=== PATIENT | male | born 1955 | race Caucasian/White ===

== ENCOUNTER 2016-09-08 11:33 | Inpatient (IN) | payer OTHER ==
[~2016-09-08] VITALS: Ht 175.3 cm; Wt 105.0 kg
[~2016-09-08 11:33] MED LIST: ALL300 PO; AMLO-110 PO; ASPEC81 PO; ATEN50TA PO; ATV5 PO; CHOL100027 PO; CINNAMON PO; COQ10100 PO; FLV1; FRS/40 PO; IMD/2 PO; KPP/750 PO; LISI-725 PO; MULT-506 PO; NRN/300 PO; OMEG10007 PO; SERT50TA PO; THIA50TA3 PO
[2016-09-08] MEDS ORDERED: CITA40TA12 PO (12:47)
[2016-09-08] MEDS ORDERED: ONDA8TAB6 PO (12:47)
[2016-09-08] MEDS ORDERED: PROC1TAB5 PO (12:47)
[2016-09-08 13:27] LABS: INR 1.1 (0.9-1.1); PARTIAL THROMBOPLASTIN RATIO 1.1; PROTHROMBIN TIME (PATIENT) 11.4 SECONDS (9.0-12.0)
--- NOTE | 2016-09-08 13:27 | DIAGNOSTIC IMAGING REPORT ---
RIGHT LOWER EXTREMITY VENOUS DOPPLER CLINICAL HISTORY: Right lower leg swelling. COMPARISON STUDY: No previous studies for comparison. TECHNIQUE: Sonography of the deep venous system of the right lower extremity was performed. Compression and augmentation were evaluated. FINDINGS: The right common femoral, superficial femoral and popliteal veins were compressible. Augmentation was normal. Flow was shown within the deep calf vessels. Note was made of a 3.4 x 1.3 x 1.6 cm right inguinal lymph node. This contained a fatty hilum. The cortex is slightly thickened. IMPRESSION: 1. No evidence of deep venous thrombus within the right lower extremity. 2. Mildly enlarged right inguinal lymph node which contains a fatty hilum with slightly thickened cortex. This is probably benign and may be reactive. Electronically signed by: Jakob Brewster M.D. 09/08/2016 1:26 PM Dictated Date/Time: 09/08/2016 1:25 PM
[2016-09-08 13:33] LABS: HEMATOCRIT 30.5 % (42-52); MEAN CELL VOLUME 91.9 fL (80-100); MEAN CORPUSCULAR HEMOGLOBIN 32.2 pg (25-34); MEAN CORPUSCULAR HGB CONC 35.1 g/dl (32-36); MEAN PLATELET VOLUME 9.7 fL (7.4-10.4); PLATELET COUNT 132 K/uL (130-400); RED BLOOD COUNT 3.32 M/uL (4.7-6.1)
[2016-09-08 13:50] LABS: BUN/CREATININE RATIO 17.4 (10-20); CREATININE 0.84 mg/dl (0.60-1.40); POTASSIUM 3.8 mmol/L (3.5-5.1)
[2016-09-08] MEDS ORDERED: VANCOMYCIN INJ 1,000 MG in SODIUM CHLORIDE 0.9% 250ML 250 ML IV STA (14:01)
[2016-09-08] MEDS ORDERED: PIPERACILLIN/TAZOBACTAM 4.5 GM/100ML D5W IV STA (14:01)
[2016-09-08 14:12] LABS: COMPLETE YES; EOS % 1.3 %; IG% 0.6 %; LYMPH % 57.5 %; LYMPH ABS # 0.92 K/uL (1.2-3.4); MONO % 6.3 %; NEUT % 34.3 %
--- NOTE | 2016-09-08 15:14 | History and Physical ---
History & Physical Date & Time of Service: September 08, 2016 at 15:14 Chief Complaint: Swollen Foot Possible Cellulitis Primary Care Physician: Gini Roe M.D. History of Present Illness Source: patient this is 61 Yo male with hx of CLL on chemo tx with Rituximab /Bendamustine by Dr Winston Roe , Hx of prior alcohol dependency , chronic bilateral lower ext neuropathy, prior hx of MRSA infection , depression , HTN , GERD sent form Hematology office at [facility] due to concern of Right foot/rt great toe infection , cellulitis . Pt been diagnosed with B cell CLL in 10/2009 , completed 4 cycles of Rituximab/ Bendamustine combination chemotherapy on early May, 2014 has been in remission since recent blood work on 08/13/16 showed WBC 32 K , platelets 75 K , with absolute lymphocyte count of 28 K pt is started back on chemo tx Ist cycle given on Wednesday08/25/16 pt was at [facility] onc clinic for follow up appointment post chemo and lab check found to have swollen and red right foot , right great toe , with an open wound at the tip of rt great toe with serous drainage pt has hx of chronic neuropathy -denies of any pain or discomfort , does not remember having trauma no complain of fever or chills due to significant immunocompromised state with recent chemo tx /CLL /high risk for venous thromboembolism pt was directed to ER at [facility] in the ER pt found to be Neutropenic with ANC < 1 K , Rt foot form rt great toe to dorsum of foot was red/increased warmth , + 1-2 lower ext edema Doppler of lower ext was negative for DVT Past Medical/Surgical History Medical Problems: (1) Alcohol abuse Status: Resolved (2) History of - hypertension Status: Chronic (3) PERSONAL HX OF TIA,& CEREBRAL INFARCTION W/OUT RES DEFICITS Status: Resolved Social History Smoking Status: Never Smoker Drug Use: none Marital Status: single Housing status: lives alone Occupational Status: unemployed Immunizations History of Influenza Vaccine: No Influenza Vaccine Date: Mar 04, 2009 History of Tetanus Vaccine?: No History of Pneumococcal: Unknown History of Hepatitis B Vaccine: No Allergies Coded Allergies: No Known Allergies (Verified , NONE, 09/08/16) Home Medications Scheduled Allopurinol (Allopurinol), 300 MG PO DAILY Amlodipine (Norvasc), 5 MG PO DAILY Aspirin Enteric Coated (Ecotrin Or Generic *), 81 MG PO DAILY Atenolol (Tenormin), 50 MG PO DAILY Cholecalciferol (Vitamin D 1000 Unit), 1,000 INTER.UNIT PO DAILY Citalopram Hydrobromide (Celexa), 40 MG PO DAILY Coenzyme Q10 (Ubidecarenone) (Co Q10 *), 200 CAP PO DAILY Fish Oil ([place]-3), 1 CAP PO DAILY Folic Acid (Folic Acid), DAILY Gabapentin (Neurontin), 900 MG PO TID Levetiracetam (Keppra), 750 MG PO BID Lisinopril (Zestril), 20 MG PO DAILY Lorazepam (Ativan *), 0.5 MG PO BID PRN Multivitamin (Multivitamin), 1 TAB PO DAILY Sertraline (Zoloft), 50 MG PO BID Thiamine Hcl (Vitamin B-1), 50 MG PO DAILY [Cinnamon], 500 MG PO DAILY Scheduled PRN Ondansetron Hcl (Zofran), 8 MG PO TID PRN for Nausea Prochlorperazine Maleate (Compazine), 10 MG PO Q6H PRN for Nausea Review of Systems Constitutional: + chills, + fatigue, + weakness Respiratory: No cough, No dyspnea at rest, No dyspnea on exertion, No hemoptysis, No problem reported, No shortness of breath, No sputum, No wheezing Musculoskeletal: + problem reported (rt great toe infection ) Neurologic: + balance problems (neuropathy ) Physical Exam Vital Signs Date Time Temp Pulse Resp B/P Pulse Ox O2 Delivery O2 Flow Rate FiO2 09/08/16 13:40 78 18 123/56 96 Room Air 09/08/16 11:40 36.7 89 20 135/80 95 Room Air General Appearance: no apparent distress Eyes: sclerae normal Respiratory/Chest: chest non-tender, lungs clear, normal breath sounds Cardiovascular: regular rate, rhythm Abdomen/GI: normal bowel sounds, non tender, soft Neurologic/Psych: alert, normal mood/affect, oriented x 3 Diagnostics Laboratory Results Results Past 24 Hours Test 09/08/16 12:38 09/08/16 15:00 Range/Units White Blood Count 1.60 4.8-10.8 K/uL Red Blood Count 3.32 4.7-6.1 M/uL Hemoglobin 10.7 14.0-18.0 g/dL Hematocrit 30.5 42-52 % Mean Corpuscular Volume 91.9 80-100 fL Mean Corpuscular Hemoglobin 32.2 25-34 pg Mean Corpuscular Hemoglobin Concent 35.1 32-36 g/dl Platelet Count 132 130-400 K/uL Mean Platelet Volume 9.7 7.4-10.4 fL Neutrophils (%) (Auto) 34.3 % Lymphocytes (%) (Auto) 57.5 % Monocytes (%) (Auto) 6.3 % Eosinophils (%) (Auto) 1.3 % Basophils (%) (Auto) 0.0 % Neutrophils # (Auto) 0.55 1.4-6.5 K/uL Lymphocytes # (Auto) 0.92 1.2-3.4 K/uL Monocytes # (Auto) 0.10 0.11-0.59 K/uL Eosinophils # (Auto) 0.02 0-0.5 K/uL Basophils # (Auto) 0.00 0-0.2 K/uL RDW Standard Deviation 48.5 36.4-46.3 fL RDW Coefficient of Variation 14.7 11.5-14.5 % Immature Granulocyte % (Auto) 0.6 % Immature Granulocyte # (Auto) 0.01 0.00-0.02 K/uL Prothrombin Time 11.4 9.0-12.0 SECONDS Prothromb Time International Ratio 1.1 0.9-1.1 Activated Partial Thromboplast Time 29.3 21.0-31.0 SECONDS Partial Thromboplastin Ratio 1.1 Sodium Level 136 136-145 mmol/L Potassium Level 3.8 3.5-5.1 mmol/L Chloride Level 102 98-107 mmol/L Carbon Dioxide Level 28 21-32 mmol/L Anion Gap 6.0 3-11 mmol/L Blood Urea Nitrogen 15 7-18 mg/dl Creatinine 0.84 0.60-1.40 mg/dl Est Creatinine Clear Calc Drug Dose 111.7 ml/min Estimated GFR () 108.8 Estimated GFR (Non- 93.8 BUN/Creatinine Ratio 17.4 10-20 Random Glucose 89 70-99 mg/dl Calcium Level 8.0 8.5-10.1 mg/dl Microbiology Results 09/08/16 Blood Culture, Received Pending 09/08/16 Blood Culture, Received Pending Diagnostic Radiology RIGHT LOWER EXTREMITY VENOUS DOPPLER CLINICAL HISTORY: Right lower leg swelling. COMPARISON STUDY: No previous studies for comparison. TECHNIQUE: Sonography of the deep venous system of the right lower extremity was performed. Compression and augmentation were evaluated. FINDINGS: The right common femoral, superficial femoral and popliteal veins were compressible. Augmentation was normal. Flow was shown within the deep calf vessels. Note was made of a 3.4 x 1.3 x 1.6 cm right inguinal lymph node. This contained a fatty hilum. The cortex is slightly thickened. IMPRESSION: 1. No evidence of deep venous thrombus within the right lower extremity. 2. Mildly enlarged right inguinal lymph node which contains a fatty hilum with slightly thickened cortex. This is probably benign and may be reactive. Impression Assessment and Plan LOWER EXT CELLULITIS /RT GREAT TOE INFECTION : - non healing infection of rt great toe , in setting of neuropathy -cont empiric abx with Vanco .Zosyn blood culture/wound culture ordered ID eval requested lower ext Doppler negative for DVT NEUTROPENIA : possible due to recent chemo tx follow CBC ordered for neutropenic precaution Heme onc consult requested HX OF CLL ON CHEMO TX follow with Heme onc Dr Roe Consult requested SEIZURE DISORDER : cont Keppra HTN: BP stable cont Atenolol HX OF PERIPHERAL NEUROPATHY cont Neurontin FULL CODE DISPOSITION ; expected to be discharged home when medially stable Medicine follow up with Dr Gini Roe Level of Care Med/Surg Resuscitation Status FULL RESUSCITATION VTE Prophylaxis VTE Risk Assessment Done? Y/N: Yes Risk Level: Moderate Given or contraindicated: Unfractionated heparin SQ Additional Copies To Gini Roe M.D. Patel, Nilesh A., M.D.
[2016-09-08] MEDS ORDERED: PROCHLORPERAZINE MALEATE 10 MG TAB PO PRN (15:15)
[2016-09-08] MEDS ORDERED: ALUMINUM/MAGNESIUM/SIMETH (MAALOX MAX) 30 ML UDC PO PRN (15:15)
[2016-09-08] MEDS ORDERED: ACETAMINOPHEN 325 MG TAB PO PRN (15:15)
[2016-09-08] MEDS ORDERED: MAGNESIUM HYDROXIDE SUSP 30 ML UDC PO PRN (15:15)
[2016-09-08] MEDS ORDERED: ONDANSETRON 8 MG TAB PO PRN (15:15)
[2016-09-08] MEDS ORDERED: ZOLPIDEM TARTRATE 5 MG TAB PO PRN (15:15)
[2016-09-08] MEDS ORDERED: LORAZEPAM 0.5 MG TAB PO PRN (15:15)
[2016-09-08] MEDS ORDERED: ONDANSETRON INJ 2 MG/ML 2 ML VIAL IV PRN (15:15)
[2016-09-08] MEDS ORDERED: POLYETHYLENE (MIRALAX) 17 GM PACK PO PRN (15:15)
[2016-09-08] MEDS ORDERED: VANCOMYCIN CONSULT ACTIVE PRN (15:30)
[2016-09-08] MEDS ORDERED: PIPERACILL/TAZOBAC CONSULT ACTIVE PRN (15:30)
--- NOTE | 2016-09-08 16:42 | Pharmacy Progress Note ---
Pharmacy Antibiotic Consult Date of Service: September 08, 2016. Pharmacy Dosing Scope Pharmacy is consulted to initiate Vancomycin/Zosyn IV dosing therapy, order appropriate labs and adjust drug dose/frequency. Subjective The patient is a 61 year old male admitted on empirically starting IV Vancomycin /Zosyn for right foot cellulitis. Objective Height (Feet): 5 Height (Inches): 10.00 Weight (Kilograms): 107.000 Lab Results (24hrs): Test 09/08/16 12:38 09/08/16 15:00 White Blood Count 1.60 K/uL (4.8-10.8) Red Blood Count 3.32 M/uL (4.7-6.1) Hemoglobin 10.7 g/dL (14.0-18.0) Hematocrit 30.5 % (42-52) Mean Corpuscular Volume 91.9 fL (80-100) Mean Corpuscular Hemoglobin 32.2 pg (25-34) Mean Corpuscular Hemoglobin Concent 35.1 g/dl (32-36) Platelet Count 132 K/uL (130-400) Mean Platelet Volume 9.7 fL (7.4-10.4) Neutrophils (%) (Auto) 34.3 % Lymphocytes (%) (Auto) 57.5 % Monocytes (%) (Auto) 6.3 % Eosinophils (%) (Auto) 1.3 % Basophils (%) (Auto) 0.0 % Neutrophils # (Auto) 0.55 K/uL (1.4-6.5) Lymphocytes # (Auto) 0.92 K/uL (1.2-3.4) Monocytes # (Auto) 0.10 K/uL (0.11-0.59) Eosinophils # (Auto) 0.02 K/uL (0-0.5) Basophils # (Auto) 0.00 K/uL (0-0.2) RDW Standard Deviation 48.5 fL (36.4-46.3) RDW Coefficient of Variation 14.7 % (11.5-14.5) Immature Granulocyte % (Auto) 0.6 % Immature Granulocyte # (Auto) 0.01 K/uL (0.00-0.02) Prothrombin Time 11.4 SECONDS (9.0-12.0) Prothromb Time International Ratio 1.1 (0.9-1.1) Activated Partial Thromboplast Time 29.3 SECONDS (21.0-31.0) Partial Thromboplastin Ratio 1.1 Sodium Level 136 mmol/L (136-145) Potassium Level 3.8 mmol/L (3.5-5.1) Chloride Level 102 mmol/L (98-107) Carbon Dioxide Level 28 mmol/L (21-32) Anion Gap 6.0 mmol/L (3-11) Blood Urea Nitrogen 15 mg/dl (7-18) Creatinine 0.84 mg/dl (0.60-1.40) Est Creatinine Clear Calc Drug Dose 111.7 ml/min Estimated GFR () 108.8 Estimated GFR (Non- 93.8 BUN/Creatinine Ratio 17.4 (10-20) Random Glucose 89 mg/dl (70-99) Calcium Level 8.0 mg/dl (8.5-10.1) Lactic Acid Level 0.6 mmol/L (0.4-2.0) Micro Results: Item Value Date Time Blood Culture Received 09/08/16 1244 Blood Pending Blood Culture Received 09/08/16 1238 Blood Pending Recent Pertinent Medications Item Value Date Time Piperacillin Sod/ 1 ea 09/08/16 1530 Tazobactam Sod UD PRN/N/A (Consult) Vancomycin HCl 1 ea 09/08/16 1530 (Consult) UD PRN/N/A Piperacillin Sod/ 4.5 gm 09/08/16 1401 Tazobactam Sod NOW STAT/IV 09/08/16 1418 (Zosyn Iv) Vancomycin HCl 270 ml @ 125 mls/hr 09/08/16 1401 1000 mg/Sodium NOW STAT/IV 09/08/16 1515 Chloride Assessment & Plan [age] yo male patient empirically starting IV Zosyn and IV Vancomycin for right foot cellulitis. Blood cultures have been drawn and are pending. Patient with BMI greater than 30 kg/m2 thus will adjust Vancomycin dosing to volume of distribution of 0.6 L/kg Patient received Vancomycin 1000mg (~9.3 mg/kg) X 1 dose at approximately 1515 hours today thus will skip the classic loading dose model and initiate maintenance dosing early this evening due to weight > 100 kg Vancomycin 1700 mg IV (~15.9 mg/kg) every 12 hours. Goal peak level estimate: between 25 - 40 mcg/mL. Goal trough level estimate: between 13 - 17 mcg/mL. Vancomycin trough level will be ordered for: 09/10/16 prior to the AM dose of IV Vancomycin Pharmacy will continue to follow and will adjust dose/frequency as necessary. Thank you
[2016-09-08 17:15] VITALS: BP 130/75; PULSE 94; TEMP 36.7; O2SAT 98; BMI 34.3
[2016-09-08] MEDS ORDERED: PIPERACILL/TAZOBAC IV 3.375 GM in DEXTROSE 5% 100ML 100 ML IV SCH (18:00)
[2016-09-08 19:24] VITALS: BP 105/67; PULSE 79; TEMP 36.4; O2SAT 96
[2016-09-08 19:42] LABS: URINE APPEARANCE CLEAR (CLEAR); URINE BILIRUBIN NEG (NEG); URINE COLOR YELLOW; URINE NITRITE NEG (NEG); URINE PH 6.5 (4.5-7.5); URINE SPECIFIC GRAVITY 1.008 (1.000-1.030); UROBILINOGEN NEG (NEG)
[2016-09-08 19:45] LABS: MANUAL MICROSCOPIC REQUIRED? NO; REVIEW REQ? NO
[2016-09-08] MEDS: LEVETIRACETAM 250 MG TAB PO SCH (19:52)
[2016-09-08] MEDS: GABAPENTIN 300 MG CAP PO SCH (19:52)
[2016-09-08] MEDS: SERTRALINE HCL 50 MG TAB PO SCH (19:53)
[2016-09-08] MEDS: PIPERACILL/TAZOBAC IV 3.375 GM in DEXTROSE 5% 100ML IV SCH (19:55)
[2016-09-08] MEDS: VANCOMYCIN INJ 1,700 MG in SODIUM CHLORIDE 0.9% 500ML 500 ML IV SCH (19:55)
[2016-09-08] MEDS: HEPARIN SOD 5000 UNIT/0.5 ML CARP SQ SCH (21:23)
[2016-09-09] VITALS (8 sets, daily range): BP systolic 97–130; BP diastolic 5–75; PULSE 60–81; TEMP 36.4–36.8; O2SAT 91–99
[2016-09-09] MEDS: PIPERACILL/TAZOBAC IV 3.375 GM in DEXTROSE 5% 100ML IV SCH ×3 (04:05→20:08)
[2016-09-09] MEDS: GABAPENTIN 300 MG CAP PO SCH ×3 (05:04→20:10)
[2016-09-09] MEDS: HEPARIN SOD 5000 UNIT/0.5 ML CARP SQ SCH ×3 (05:11→20:11)
[2016-09-09 06:49] LABS: HEMATOCRIT 31.3 % (42-52); MEAN CELL VOLUME 91.3 fL (80-100); MEAN CORPUSCULAR HEMOGLOBIN 30.6 pg (25-34); MEAN CORPUSCULAR HGB CONC 33.5 g/dl (32-36); MEAN PLATELET VOLUME 9.5 fL (7.4-10.4); PLATELET COUNT 133 K/uL (130-400); RED BLOOD COUNT 3.43 M/uL (4.7-6.1); WHITE BLOOD COUNT 1.63 K/uL (4.8-10.8)
[2016-09-09 07:12] LABS: CALCIUM 8.2 mg/dl (8.5-10.1); CREATININE 0.99 mg/dl (0.60-1.40); MAGNESIUM 2.4 mg/dl (1.8-2.4); POTASSIUM 3.8 mmol/L (3.5-5.1)
[2016-09-09 07:55] LABS: DOHLE BODIES 1+; SMUDGE CELLS PRESENT
[2016-09-09] MEDS ORDERED: COENZYME Q10 PO SCH (08:00)
[2016-09-09] MEDS ORDERED: ALLOPURINOL 300 MG TAB PO SCH (08:00)
[2016-09-09] MEDS ORDERED: CINNAMON 500 MG PO SCH (08:00)
[2016-09-09] MEDS ORDERED: AMLODIPINE BESYLATE 5 MG TAB PO SCH (08:00)
[2016-09-09] MEDS: SERTRALINE HCL 50 MG TAB PO SCH ×2 (08:12→20:11)
[2016-09-09] MEDS: ASPIRIN 81 MG ECTAB PO SCH (08:12)
[2016-09-09] MEDS: LEVETIRACETAM 250 MG TAB PO SCH ×2 (08:12→20:09)
[2016-09-09] MEDS: CITALOPRAM 40 MG TAB PO SCH (08:12)
[2016-09-09] MEDS: CHOLECALCIFEROL 1000 INTER.UNIT TAB PO SCH (08:12)
[2016-09-09] MEDS: VANCOMYCIN INJ 1,700 MG in SODIUM CHLORIDE 0.9% 500ML 500 ML IV SCH ×2 (08:12→20:09)
[2016-09-09] MEDS: OMEGA-3 (PURIFIED FISH OIL) 1 GM CAP PO SCH (08:13)
[2016-09-09] MEDS: THIAMINE HCL 50 MG TAB PO SCH (08:13)
[2016-09-09] MEDS: MULTIVITAMIN TAB PO SCH (08:14)
[2016-09-09 08:16] LABS: COMPLETE YES; EOSINOPHIL % 1.8 %; LYMPH ABS # 0.82 K/uL (1.2-3.4); LYMPHOCYTE % 50.4 %; MYELOCYTE % 0.9 %; NEUTROPHILS % 35.4 %; PROLYM# MAN 0.16 K/uL (0-0)
--- NOTE | 2016-09-09 09:35 | Clinical Documentation Query ---
MAGO Mccartney : CLINICAL DOCUMENTATION QUERIES QUERY 1 OF 2 H&P documentation includes "RT GREAT TOE INFECTION". There is no physical assessment of the integument documented. WOCN consultation order includes a note of a "wound/ulcer". An order exists for culture suggesting an open wound. As appropriate, please explicitly specify the type and severity of wound present in you patient. Thank you. In your clinical opinion is this patient being managed for: ( x ) (Pressure/diabetic/PAD associated/etc...) ulcer of great toe of right foot ( ) Other explanation of clinical findings (Please Explain) ( ) Unable to determine (Please Define) ( ) Need to Discuss ( ) Not Agree The medical record reflects the following clinical findings, treatment, and risk factors. Clinical Indicators: As above Treatment: WOCN consultation, empiric antibiotics, blood cultures Risk Factors: Age, hypertension, immobility, self care deficits QUERY 2 OF 2 Documentation includes "sepsis" in the setting of right lower extremity cellulitis. However, EMR review fails to demonstrate clinical indicators corroborating this diagnosis. Patient is afebrile, with normal HR, RR, and BP. Lactic acid was within normal limits. In order to prevent the possibility of denial through chart audit, please provide clinical indicators for this diagnosis. Conversely, if you think this diagnosis was made in error and/or do not agree with it, simply discontinue documentation thereof. Thank you. In your clinical opinion is this patient being managed for: ( ) Sepsis ( ) Other explanation of clinical findings (Please Explain) ( ) Unable to determine (Please Define) ( ) Need to Discuss ( x) Not Agree The medical record reflects the following clinical findings, treatment, and risk factors. Please clarify and document your clinical opinion in the progress notes and discharge summary. Terms such as "probable", "suspected", "likely", "questionable", "possible", or "still to be ruled out" are acceptable. IF IN AGREEMENT, YOU MUST DOCUMENT ABOVE DIAGNOSTIC STATEMENT IN DAILY PROGRESS NOTES AND DISCHARGE SUMMARY. This document is not part of the patient's record. Thank You, Lauro Ku, SHILO [phone]
[2016-09-09] MEDS: FUROSEMIDE 20 MG TAB PO SCH (10:05)
--- NOTE | 2016-09-09 10:33 | Hematology/Oncology Prog Note ---
Hematology/Onc Progress Note Date of Service September 09, 2016. Subjective 61-year-old male Hematological diagnosis: -B-cell CLL initially diagnosed in October, (IgVH mutation unmutated, CLL FISH normal result). - S/P 4 cycles of bendamustine Rituxan between February,-May, ( treated because of anemia, hemoglobin level is around 7.9 g/dL and platelet count was around 78,000). Current treatment: -started on bendamustine Rituxan combination on 08/25/2016. (Because of rise in the white blood cell count, lymphocyte count, drop in the platelet count to around 75,000). Other comorbid conditions: -history of alcohol abuse in the past, -bilateral lower extremity neuropathy. (Nondiabetic) -seizure disorder. -history of TIA in the past. No focal neurological symptoms. -GERD. -hypertension -chronic migrainous headache. -depression. Now he is admitted at [facility] on 09/08/2016 for right great toe infection which is going on for the last several months, had received antibiotic treatment as an outpatient, he also received steroid therapy for the same in the recent past.. He denies any fever, presently he is receiving IV antibiotic in the form of vancomycin and Zosyn. Also has experienced some right lower extremity edema distally. Doppler evaluation negative for DVT. No new cardiac or pulmonary symptoms, has neuropathy symptoms, no new seizure, he is on Keppra. No increasing night sweats, no weight loss. No headache. No focal neurological symptoms. Denies any abdominal symptoms. No increasing nausea or vomiting. He denies any bleeding from any sites. REVIEW OF SYSTEMS: CONST: no weight loss, no fever, some fatigue present. No frequent night sweats. No chills. EYES: no recent changes in vision, no double vision ENT: no changes in hearing, no sinus problems, no sore throat, no hoarseness, no enlarged nodes in neck. RESP: no cough, no wheezing, no SOB, no change in breathing, no hemoptysis. No chest pain. CVS: no anginal pain, no dyspnea, no palpitations, mild left leg edema present distally. GI: no melena, no hematemesis, no vomiting, no diarrhea, no constipation, no abdominal pain. No distension of the abdomen. : no dysuria, no hematuria, no frequency of urination. MSK: no joint pains, no new arthritis, no back pain. PSYCH: no anxiety, no depression. HEME: no bleeding tendency, no new blood clot. NEURO: no significant headache, no seizures, no strokes,no dizziness, no speech difficulty, neuropathy symptoms in both lower extremities present. No memory changes. SKIN: no new rashes, no itching. On exam: - Alert and oriented x3, well built man, not in any distress. - HEENT: no icterus, no pallor, Throat: Normal. - Neck: No palpable cervical lymphadenopathy. - Chest: clear to auscultation. - Abdomen: soft, nontender, no hepatomegaly, no splenomegaly. - No focal neuro deficit. - Extremities: no finger clubbing, mild right ankle edema present. - No palpable axillary lymphadenopathy. -WBC 74134, H&H of 14/40, [place] [address], ANC 3700, absolute lymphocyte count 33,000, LDH 298, BUN/Creat: 15/1.1, total bilirubin 1.1, AST 71, ALT 9, alkaline phosphatase 64, uric acid--> 7.8 (08/13/2016, before start of chemotherapy with bendamustine and Rituxan). -WBC 1600, H&H of 10.7/30, Platelet count of 132,000, ANC 550, absolute lymphocyte count 920 (09/08/2016). -BUN/Creat: 15/0.8 ASSESSMENT AND PLAN: 61-year-old male, a case of B-cell CLL diagnosed in 2009, initially he remained under observation but noticed to have drop in the hemoglobin and platelet count in 2013, he received 4 cycles of bendamustine Rituxan with good response, he did quite well for 2 years and now once again gradual rise in the white blood cell count (mainly lymphocyte count closely, once again thrombocytopenia platelet count dropped down to around 75,000. Recently he received the same combination chemotherapy in the form of bendamustine and Rituxan on 08/25/2016 and 08/26/2016. His ANC was around 3700 before we started him on chemotherapy. Now he is admitted for chronic right great toe infection for the last several months, receiving IV antibiotic in the form of Zosyn and vancomycin. No other systemic signs of infection. Blood workup done during this hospitalization showed neutropenia with ANC around 500. Previously palpable lymph nodes have gone down significantly. Platelet count has improved. Neutropenia is because of recent chemotherapy treatment bendamustine Rituxan, it is not because of overwhelming infection. Neutropenia is likely to improve in the next the few days or within 1 week. Does not require any Neupogen support at this time. He is due for 2nd cycle of chemotherapy with bendamustine and Rituxan next week but I would like to hold the treatment at this time. Once he is discharged from the hospital, will see him in the office and then will decide about next cycle of chemotherapy. No evidence of tumor lysis noted. Now we can stop allopurinol. Thanks for the consultation. Dr. Winston Roe Hem/Onc (This note was completed using the dictation program Fluency Direct. As such, there may be misspellings, word substitutions, or other variations that should not change the essence of the clinical content of this encounter note. If there is need for further clarification, please direct questions to the provider listed above.) Vital Signs Vital Signs Past 12 Hours Date Time Temp Pulse Resp B/P Pulse Ox O2 Delivery O2 Flow Rate FiO2 09/09/16 08:00 91 Room Air 09/09/16 07:51 36.6 80 20 123/73 91 Room Air 09/09/16 04:19 36.7 71 20 130/5 97 Room Air 09/09/16 00:09 36.7 81 20 120/75 96 Room Air 09/09/16 00:00 Room Air
--- NOTE | 2016-09-09 10:50 | Progress Note ---
Progress Note Date of Service September 09, 2016. Progress Note ID Consult Dictated #[id number] A/P: 1. Right foot cellulitis 2. Neutropenia/ CLL on chemo -Continue IV abx for now, follow cultures -will follow, karen
--- NOTE | 2016-09-09 13:45 | INFECT. DISEASE CONSULTATION ---
DATE OF CONSULTATION: 09/09/2016 REQUESTING PHYSICIAN: Dr. Soto. HISTORY OF PRESENT ILLNESS: This is a 61-year-old gentleman who was admitted from the cancer center yesterday after he was noticed to have right foot cellulitis. He states he does have underlying neuropathy and has noticed recently increased swelling and erythema. He has not been on any antibiotics as an outpatient. He was found to have a wound superficial on the first toe and a culture of this was obtained yesterday. Gram stain is negative and final cultures pending. Blood cultures were obtained and are pending as well. He does have neutropenia as it relates to chemotherapy for CLL. His white blood cell count today is 1.6. He was started empirically on vancomycin and Zosyn and he is tolerating these antibiotics well. He is afebrile. He denies any subjective fevers and chills at home prior to admission. He denies any drainage from the foot. He is able to ambulate without difficulty. He does not have any pain; however, he does have underlying neuropathy and states that this is likely factoring in. He denies any chest pain, cough, shortness of breath, nausea, vomiting, diarrhea or abdominal pain. All remaining review of systems are reviewed and are negative. PAST MEDICAL HISTORY: He has a history of hypertension, TIA, history of CLL, recently restarted on chemotherapy and a history of alcohol abuse. FAMILY HISTORY: Noncontributory. SOCIAL HISTORY: Negative for tobacco use and drug use. He currently denies any alcohol. ALLERGIES: He has no known drug allergies. FAMILY HISTORY: Noncontributory. CURRENT MEDICATIONS: Include folic acid, lisinopril, Lasix, allopurinol, Ecotrin, atenolol, vitamin D, Celexa, fish oil, multivitamins, vitamin B, subQ heparin, vancomycin, Neurontin, Keppra, Zoloft, Zosyn, Tylenol, Maalox, milk of magnesia, MiraLax, Ambien, Zofran, Ativan, Compazine. PHYSICAL EXAMINATION: VITAL SIGNS: He is afebrile, pulse 80, respiratory rate is 20, blood pressure is 123/73, oxygen saturation is 91%-96% on room air. GENERAL: He is awake, alert and oriented x3. He is in no acute distress. HEENT: Mucous membranes are moist. Extraocular muscles are intact. He is out of bed to chair. HEART: Regular. LUNGS: Clear bilaterally. ABDOMEN: Soft, nontender, nondistended. There is right foot edema and erythema to the mid to dorsal aspect of the foot. There is no warmth or tenderness to palpation. Dressing is removed over the first toe. The dressing is clean, dry and intact. There is a superficial abrasion over the tip of the first toe. I am unable to express any purulent drainage. LABORATORY STUDIES: CBC today reveals a white blood cell count of 1.6, hemoglobin 10.5 and platelets are 133. Chemistry panel reveals a sodium of 138, potassium 3.8, chloride 105, bicarbonate 25, BUN 15, creatinine 0.9, glucose is 86. Urinalysis in the ER is unremarkable. Blood cultures are pending. Wound culture is pending. There are no previous wound cultures in the system of lower extremity done. The right lower extremity shows no DVT and lymphadenopathy is noted. ASSESSMENT AND PLAN: Cellulitis of the right foot. He can continue on empiric antibiotics at this time pending the results of culture. If anything grows, his antibiotics will be tailored to treat this. Otherwise, he will likely transition to oral antibiotic therapy to treat likely skin doyle as pathogens. We will follow along with you. Thank you for this consultation.
--- NOTE | 2016-09-09 15:12 | EMERGENCY ROOM VISIT NOTE ---
ED Visit Note First contact with patient: 12:10 Chief Complaint: Right foot infection and right lower leg swelling. History of Present Illness: Mr. Alexandra is a 61-year-old white male who ambulates into the ED complaining of a right great toe infection and right lower leg swelling. Historically patient has a history of chronic lymphocyte leukemia. He also has a history of recurrent right great toe cellulitis and lower leg neuropathy. Patient reports he was at the [facility] prior to coming to the hospital and was referred to the ED for evaluation of his right lower leg swelling. He reports the clinic were concerned about a possible DVT. Additionally patient reports he noticed his right great toe becoming red and swollen over the last 2 days. He reports this is similar to his previous right great toe cellulitis. Because of his neuropathy currently he is not having any pain in his leg or foot. He has not taken any medications for his symptoms. He reports intermittently he has been having some chills related to the infection in the toe but no gilbert fevers. He denies any associated symptoms including other skin eruptions, other skin color changes, upper respiratory tract symptoms, cough, wheezing, shortness of breath, chest pain, palpitations, orthopnea, previous clots, claudication, cramping, recent surgery/inactivity/ extended travel, abdominal pain, decreased appetite, nausea, vomiting, worsening neuropathy. Lastly patient reports he is between chemotherapy appointments and his next scheduled chemotherapy appointment is in approximately one week. Review of Systems: As noted above in history of present illness. All body systems were reviewed and found to be negative as noted above. Past Medical History: As previously noted and hypertension, alcohol abuse, migraine headaches, adjustment disorder with depression, status post CVA/TIA, seizure disorder, esophageal reflux and status post inguinal hernia repair. Current Medications: Medications Dose Route/Sig Max Daily Dose Days Date Category Dose Instructions Compazine (Prochlorperazine Maleate) 10 Mg Tab 10 Mg PO Q6H PRN 09/08/16 Reported NAUSEA/VOMITING Zofran (Ondansetron HCl) 8 Mg Tab 8 Mg PO TID PRN 09/08/16 Reported Celexa (Citalopram Hydrobromide) 40 Mg Tab 40 Mg PO DAILY 09/08/16 Reported Vitamin B-1 (Thiamine HCl) 50 Mg Tab 50 Mg PO DAILY 03/21/14 Reported Folic Acid 1 Mg Tab DAILY 03/21/14 Reported Vitamin D 1000 Unit (Cholecalciferol) 1,000 Unit Cap 1,000 Inter.unit PO DAILY 03/21/14 Reported Keppra (Levetiracetam) 750 Mg Tab 750 Mg PO BID 03/21/14 Reported Allopurinol 300 Mg Tab 300 Mg PO DAILY 03/21/14 Reported Neurontin (Gabapentin) 300 Mg Cap 900 Mg PO TID 10/20/12 Reported Tenormin (Atenolol) 50 Mg Tab 50 Mg PO DAILY 10/20/12 Reported Ecotrin Or Generic * (Aspirin) 81 Mg Ectab 81 Mg PO DAILY 01/23/11 Reported Norvasc (Amlodipine Besylate) 5 Mg Tab 5 Mg PO DAILY 01/23/11 Reported Co Q10 * (Coenzyme Q10) 100 Mg Cap 200 Cap PO DAILY 01/23/11 Reported [Cinnamon] 500 Mg PO DAILY 01/23/11 Reported Ativan * (Lorazepam) 0.5 Mg Tab 0.5 Mg PO BID PRN 01/23/11 Reported Zestril (Lisinopril) 20 Mg Tab 20 Mg PO DAILY 03/03/09 Reported Waldron-3 (Fish Oil) 1 Ea Cap 1 Cap PO DAILY 03/02/09 Reported Multivitamin (Multivitamins) Tab 1 Tab PO DAILY 03/02/09 Reported CENTRUM Zoloft (Sertraline HCl) 50 Mg Tab 50 Mg PO BID 08/24/07 Reported Allergies to Medications: Patient denies. Social History: Patient is not currently employed; he feels safe in his home; he denies tobacco and alcohol use. Physical Examination: Vital Signs: Date Time Temp Pulse Resp B/P Pulse Ox O2 Delivery O2 Flow Rate FiO2 09/08/16 13:40 78 18 123/56 96 Room Air 09/08/16 11:40 36.7 89 20 135/80 95 Room Air GENERAL: 61-year-old male in no acute distress, nontoxic-appearing, afebrile and hemodynamically stable. NEUROLOGICAL: Awake, alert and oriented to person, place and time. Answering questions appropriately and following commands. Normal gait. Good hand eye coordination. SKIN: Warm, dry and pink. Right Foot: Redness and swelling of the great toe extending into the top of the foot. The skin appear cellulitic and is hot to touch. No lymphangitis on my initial examination. Approximately 1.5 hours in the patient's ED stay he then had lymphangitis up the anterior lower leg. HEENT: Atraumatic and normocephalic. PERRLA. Sclera white and conjunctiva pink. No drainage from naris. Oral cavity moist and pink. Pharynx is nonerythematous or edematous. Speech normal. No lymphadenopathy. Trachea midline. No jugular venous distention. BACK: No tenderness over the bony spine. No CVA tenderness. THORAX: Lungs sounds are clear to auscultation and equal bilaterally with symmetrical chest wall. No wheezing, rales or rhonchi. No crepitus, tenderness , subcutaneous air or deformities noted. HEART: Regular rate and rhythm. No gallops, rubs or murmurs are appreciated. ABDOMEN: Flat, soft and nontender. Positive bowel sounds in all quadrants. No guarding, rigidity or organomegaly. EXTREMITIES: Moves all extremities well on command and with purpose. Distal pulses intact and equal bilaterally. Capillary refill is brisk. He was not able to distinguish light sensations. Right lower leg is swollen from just inferior to the patella to the level of the ankle. There is +1 pitting edema. No calf tenderness or cords. ED Course: Patient is assessed as noted above. Laboratory Testing: Test 09/08/16 12:38 09/08/16 15:00 Range/Units White Blood Count 1.60 4.8-10.8 K/uL Red Blood Count 3.32 4.7-6.1 M/uL Hemoglobin 10.7 14.0-18.0 g/dL Hematocrit 30.5 42-52 % Mean Corpuscular Volume 91.9 80-100 fL Mean Corpuscular Hemoglobin 32.2 25-34 pg Mean Corpuscular Hemoglobin Concent 35.1 32-36 g/dl Platelet Count 132 130-400 K/uL Mean Platelet Volume 9.7 7.4-10.4 fL Neutrophils (%) (Auto) 34.3 % Lymphocytes (%) (Auto) 57.5 % Monocytes (%) (Auto) 6.3 % Eosinophils (%) (Auto) 1.3 % Basophils (%) (Auto) 0.0 % Neutrophils # (Auto) 0.55 1.4-6.5 K/uL Lymphocytes # (Auto) 0.92 1.2-3.4 K/uL Monocytes # (Auto) 0.10 0.11-0.59 K/uL Eosinophils # (Auto) 0.02 0-0.5 K/uL Basophils # (Auto) 0.00 0-0.2 K/uL RDW Standard Deviation 48.5 36.4-46.3 fL RDW Coefficient of Variation 14.7 11.5-14.5 % Immature Granulocyte % (Auto) 0.6 % Immature Granulocyte # (Auto) 0.01 0.00-0.02 K/uL Prothrombin Time 11.4 9.0-12.0 SECONDS Prothromb Time International Ratio 1.1 0.9-1.1 Activated Partial Thromboplast Time 29.3 21.0-31.0 SECONDS Partial Thromboplastin Ratio 1.1 Sodium Level 136 136-145 mmol/L Potassium Level 3.8 3.5-5.1 mmol/L Chloride Level 102 98-107 mmol/L Carbon Dioxide Level 28 21-32 mmol/L Anion Gap 6.0 3-11 mmol/L Blood Urea Nitrogen 15 7-18 mg/dl Creatinine 0.84 0.60-1.40 mg/dl Est Creatinine Clear Calc Drug Dose 111.7 ml/min Estimated GFR () 108.8 Estimated GFR (Non- 93.8 BUN/Creatinine Ratio 17.4 10-20 Random Glucose 89 70-99 mg/dl Calcium Level 8.0 8.5-10.1 mg/dl Lactic Acid Level 0.6 0.4-2.0 mmol/L Blood Culture: Pending Patient was reassessed multiple times during his stay in the emergency department. Patient's case was reviewed with Dr. Diaz; we agreed on diagnostic approach, treatment, disposition and plan. Patient's case was consulted with the ED pharmacist for appropriate antibiotic coverage; he recommended Zosyn and vancomycin; Zosyn was initiated prior to admission. Patient's case was consulted with case management and Dr. Soto, [facility] hospitalist, for medical observation/admission. Patient was educated about today's findings. Clinical Impression: Right great toe/foot cellulitis. Acute neutropenia. Decision-Making: Initially my differential diagnosis I considered cellulitis, gout, ingrown toenail, sepsis and other causes. Disposition and Plan: Patient be brought in the hospital by Dr. Soto; please see her notes and orders for final disposition and plan.
--- NOTE | 2016-09-09 21:48 | Progress Note ---
Internal Med Progress Note Date of Service: September 09, 2016. Provider Documentation: SUBJECTIVE: feels much better today no fever or chills rt foot pain and swelling improving OBJECTIVE: Vital Signs-as noted below Exam: General-no sign of distress Eyes-sclera non icteric Lungs-CTA Heart-regular S1/S2 Abdomen-soft, non tender Extremities-rt foot erythema and swelling has improved , small shallow ulcer on tip of rt great toe Neuro-AAO x3, no focal deficit Lab data as noted below. ASSESSMENT & PLAN: LOWER EXT CELLULITIS /RT GREAT TOE INFECTION : - non healing infection of rt great toe , in setting of neuropathy no evidence of sepsis no fever or chills , remains stable hemodynamically Neutropenia due to recent chemo tx improved clinically -cont empiric abx with Vanco .Zosyn blood culture/wound culture ordered -report pending wound gram stain -no WBC, no organism ID eval requested -appreciate input plan to transition to Oral abx in next 24-48 hrs possible covering skin doyle lower ext Doppler negative for DVT NEUTROPENIA : possible due to recent chemo tx follow CBC ordered for neutropenic precaution Heme onc consult requested -appreciate input no indication for Neupogen tx pt's next scheduled Chemo in next week will be kept on hold out pt repeat CBC and follow up with heme onc in office for further recommendation HX OF CLL ON CHEMO TX follow with Heme onc Dr Roe Consult appreciated D/c Allopurinol as there is no evidence of Tumor Lysis syndrome SEIZURE DISORDER : cont Keppra HTN: BP stable cont Atenolol HX OF PERIPHERAL NEUROPATHY cont Neurontin FULL CODE DVT PROPHYLAXIS moderate to high risk Sub q Lovenox DISPOSITION ; expected to be discharged home when medially stable Medicine follow up with Dr Gini Roe Vital Signs: Date Time Temp Pulse Resp B/P Pulse Ox O2 Delivery O2 Flow Rate FiO2 09/09/16 19:47 36.4 75 20 127/74 98 Room Air 09/09/16 16:00 Room Air 09/09/16 14:38 36.8 60 18 102/50 98 Room Air 09/09/16 11:52 36.4 68 20 118/69 99 Room Air 09/09/16 08:00 91 Room Air 09/09/16 07:51 36.6 80 20 123/73 91 Room Air 09/09/16 04:19 36.7 71 20 130/5 97 Room Air 09/09/16 00:09 36.7 81 20 120/75 96 Room Air 09/09/16 00:00 Room Air Lab Results: Results Past 24 Hours Test 09/09/16 06:20 Range/Units White Blood Count 1.63 4.8-10.8 K/uL Red Blood Count 3.43 4.7-6.1 M/uL Hemoglobin 10.5 14.0-18.0 g/dL Hematocrit 31.3 42-52 % Mean Corpuscular Volume 91.3 80-100 fL Mean Corpuscular Hemoglobin 30.6 25-34 pg Mean Corpuscular Hemoglobin Concent 33.5 32-36 g/dl Platelet Count 133 130-400 K/uL Mean Platelet Volume 9.5 7.4-10.4 fL RDW Standard Deviation 48.2 36.4-46.3 fL RDW Coefficient of Variation 14.8 11.5-14.5 % Neutrophils % (Manual) 35.4 % Lymphocytes % (Manual) 50.4 % Prolymphocyte % 9.7 % Monocytes % (Manual) 1.8 % Eosinophils % (Manual) 1.8 % Myelocytes % 0.9 % Neutrophils # (Manual) 0.58 1.4-6.5 K/uL Total Absolute Neutrophils 0.58 1.4-6.5 K/uL Lymphocytes # (Manual) 0.82 1.2-3.4 K/uL Prolymphocyte # 0.16 0-0 K/uL Total Absolute Lymphocytes 0.82 1.2-3.4 K/uL Monocytes # (Manual) 0.03 0.11-0.59 K/uL Eosinophils # (Manual) 0.03 0-0.5 K/uL Myelocytes # 0.01 0-0 K/uL Smudge Cells PRESENT Dohle Bodies 1+ Peripheral Blood Smear Path Consult Sodium Level 138 136-145 mmol/L Potassium Level 3.8 3.5-5.1 mmol/L Chloride Level 105 98-107 mmol/L Carbon Dioxide Level 25 21-32 mmol/L Anion Gap 8.0 3-11 mmol/L Blood Urea Nitrogen 15 7-18 mg/dl Creatinine 0.99 0.60-1.40 mg/dl Est Creatinine Clear Calc Drug Dose 91.7 ml/min Estimated GFR () 94.2 Estimated GFR (Non- 81.3 BUN/Creatinine Ratio 15.0 10-20 Random Glucose 86 70-99 mg/dl Calcium Level 8.2 8.5-10.1 mg/dl Magnesium Level 2.4 1.8-2.4 mg/dl Microbiology Results 09/09/16 Gram Stain - Final, Resulted 09/09/16 Wound Culture, Resulted Pending
[2016-09-10] MEDS: PIPERACILL/TAZOBAC IV 3.375 GM in DEXTROSE 5% 100ML IV SCH (03:50)
[2016-09-10 04:24] VITALS: BP 106/60; PULSE 65; TEMP 36.4; O2SAT 98
[2016-09-10 06:38] VITALS: BMI 34.0
[2016-09-10 07:29] LABS: HEMATOCRIT 31.2 % (42-52); MEAN CELL VOLUME 91.8 fL (80-100); MEAN CORPUSCULAR HEMOGLOBIN 31.5 pg (25-34); MEAN CORPUSCULAR HGB CONC 34.3 g/dl (32-36); PLATELET COUNT 130 K/uL (130-400); WHITE BLOOD COUNT 1.58 K/uL (4.8-10.8)
[2016-09-10] MEDS ORDERED: VANCOMYCIN TROUGH ONE (07:30)
[2016-09-10 08:03] LABS: BUN/CREATININE RATIO 14.4 (10-20); CREATININE 0.98 mg/dl (0.60-1.40); MAGNESIUM 2.4 mg/dl (1.8-2.4); POTASSIUM 3.9 mmol/L (3.5-5.1)
[2016-09-10 08:09] VITALS: BP 111/72; PULSE 84; TEMP 36.6; O2SAT 98
[2016-09-10 08:11] LABS: COMPLETE YES; DOHLE BODIES 1+; EOS % 1.9 %; IG% 0.6 %; LARGE PLATELETS 1+; LYMPH % 60.1 %; LYMPH ABS # 0.95 K/uL (1.2-3.4); MONO % 9.5 %; NEUT % 27.9 %
[2016-09-10 08:46] LABS: CALCIUM 8.5 mg/dl (8.5-10.1)
[2016-09-10] MEDS: THIAMINE HCL 50 MG TAB PO SCH (08:46)
[2016-09-10] MEDS: ASPIRIN 81 MG ECTAB PO SCH (08:47)
[2016-09-10] MEDS: CHOLECALCIFEROL 1000 INTER.UNIT TAB PO SCH (08:47)
[2016-09-10] MEDS: SERTRALINE HCL 50 MG TAB PO SCH ×2 (08:48→19:57)
[2016-09-10] MEDS: ENOXAPARIN 30 MG/0.3 ML SYR SQ SCH (08:48)
[2016-09-10] MEDS: LEVETIRACETAM 250 MG TAB PO SCH ×2 (08:49→19:57)
[2016-09-10] MEDS: MULTIVITAMIN TAB PO SCH (08:49)
[2016-09-10] MEDS: GABAPENTIN 300 MG CAP PO SCH ×3 (08:50→19:57)
[2016-09-10] MEDS: OMEGA-3 (PURIFIED FISH OIL) 1 GM CAP PO SCH (08:50)
[2016-09-10] MEDS: CITALOPRAM 40 MG TAB PO SCH (08:51)
--- NOTE | 2016-09-10 09:35 | Pharmacy Progress Note ---
Pharmacy Abx Dose Progress Nt Date of Service Sep 10, 2016. Pharmacy Dosing Scope The patient is currently receiving the following antimicrobial agents per Pharmacy consult: Vancomycin 1700 mg IV every 12 hours and Zosyn 3.375 gm EI q8h Objective Height (Feet): 5 Height (Inches): 9.00 Weight (Kilograms): 104.400 Vital Signs (Past 12Hrs) Vital Signs Past 12 Hours Date Time Temp Pulse Resp B/P (MAP) Pulse Ox O2 Delivery O2 Flow Rate FiO2 09/10/16 08:09 36.6 84 20 111/72 (85) 98 Room Air 09/10/16 04:24 36.4 65 20 106/60 (75) 98 Room Air 09/10/16 00:00 Room Air 09/09/16 23:58 36.4 72 20 97/52 (67) 97 Room Air Lab Results (24Hrs) Test 09/10/16 07:16 White Blood Count 1.58 K/uL (4.8-10.8) Red Blood Count 3.40 M/uL (4.7-6.1) Hemoglobin 10.7 g/dL (14.0-18.0) Hematocrit 31.2 % (42-52) Mean Corpuscular Volume 91.8 fL (80-100) Mean Corpuscular Hemoglobin 31.5 pg (25-34) Mean Corpuscular Hemoglobin Concent 34.3 g/dl (32-36) Platelet Count 130 K/uL (130-400) Mean Platelet Volume 9.0 fL (7.4-10.4) Neutrophils (%) (Auto) 27.9 % Lymphocytes (%) (Auto) 60.1 % Monocytes (%) (Auto) 9.5 % Eosinophils (%) (Auto) 1.9 % Basophils (%) (Auto) 0.0 % Neutrophils # (Auto) 0.44 K/uL (1.4-6.5) Lymphocytes # (Auto) 0.95 K/uL (1.2-3.4) Monocytes # (Auto) 0.15 K/uL (0.11-0.59) Eosinophils # (Auto) 0.03 K/uL (0-0.5) Basophils # (Auto) 0.00 K/uL (0-0.2) RDW Standard Deviation 48.7 fL (36.4-46.3) RDW Coefficient of Variation 14.8 % (11.5-14.5) Immature Granulocyte % (Auto) 0.6 % Immature Granulocyte # (Auto) 0.01 K/uL (0.00-0.02) Dohle Bodies 1+ Large Platelets 1+ Sodium Level 140 mmol/L (136-145) Potassium Level 3.9 mmol/L (3.5-5.1) Chloride Level 107 mmol/L (98-107) Carbon Dioxide Level 26 mmol/L (21-32) Anion Gap 7.0 mmol/L (3-11) Blood Urea Nitrogen 14 mg/dl (7-18) Creatinine 0.98 mg/dl (0.60-1.40) Est Creatinine Clear Calc Drug Dose 93.1 ml/min Estimated GFR () 95.4 Estimated GFR (Non- 82.3 BUN/Creatinine Ratio 14.4 (10-20) Random Glucose 82 mg/dl (70-99) Calcium Level 8.5 mg/dl (8.5-10.1) Magnesium Level 2.4 mg/dl (1.8-2.4) Vancomycin Level Trough 20.9 mcg/ml (SEE COMMENT) Micro Results Date/Time Source Procedure Growth Status 09/08/16 12:44 Blood Blood Culture - Preliminary NO GROWTH TO DATE. Resulted 09/08/16 12:38 Blood Blood Culture - Preliminary NO GROWTH TO DATE. Resulted 09/08/16 19:20 Urine , Clean Catch Urine Culture - Preliminary NO GROWTH - LESS THAN 1,000 COLONIES/... Resulted 09/09/16 00:00 Ulcer Toe Right 1 Gram Stain - Final Resulted 09/09/16 00:00 Wound Culture - Preliminary Staphylococcus Aureus Resulted Risk Factors for Resistance * Immunocompromised (chronic steroid therapy, chemotherapy, immunomodulators) Assessment & Plan Assessment 61 year old male receiving vancomycin and Zosyn for treatment of R foot cellulitis Day # 3 of antimicrobial therapy ID has been consulted and will plan to continue Abx until cultures resulted - toe culture currently w/ S. aureus Plan Vancomycin IV * Trough level of 20.9 mcg/mL is supratherapeutic. * Change to 1700 mg IV every 14 hours - to start at 10 am today (0800 dose was placed on hold) * Goal trough level for cellulitis : 10 to 15 mcg/mL * Trough level ordered for: 09/12/16 prior to the 0400 dose Piperacillin/tazobactam * Continue 3.375 g IV extended infusion every 8 hours for CrCl greater than 20 mL/min Pharmacy will continue to follow and will adjust dose/frequency as necessary. Thank you.
[2016-09-10] MEDS: LISINOPRIL 20 MG TAB PO SCH (09:47)
[2016-09-10] MEDS: FUROSEMIDE 20 MG TAB PO SCH (09:47)
[2016-09-10] MEDS ORDERED: VANCOMYCIN INJ 1,700 MG in SODIUM CHLORIDE 0.9% 500ML 500 ML IV SCH (10:00)
[2016-09-10 11:59] VITALS: BP 114/72; PULSE 69; TEMP 36.7; O2SAT 98
[2016-09-10 14:36] VITALS: BP 100/64; PULSE 68; TEMP 36.7; O2SAT 96
--- NOTE | 2016-09-10 14:54 | Progress Note ---
Subjective Date of Service: Sep 10, 2016. Subjective pt with staph aureus from wound, final pending. blood cultures and c diff negative. afebrile overnight, remains neutropenic. zosyn stopped, remains on vanco, tolerating well Objective Vital Signs Date Time Temp Pulse Resp B/P (MAP) Pulse Ox O2 Delivery O2 Flow Rate FiO2 09/10/16 14:36 36.7 68 18 100/64 (76) 96 Room Air 09/10/16 11:59 36.7 69 18 114/72 (86) 98 Room Air 09/10/16 08:09 36.6 84 20 111/72 (85) 98 Room Air 09/10/16 08:00 Room Air 09/10/16 04:24 36.4 65 20 106/60 (75) 98 Room Air 09/10/16 00:00 Room Air 09/09/16 23:58 36.4 72 20 97/52 (67) 97 Room Air 09/09/16 19:47 36.4 75 20 127/74 (91) 98 Room Air 09/09/16 16:00 Room Air Laboratory Results Item Value Date Time Gram Stain - Final Resulted 09/09/16 0000 Ulcer Toe Right 1 Blood Culture - Preliminary Resulted 09/08/16 1244 Blood NO GROWTH TO DATE. Blood Culture - Preliminary Resulted 09/08/16 1238 Blood NO GROWTH TO DATE. C.difficile Toxin B Gene (PCR) - Final Complete 09/10/16 0000 Stool No C. difficile toxin B gene detected Last 24 Hours Test 09/10/16 07:16 White Blood Count 1.58 K/uL Red Blood Count 3.40 M/uL Hemoglobin 10.7 g/dL Hematocrit 31.2 % Mean Corpuscular Volume 91.8 fL Mean Corpuscular Hemoglobin 31.5 pg Mean Corpuscular Hemoglobin Concent 34.3 g/dl Platelet Count 130 K/uL Mean Platelet Volume 9.0 fL Neutrophils (%) (Auto) 27.9 % Lymphocytes (%) (Auto) 60.1 % Monocytes (%) (Auto) 9.5 % Eosinophils (%) (Auto) 1.9 % Basophils (%) (Auto) 0.0 % Neutrophils # (Auto) 0.44 K/uL Lymphocytes # (Auto) 0.95 K/uL Monocytes # (Auto) 0.15 K/uL Eosinophils # (Auto) 0.03 K/uL Basophils # (Auto) 0.00 K/uL RDW Standard Deviation 48.7 fL RDW Coefficient of Variation 14.8 % Immature Granulocyte % (Auto) 0.6 % Immature Granulocyte # (Auto) 0.01 K/uL Dohle Bodies 1+ Large Platelets 1+ Sodium Level 140 mmol/L Potassium Level 3.9 mmol/L Chloride Level 107 mmol/L Carbon Dioxide Level 26 mmol/L Anion Gap 7.0 mmol/L Blood Urea Nitrogen 14 mg/dl Creatinine 0.98 mg/dl Est Creatinine Clear Calc Drug Dose 93.1 ml/min Estimated GFR () 95.4 Estimated GFR (Non- 82.3 BUN/Creatinine Ratio 14.4 Random Glucose 82 mg/dl Calcium Level 8.5 mg/dl Magnesium Level 2.4 mg/dl Vancomycin Level Trough 20.9 mcg/ml Assessment and Plan (1) Cellulitis of right foot Assessment & Plan: continue vanco for now, await final culture results. hopeully can narrow soon.
[2016-09-10 19:28] VITALS: BP 136/82; PULSE 80; TEMP 36.5; O2SAT 97
--- NOTE | 2016-09-10 19:34 | Progress Note ---
Internal Med Progress Note Date of Service: Sep 10, 2016. Provider Documentation: SUBJECTIVE: had multiple loose bowel movement today stool c diff negative for C diff ordered for Imodium pt is reluctant to continue on broad spectrum Iv abx will hold Iv vanco tonight plan to start on oral agent tomorrow OBJECTIVE: Vital Signs-as noted below Exam: General-no sign of distress Eyes-sclera non icteric Lungs-CTA Heart-regular S1/S2 Abdomen-soft, non tender Extremities-rt foot erythema and swelling has improved , small shallow ulcer on tip of rt great toe Neuro-AAO x3, no focal deficit Lab data as noted below. ASSESSMENT & PLAN: LOWER EXT CELLULITIS /RT GREAT TOE INFECTION : - non healing infection of rt great toe , in setting of neuropathy no evidence of sepsis no fever or chills , remains stable hemodynamically Neutropenia due to recent chemo tx improved clinically -on empiric abx with Vanco .Zosyn blood culture/wound culture ordered -report pending wound gram stain -no WBC, no organism ID eval requested -appreciate input plan to transition to Oral abx in next 24-48 hrs possible covering skin doyle lower ext Doppler negative for DVT NEUTROPENIA : possible due to recent chemo tx follow CBC ordered for neutropenic precaution Heme onc consult requested -appreciate input no indication for Neupogen tx pt's next scheduled Chemo in next week will be kept on hold out pt repeat CBC and follow up with heme onc in office for further recommendation HX OF CLL ON CHEMO TX follow with Heme onc Dr Roe Consult appreciated D/c Allopurinol as there is no evidence of Tumor Lysis syndrome SEIZURE DISORDER : cont Keppra HTN: BP stable cont Atenolol HX OF PERIPHERAL NEUROPATHY cont Neurontin FULL CODE DVT PROPHYLAXIS moderate to high risk Sub q Lovenox DISPOSITION ; possible discharged home tomorrow Medicine follow up with Dr Gini Roe Vital Signs: Date Time Temp Pulse Resp B/P (MAP) Pulse Ox O2 Delivery O2 Flow Rate FiO2 09/10/16 19:28 36.5 80 20 136/82 (100) 97 Room Air 09/10/16 16:22 Room Air 09/10/16 14:36 36.7 68 18 100/64 (76) 96 Room Air 09/10/16 11:59 36.7 69 18 114/72 (86) 98 Room Air 09/10/16 08:09 36.6 84 20 111/72 (85) 98 Room Air 09/10/16 08:00 Room Air 09/10/16 04:24 36.4 65 20 106/60 (75) 98 Room Air 09/10/16 00:00 Room Air 09/09/16 23:58 36.4 72 20 97/52 (67) 97 Room Air Lab Results: Results Past 24 Hours Test 09/10/16 07:16 Range/Units White Blood Count 1.58 4.8-10.8 K/uL Red Blood Count 3.40 4.7-6.1 M/uL Hemoglobin 10.7 14.0-18.0 g/dL Hematocrit 31.2 42-52 % Mean Corpuscular Volume 91.8 80-100 fL Mean Corpuscular Hemoglobin 31.5 25-34 pg Mean Corpuscular Hemoglobin Concent 34.3 32-36 g/dl Platelet Count 130 130-400 K/uL Mean Platelet Volume 9.0 7.4-10.4 fL Neutrophils (%) (Auto) 27.9 % Lymphocytes (%) (Auto) 60.1 % Monocytes (%) (Auto) 9.5 % Eosinophils (%) (Auto) 1.9 % Basophils (%) (Auto) 0.0 % Neutrophils # (Auto) 0.44 1.4-6.5 K/uL Lymphocytes # (Auto) 0.95 1.2-3.4 K/uL Monocytes # (Auto) 0.15 0.11-0.59 K/uL Eosinophils # (Auto) 0.03 0-0.5 K/uL Basophils # (Auto) 0.00 0-0.2 K/uL RDW Standard Deviation 48.7 36.4-46.3 fL RDW Coefficient of Variation 14.8 11.5-14.5 % Immature Granulocyte % (Auto) 0.6 % Immature Granulocyte # (Auto) 0.01 0.00-0.02 K/uL Dohle Bodies 1+ Large Platelets 1+ Sodium Level 140 136-145 mmol/L Potassium Level 3.9 3.5-5.1 mmol/L Chloride Level 107 98-107 mmol/L Carbon Dioxide Level 26 21-32 mmol/L Anion Gap 7.0 3-11 mmol/L Blood Urea Nitrogen 14 7-18 mg/dl Creatinine 0.98 0.60-1.40 mg/dl Est Creatinine Clear Calc Drug Dose 93.1 ml/min Estimated GFR () 95.4 Estimated GFR (Non- 82.3 BUN/Creatinine Ratio 14.4 10-20 Random Glucose 82 70-99 mg/dl Calcium Level 8.5 8.5-10.1 mg/dl Magnesium Level 2.4 1.8-2.4 mg/dl Vancomycin Level Trough 20.9 SEE COMMENT mcg/ml Microbiology Results 09/10/16 C.difficile Toxin B Gene (PCR) - Final, Complete No C. difficile toxin B gene detected
[2016-09-10] MEDS: LOPERAMIDE HCL 2 MG CAP PO PRN (19:55)
[2016-09-11 00:07] VITALS: BP 109/60; PULSE 66; TEMP 36.8; O2SAT 99
[2016-09-11 06:32] LABS: MEAN CELL VOLUME 92.8 fL (80-100); MEAN CORPUSCULAR HEMOGLOBIN 31.1 pg (25-34); MEAN CORPUSCULAR HGB CONC 33.5 g/dl (32-36); MEAN PLATELET VOLUME 9.2 fL (7.4-10.4); PLATELET COUNT 133 K/uL (130-400); RED BLOOD COUNT 3.34 M/uL (4.7-6.1); WHITE BLOOD COUNT 1.88 K/uL (4.8-10.8)
[2016-09-11 06:48] LABS: CREATININE 0.87 mg/dl (0.60-1.40)
[2016-09-11 06:49] LABS: BUN/CREATININE RATIO 14.5 (10-20); CALCIUM 8.3 mg/dl (8.5-10.1); MAGNESIUM 2.3 mg/dl (1.8-2.4); POTASSIUM 3.8 mmol/L (3.5-5.1)
[2016-09-11 07:05] VITALS: Ht 175.3 cm; Wt 105.0 kg
[2016-09-11 07:20] LABS: COMPLETE YES; EOS % 2.1 %; GIANT PLATELETS 1+; IG% 1.1 %; LYMPH % 61.2 %; LYMPH ABS # 1.15 K/uL (1.2-3.4); MONO % 10.1 %; NEUT % 25.5 %
[2016-09-11 07:55] VITALS: BP 129/73; PULSE 66; TEMP 36.6; O2SAT 96
[2016-09-11] MEDS: ASPIRIN 81 MG ECTAB PO SCH (08:07)
[2016-09-11] MEDS: GABAPENTIN 300 MG CAP PO SCH ×2 (08:08→14:10)
[2016-09-11] MEDS: LEVETIRACETAM 250 MG TAB PO SCH (08:08)
[2016-09-11] MEDS: CITALOPRAM 40 MG TAB PO SCH (08:08)
[2016-09-11] MEDS: MULTIVITAMIN TAB PO SCH (08:08)
[2016-09-11] MEDS: LISINOPRIL 20 MG TAB PO SCH (08:08)
[2016-09-11] MEDS: SERTRALINE HCL 50 MG TAB PO SCH (08:08)
[2016-09-11] MEDS: CHOLECALCIFEROL 1000 INTER.UNIT TAB PO SCH (08:09)
[2016-09-11] MEDS: OMEGA-3 (PURIFIED FISH OIL) 1 GM CAP PO SCH (08:09)
[2016-09-11] MEDS: ENOXAPARIN 30 MG/0.3 ML SYR SQ SCH (08:10)
[2016-09-11] MEDS: FUROSEMIDE 20 MG TAB PO SCH (08:10)
[2016-09-11] MEDS: THIAMINE HCL 50 MG TAB PO SCH (08:10)
[2016-09-11] MEDS: LOPERAMIDE HCL 2 MG CAP PO PRN (08:16)
--- NOTE | 2016-09-11 11:34 | Discharge Instructions ---
Discharge Instructions Date of Service Sep 11, 2016. Admission Reason for Admission: Cellulitis Of Right Foot Discharge Discharge Diagnosis / Problem: CELLULITIS OF RT FOOT /GREAT TOE Discharge Goals Goal(s): Decrease discomfort, Improve disease control, Therapeutic intervention Activity Recommendations Activity Limitations: resume your previous activity . Instructions / Follow-Up Instructions / Follow-Up HOSPITAL FOLLOW UP ON 09/18/2016 @ 11:[address] Gini Roe MD General Internal Medicine [facility] HEMATOLOGY FOLLOW UP ON 09/15/2016 @ 8:30 AM India Blancas PA-C Hematology/Oncology [facility] SCHEDULED FOR LAB WORK : 09/15/2016 @ 7:30 AM Lab [facility] YOU ARE ASKED NOT TO TAKE NORVASC /AMLODIPINE IT CONTRIBUTES TO WORSENING OF LOWER EXTREMITY SWELLING/FLUID COLLECTION Current Hospital Diet Patient's current hospital diet: Regular Diet Discharge Diet Recommended Diet: Regular Diet Pending Studies Studies pending at discharge: yes List of pending studies: SCHEDULED FOR LAB WORK : 09/15/2016 @ 7:30 AM Lab [facility] Medical Emergencies . Who to Call and When: Medical Emergencies: If at any time you feel your situation is an emergency, please call 911 immediately. . Non-Emergent Contact Non-Emergency issues call your: Primary Care Provider . . "Provider Documentation" section prepared by Mary Soto. . VTE Core Measure Inpt VTE Proph given/why not?: Unfractionated heparin SQ
--- NOTE | 2016-09-11 12:30 | Progress Note ---
Subjective Date of Service: Sep 11, 2016. Subjective Pt evaluation today including: conversation w/ patient, physical exam, chart review, lab review pt seen in follow up, no complaints. states foot feels much better today, asking to go home. afebrile. tolerating abx. no pain in foot, ambulating without difficulty. no f/c. no n/v/. wbc 1.8 today. blood cultures negative, wound culture with mssa. all remaining ros reviewed and are negative. Objective Vital Signs Date Time Temp Pulse Resp B/P (MAP) Pulse Ox O2 Delivery O2 Flow Rate FiO2 09/11/16 08:15 Room Air 09/11/16 07:55 36.6 66 16 129/73 (91) 96 Room Air 09/11/16 00:07 36.8 66 18 109/60 (76) 99 Room Air 09/11/16 00:00 Room Air 09/10/16 20:00 Room Air 09/10/16 19:28 36.5 80 20 136/82 (100) 97 Room Air 09/10/16 16:22 Room Air 09/10/16 14:36 36.7 68 18 100/64 (76) 96 Room Air Physical Exam General Appearance: WD/WN, no apparent distress Eyes: normal inspection, EOMI Neck: supple Respiratory/Chest: lungs clear, normal breath sounds, no respiratory distress Cardiovascular: regular rate, rhythm, no edema Abdomen: soft Extremities: non-tender, no pedal edema Neurologic/Psychiatric: alert, oriented x 3 Skin: normal color Comments: foot with less erythema, dressing c//i first toe Laboratory Results Item Value Date Time Blood Culture - Preliminary Resulted 09/08/16 1238 Blood NO GROWTH TO DATE. Blood Culture - Preliminary Resulted 09/08/16 1244 Blood NO GROWTH TO DATE. C.difficile Toxin B Gene (PCR) - Final Complete 09/10/16 0000 Stool No C. difficile toxin B gene detected Gram Stain - Final Complete 09/09/16 0000 Ulcer Toe Right 1 Last 24 Hours Test 09/11/16 06:05 White Blood Count 1.88 K/uL Red Blood Count 3.34 M/uL Hemoglobin 10.4 g/dL Hematocrit 31.0 % Mean Corpuscular Volume 92.8 fL Mean Corpuscular Hemoglobin 31.1 pg Mean Corpuscular Hemoglobin Concent 33.5 g/dl Platelet Count 133 K/uL Mean Platelet Volume 9.2 fL Neutrophils (%) (Auto) 25.5 % Lymphocytes (%) (Auto) 61.2 % Monocytes (%) (Auto) 10.1 % Eosinophils (%) (Auto) 2.1 % Basophils (%) (Auto) 0.0 % Neutrophils # (Auto) 0.48 K/uL Lymphocytes # (Auto) 1.15 K/uL Monocytes # (Auto) 0.19 K/uL Eosinophils # (Auto) 0.04 K/uL Basophils # (Auto) 0.00 K/uL RDW Standard Deviation 50.0 fL RDW Coefficient of Variation 15.0 % Immature Granulocyte % (Auto) 1.1 % Immature Granulocyte # (Auto) 0.02 K/uL Giant Platelets 1+ Sodium Level 139 mmol/L Potassium Level 3.8 mmol/L Chloride Level 106 mmol/L Carbon Dioxide Level 26 mmol/L Anion Gap 7.0 mmol/L Blood Urea Nitrogen 13 mg/dl Creatinine 0.87 mg/dl Est Creatinine Clear Calc Drug Dose 104.8 ml/min Estimated GFR () 107.2 Estimated GFR (Non- 92.5 BUN/Creatinine Ratio 14.5 Random Glucose 77 mg/dl Calcium Level 8.3 mg/dl Magnesium Level 2.3 mg/dl Assessment and Plan (1) Cellulitis of right foot Assessment & Plan: ok to change to po keflex 500mg tid with food upon d/c. Would give 6 more days. no contrainication to d/c from ID standpoint.
[2016-09-11] MEDS ORDERED: CEPH500C2 PO (12:52)
[2016-09-11 14:20] VITALS: BP 129/73; PULSE 66; TEMP 36.6; O2SAT 96
[2016-09-11] MEDS ORDERED: CEPHALEXIN MONOHYDRATE 250 MG CAP PO ONE (15:15)
--- NOTE | 2016-09-12 00:36 | Discharge Summary ---
Discharge Summary Date of Service Sep 11, 2016. Discharge Summary Admission Date: September 08, 2016 at 15:09 Discharge Date: Sep 11, 2016 Discharge Disposition: Home Principal Diagnosis: CELLULITIS OF RT FOOT /GREAT TOE Consultations: ID HEME ONC Medication Reconciliation New Medications: Cephalexin Monohydrate (Keflex) 500 Mg Cap 500 MG PO TID for 6 Days, #18 CAP Continued Medications: Aspirin Enteric Coated (Ecotrin Or Generic *) 81 Mg Ectab 81 MG PO DAILY, 0 Refills Atenolol (Tenormin) 50 Mg Tab 50 MG PO DAILY, TAB Cholecalciferol (Vitamin D 1000 Unit) 1,000 Unit Cap 1000 INTER.UNIT PO DAILY, CAP Citalopram Hydrobromide (Celexa) 40 Mg Tab 40 MG PO DAILY, TAB Coenzyme Q10 (Ubidecarenone) (Co Q10 *) 100 Mg Cap 200 CAP PO DAILY, 0 Refills Fish Oil ([place]-3) 1 Ea Cap 1 CAP PO DAILY, 0 Refills Folic Acid (Folic Acid) 1 Mg Tab DAILY Gabapentin (Neurontin) 300 Mg Cap 900 MG PO TID, CAP Levetiracetam (Keppra) 750 Mg Tab 750 MG PO BID, TAB Lisinopril (Zestril) 20 Mg Tab 20 MG PO DAILY, 0 Refills Lorazepam (Ativan *) 0.5 Mg Tab 0.5 MG PO BID PRN, 0 Refills Multivitamin (Multivitamin) Tab 1 TAB PO DAILY, 0 Refills CENTRUM Ondansetron Hcl (Zofran) 8 Mg Tab 8 MG PO TID PRN for Nausea, TAB Prochlorperazine Maleate (Compazine) 10 Mg Tab 10 MG PO Q6H PRN for Nausea, TAB NAUSEA/VOMITING Sertraline (Zoloft) 50 Mg Tab 50 MG PO BID, 0 Refills Thiamine Hcl (Vitamin B-1) 50 Mg Tab 50 MG PO DAILY, TAB [Cinnamon] () 500 MG PO DAILY Discontinued Medications: Allopurinol (Allopurinol) 300 Mg Tab 300 MG PO DAILY Amlodipine (Norvasc) 5 Mg Tab 5 MG PO DAILY, 0 Refills Referrals At Discharge Follow up Referrals: Physician Referral - 09/18/16 with Gini Roe M.D. Admission Information HPI (per Admitting provider): this is 61 Yo male with hx of CLL on chemo tx with Rituximab /Bendamustine by Dr Winston Roe , Hx of prior alcohol dependency , chronic bilateral lower ext neuropathy, prior hx of MRSA infection , depression , HTN , GERD sent form Hematology office at [facility] due to concern of Right foot/rt great toe infection , cellulitis . Pt been diagnosed with B cell CLL in 10/2009 , completed 4 cycles of Rituximab/ Bendamustine combination chemotherapy on early May, 2014 has been in remission since recent blood work on 08/13/16 showed WBC 32 K , platelets 75 K , with absolute lymphocyte count of 28 K pt is started back on chemo tx Ist cycle given on Wednesday08/25/16 pt was at [facility] onc clinic for follow up appointment post chemo and lab check found to have swollen and red right foot , right great toe , with an open wound at the tip of rt great toe with serous drainage pt has hx of chronic neuropathy -denies of any pain or discomfort , does not remember having trauma no complain of fever or chills due to significant immunocompromised state with recent chemo tx /CLL /high risk for venous thromboembolism pt was directed to ER at [facility] in the ER pt found to be Neutropenic with ANC < 1 K , Rt foot form rt great toe to dorsum of foot was red/increased warmth , + 1-2 lower ext edema Doppler of lower ext was negative for DVT Physical Exam (per Admitting): General Appearance: no apparent distress Eyes: sclerae normal Respiratory/Chest: chest non-tender, lungs clear, normal breath sounds Cardiovascular: regular rate, rhythm Abdomen/GI: normal bowel sounds, non tender, soft Neurologic/Psych: alert, normal mood/affect, oriented x 3 Hospital Course feels fine, no pain or discomfort on rt foot , walking independently no fever or chills ready to be discharged home P/E: GEN ; no sign of distress HEENT : sclera non icteric HT : regular S1/S2 LUNGS: CTA ABDOMEN : soft, non tender EXT : improvement of swelling /edema of rt foot , minimum erythema , no tenderness ; improved redness on rt great toe , no drainage noted NEURO: no focal deficit , AAO x3 A/P LOWER EXT CELLULITIS /RT GREAT TOE INFECTION : - non healing infection of rt great toe , in setting of neuropathy no evidence of sepsis no fever or chills , remains stable hemodynamically Neutropenia due to recent chemo tx improved clinically -WAS on empiric abx with Vanco .Zosyn /wound culture staph aureus MSSA -resistant to erythromycin ID eval requested -appreciate input abx changed to PO Keflex will need 6 days of tx stable to be discharged home lower ext Doppler negative for DVT NEUTROPENIA : possible due to recent chemo tx follow CBC ordered for neutropenic precaution Heme onc consult requested -appreciate input no indication for Neupogen tx pt's next scheduled Chemo in next week will be kept on hold out pt repeat CBC and follow up with heme onc in office for further recommendation HX OF CLL ON CHEMO TX follow with Heme onc Dr Roe Consult appreciated D/c Allopurinol as there is no evidence of Tumor Lysis syndrome SEIZURE DISORDER : cont Keppra HTN: BP stable cont Atenolol HX OF PERIPHERAL NEUROPATHY cont Neurontin FULL CODE DVT PROPHYLAXIS moderate to high risk Sub q Lovenox DISPOSITION ; possible discharged home today Medicine follow up with Dr Gini Roe Total time spent on discharge = 40 NM NS This includes examination of the patient, discharge planning, medication reconciliation, and communication with other providers. Discharge Instructions Discharge Instructions Date of Service Sep 11, 2016. Admission Reason for Admission: Cellulitis Of Right Foot Discharge Discharge Diagnosis / Problem: CELLULITIS OF RT FOOT /GREAT TOE Discharge Goals Goal(s): Decrease discomfort, Improve disease control, Therapeutic intervention Activity Recommendations Activity Limitations: resume your previous activity . Instructions / Follow-Up Instructions / Follow-Up HOSPITAL FOLLOW UP ON 09/18/2016 @ 11:[address] Gini Roe MD General Internal Medicine [facility] HEMATOLOGY FOLLOW UP ON 09/15/2016 @ 8:30 AM India Blancas PA-C Hematology/Oncology [facility] SCHEDULED FOR LAB WORK : 09/15/2016 @ 7:30 AM Lab [facility] YOU ARE ASKED NOT TO TAKE NORVASC /AMLODIPINE IT CONTRIBUTES TO WORSENING OF LOWER EXTREMITY SWELLING/FLUID COLLECTION Current Hospital Diet Patient's current hospital diet: Regular Diet Discharge Diet Recommended Diet: Regular Diet Pending Studies Studies pending at discharge: yes List of pending studies: SCHEDULED FOR LAB WORK : 09/15/2016 @ 7:30 AM Lab [facility] Medical Emergencies . Who to Call and When: Medical Emergencies: If at any time you feel your situation is an emergency, please call 911 immediately. . Non-Emergent Contact Non-Emergency issues call your: Primary Care Provider . . "Provider Documentation" section prepared by Mary Soto. . VTE Core Measure Inpt VTE Proph given/why not?: Unfractionated heparin SQ Additional Copies To Winston Roe M.D. Patel, Manisha N., M.D.
[2016-09-12] MEDS ORDERED: VANCOMYCIN TROUGH ONE (03:30)
== END 2016-09-11 15:54 | disposition home or self-care (01) | DRG 603 ==
LOC: ENRESERVTM → ENRESERVDT → C.EDB 11:34 → C.4E 15:09 → EDBEDREQ 15:16
PROVIDERS: ADMIT Hospitalist; ATTEND Hospitalist
DX: L03.115 Cellulitis of right lower limb (principal); C91.10 Chronic lymphocytic leukemia of B-cell type not having achieved remission; B95.61 Methicillin susceptible Staphylococcus aureus infection as the cause of diseases classified elsewhere; G62.9 Polyneuropathy, unspecified; G40.909 Epilepsy, unspecified, not intractable, without status epilepticus; G43.909 Migraine, unspecified, not intractable, without status migrainosus; Z86.14 Personal history of Methicillin resistant Staphylococcus aureus infection; F32.9 Major depressive disorder, single episode, unspecified; I10 Essential (primary) hypertension; K21.9 Gastro-esophageal reflux disease without esophagitis; R19.7 Diarrhea, unspecified; Z86.73 Personal history of transient ischemic attack (TIA), and cerebral infarction without residual deficits; Z79.899 Other long term (current) drug therapy; D70.1 Agranulocytosis secondary to cancer chemotherapy; T45.1X5A Adverse effect of antineoplastic and immunosuppressive drugs, initial encounter

== ENCOUNTER 2020-09-16 13:22 | Inpatient (IN) ==
[2020-09-16] MEDS ORDERED: SODIUM CHLORIDE 0.9% 1000ML 500 ML IV ONE (13:46)
--- NOTE | 2020-09-16 13:50 | Emergency Department Note ---
History of Present Illness General Chief complaint: Illness Stated complaint: ILLNESS Time Seen by Provider: 09/16/20 13:40 Source: patient Mode of arrival: EMS Limitations: no limitations History of Present Illness This patient comes in after having pain in his right groin he has a known hernia there that is scheduled to be operated on at [facility] today. He said he just has not felt well for the last couple days. He is very nonspecific and seems a little bit confused at times. He does seem to answer questions appropriately but vaguely. He denies any vomiting or diarrhea his bowels been moving as normal. He says the hernia is been hurting him but is not acutely different. Denies fever chills or cough. Denies fall or trauma. Denies headache neck pain or stiffness. Denies cough or urinary symptoms. He does live alone. A pparently a friend called the ambulance. Home Medications Medication Instructions Recorded Confirmed Type allopurinol 300 mg PO DAILY 02/27/19 09/16/20 History atenolol 50 mg PO DAILY 02/27/19 09/16/20 History folic acid 1 mg PO DAILY 02/27/19 09/16/20 History furosemide [Lasix] 20 mg PO DAILY 02/27/19 09/16/20 History gabapentin 900 mg PO TID 02/27/19 09/16/20 History levetiracetam [Keppra] 750 mg PO BID 02/27/19 09/16/20 History lisinopril 20 mg PO DAILY 02/27/19 09/16/20 History lorazepam [Ativan] 0.5 mg PO BID PRN 02/27/19 09/16/20 History ondansetron HCl 8 mg PO TID PRN 02/27/19 09/16/20 History trazodone 50 mg PO HS 02/27/19 09/16/20 History aspirin 81 mg PO DAILY 09/16/20 09/16/20 History escitalopram oxalate [Lexapro] 10 mg PO DAILY 09/16/20 09/16/20 History famotidine 20 mg PO BID 09/16/20 09/16/20 History fluoride (sodium) [PreviDent 5000 1 applic DENTAL HS 09/16/20 09/16/20 History Plus] food supplemt, lactose-reduced 1 ea PO DIRECTED 09/16/20 09/16/20 History [Ensure Active High Protein] ibrutinib 420 mg PO DAILY 09/16/20 09/16/20 History magnesium oxide 400 mg PO DAILY 09/16/20 09/16/20 History prochlorperazine maleate 10 mg PO Q6H PRN 09/16/20 09/16/20 History sennosides [Senokot] 8.6 mg PO BID 09/16/20 09/16/20 History Allergies Allergy/AdvReac Type Severity Reaction Status Date / Time No Known Allergies Allergy NONE Verified 09/16/20 16:24 Past Med/Surg History Medical History (Updated 09/16/20 @ 20:03 by Lauro Joy MD) B-cell chronic lymphocytic leukemia BPH (benign prostatic hyperplasia) Cognitive deficit, post-stroke Depression H/O alcohol abuse Polyneuropathy Seizure Surgical History (Updated 09/16/20 @ 17:29 by Bridgett Green DO) S/P inguinal hernia repair 12/05/2009-Dr. 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 Beliefs That Will Affect Care: None Current Living Situation: Alone Other Information That Helps Us Care for You: No Feels Safe at Home: Yes Safety Concerns: Feels Safe At This Time Assistive Devices: Cane and Glasses Review of Systems A total of 10 systems reviewed and were otherwise negative Physical Exam Vital Signs Vital Signs - 24 hr 09/16/20 13:36 09/16/20 15:00 09/16/20 15:16 Temperature 37.8 C H Temperature Source Oral Pulse Rate 134 H 117 H Pulse Rate [Apical] 112 H Pulse Rhythm Regular Respiratory Rate 18 22 18 Respiratory Effort / Characteristics Non-Labored Spontaneous Respiratory Depth Normal Respiratory Pattern Regular Blood Pressure 180/101 H 167/88 H Blood Pressure [Left Arm] 167/88 H Blood Pressure Mean 127 114 Blood Pressure Mean [Left Arm] 114 Blood Pressure Position Lying Pulse Oximetry 95 Oxygen Delivery Method Room Air Sepsis Recent Fever Within 48 Hours No Sepsis New/Unexplained Change in Mental Status N/A Sepsis Action Taken by Nursing No Action Required 09/16/20 15:59 09/16/20 16:13 Temperature Temperature Source Pulse Rate 135 H Pulse Rate [Apical] Pulse Rhythm Respiratory Rate 23 Respiratory Effort / Characteristics Respiratory Depth Respiratory Pattern Blood Pressure 149/91 H Blood Pressure [Left Arm] Blood Pressure Mean 110 Blood Pressure Mean [Left Arm] Blood Pressure Position Pulse Oximetry 98 Oxygen Delivery Method Room Air Sepsis Recent Fever Within 48 Hours Sepsis New/Unexplained Change in Mental Status Sepsis Action Taken by Nursing General: Well developed well nourished middle-age male who appears mildly confused but in no acute distress, breathing comfortably on room air. Normal speech. He is alert to person and he knows he is in a hospital. The speech is nonslurred.. HEENT: Normal cephalic atraumatic. Pupils are equal round and reactive to light. Extraocular movements are intact. Oropharynx is pink with moist mucous membranes. No swelling of the mouth lips or tongue. Neck: Supple with a midline trachea. No meningeal signs or stiffness, no JVD or bruits. No Stridor. Chest: Clear to auscultation bilaterally. No wheezes or rhonchi. No increased work of breathing. Heart: Regular rate and rhythm without murmurs or gallops. Abdomen: Soft nontender, nondistended without rebound guarding or rigidity. There is a hernia felt in the right groin it is not red or warm it is tender it does not appear to be reproducible Extremities: No cyanosis clubbing or edema. No calf tenderness or assymetry Spine/Back. Non tender to palpation. No CVA tenderness Skin: Good turgor without rashes. Neurologic exam: Cranial nerves two through 12 are intact. Motor and sensation are intact and symmetrical throughout. Course Administered Medications Discontinued Medications Sodium Chloride (Nss 1000ml) 500 mls @ 999 mls/hr IV .Q31M ONE Stop: 09/16/20 14:16 Last Infusion: 09/16/20 15:13 Dose: 0 mls/hr Documented by: [id number] Admin: 09/16/20 14:32 Dose: 999 mls/hr Documented by: [id number] Sodium Chloride (Nss 1000ml) 1,000 mls @ 999 mls/hr IV .Q1H1M ONE Stop: 09/16/20 17:11 Last Infusion: 09/16/20 17:52 Dose: 0 mls/hr Documented by: [id number] Admin: 09/16/20 16:36 Dose: 999 mls/hr Documented by: [id number] Piperacillin Sod/Tazobactam Sod (Zosyn) 4.5 gm in 120 mls @ 240 mls/hr IV NOW STA Stop: 09/16/20 16:47 Last Infusion: 09/16/20 17:05 Dose: 0 mls/hr Documented by: [id number] Admin: 09/16/20 16:36 Dose: 240 mls/hr Documented by: [id number] Lorazepam (Ativan) 1 mg in 2 mls @ 2 mls/min IV NOW STA Stop: 09/16/20 19:16 Last Admin: 09/16/20 19:37 Dose: 2 mls/min Documented by: [id number] Critical Care Time Critical Care Time: Yes Total Critical Care Time: 35 Due to the patient's unstable vital signs with tachycardia and concern for sepsis, confusion, IV medications and fluids needed and frequent reassessment and evaluation as well as multiple studies and consultation, I have personally spent greater than 35 minutes of critical care time in the direct management of this patient. This includes bedside care, interpretation of diagnostic studies, and testing, discussion with consultants, patient, and family members, and other required patient management activities. This 35 minutes is in excess of all separately billable procedures. Medical Decision Making Differential Diagnosis Sepsis, hernia, infection, dehydration, arrhythmia, electrolyte or metabolic abnormality, Covid Medical Records Attestation: I reviewed the patient's medical records. Home Medications Current Medication List: was personally reviewed by me Laboratory Data Result diagrams: 09/16/20 14:15 09/16/20 14:15 Lab Results 09/16/20 09/16/20 09/16/20 Range/Units 14:15 14:15 14:15 WBC 9.58 (4.8-10.8) K/uL RBC 4.28 L (4.7-6.1) M/uL Hgb 13.1 L (14.0-18.0) g/dL Hct 37.8 L (42-52) % MCV 88.3 (80-100) fL MCH 30.6 (25-34) pg MCHC 34.7 (32-36) g/dL RDW Std Deviation 45.4 (36.4-46.3) fL RDW Coeff of Yvette 14.1 (11.5-14.5) % Plt Count 134 (130-400) K/uL MPV 12.0 H (7.4-10.4) fL Immature Gran % (Auto) 0.5 % Neut % (Auto) 78.8 % Lymph % (Auto) 13.2 % [place] % (Auto) 6.9 % Eos % (Auto) 0.4 % Baso % (Auto) 0.2 % Neut # (Auto) 7.55 H (1.4-6.5) K/uL Lymph # (Auto) 1.26 (1.2-3.4) K/uL [place] # (Auto) 0.66 H (0.11-0.59) K/uL Eos # (Auto) 0.04 (0-0.5) K/uL Baso # (Auto) 0.02 (0-0.2) K/uL Immature Gran # (Auto) 0.05 H (0.00-0.02) K/uL PT (9.0-12.0) Seconds INR (0.9-1.1) APTT (21.0-31.0) Seconds PTT Ratio Sodium 143 (136-145) mmol/L Potassium 3.4 L (3.5-5.1) mmol/L Chloride 108 H (98-107) mmol/L Carbon Dioxide 24 (21-32) mmol/L Anion Gap 11.0 (3-11) BUN 15 (7-18) mg/dl Creatinine 1.00 (0.6-1.4) mg/dl Est Cr Clr Drug Dosing 90.3 ml/min Est GFR ( Amer) 90.5 ml/min Est GFR (Non-Af Amer) 78.1 ml/min BUN/Creatinine Ratio 15.0 (10-20) Glucose 96 (70-99) mg/dl Lactate 2.4 H* (0.4-2.0) mmol/L Calcium 10.6 H (8.5-10.1) mg/dl Magnesium 2.0 (1.8-2.4) mg/dl Total Bilirubin 2.4 H (0.2-1) mg/dl AST 68 H (15-37) U/L ALT 15 (12-78) U/L Alkaline Phosphatase 68 (45-117) U/L Total Protein 7.8 (6.4-8.2) gm/dl Albumin 3.2 L (3.4-5.0) gm/dl Globulin 4.6 H (2.5-4.0) gm/dl Albumin/Globulin Ratio 0.7 L (0.9-2) Urine Color Urine Appearance (Clear) Urine pH (4.5-7.5) Ur Specific [place] (1.000-1.030) Urine Protein (Negative) Urine Glucose (UA) (Negative) Urine Ketones (Negative) Urine Blood (Negative) Urine Nitrite (Negative) Urine Bilirubin (Negative) Urine Urobilinogen (Negative) Ur Leukocyte Esterase (Negative) Urine WBC (Auto) (0-5) /hpf Urine RBC (Auto) (0-4) /hpf U Hyaline Cast (Auto) (0-5) /lpf U Epithel Cells (Auto) (0-5) /lpf Urine Bacteria (Auto) (Negative) Ur Renal Epithelial Cell (0-5) /lpf Urine Mucus (None Prsent) COVID-19 Eval Order SARS-CoV-2 (PCR) (Negative) 09/16/20 09/16/20 09/16/20 Range/Units 14:15 14:15 14:40 WBC (4.8-10.8) K/uL RBC (4.7-6.1) M/uL Hgb (14.0-18.0) g/dL Hct (42-52) % MCV (80-100) fL MCH (25-34) pg MCHC (32-36) g/dL RDW Std Deviation (36.4-46.3) fL RDW Coeff of Yvette (11.5-14.5) % Plt Count (130-400) K/uL MPV (7.4-10.4) fL Immature Gran % (Auto) % Neut % (Auto) % Lymph % (Auto) % [place] % (Auto) % Eos % (Auto) % Baso % (Auto) % Neut # (Auto) (1.4-6.5) K/uL Lymph # (Auto) (1.2-3.4) K/uL [place] # (Auto) (0.11-0.59) K/uL Eos # (Auto) (0-0.5) K/uL Baso # (Auto) (0-0.2) K/uL Immature Gran # (Auto) (0.00-0.02) K/uL PT 11.9 (9.0-12.0) Seconds INR 1.2 H (0.9-1.1) APTT 27.0 (21.0-31.0) Seconds PTT Ratio 1.0 Sodium (136-145) mmol/L Potassium (3.5-5.1) mmol/L Chloride (98-107) mmol/L Carbon Dioxide (21-32) mmol/L Anion Gap (3-11) BUN (7-18) mg/dl Creatinine (0.6-1.4) mg/dl Est Cr Clr Drug Dosing ml/min Est GFR ( Amer) ml/min Est GFR (Non-Af Amer) ml/min BUN/Creatinine Ratio (10-20) Glucose (70-99) mg/dl Lactate (0.4-2.0) mmol/L Calcium (8.5-10.1) mg/dl Magnesium (1.8-2.4) mg/dl Total Bilirubin (0.2-1) mg/dl AST (15-37) U/L ALT (12-78) U/L Alkaline Phosphatase (45-117) U/L Total Protein (6.4-8.2) gm/dl Albumin (3.4-5.0) gm/dl Globulin (2.5-4.0) gm/dl Albumin/Globulin Ratio (0.9-2) Urine Color Urine Appearance (Clear) Urine pH (4.5-7.5) Ur Specific [place] (1.000-1.030) Urine Protein (Negative) Urine Glucose (UA) (Negative) Urine Ketones (Negative) Urine Blood (Negative) Urine Nitrite (Negative) Urine Bilirubin (Negative) Urine Urobilinogen (Negative) Ur Leukocyte Esterase (Negative) Urine WBC (Auto) (0-5) /hpf Urine RBC (Auto) (0-4) /hpf U Hyaline Cast (Auto) (0-5) /lpf U Epithel Cells (Auto) (0-5) /lpf Urine Bacteria (Auto) (Negative) Ur Renal Epithelial Cell (0-5) /lpf Urine Mucus (None Prsent) COVID-19 Eval Order Covid19 at [facility] SARS-CoV-2 (PCR) NEGATIVE (Negative) 09/16/20 09/16/20 Range/Units 16:19 16:34 WBC (4.8-10.8) K/uL RBC (4.7-6.1) M/uL Hgb (14.0-18.0) g/dL Hct (42-52) % MCV (80-100) fL MCH (25-34) pg MCHC (32-36) g/dL RDW Std Deviation (36.4-46.3) fL RDW Coeff of Yvette (11.5-14.5) % Plt Count (130-400) K/uL MPV (7.4-10.4) fL Immature Gran % (Auto) % Neut % (Auto) % Lymph % (Auto) % [place] % (Auto) % Eos % (Auto) % Baso % (Auto) % Neut # (Auto) (1.4-6.5) K/uL Lymph # (Auto) (1.2-3.4) K/uL [place] # (Auto) (0.11-0.59) K/uL Eos # (Auto) (0-0.5) K/uL Baso # (Auto) (0-0.2) K/uL Immature Gran # (Auto) (0.00-0.02) K/uL PT (9.0-12.0) Seconds INR (0.9-1.1) APTT (21.0-31.0) Seconds PTT Ratio Sodium (136-145) mmol/L Potassium (3.5-5.1) mmol/L Chloride (98-107) mmol/L Carbon Dioxide (21-32) mmol/L Anion Gap (3-11) BUN (7-18) mg/dl Creatinine (0.6-1.4) mg/dl Est Cr Clr Drug Dosing ml/min Est GFR ( Amer) ml/min Est GFR (Non-Af Amer) ml/min BUN/Creatinine Ratio (10-20) Glucose (70-99) mg/dl Lactate 2.2 H* (0.4-2.0) mmol/L Calcium (8.5-10.1) mg/dl Magnesium (1.8-2.4) mg/dl Total Bilirubin (0.2-1) mg/dl AST (15-37) U/L ALT (12-78) U/L Alkaline Phosphatase (45-117) U/L Total Protein (6.4-8.2) gm/dl Albumin (3.4-5.0) gm/dl Globulin (2.5-4.0) gm/dl Albumin/Globulin Ratio (0.9-2) Urine Color Red [place] Urine Appearance Clear (Clear) Urine pH 5.5 (4.5-7.5) Ur Specific [place] 1.031 H (1.000-1.030) Urine Protein 1+ H (Negative) Urine Glucose (UA) Negative (Negative) Urine Ketones 1+ H (Negative) Urine Blood Trace H (Negative) Urine Nitrite Positive A (Negative) Urine Bilirubin 1+ H (Negative) Urine Urobilinogen Negative (Negative) Ur Leukocyte Esterase Trace H (Negative) Urine WBC (Auto) 1-5 (0-5) /hpf Urine RBC (Auto) 5-10 H (0-4) /hpf U Hyaline Cast (Auto) 1-5 (0-5) /lpf U Epithel Cells (Auto) >30 H (0-5) /lpf Urine Bacteria (Auto) Negative (Negative) Ur Renal Epithelial Cell 0-5 (0-5) /lpf Urine Mucus Present A (None Prsent) COVID-19 Eval Order SARS-CoV-2 (PCR) (Negative) Imaging Data Attestation: I personally reviewed and interpreted this imaging study as follows: Radiologist's Impression: Chest X-Ray 09/16/20 13:46 XR chest 1V portable CLINICAL HISTORY: SEPSIS COMPARISON STUDY: 02/27/2019 FINDINGS: The cardiac and mediastinal contours are normal. There is no evidence of focal pulmonary consolidation. There is no evidence of failure. No pleural effusions are visualized.[ IMPRESSION: No active disease in the chest. ACT 112: Negative or not required by law. Electronically signed by: Kenroy Lara M.D. 09/16/2020 2:09 PM Abdomen/Pelvis CT 09/16/20 13:47 CT SCAN OF THE ABDOMEN AND PELVIS WITHOUT CONTRAST CLINICAL HISTORY: Right groin hernia. Severe malaise. Patient to fill to undergo surgery. COMPARISON STUDY: No previous studies for comparison. TECHNIQUE: CT scan of the abdomen and pelvis was performed from the lung bases to the proximal femurs. Images are reviewed in the axial, sagittal, and coronal planes. IV contrast was not administered for this examination. A dose lowering technique was utilized adhering to the principles of ALARA. CT DOSE: 967.03 mGy.cm FINDINGS: Lower chest: 52 Liver: The unenhanced liver is normal in size, contour, and attenuation. There is no intrahepatic biliary ductal dilatation. Gallbladder: Cholelithiasis Spleen: Enlarged measuring 17 cm Pancreas: Unremarkable. Adrenal glands: Unremarkable. Kidneys: No renal, ureteral, or bladder calculi are visualized. Bowel: There are no transition zones to indicate bowel obstruction. There is no evidence of acute diverticulitis. There is no evidence of acute appendicitis. Peritoneum: There is no ascites. There is no free intraperitoneal air. There is a small fat-containing umbilical hernia. Vasculature: The abdominal aorta is normal in course and caliber. Adenopathy: There are enlarged retrocrural lymph nodes. There are enlarged paracaval and aortocaval lymph nodes. There is a retroperitoneal lymph node conglomerate mass [id number] cm transversely. There is bulky right iliac chain lymph nodes. One conglomerate mass which encases the right external iliac artery measures 12.5 cm. A more inferior node which compresses the bladder measures 9.8 cm. There is bulky right inguinal lymphadenopathy. There are also small left iliac chain lymph nodes. There is a 17 cm central mesenteric mass. This contains areas of fat likely representing entrapped fat from bulky adenopathy. Pelvic viscera: The bladder is distorted due to the bulky pelvic lymphadenopathy. Skeletal structures: No destructive osseous lesions are seen. IMPRESSION: 1. Extensive mesenteric, retroperitoneal, iliac chain, and iliac lymphadenopathy. In addition there is splenomegaly. Lymphoma is the diagnosis of exclusion. Biopsy is recommended. 2. No evidence of bowel obstruction. No evidence of free air 3. Cholelithiasis 4. No renal, ureteral, or bladder calculi identified. ACT 112: Positive. There are findings on this exam that require communication between the performing entity and the patient following Patient Test Result Information Act ([place] Act 112) guidelines. Electronically signed by: Kenroy Lara M.D. 09/16/2020 4:[address] 09/16/20 16:11 CT OF THE HEAD WITHOUT CONTRAST CLINICAL HISTORY: increased confusion COMPARISON STUDY: Head CT October 20, 2012. CT DOSE: 884.08 mGy.cm TECHNIQUE: Helical axial images of the head were obtained without IV contrast. Automated exposure control was utilized for the study. A dose lowering technique was utilized adhering to the principles of ALARA. FINDINGS: No acute intracranial hemorrhage, midline shift or mass effect is present. The ventricular system is unremarkable. Encephalomalacia within the anterior left frontal lobe at site of hemorrhage shown on CT of October 20, 2012 is noted. The basal cisterns are patent. No extra-axial collections are present. There are no findings to suggest acute dural sinus thrombosis or acute territorial infarct. No significant calvarial abnormalities are present. Visualized portions of the sinuses and mastoid air cells are clear. IMPRESSION: No acute intracranial findings. Left frontal lobe encephalomalacia. ACT 112: Negative or not required by law. Electronically signed by: Jakob Brewster M.D. 09/16/2020 4:47 PM ECG Data Attestation: I personally reviewed and interpreted this ECG as follows: Indication: + weakness Rate (beats per minute): 128 Rhythm: + sinus tachycardia ECG Intervals/blocks: + Normal QRS, + Normal QT and + Normal GA ECG [place]: + Normal ECG ST segments: + Nonspecific ST abnormalities ECG Findings: + Other (Poor baseline. Poor R wave progression.); no PACs and no PVCs Comparison ECG Date: from (10/10/12) Change: no significant change MDM Narrative This patient comes in as described above. He was placed on a section hand helper room A2. He is here for treatment and evaluation of feeling unwell for couple days. He does have a hernia in the groin is unclear whether this is changed or not but that seems to be his only complaint. IV access was established and he had a full sepsis work-up. He seems did not have much in the way of a complaints initially except for hernia is not red or warm or particularly tender. It does not easily reduce I ordered blood work as well as a CAT scan. There is no mention of the hernia on the CAT scan he does have lymphadenopathy which is likely related to his underlying cancer history. He does have an elevated lactate of 2.4. After a liter of fluids this is trending downward at 2.2 we did receive additional fluids. We did start him on empiric antibiotics Zosyn 4.5 g IV I did a CAT scan of his head it was unremarkable. Apparently does have a drinking history so I did alcohol and he also is a seizure history there is no witnessed seizures here and I do not think is likely post ictal state. This could be related to alcohol but I am concerned about infection. At this point I do not think he has meningitis. I did consult Dr. Green to see t he patient for further inpatient treatment and evaluation. His alcohol was negative. His Covid was also negative. Is also possible to could be withdrawal to alcohol as well. Continuous cardiac monitoring: Order was placed in the EMR for continuous cardiac monitoring. The patient was noted to be in sinus tachycardia with a rate of 120 upon my interpretation Impression & Plan Sepsis, B-cell chronic lymphocytic leukemia, H/O alcohol abuse, Acute confusion, Lab test negative for COVID-19 virus Discharge Plan Visit Data Chief Complaint: Illness Stated Complaint: ILLNESS ED Provider: Lauro Joy Discharge Problem: Sepsis, B-cell chronic lymphocytic leukemia, H/O alcohol abuse, Acute confusion, Lab test negative for COVID-19 virus Patient Disposition: Admitted As Inpatient Discharge Instructions Interventions: ED Discharge Assessment Last Done: 09/16/20 18:22 Discharge Problem: Sepsis Qualifiers: Sepsis type: sepsis due to unspecified organism Sepsis acute organ dysfunction status: unspecified Qualified Code(s): A41.9 - Sepsis, unspecified organism B-cell chronic lymphocytic leukemia Qualifiers: Leukemia Active/Remission status: in remission Qualified Code(s): C91.11 - Chronic lymphocytic leukemia of B-cell type in remission
--- NOTE | 2020-09-16 14:10 | XRay Report ---
XR chest 1V portable CLINICAL HISTORY: SEPSIS COMPARISON STUDY: 02/27/2019 FINDINGS: The cardiac and mediastinal contours are normal. There is no evidence of focal pulmonary co nsolidation. There is no evidence of failure. No pleural effusions are visualized.[ IMPRESSION: No active disease in the chest. ACT 112: Negative or not required by law. Electronically signed by: Kenroy Lara M.D. 09/16/2020 2:09 PM
[2020-09-16 14:32] LABS: Basophils # (auto) 0.02 K/uL (0-0.2); Basophils % (auto) 0.2 %; Eosinophils # (auto) 0.04 K/uL (0-0.5); Eosinophils % (auto) 0.4 %; Hematocrit (blood only) 37.8 % (42-52); Hemoglobin 13.1 g/dL (14.0-18.0); Immature Granulocytes # (auto) 0.05 K/uL (0.00-0.02); Immature Granulocytes % (auto) 0.5 %; Lymphocytes # (auto) 1.26 K/uL (1.2-3.4); Lymphocytes % (auto) 13.2 %; Mean Corpuscular Hemoglobin 30.6 pg (25-34); Mean Corpuscular Hgb Conc 34.7 g/dL (32-36); Mean Corpuscular Volume 88.3 fL (80-100); Monocytes # (auto) 0.66 K/uL (0.11-0.59); Monocytes % (auto) 6.9 %; Neutrophils # (auto) 7.55 K/uL (1.4-6.5); Neutrophils % (auto) 78.8 %; Platelet Count 134 K/uL (130-400); RDW Coefficient of Variation 14.1 % (11.5-14.5); RDW Standard Deviation 45.4 fL (36.4-46.3); Red Blood Count 4.28 M/uL (4.7-6.1); White Blood Count 9.58 K/uL (4.8-10.8)
[2020-09-16 14:51] LABS: Albumin Level 3.2 gm/dl (3.4-5.0); Calcium 10.6 mg/dl (8.5-10.1); Creatinine Clr Calc Pharmacy 90.3 ml/min; Est GFR (African American) 90.5 ml/min; Est GFR (Non-African American) 78.1 ml/min; Potassium 3.4 mmol/L (3.5-5.1)
[2020-09-16 14:54] LABS: Albumin Globulin Ratio 0.7 (0.9-2); Bilirubin,Total 2.4 mg/dl (0.2-1); Globulin 4.6 gm/dl (2.5-4.0); Total Protein 7.8 gm/dl (6.4-8.2)
[2020-09-16 15:11] LABS: INR 1.2 (0.9-1.1); Prothrombin Time 11.9 Seconds (9.0-12.0)
--- NOTE | 2020-09-16 16:03 | CT Scan Report ---
CT SCAN OF THE ABDOMEN AND PELVIS WITHOUT CONTRAST CLINICAL HISTORY: Right groin hernia. Severe malaise. Patient to fill to undergo surgery. COMPARISON STUDY: No previous studies for comparison. TECHNIQUE: CT scan of the abdomen and pelvis was performed from the lung bases to the proximal femurs . Images are reviewed in the axial, sagittal, and coronal planes. IV contrast was not administered fo r this examination. A dose lowering technique was utilized adhering to the principles of ALARA. CT DOSE: 967.03 mGy.cm FINDINGS: Lower chest: 52 Liver: The unenhanced liver is normal in size, contour, and attenuation. There is no intrahepatic jared iary ductal dilatation. Gallbladder: Cholelithiasis Spleen: Enlarged measuring 17 cm Pancreas: Unremarkable. Adrenal glands: Unremarkable. Kidneys: No renal, ureteral, or bladder calculi are visualized. Bowel: There are no transition zones to indicate bowel obstruction. There is no evidence of acute div erticulitis. There is no evidence of acute appendicitis. Peritoneum: There is no ascites. There is no free intraperitoneal air. There is a small fat-containin g umbilical hernia. Vasculature: The abdominal aorta is normal in course and caliber. Adenopathy: There are enlarged retrocrural lymph nodes. There are enlarged paracaval and aortocaval l ymph nodes. There is a retroperitoneal lymph node conglomerate mass [id number] cm transversely. Th ere is bulky right iliac chain lymph nodes. One conglomerate mass which encases the right external il iac artery measures 12.5 cm. A more inferior node which compresses the bladder measures 9.8 cm. There is bulky right inguinal lymphadenopathy. There are also small left iliac chain lymph nodes. There is a 17 cm central mesenteric mass. This contains areas of fat likely representing entrapped fat from b ulky adenopathy. Pelvic viscera: The bladder is distorted due to the bulky pelvic lymphadenopathy. Skeletal structures: No destructive osseous lesions are seen. IMPRESSION: 1. Extensive mesenteric, retroperitoneal, iliac chain, and iliac lymphadenopathy. In addition there i s splenomegaly. Lymphoma is the diagnosis of exclusion. Biopsy is recommended. 2. No evidence of bowel obstruction. No evidence of free air 3. Cholelithiasis 4. No renal, ureteral, or bladder calculi identified. ACT 112: Positive. There are findings on this exam that require communication between the performing entity and the patient following Patient Test Result [place] Act ([place] Act 112) guidelines. Electronically signed by: Kenroy Lara M.D. 09/16/2020 4:02 PM
[2020-09-16] MEDS ORDERED: SODIUM CHLORIDE 0.9% 1000ML 1,000 ML IV ONE (16:11)
[2020-09-16] MEDS ORDERED: PIPERACILLIN/TAZOBACTAM 4.5 GM/120 ML BAG IV STA (16:18)
--- NOTE | 2020-09-16 16:48 | CT Scan Report ---
CT OF THE HEAD WITHOUT CONTRAST CLINICAL HISTORY: increased confusion COMPARISON STUDY: Head CT October 20, 2012. CT DOSE: 884.08 mGy.cm TECHNIQUE: Helical axial images of the head were obtained without IV contrast. Automated exposure con trol was utilized for the study. A dose lowering technique was utilized adhering to the principles o f ALARA. FINDINGS: No acute intracranial hemorrhage, midline shift or mass effect is present. The ventricular system is unremarkable. Encephalomalacia within the anterior left frontal lobe at site of hemorrhage shown on CT of October 20, 2012 is noted. The basal cisterns are patent. No extra-axial collections are present. There are no findings to suggest acute dural sinus thrombosis or acute territorial infarct. No significant calvarial abnormalities are present. Visualized portions of the sinuses and mastoid ai r cells are clear. IMPRESSION: No acute intracranial findings. Left frontal lobe encephalomalacia. ACT 112: Negative or not required by law. Electronically signed by: Jakob Brewster M.D. 09/16/2020 4:47 PM
[2020-09-16 16:58] LABS: Appearance Urine Clear (Clear); Bacteria Urine Automated Negative (Negative); Blood Urine Trace (Negative); Color Urine Orange; Epithelial Cell Urine Auto >30 /lpf (0-5); Glucose Urine UA Negative (Negative); Ketones Urine 1+ (Negative); Leukocyte Esterase Urine Trace (Negative); Nitrite Urine Positive (Negative); Protein Urine 1+ (Negative); Specific Gravity Urine 1.031 (1.000-1.030); Urobilinogen Urine Negative (Negative); pH Urine 5.5 (4.5-7.5)
[2020-09-16 17:00] LABS: Bilirubin Urine 1+ (Negative)
[2020-09-16 17:22] LABS: Mucus Urine Present (None Prsent)
[2020-09-16 17:23] LABS: Renal Epithelial Cells Urine 0-5 /lpf (0-5)
--- NOTE | 2020-09-16 17:30 | History & Physical Report ---
Date of Service September 16, 2020 Assessment & Plan (1) Tachycardia: Not meeting SIRS criteria and no overt sepsis or evidence of infection. He is demonstrating sinus tachycardia that is persistent despite 2 L of normal saline in the ER. Suspect alcohol withdrawal syndrome versus developing sepsis. He also reports very clearly he does not want to be in the hospital and this may be a manifestation of anxiety as he is also hypertensive. He takes lorazepam regularly at home and in the setting of possible alcohol withdrawal will administer lorazepam IV at this time and repeat vital signs. Will check procalcitonin if elevated will consider antibiotic therapy, however, patient does not appear clinically ill. Lethargy and fatigue may have more to do with uncontrolled depression, and he agrees with this. He denies any suicidal ideations but feels his depression is worse. He does take Lexapro daily in addition to Ativan. Continue to monitor in PCU. Notably he was supposed to have a hernia repair today and is reporting pain in his right inguinal area today. Abdomen is not concerning on exam and CT not revealing evidence of incarceration, however, lactate is elevated, and patient is poor historian with possible developing sepsis and this as a potential source. Will cover empirically with Zosyn, trend lactate after fluid given in ER and consult General Surgery for their thoughts. (2) HTN (hypertension): Hypertensive patient on atenolol 50 mg daily at home in addition to lisinopril 20 mg daily. There is likely a component of whitecoat hypertension and anxiety driving this blood pressure. Repeat after lorazepam administration. Low-salt diet. (3) PAF (paroxysmal atrial fibrillation): The patient has a listed history of paroxysmal atrial fibrillation in his outpatient [facility] record, however, there are no inpatient or outpatient cardiology notes available that go into this diagnosis. He is currently in sinus rhythm and is not on an anticoagulant. (4) H/O alcohol abuse: reports h/o heavy alcohol use. Tachycardia may be related to a withdrawal picture. CIWA scale and ATivan as needed. Notably patient already takes gabapentin. (5) Seizure: Reports compliance with Keppra, also takes gabapentin for neuropathy. Takes trazodone which may lower seizure threshold. Will hold at this time. (6) Depression: Patient reports this is worse, and denies a good support system locally. Suspect much of his currently symptomatology is related to depression. Denies SI. Cont Lexapro per home regimen. (7) Cognitive deficit, post-stroke: At baseline. No new stroke symptoms. (8) Polyneuropathy: Patient takes gabapentin for this. Cont per home dosing. (9) DVT prophylaxis: Lovenox Full Code Dispo-to home in 1-2 days pending clinical course. Bridgett Green DO [facility] Hospitalist History of Present Illness Chief Complaint: Fatigue, malaise Primary Care Provider: Gini Roe MD 65-year-old man with history of B-cell CLL in remission presented to the ER via ambulance. The patient reports several days of generalized malaise but cannot pinpoint a specific symptom. He denies any fevers, chills, respiratory symptoms including cough, shortness of breath. He denies any chest pain, urinary symptoms. He does report some right inguinal pain related to a hernia which was scheduled to be surgically fixed by Dr. Turcios today. [facility] unable to get out of bed. EMS was notified and he was taken into the hospital. The patient reports a history of alcohol use that is significant. It is questionable when his last drink was but he seems to report his last drink approximately 48 hours ago. He does have a history of seizure but denies any breakthrough seizures recently. He does report an episode 4 to 5 days ago where he woke up feeling groggy and was not quite sure what had happened, but does not think he had a seizure. He was not sure. He reports being compliant with all his medications and reports poor oral intake generally. He denies having any family or significant friends locally. He lives by himself. He reports ambulating independently and occasionally using a cane and states his overall ability to ambulate has been slightly worse lately. He does not elaborate more than this. He he reports some generalized nausea. He does not drive and does not work. 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 He denies any tobacco use. He does have a history of B-cell CLL and is compliant with immunotherapy. His oncologist is through [facility] oncology and he was last seen approximately 8 months ago. He denies any B symptoms including no weight changes, night sweats, lymphadenopathy, or other concerns for malignancy. He denies any new strokelike symptoms including no headache, visual changes, difficulty swallowing. He has had a stroke in the past and suffers from word finding difficulty consistently. Allergies Allergy/AdvReac Type Severity Reaction Status Date / Time No Known Allergies Allergy NONE Verified 09/16/20 16:24 Home Medications Medication Instructions Recorded Confirmed Type allopurinol 300 mg PO DAILY 02/27/19 09/16/20 History atenolol 50 mg PO DAILY 02/27/19 09/16/20 History folic acid 1 mg PO DAILY 02/27/19 09/16/20 History furosemide [Lasix] 20 mg PO DAILY 02/27/19 09/16/20 History gabapentin 900 mg PO TID 02/27/19 09/16/20 History levetiracetam [Keppra] 750 mg PO BID 02/27/19 09/16/20 History lisinopril 20 mg PO DAILY 02/27/19 09/16/20 History lorazepam [Ativan] 0.5 mg PO BID PRN 02/27/19 09/16/20 History ondansetron HCl 8 mg PO TID PRN 02/27/19 09/16/20 History trazodone 50 mg PO HS 02/27/19 09/16/20 History aspirin 81 mg PO DAILY 09/16/20 09/16/20 History escitalopram oxalate [Lexapro] 10 mg PO DAILY 09/16/20 09/16/20 History famotidine 20 mg PO BID 09/16/20 09/16/20 History fluoride (sodium) [PreviDent 5000 1 applic DENTAL HS 09/16/20 09/16/20 History Plus] food supplemt, lactose-reduced 1 ea PO DIRECTED 09/16/20 09/16/20 History [Ensure Active High Protein] ibrutinib 420 mg PO DAILY 09/16/20 09/16/20 History magnesium oxide 400 mg PO DAILY 09/16/20 09/16/20 History prochlorperazine maleate 10 mg PO Q6H PRN 09/16/20 09/16/20 History sennosides [Senokot] 8.6 mg PO BID 09/16/20 09/16/20 History Past Med/Surg History Medical History B-cell chronic lymphocytic leukemia BPH (benign prostatic hyperplasia) Cognitive deficit, post-stroke Depression H/O alcohol abuse Polyneuropathy Seizure Surgical History S/P inguinal hernia repair 12/05/2009-Dr. Mayur Turcios Family History Other No significant family history Social History Smoking Status: Never smoker Hx Alcohol Use: Yes Alcohol type: wine and hard liquor Hx Substance Use: No Preferred Language: Welsh Communication Ability: Impaired Road Test Examiner Required: No Beliefs That Will Affect Care: None Current Living Situation: Alone Other Information That Helps Us Care for You: No Feels Safe at Home: Yes Safety Concerns: Feels Safe At This Time Assistive Devices: Cane and Glasses Review of Systems Review of Systems: All systems reviewed & are unremarkable except as noted in HPI & below Physical Exam Physical Exam: CONSTITUTIONAL: WNWD, vitals as above, generally well- appearing EYES: normal conjunctivae, no scleral icterus ENT: external ear and nose normal, MMM RESPIRATORY: clear to auscultation bilaterally, no crackles, rales or wheezes, normal respiratory effort CARDIOVASCULAR: tachy rate and regular rhythm, S1 and 2 heard without murmurs, gallops or rubs, no JVD, no peripheral edema CHEST: inspection of chest was normal GASTROINTESTINAL: soft, NT, ND, no guarding. I cannot appreciate a hernia in his right inguinal region, even with head flexed forward and patient bearing down. MUSCULOSKELETAL: strength 5/5 throughout, head is normocephalic and atraumatic, neck supple, normal palpation of chest wall without tenderness SKIN: warm and dry, no rashes NEUROLOGIC: pupils are round and equal bilaterally, no facial palsy, no dysarthria. Some word finding difficulty noted but he is articulate. CN 2-12 grossly intact, no sensory deficit, normal cognition, normal speech, slight tremor on the right when holding his arms straight out in front of him. No asterixis noted. PSYCHIATRIC: alert cooperative and oriented to person, place and time. Euthymic mood, makes good eye contact, language grossly intact, recent and remote memory grossly intact. Results & Data Results & Data ([facility]) Vital Signs (Past 12 Hours) Vital Signs Temp Pulse Pulse Resp BP BP Pulse Ox 09/16/20 16:13 135 H 23 149/91 H 09/16/20 15:59 98 09/16/20 15:16 112 H 18 167/88 H 09/16/20 15:00 117 H 22 167/88 H 09/16/20 13:36 37.8 C H 134 H 18 180/101 H 95 Laboratory Results Short CBC 09/16/20 Range/Units 14:15 WBC 9.58 (4.8-10.8) K/uL Hgb 13.1 L (14.0-18.0) g/dL Hct 37.8 L (42-52) % Plt Count 134 (130-400) K/uL BMP 09/16/20 14:15 Sodium 143 Potassium 3.4 L Chloride 108 H Carbon Dioxide 24 BUN 15 Creatinine 1.00 Glucose 96 Calcium 10.6 H Liver Function 09/16/20 Range/Units 14:15 Total Bilirubin 2.4 H (0.2-1) mg/dl AST 68 H (15-37) U/L ALT 15 (12-78) U/L Alkaline Phosphatase 68 (45-117) U/L Albumin 3.2 L (3.4-5.0) gm/dl Urine 09/16/20 Range/Units 16:34 Urine Color [place] Urine Appearance Clear (Clear) Urine pH 5.5 (4.5-7.5) Ur Specific Nucla 1.031 H (1.000-1.030) Urine Protein 1+ H (Negative) Urine Glucose (UA) Negative (Negative) Diagnostic Findings CT OF THE HEAD WITHOUT CONTRAST CLINICAL HISTORY: increased confusion COMPARISON STUDY: Head CT October 20, 2012. CT DOSE: 884.08 mGy.cm TECHNIQUE: Helical axial images of the head were obtained without IV contrast. Automated exposure control was utilized for the study. A dose lowering technique was utilized adhering to the principles of ALARA. FINDINGS: No acute intracranial hemorrhage, midline shift or mass effect is present. The ventricular system is unremarkable. Encephalomalacia within the anterior left frontal lobe at site of hemorrhage shown on CT of October 20, 2012 is noted. The basal cisterns are patent. No extra-axial collections are present. There are no findings to suggest acute dural sinus thrombosis or acute territorial infarct. No significant calvarial abnormalities are present. Visualized portions of the sinuses and mastoid air cells are clear. IMPRESSION: No acute intracranial findings. Left frontal lobe encephalomalacia. CT SCAN OF THE ABDOMEN AND PELVIS WITHOUT CONTRAST CLINICAL HISTORY: Right groin hernia. Severe malaise. Patient to fill to undergo surgery. COMPARISON STUDY: No previous studies for comparison. TECHNIQUE: CT scan of the abdomen and pelvis was performed from the lung bases to the proximal femurs. Images are reviewed in the axial, sagittal, and coronal planes. IV contrast was not administered for this examination. A dose lowering technique was utilized adhering to the principles of ALARA. CT DOSE: 967.03 mGy.cm FINDINGS: Lower chest: 52 Liver: The unenhanced liver is normal in size, contour, and attenuation. There is no intrahepatic biliary ductal dilatation. Gallbladder: Cholelithiasis Spleen: Enlarged measuring 17 cm Pancreas: Unremarkable. Adrenal glands: Unremarkable. Kidneys: No renal, ureteral, or bladder calculi are visualized. Bowel: There are no transition zones to indicate bowel obstruction. There is no evidence of acute diverticulitis. There is no evidence of acute appendicitis. Peritoneum: There is no ascites. There is no free intraperitoneal air. There is a small fat-containing umbilical hernia. Vasculature: The abdominal aorta is normal in course and caliber. Adenopathy: There are enlarged retrocrural lymph nodes. There are enlarged paracaval and aortocaval lymph nodes. There is a retroperitoneal lymph node conglomerate mass [id number] cm transversely. There is bulky right iliac chain lymph nodes. One conglomerate mass which encases the right external iliac artery measures 12.5 cm. A more inferior node which compresses the bladder measures 9.8 cm. There is bulky right inguinal lymphadenopathy. There are also small left iliac chain lymph nodes. There is a 17 cm central mesenteric mass. This contains areas of fat likely representing entrapped fat from bulky adenopathy. Pelvic viscera: The bladder is distorted due to the bulky pelvic lymphadenopathy. Skeletal structures: No destructive osseous lesions are seen. IMPRESSION: 1. Extensive mesenteric, retroperitoneal, iliac chain, and iliac lymphadenopathy. In addition there is splenomegaly. Lymphoma is the diagnosis of exclusion. Biopsy is recommended. 2. No evidence of bowel obstruction. No evidence of free air 3. Cholelithiasis 4. No renal, ureteral, or bladder calculi identified. --- XR chest 1V portable CLINICAL HISTORY: SEPSIS COMPARISON STUDY: 02/27/2019 FINDINGS: The cardiac and mediastinal contours are normal. There is no evidence of focal pulmonary consolidation. There is no evidence of failure. No pleural effusions are visualized.[ IMPRESSION: No active disease in the chest.
[2020-09-16] MEDS ORDERED: LORazepam 1 MG/2 ML VIAL IV STA (19:15)
[2020-09-16] MEDS ORDERED: ONDANSETRON INJ 2 MG/ML 2 ML VIAL IV PRN (19:36)
[2020-09-16] MEDS ORDERED: POLYETHYLENE (MIRALAX) 17 GM PACK PO PRN (19:36)
[2020-09-16] MEDS ORDERED: ACETAMINOPHEN 325 MG TAB PO PRN (19:36)
[2020-09-16] MEDS ORDERED: LORazepam 0.5 MG TAB PO PRN (20:47)
[2020-09-16] MEDS ORDERED: PROCHLORPERAZINE MALEATE 10 MG TAB PO PRN (20:47)
[2020-09-16] MEDS ORDERED: LORazepam 1 MG TAB PO PRN (20:57)
[2020-09-16] MEDS ORDERED: MULTI-VITAMIN INFUSION 10 ML, THIAMINE HCL 100 MG, FOLIC ACID 1 MG in SODIUM CHLORIDE 0... IV ONE (20:57)
[2020-09-16] MEDS ORDERED: PIPERACILL/TAZOBAC CONSULT ACTIVE PRN (21:08)
[2020-09-16] MEDS ORDERED: ONDANSETRON 8MG OD TAB PO PRN (21:15)
[2020-09-16] MEDS: GABAPENTIN 300 MG CAP PO SCH (22:05)
[2020-09-16] MEDS: ENOXAPARIN INJ 40 MG/0.4 ML SYR SQ SCH (22:05)
--- NOTE | 2020-09-16 22:05 | Surgery Consultation ---
Date of Consultation September 16, 2020 Assessment & Plan (1) Inguinal adenopathy: Patient has been admitted to the hospital in the hospital service. We have been asked to see the patient for possible right inguinal hernia and possible sepsis. At the present time it does not appear that the patient has a right inguinal hernia. The mass palpated in the patient's right inguinal region is consistent with lymphadenopathy and this is also demonstrated on the patient's CAT scan. Primary concern would be the patient has recurrence of his B-cell lymphoma. We therefore recommend obtaining an oncology consultation. At the present time there is no need for any acute surgical intervention. General surgery will be available if any surgical needs arise. Supervising Physician Co-Signing Physician Notes History, labs and imaging reviewed, agree with above. H/O b cell lymphoma, CT with right inguinal lymphadenopathy, no e/o hernia. No acute surgical intervention indicated. Recommend oncologic workup to assess for recurrence, surgery available if needed. History of Present Illness Reason for Consultation: Inguinal hernia Attending Physician: Bridgett Green, DO History of Present Illness This is a 65-year-old male who has a history of B-cell lymphoma. She notes that his B-cell lymphoma is currently in remission but he did note he received chemotherapy in the past. He is unsure when his most recent therapy was. Is unsure if he has received any radiation. Patient presented to the emergency department because he said he had lower abdominal pain. His pain is primarily located in the right inguinal region. He notes that he had plans to have a right inguinal hernia repaired by Dr. Turcios in the near future. I question patient on other symptoms and he denies any fevers, shakes, chills. He notes that he had a normal bowel movement earlier today. He denies any nausea or vomiting. He does not report any changes in his appetite. He denies any fevers or night sweats. Also denies any weight loss. Admission to the hospital patient has had labs and imaging which independently reviewed. CT scan of the head showed no acute intracranial findings. CT scan of the abdomen and pelvis showed extensive mesenteric, retroperitoneal, iliac chain, and iliac lymphadenopathy. Patient was also noted to have splenomegaly. There is no evidence of free air or bowel obstruction. Terpening radiologist did raise a concern of lymphoma causing his lymphadenopathy. A chest x-ray showed no evidence of pneumonia or CHF. Labs included a CBC where his white blood cell count and platelet count were normal. His hemoglobin and hematocrit are 13.1 and 37.8 respectively. His INR is noted to be 1.2. . Profile showed sodium was 143, potassium 3.4, and BUN and creatinine were both normal. Patient did have a slight elevation of his lactic acid of 2.2. Urinalysis did show trace blood with positive nitrite. Also had trace positive leukocyte Estrace but no pyuria. A Covid test was performed and was noted to be negative. At the time of my interview the patient was resting comfortably in bed in no distress. Allergies Allergy/AdvReac Type Severity Reaction Status Date / Time No Known Allergies Allergy NONE Verified 09/16/20 16:24 Home Medications Medication Instructions Recorded Confirmed Type allopurinol 300 mg PO DAILY 02/27/19 09/16/20 History atenolol 50 mg PO DAILY 02/27/19 09/16/20 History folic acid 1 mg PO DAILY 02/27/19 09/16/20 History furosemide [Lasix] 20 mg PO DAILY 02/27/19 09/16/20 History gabapentin 900 mg PO TID 02/27/19 09/16/20 History levetiracetam [Keppra] 750 mg PO BID 02/27/19 09/16/20 History lisinopril 20 mg PO DAILY 02/27/19 09/16/20 History lorazepam [Ativan] 0.5 mg PO BID PRN 02/27/19 09/16/20 History ondansetron HCl 8 mg PO TID PRN 02/27/19 09/16/20 History trazodone 50 mg PO HS 02/27/19 09/16/20 History aspirin 81 mg PO DAILY 09/16/20 09/16/20 History escitalopram oxalate [Lexapro] 10 mg PO DAILY 09/16/20 09/16/20 History famotidine 20 mg PO BID 09/16/20 09/16/20 History fluoride (sodium) [PreviDent 5000 1 applic DENTAL HS 09/16/20 09/16/20 History Plus] food supplemt, lactose-reduced 1 ea PO DIRECTED 09/16/20 09/16/20 History [Ensure Active High Protein] ibrutinib 420 mg PO DAILY 09/16/20 09/16/20 History magnesium oxide 400 mg PO DAILY 09/16/20 09/16/20 History prochlorperazine maleate 10 mg PO Q6H PRN 09/16/20 09/16/20 History sennosides [Senokot] 8.6 mg PO BID 09/16/20 09/16/20 History Patient History Medical History B-cell chronic lymphocytic leukemia BPH (benign prostatic hyperplasia) Cognitive deficit, post-stroke Depression H/O alcohol abuse Polyneuropathy Seizure Surgical History S/P inguinal hernia repair 12/05/2009-Dr. Mayur Turcios Family History Other No significant family history Social History Smoking Status: Never smoker Hx Alcohol Use: Yes Alcohol type: wine and hard liquor Hx Substance Use: No Preferred Language: [place] Irish Communication Ability: Impaired Supervisor Pipelines Required: No Beliefs That Will Affect Care: None Current Living Situation: Alone Other Information That Helps Us Care for You: No Feels Safe at Home: Yes Safety Concerns: Feels Safe At This Time Assistive Devices: None Review of Systems Constitutional: no fever and no chills Eyes: no diplopia Ear, Nose, Mouth, Throat: no ear pain Respiratory: no cough and no dyspnea Cardiovascular: no chest pain Gastrointestinal: + abdominal pain; no nausea and no vomiting Genitourinary: no dysuria Musculoskeletal: no back pain Integumentary: no rash Neurologic: no localized weakness Physical Exam Constitutional: well developed and well nourished; no acute distress Eyes: no conjunctival abnormality ENMT: Ears: no hearing impairment Neck: trachea midline Respiratory: normal respiratory effort, lungs clear to auscultation Cardiovascular: Rate/Rhythm: regular rate and regular rhythm Gastrointestinal (Abdomen): Abdomen is soft and nondistended. There is no rebound tenderness or guarding. Patient did have pain with palpation in the right inguinal region. Further palpation of the right inguinal region revealed extensive inguinal adenopathy that was palpable. Musculoskeletal: No calf tenderness Skin: no rashes, warm and dry Neurologic: moves all extremities Psychiatric: Orientation: alert and oriented x 3 Affect: + flat affect Results & Data ([place]) Vital Signs (Past 12 Hours) Vital Signs Temp Pulse Pulse Resp BP BP Pulse Ox 09/16/20 19:36 36.5 C 110 H 18 143/80 H 96 09/16/20 16:13 135 H 23 149/91 H 09/16/20 15:59 98 09/16/20 15:16 112 H 18 167/88 H 09/16/20 15:00 117 H 22 167/88 H 09/16/20 13:36 37.8 C H 134 H 18 180/101 H 95 PG Care Time/CCT Total # of Minutes Spent Total Time Spent with Patient: Total time spent is greater than 50% in coordination of care (as documented) at patient's floor/unit and/or counseling patient: Coding Level of Care Code 96809 Inpt Consult Level 5 Diagnoses Inguinal adenopathy R59.0
[2020-09-16] MEDS: levETIRAcetam 250 MG TAB PO SCH (22:06)
[2020-09-16] MEDS: FAMOTIDINE 20 MG TAB PO SCH (22:07)
[2020-09-16] MEDS: SENNA 8.6 MG TAB PO SCH (22:07)
[2020-09-16] MEDS: THIAMINE HCL 100 MG TAB PO SCH (22:08)
--- NOTE | 2020-09-16 22:59 | Electrocardiogram Report ---
Test Reason : Blood Pressure : / mmHG Vent. Rate : 128 BPM Atrial Rate : 128 BPM P-R Int : 146 ms QRS Dur : 088 ms QT Int : 306 ms P-R-T Axes : 055 075 017 degrees QTc Int : 446 ms Poor data quality, interpretation may be adversely affected Sinus tachycardia Abnormal ECG When compared with ECG of 16-SEP-2020 13:31, No significant change was found Confirmed by Ney Pozo ([id number]) on 09/16/2020 10:58:32 PM Referred By: ED Confirmed By:Ney Pozo
[2020-09-16] MEDS: PIPERACILLIN/TAZOBACTAM 3.375 GM in DEXTROSE 5% 100 ML IV SCH (23:07)
[2020-09-16] MEDS ORDERED: ATIVAN IV ALCOHOL WITHDRAWL IV PRN (23:29)
[2020-09-16] MEDS ORDERED: LORazepam 2 MG/4 ML VIAL IV PRN (23:29)
[2020-09-16] MEDS ORDERED: LORazepam 3 MG/6 ML VIAL IV PRN (23:29)
[2020-09-16] MEDS ORDERED: LORazepam 1 MG/2 ML VIAL IV PRN (23:29)
[2020-09-16] MEDS ORDERED: dilTIAZem HCl 5 MG/ML 5 ML VIAL IV ONE (23:30)
[2020-09-16] MEDS ORDERED: dilTIAZem HCl 5 MG/ML 5 ML VIAL IV STA (23:41)
[2020-09-16] MEDS ORDERED: POTASSIUM CHLORIDE CRTAB 20 MEQ TABCR PO STA (23:42)
[2020-09-16] MEDS ORDERED: POTASSIUM CHLORIDE 40 MEQ in LACTATED RINGER'S 1,000 ML IV ONE (23:45)
[2020-09-17] MEDS ORDERED: 0.2 MICRON FILTER SET 1 EA IV ONE
[2020-09-17] MEDS ORDERED: STAT IV Infusion **Titration per Protocol STA
[2020-09-17] MEDS ORDERED: AMIODARONE IV BOLUS & DRIP IV STA
--- NOTE | 2020-09-17 | Communication Note ---
Date of Service: September 17, 2020 Notified by RN of rapid A. fib, cardiac rate 140s. Patient agitated, refusing to take oral atenolol and not allowing staff to check blood pressure as per RN. AP Uncontrolled A. fib secondary to alcohol withdrawal IV Amiodarone infusion for now for rate control SENIA S, DT precautions, adjust Ativan as needed dosing given worsening agitation Will relay to AM provider.
[2020-09-17] MEDS: ATENOLOL 50 MG TABLET PO SCH ×2 (00:03→12:06)
[2020-09-17] MEDS ORDERED: AMIODARONE / D5W 150 MG/100 ML BAG IV STA (00:06)
[2020-09-17] MEDS ORDERED: AMIODARONE / D5W 360 MG/200 ML BAG IV ONE (00:16)
[2020-09-17 00:24] LABS: Thyroid Stimulating Hormone 1.61 uIu/ml (0.300-4.500)
[2020-09-17] MEDS ORDERED: POTASSIUM CHLORIDE CRTAB 20 MEQ TABCR PO ONE (01:00)
[2020-09-17] MEDS: PIPERACILLIN/TAZOBACTAM 3.375 GM in DEXTROSE 5% 100 ML IV SCH ×3 (05:37→21:03)
[2020-09-17] MEDS ORDERED: AMIODARONE / D5W 360 MG/200 ML BAG IV SCH (06:16)
[2020-09-17 06:27] LABS: Hematocrit (blood only) 34.9 % (42-52); Hemoglobin 11.9 g/dL (14.0-18.0); Mean Corpuscular Hemoglobin 30.2 pg (25-34); Mean Corpuscular Hgb Conc 34.1 g/dL (32-36); Mean Corpuscular Volume 88.6 fL (80-100); Mean Platelet Volume 11.7 fL (7.4-10.4); Platelet Count 107 K/uL (130-400); RDW Coefficient of Variation 14.2 % (11.5-14.5); RDW Standard Deviation 46.3 fL (36.4-46.3); Red Blood Count 3.94 M/uL (4.7-6.1); White Blood Count 8.28 K/uL (4.8-10.8)
[2020-09-17 06:55] LABS: BUN Creatinine Ratio 15.7 (10-20); Calcium 9.4 mg/dl (8.5-10.1); Creatinine Clr Calc Pharmacy 100.1 ml/min; Est GFR (African American) 105.2 ml/min; Est GFR (Non-African American) 90.8 ml/min; Magnesium 1.9 mg/dl (1.8-2.4); Phosphorus 2.3 mg/dl (2.5-4.9); Potassium 3.7 mmol/L (3.5-5.1)
[2020-09-17] MEDS: allopurinoL 300 MG TAB PO SCH (07:58)
[2020-09-17] MEDS: ESCITALOPRAM OXALATE 10 MG TAB PO SCH (07:58)
[2020-09-17] MEDS: FOLIC ACID 1 MG TAB PO SCH (07:58)
[2020-09-17] MEDS: lisinopril 20 MG TAB PO SCH (07:59)
[2020-09-17] MEDS: MAGNESIUM OXIDE 400 MG TAB PO SCH (07:59)
[2020-09-17] MEDS: FAMOTIDINE 20 MG TAB PO SCH ×2 (08:00→20:53)
[2020-09-17] MEDS: GABAPENTIN 300 MG CAP PO SCH ×3 (08:00→20:54)
[2020-09-17] MEDS: levETIRAcetam 250 MG TAB PO SCH ×2 (08:00→20:53)
[2020-09-17] MEDS: THIAMINE HCL 100 MG TAB PO SCH (08:01)
[2020-09-17] MEDS: SENNA 8.6 MG TAB PO SCH ×2 (08:01→20:52)
[2020-09-17] MEDS ORDERED: ATENOLOL 50 MG TABLET PO SCH (09:00)
[2020-09-17] MEDS: ASPIRIN 81 MG CHEW PO SCH (09:55)
--- NOTE | 2020-09-17 14:54 | Surgery Progress Note ---
Date of Service September 17, 2020 Assessment & Plan (1) Inguinal adenopathy: 65-year-old male with history of CLL now with likely conversion and significant intra-abdominal, retroperitoneal, and right inguinal lymphadenopathy. We discussed this at multidisciplinary tumor board they are recommending excisional biopsy for further diagnosis. Plan for right inguinal lymph node biopsy tomorrow The risks of the procedure were discussed to include but not limited to bleeding, infection, damage surrounding structures, need for future more extensive surgery, fluid collections, and risk of anesthesia Diagnosis, details of procedure recovery, and plan of care discussed the patient, all questions were answered, the patient's breast understanding agrees the plan of care as stated (2) H/O alcohol abuse: (3) PAF (paroxysmal atrial fibrillation): (4) B-cell chronic lymphocytic leukemia: Admission and Anticipated Discharge Date Admission Date: September 16, 2020 Subjective 65-year-old male with history of CLL now with likely conversion and significant intra-abdominal and inguinal lymphadenopathy. Physical Exam Constitutional: WD/WN, vitals as above + obese Gastrointestinal (Abdomen): Percussion/Palpation: + hernia (Reducible umbilical) Lymphatic: + inguinal lymphadenopathy (Bulky right inguinal adenopathy) Results & Data ([facility]) Vital Signs (Past 12 Hours) Vital Signs Temp Pulse Pulse Resp BP BP Pulse Ox 09/17/20 11:21 36.7 C 74 18 126/64 93 09/17/20 07:16 36.4 C L 58 L 20 138/63 100 09/17/20 03:52 36.5 C 105 H 20 136/80 96 Laboratory Results Laboratory Results - last 24 hr 09/16/20 09/16/20 09/16/20 14:15 14:15 14:15 WBC RBC Hgb Hct MCV MCH MCHC RDW Std Deviation RDW Coeff of Yvette Plt Count MPV PT INR APTT PTT Ratio Sodium Potassium Chloride Carbon Dioxide Anion Gap BUN Creatinine Est Cr Clr Drug Dosing Est GFR ( Amer) Est GFR (Non-Af Amer) BUN/Creatinine Ratio Glucose Lactate 2.4 H* Calcium Phosphorus Magnesium Total Bilirubin 2.4 H Alkaline Phosphatase 68 Total Creatine Kinase Total Protein 7.8 Globulin 4.6 H Albumin/Globulin Ratio 0.7 L Procalcitonin TSH 1.610 Urine Color Urine Appearance Urine pH Ur Specific [place] Urine Protein Urine Glucose (UA) Urine Ketones Urine Blood Urine Nitrite Urine Bilirubin Urine Urobilinogen Ur Leukocyte Esterase Urine WBC (Auto) Urine RBC (Auto) U Hyaline Cast (Auto) U Epithel Cells (Auto) Urine Bacteria (Auto) Ur Renal Epithelial Cell Urine Mucus Ethyl Alcohol mg/dL SARS-CoV-2 (PCR) NEGATIVE 09/16/20 09/16/20 09/16/20 14:40 16:19 16:34 WBC RBC Hgb Hct MCV MCH MCHC RDW Std Deviation RDW Coeff of Yvette Plt Count MPV PT 11.9 INR 1.2 H APTT 27.0 PTT Ratio 1.0 Sodium Potassium Chloride Carbon Dioxide Anion Gap BUN Creatinine Est Cr Clr Drug Dosing Est GFR ( Amer) Est GFR (Non-Af Amer) BUN/Creatinine Ratio Glucose Lactate 2.2 H* Calcium Phosphorus Magnesium Total Bilirubin Alkaline Phosphatase Total Creatine Kinase Total Protein Globulin Albumin/Globulin Ratio Procalcitonin TSH Urine Color [place] Urine Appearance Clear Urine pH 5.5 Ur Specific [place] 1.031 H Urine Protein 1+ H Urine Glucose (UA) Negative Urine Ketones 1+ H Urine Blood Trace H Urine Nitrite Positive A Urine Bilirubin 1+ H Urine Urobilinogen Negative Ur Leukocyte Esterase Trace H Urine WBC (Auto) 1-5 Urine RBC (Auto) 5-10 H U Hyaline Cast (Auto) 1-5 U Epithel Cells (Auto) >30 H Urine Bacteria (Auto) Negative Ur Renal Epithelial Cell 0-5 Urine Mucus Present A Ethyl Alcohol mg/dL SARS-CoV-2 (PCR) 09/16/20 09/16/20 09/16/20 17:59 21:33 21:33 WBC RBC Hgb Hct MCV MCH MCHC RDW Std Deviation RDW Coeff of Yvette Plt Count MPV PT INR APTT PTT Ratio Sodium Potassium Chloride Carbon Dioxide Anion Gap BUN Creatinine Est Cr Clr Drug Dosing Est GFR ( Amer) Est GFR (Non-Af Amer) BUN/Creatinine Ratio Glucose Lactate Calcium Phosphorus Magnesium Total Bilirubin Alkaline Phosphatase Total Creatine Kinase 21 L Total Protein Globulin Albumin/Globulin Ratio Procalcitonin 0.08 TSH Urine Color Urine Appearance Urine pH Ur Specific [place] Urine Protein Urine Glucose (UA) Urine Ketones Urine Blood Urine Nitrite Urine Bilirubin Urine Urobilinogen Ur Leukocyte Esterase Urine WBC (Auto) Urine RBC (Auto) U Hyaline Cast (Auto) U Epithel Cells (Auto) Urine Bacteria (Auto) Ur Renal Epithelial Cell Urine Mucus Ethyl Alcohol mg/dL < 3.0 SARS-CoV-2 (PCR) 09/16/20 09/17/20 09/17/20 21:33 06:08 06:08 WBC 8.28 RBC 3.94 L Hgb 11.9 L Hct 34.9 L MCV 88.6 MCH 30.2 MCHC 34.1 RDW Std Deviation 46.3 RDW Coeff of Yvette 14.2 Plt Count 107 L MPV 11.7 H PT INR APTT PTT Ratio Sodium 144 Potassium 3.7 Chloride 114 H Carbon Dioxide 24 Anion Gap 6.0 BUN 13 Creatinine 0.85 Est Cr Clr Drug Dosing 100.1 Est GFR ( Amer) 105.2 Est GFR (Non-Af Amer) 90.8 BUN/Creatinine Ratio 15.7 Glucose 91 Lactate 1.9 Calcium 9.4 Phosphorus 2.3 L Magnesium 1.9 Total Bilirubin Alkaline Phosphatase Total Creatine Kinase Total Protein Globulin Albumin/Globulin Ratio Procalcitonin TSH Urine Color Urine Appearance Urine pH Ur Specific [place] Urine Protein Urine Glucose (UA) Urine Ketones Urine Blood Urine Nitrite Urine Bilirubin Urine Urobilinogen Ur Leukocyte Esterase Urine WBC (Auto) Urine RBC (Auto) U Hyaline Cast (Auto) U Epithel Cells (Auto) Urine Bacteria (Auto) Ur Renal Epithelial Cell Urine Mucus Ethyl Alcohol mg/dL SARS-CoV-2 (PCR) Diagnostic Findings CT SCAN OF THE ABDOMEN AND PELVIS WITHOUT CONTRAST CLINICAL HISTORY: Right groin hernia. Severe malaise. Patient to fill to undergo surgery. COMPARISON STUDY: No previous studies for comparison. TECHNIQUE: CT scan of the abdomen and pelvis was performed from the lung bases to the proximal femurs. Images are reviewed in the axial, sagittal, and coronal planes. IV contrast was not administered for this examination. A dose lowering technique was utilized adhering to the principles of ALARA. CT DOSE: 967.03 mGy.cm FINDINGS: Lower chest: 52 Liver: The unenhanced liver is normal in size, contour, and attenuation. There is no intrahepatic biliary ductal dilatation. Gallbladder: Cholelithiasis Spleen: Enlarged measuring 17 cm Pancreas: Unremarkable. Adrenal glands: Unremarkable. Kidneys: No renal, ureteral, or bladder calculi are visualized. Bowel: There are no transition zones to indicate bowel obstruction. There is no evidence of acute diverticulitis. There is no evidence of acute appendicitis. Peritoneum: There is no ascites. There is no free intraperitoneal air. There is a small fat-containing umbilical hernia. Vasculature: The abdominal aorta is normal in course and caliber. Adenopathy: There are enlarged retrocrural lymph nodes. There are enlarged paracaval and aortocaval lymph nodes. There is a retroperitoneal lymph node conglomerate mass [id number] cm transversely. There is bulky right iliac chain lymph nodes. One conglomerate mass which encases the right external iliac artery measures 12.5 cm. A more inferior node which compresses the bladder measures 9.8 cm. There is bulky right inguinal lymphadenopathy. There are also small left iliac chain lymph nodes. There is a 17 cm central mesenteric mass. This contains areas of fat likely representing entrapped fat from bulky adenopathy. Pelvic viscera: The bladder is distorted due to the bulky pelvic lymphadenopathy. Skeletal structures: No destructive osseous lesions are seen. IMPRESSION: 1. Extensive mesenteric, retroperitoneal, iliac chain, and iliac lymphadenopathy. In addition there is splenomegaly. Lymphoma is the diagnosis of exclusion. Biopsy is recommended. 2. No evidence of bowel obstruction. No evidence of free air 3. Cholelithiasis 4. No renal, ureteral, or bladder calculi identified. PG Care Time/CCT Total # of Minutes Spent Total Time Spent with Patient: Total time spent is greater than 50% in coordination of care (as documented) at patient's floor/unit and/or counseling patient: Coding Level of Care Code 13139 Inpt Consult Level 3 Diagnoses Inguinal adenopathy R59.0 H/O alcohol abuse F10.11 PAF (paroxysmal atrial fibrillation) I48.0 B-cell chronic lymphocytic leukemia C91.11 Leukemia Active/Remission status: in remission (1) B-cell chronic lymphocytic leukemia Leukemia Active/Remission status: in remission Qualified Code(s): C91.11 - Chronic lymphocytic leukemia of B-cell type in remission
--- NOTE | 2020-09-17 15:22 | Cardiology Consultation ---
Date of Consultation September 17, 2020 Assessment & Plan (1) Acute confusion: (2) B-cell chronic lymphocytic leukemia: (3) Cognitive deficit, post-stroke: (4) Depression: (5) H/O alcohol abuse: (6) Seizure: (7) PAF (paroxysmal atrial fibrillation): At present the patient is resting comfortably and hemodynamically stable as well as in a sinus rhythm. He takes atenolol at home which should be continued. In regard to long-term anticoagulation, I believe that he is at risk for falls and noncompliance. If he should require surgery this hospital admission I think he may proceed with an acceptable risk provided he is not going through alcohol withdrawal. Other metabolic problems should be corrected as well. History of Present Illness Attending Physician: Avery Wilkerson MD History of Present Illness This is a 65-year-old male patient who was scheduled to have an elective inguinal hernia repair and then presented with complaints of general malaise, weakness and abdominal discomfort. The patient has some mental health problems as well as possible alcohol abuse. When he presented he had some confusion and it was felt possibly due to alcohol withdrawal. He was also tachycardic despite IV fluids. The patient has a history of paroxysmal atrial fibrillation and after my review of the telemetry it would appear that he had atrial fibrillation with RVR that spontaneously converted to normal sinus rhythm early this morning. He has no other significant cardiac history. He does have chronic lymphocytic leukemia. At the time of my interview he is resting comfortably. Most of the information is taken from the medical record. Allergies Allergy/AdvReac Type Severity Reaction Status Date / Time No Known Allergies Allergy NONE Verified 09/16/20 16:24 Home Medications Medication Instructions Recorded Confirmed Type allopurinol 300 mg PO DAILY 02/27/19 09/16/20 History atenolol 50 mg PO DAILY 02/27/19 09/16/20 History folic acid 1 mg PO DAILY 02/27/19 09/16/20 History furosemide [Lasix] 20 mg PO DAILY 02/27/19 09/16/20 History gabapentin 900 mg PO TID 02/27/19 09/16/20 History levetiracetam [Keppra] 750 mg PO BID 02/27/19 09/16/20 History lisinopril 20 mg PO DAILY 02/27/19 09/16/20 History lorazepam [Ativan] 0.5 mg PO BID PRN 02/27/19 09/16/20 History ondansetron HCl 8 mg PO TID PRN 02/27/19 09/16/20 History trazodone 50 mg PO HS 02/27/19 09/16/20 History aspirin 81 mg PO DAILY 09/16/20 09/16/20 History escitalopram oxalate [Lexapro] 10 mg PO DAILY 09/16/20 09/16/20 History famotidine 20 mg PO BID 09/16/20 09/16/20 History fluoride (sodium) [PreviDent 5000 1 applic DENTAL HS 09/16/20 09/16/20 History Plus] food supplemt, lactose-reduced 1 ea PO DIRECTED 09/16/20 09/16/20 History [Ensure Active High Protein] ibrutinib 420 mg PO DAILY 09/16/20 09/16/20 History magnesium oxide 400 mg PO DAILY 09/16/20 09/16/20 History prochlorperazine maleate 10 mg PO Q6H PRN 09/16/20 09/16/20 History sennosides [Senokot] 8.6 mg PO BID 09/16/20 09/16/20 History Patient History Medical History B-cell chronic lymphocytic leukemia BPH (benign prostatic hyperplasia) Cognitive deficit, post-stroke Depression H/O alcohol abuse Polyneuropathy Seizure Surgical History S/P inguinal hernia repair 12/05/2009-Dr. Mayur Turcios Family History Other No significant family history Social History Smoking Status: Never smoker Hx Alcohol Use: Yes Alcohol type: wine and hard liquor Hx Substance Use: No Preferred Language: Marshallese Communication Ability: Unable Partner Marketing Intern Required: No Beliefs That Will Affect Care: None Current Living Situation: Alone Other Information That Helps Us Care for You: No Feels Safe at Home: Yes Safety Concerns: Feels Safe At This Time Assistive Devices: Glasses Review of Systems Review of Systems: Unobtainable due to cognitive status Physical Exam Physical Exam: General: no acute distress and stated age Head: normocephalic, no masses, lesions, tenderness or abnormalities Eyes: conjunctiva are pink and non-injected, sclera clear Neck: supple, no adenopathy, no bruits, normal jugular venous pulse, no hepatojugular reflux Chest: normal shape and normal respiratory effort Lungs: clear to auscultation and percussion Cardiac Exam: - regular rate & rhythm, no murmurs gallops or rubs - normal S1, normal S2 Pulses: 2(+) throughout Abdomen: abdomen soft, non-tender, no abnormal masses and no hepatosplenomegaly Musculoskeletal: no gait disturbance, no joint inflammation, no deforming arthritis Extremities: no edema and no cyanosis Neuro: grossly normal exam Results & Data ([facility]) Vital Signs (Past 12 Hours) Vital Signs Temp Pulse Pulse Resp BP BP Pulse Ox 09/17/20 14:52 36.4 C L 78 18 132/65 98 09/17/20 11:21 36.7 C 74 18 126/64 93 09/17/20 07:16 36.4 C L 58 L 20 138/63 100 09/17/20 03:52 36.5 C 105 H 20 136/80 96 Laboratory Results Laboratory Results - last 24 hr 09/16/20 09/16/20 09/16/20 14:15 14:15 16:19 WBC RBC Hgb Hct MCV MCH MCHC RDW Std Deviation RDW Coeff of Yvette Plt Count MPV Sodium Potassium Chloride Carbon Dioxide Anion Gap BUN Creatinine Est Cr Clr Drug Dosing Est GFR ( Amer) Est GFR (Non-Af Amer) BUN/Creatinine Ratio Glucose Lactate 2.2 H* Calcium Phosphorus Magnesium Total Creatine Kinase Procalcitonin TSH 1.610 Urine Color Urine Appearance Urine pH Ur Specific [place] Urine Protein Urine Glucose (UA) Urine Ketones Urine Blood Urine Nitrite Urine Bilirubin Urine Urobilinogen Ur Leukocyte Esterase Urine WBC (Auto) Urine RBC (Auto) U Hyaline Cast (Auto) U Epithel Cells (Auto) Urine Bacteria (Auto) Ur Renal Epithelial Cell Urine Mucus Ethyl Alcohol mg/dL SARS-CoV-2 (PCR) NEGATIVE 09/16/20 09/16/20 09/16/20 16:34 17:59 21:33 WBC RBC Hgb Hct MCV MCH MCHC RDW Std Deviation RDW Coeff of Yvette Plt Count MPV Sodium Potassium Chloride Carbon Dioxide Anion Gap BUN Creatinine Est Cr Clr Drug Dosing Est GFR ( Amer) Est GFR (Non-Af Amer) BUN/Creatinine Ratio Glucose Lactate Calcium Phosphorus Magnesium Total Creatine Kinase 21 L Procalcitonin TSH Urine Color [place] Urine Appearance Clear Urine pH 5.5 Ur Specific [place] 1.031 H Urine Protein 1+ H Urine Glucose (UA) Negative Urine Ketones 1+ H Urine Blood Trace H Urine Nitrite Positive A Urine Bilirubin 1+ H Urine Urobilinogen Negative Ur Leukocyte Esterase Trace H Urine WBC (Auto) 1-5 Urine RBC (Auto) 5-10 H U Hyaline Cast (Auto) 1-5 U Epithel Cells (Auto) >30 H Urine Bacteria (Auto) Negative Ur Renal Epithelial Cell 0-5 Urine Mucus Present A Ethyl Alcohol mg/dL < 3.0 SARS-CoV-2 (PCR) 09/16/20 09/16/20 09/17/20 21:33 21:33 06:08 WBC 8.28 RBC 3.94 L Hgb 11.9 L Hct 34.9 L MCV 88.6 MCH 30.2 MCHC 34.1 RDW Std Deviation 46.3 RDW Coeff of Yvette 14.2 Plt Count 107 L MPV 11.7 H Sodium Potassium Chloride Carbon Dioxide Anion Gap BUN Creatinine Est Cr Clr Drug Dosing Est GFR ( Amer) Est GFR (Non-Af Amer) BUN/Creatinine Ratio Glucose Lactate 1.9 Calcium Phosphorus Magnesium Total Creatine Kinase Procalcitonin 0.08 TSH Urine Color Urine Appearance Urine pH Ur Specific [place] Urine Protein Urine Glucose (UA) Urine Ketones Urine Blood Urine Nitrite Urine Bilirubin Urine Urobilinogen Ur Leukocyte Esterase Urine WBC (Auto) Urine RBC (Auto) U Hyaline Cast (Auto) U Epithel Cells (Auto) Urine Bacteria (Auto) Ur Renal Epithelial Cell Urine Mucus Ethyl Alcohol mg/dL SARS-CoV-2 (PCR) 09/17/20 06:08 WBC RBC Hgb Hct MCV MCH MCHC RDW Std Deviation RDW Coeff of Yvette Plt Count MPV Sodium 144 Potassium 3.7 Chloride 114 H Carbon Dioxide 24 Anion Gap 6.0 BUN 13 Creatinine 0.85 Est Cr Clr Drug Dosing 100.1 Est GFR ( Amer) 105.2 Est GFR (Non-Af Amer) 90.8 BUN/Creatinine Ratio 15.7 Glucose 91 Lactate Calcium 9.4 Phosphorus 2.3 L Magnesium 1.9 Total Creatine Kinase Procalcitonin TSH Urine Color Urine Appearance Urine pH Ur Specific [place] Urine Protein Urine Glucose (UA) Urine Ketones Urine Blood Urine Nitrite Urine Bilirubin Urine Urobilinogen Ur Leukocyte Esterase Urine WBC (Auto) Urine RBC (Auto) U Hyaline Cast (Auto) U Epithel Cells (Auto) Urine Bacteria (Auto) Ur Renal Epithelial Cell Urine Mucus Ethyl Alcohol mg/dL SARS-CoV-2 (PCR) Medications Administered Current Inpatient Medications Acetaminophen (Acetaminophen 325 Mg Tab) 650 mg PO Q4H PRN PRN Reason: Pain or Fever Stop: 10/16/20 19:35 Allopurinol (Allopurinol 300 Mg Tab) 300 mg PO DAILY EUNICE Stop: 10/17/20 08:59 Last Admin: 09/17/20 07:58 Dose: 300 mg Documented by: Aspirin (Aspirin 81 Mg Chew) 81 mg PO DAILY EUNICE Stop: 10/17/20 08:59 Last Admin: 09/17/20 09:55 Dose: 81 mg Documented by: Atenolol (Atenolol 50 Mg Tablet) 50 mg PO DAILY EUNICE Stop: 10/17/20 00:00 Last Admin: 09/17/20 12:06 Dose: 50 mg Documented by: Enoxaparin Sodium (Enoxaparin Inj 40 Mg/0.4 Ml Syr) 40 mg SQ HS [facility] Stop: 10/16/20 20:59 Last Admin: 09/16/20 22:05 Dose: 40 mg Documented by: Escitalopram Oxalate (Escitalopram Oxalate 10 Mg Tab) 10 mg PO DAILY EUNICE Stop: 10/17/20 08:59 Last Admin: 09/17/20 07:58 Dose: 10 mg Documented by: Famotidine (Famotidine 20 Mg Tab) 20 mg PO BID EUNICE Stop: 10/16/20 20:59 Last Admin: 09/17/20 08:00 Dose: 20 mg Documented by: Folic Acid (Folic Acid 1 Mg Tab) 1 mg PO DAILY [facility] Stop: 10/17/20 08:59 Last Admin: 09/17/20 07:58 Dose: 1 mg Documented by: Gabapentin (Gabapentin 300 Mg Cap) 900 mg PO TID EUNICE Stop: 10/16/20 20:59 Last Admin: 09/17/20 13:38 Dose: 900 mg Documented by: Piperacillin Sod/Tazobactam (Sod 3.375 gm/ Dextrose) 115 mls @ 28.75 mls/hr IV Q8H EUNICE; Protocol Stop: 09/18/20 21:59 Last Admin: 09/17/20 13:38 Dose: 28.8 mls/hr Documented by: Lorazepam (Ativan) 1 mg in 2 mls @ 2 mls/min IV UD PRN; Protocol PRN Reason: EtOH Withdrawl AWSS Score 6,7 Stop: 10/16/20 23:28 Last Admin: 09/17/20 02:44 Dose: 2 mls/min Documented by: Lorazepam (Ativan) 2 mg in 4 mls @ 4 mls/min IV UD PRN; Protocol PRN Reason: EtOH Withdrawl AWSS Score 8,9 Stop: 10/16/20 23:28 Lorazepam (Ativan) 3 mg in 6 mls @ 4 mls/min IV ONCE PRN; Protocol PRN Reason: EtOH Withdrawl AWSS Score >=10 Stop: 10/16/20 23:28 Levetiracetam (Levetiracetam 250 Mg Tab) 750 mg PO BID [facility] Stop: 10/16/20 20:59 Last Admin: 09/17/20 08:00 Dose: 750 mg Documented by: Lisinopril (Lisinopril 20 Mg Tab) 20 mg PO DAILY [facility] Stop: 10/17/20 08:59 Last Admin: 09/17/20 07:59 Dose: 20 mg Documented by: Magnesium Oxide (Magnesium Oxide 400 Mg Tab) 400 mg PO DAILY [facility] Stop: 10/17/20 08:59 Last Admin: 09/17/20 07:59 Dose: 400 mg Documented by: Miscellaneous (Ibrutinib 420 Mg Tablet - Order Awaiting Action) 1 ea N/A QS EUNICE Stop: 10/17/20 00:00 Last Admin: 09/17/20 09:55 Dose: Not Given Documented by: Miscellaneous Information (Piperacill/Tazobac Consult Active) 1 ea N/A UD PRN PRN Reason: Consult Stop: 10/16/20 21:07 Ondansetron HCl (Ondansetron 8mg Od Tab) 8 mg PO TID PRN PRN Reason: Nausea Stop: 10/16/20 21:14 Polyethylene Glycol (Polyethylene (Miralax) 17 Gm Pack) 17 gm PO DAILY PRN PRN Reason: Constipation Stop: 10/16/20 19:35 Sennosides (Senna 8.6 Mg Tab) 8.6 mg PO BID [facility] Stop: 10/16/20 20:59 Last Admin: 09/17/20 08:01 Dose: 8.6 mg Documented by: Thiamine HCl (Thiamine Hcl 100 Mg Tab) 100 mg PO QAM [facility] Stop: 10/16/20 21:19 Last Admin: 09/17/20 08:01 Dose: 100 mg Documented by: (1) B-cell chronic lymphocytic leukemia Leukemia Active/Remission status: in remission Qualified Code(s): C91.11 - Chronic lymphocytic leukemia of B-cell type in remission
--- NOTE | 2020-09-17 15:27 | Hospitalist Progress Note ---
Date of Service September 17, 2020 Assessment & Plan (1) Tachycardia: Atrial fibrillation with RVR Stroke paroxysmal atrial fibrillation Normal TSH Spontaneously converted to sinus IV amiodarone discontinued Atenolol changed to metoprolol 25 mg twice daily Cardiology consulted May not be a candidate for long-term anticoagulation given risk for falls, noncompliance Monitor on telemetry Extensive lymphadenopathy H/O CLL -CT ABD:Extensive mesenteric, retroperitoneal, iliac chain, and iliac l ymphadenopathy. In addition there is splenomegaly. Lymphoma is the diagnosis of exclusion. Biopsy is recommended. No evidence of bowel obstruction. No evidence of free air. Cholelithiasis. No renal, ureteral, or bladder calculi identified. There is posterior mediastinal paraesophageal and para-aortic lymphadenopathy. There is a small hiatal hernia. -Plan for right inguinal lymph node biopsy tomorrow -Appreciate surgery input -Continue Ibrutinib (2) HTN (hypertension): Continue lisinopril, metoprolol Monitor (3) PAF (paroxysmal atrial fibrillation): Management as above (4) H/O alcohol abuse: h/o heavy alcohol use Continue thiamine, folic acid Continue gabapentin Monitor hemoglobin (5) Seizure: CT Head:No acute intracranial findings. Left frontal lobe encephalomalacia. Continue Keppra Seizure precautions Trazodone on hold for now (6) Depression: Continue medications (7) Cognitive deficit, post-stroke: At baseline (8) Polyneuropathy: On gabapentin (9) DVT prophylaxis: Lovenox SQ Code Status Full Code Admission and Anticipated Discharge Date Admission Date: September 16, 2020 Subjective Patient is seen and examined at bedside States having right groin pain, tenderness, swelling Also states feeling tired Denies chest pain, dyspnea, dizziness, nausea, abdominal pain Offers no other complaints Poor historian Review of Systems Review of Systems: All systems reviewed & are unremarkable except as noted in HPI & below Physical Exam Physical Exam: Physical Exam: Vitals signs as noted above General Appearance:Moderately built and nourished, no apparent distress Head: normocephalic, Atraumatic Eyes: normal inspection, EOMI Neck: supple, Trachea midline Respiratory/Chest: Decreased breath sounds, CTA, No accessory muscle use Cardiovascular: S1, S2, No murmur Abdomen/GI:Soft, Non tender, Bowel sounds present : Right groin swelling, tenderness Extremities/Musculoskeletal:normal inspection, no edema Neurologic/Psych:AAO, grossly no focal neurological deficits Skin: normal color, warm Results & Data Results & Data ([facility]) Vital Signs (Past 12 Hours) Vital Signs Temp Pulse Pulse Resp BP BP Pulse Ox 09/17/20 14:52 36.4 C L 78 18 132/65 98 09/17/20 11:21 36.7 C 74 18 126/64 93 09/17/20 07:16 36.4 C L 58 L 20 138/63 100 09/17/20 03:52 36.5 C 105 H 20 136/80 96 Laboratory Results Short CBC 09/17/20 Range/Units 06:08 WBC 8.28 (4.8-10.8) K/uL Hgb 11.9 L (14.0-18.0) g/dL Hct 34.9 L (42-52) % Plt Count 107 L (130-400) K/uL BMP 09/17/20 06:08 Sodium 144 Potassium 3.7 Chloride 114 H Carbon Dioxide 24 BUN 13 Creatinine 0.85 Glucose 91 Calcium 9.4 Cardiac Enzymes 09/16/20 Range/Units 21:33 Total Creatine Kinase 21 L (39-308) U/L Urine 09/16/20 Range/Units 16:34 Urine Color [place] Urine Appearance Clear (Clear) Urine pH 5.5 (4.5-7.5) Ur Specific [place] 1.031 H (1.000-1.030) Urine Protein 1+ H (Negative) Urine Glucose (UA) Negative (Negative)
[2020-09-17] MEDS: METOPROLOL TARTRATE 25 MG TAB PO SCH (20:52)
[2020-09-17] MEDS: ENOXAPARIN INJ 40 MG/0.4 ML SYR SQ SCH (20:52)
--- NOTE | 2020-09-18 05:42 | Electrocardiogram Report ---
Test Reason : Blood Pressure : / mmHG Vent. Rate : 161 BPM Atrial Rate : 500 BPM P-R Int : 000 ms QRS Dur : 090 ms QT Int : 304 ms P-R-T Axes : 000 066 -61 degrees QTc Int : 497 ms Atrial fibrillation with rapid ventricular response Nonspecific ST abnormality Abnormal ECG When compared with ECG of 16-SEP-2020 13:34, Atrial fibrillation has replaced Sinus rhythm Confirmed by Ney Pozo ([id number]) on 09/18/2020 5:42:40 AM Referred By: REFERRED SELF Confirmed By:Ney Pozo
--- NOTE | 2020-09-18 05:52 | Electrocardiogram Report ---
Test Reason : Blood Pressure : / mmHG Vent. Rate : 095 BPM Atrial Rate : 072 BPM P-R Int : 000 ms QRS Dur : 088 ms QT Int : 310 ms P-R-T Axes : 000 073 015 degrees QTc Int : 389 ms Atrial fibrillation Abnormal ECG When compared with ECG of 16-SEP-2020 23:15, Vent. rate has decreased BY [address] no longer depressed in Inferior leads ST no longer depressed in Anterolateral leads T wave inversion less evident in Inferior leads Confirmed by Ney Pozo ([id number]) on 09/18/2020 5:52:07 AM Referred By: REFERRED SELF Confirmed By:Ney Pozo
[2020-09-18] MEDS: PIPERACILLIN/TAZOBACTAM 3.375 GM in DEXTROSE 5% 100 ML IV SCH ×3 (06:19→22:02)
[2020-09-18 07:09] LABS: Hematocrit (blood only) 37.6 % (42-52); Hemoglobin 12.7 g/dL (14.0-18.0); Mean Corpuscular Hemoglobin 30.4 pg (25-34); Mean Corpuscular Hgb Conc 33.8 g/dL (32-36); Mean Platelet Volume 12.7 fL (7.4-10.4); Platelet Count 101 K/uL (130-400); RDW Coefficient of Variation 14.6 % (11.5-14.5); RDW Standard Deviation 48.2 fL (36.4-46.3); Red Blood Count 4.18 M/uL (4.7-6.1); White Blood Count 8.53 K/uL (4.8-10.8)
[2020-09-18 07:10] LABS: Platelet Estimate Decreased (Normal)
[2020-09-18 07:21] LABS: BUN Creatinine Ratio 15.4 (10-20); Calcium 10.3 mg/dl (8.5-10.1); Creatinine Clr Calc Pharmacy 87.8 ml/min; Est GFR (African American) 93.9 ml/min; Magnesium 2.1 mg/dl (1.8-2.4); Potassium 3.4 mmol/L (3.5-5.1)
[2020-09-18] MEDS: GABAPENTIN 300 MG CAP PO SCH ×3 (09:08→21:34)
[2020-09-18] MEDS: SENNA 8.6 MG TAB PO SCH ×3 (09:08→21:39)
[2020-09-18] MEDS: levETIRAcetam 250 MG TAB PO SCH ×2 (09:08→21:36)
[2020-09-18] MEDS: METOPROLOL TARTRATE 25 MG TAB PO SCH ×2 (09:08→21:35)
[2020-09-18] MEDS: FAMOTIDINE 20 MG TAB PO SCH ×2 (09:08→21:34)
[2020-09-18] MEDS: lisinopril 20 MG TAB PO SCH (09:09)
[2020-09-18] MEDS: FOLIC ACID 1 MG TAB PO SCH (09:10)
[2020-09-18] MEDS: THIAMINE HCL 100 MG TAB PO SCH (09:10)
[2020-09-18] MEDS: allopurinoL 300 MG TAB PO SCH (09:10)
[2020-09-18] MEDS: MAGNESIUM OXIDE 400 MG TAB PO SCH (09:10)
[2020-09-18] MEDS: ESCITALOPRAM OXALATE 10 MG TAB PO SCH (09:10)
[2020-09-18] MEDS ORDERED: POTASSIUM CHLORIDE 40 MEQ in SODIUM CHLORIDE 0.9% 1000ML 500 ML IV ONE (09:45)
[2020-09-18] MEDS: ASPIRIN 81 MG CHEW PO SCH (09:59)
--- NOTE | 2020-09-18 10:05 | Surgery Progress Note ---
Date of Service September 18, 2020 Assessment & Plan (1) Inguinal adenopathy: 65-year-old male with history of CLL now with likely conversion and significant intra-abdominal, retroperitoneal, and right inguinal lymphadenopathy. We discussed this at multidisciplinary tumor board they are recommending excisional biopsy for further diagnosis. Plan for right inguinal lymph node biopsy today The risks of the procedure were discussed to include but not limited to bleeding, infection, damage surrounding structures, need for future more extensive surgery, fluid collections, and risk of anesthesia Diagnosis, details of procedure recovery, and plan of care discussed the patient, all questions were answered, the patient's breast understanding agrees the plan of care as stated (2) H/O alcohol abuse: (3) PAF (paroxysmal atrial fibrillation): (4) B-cell chronic lymphocytic leukemia: Admission and Anticipated Discharge Date Admission Date: September 16, 2020 Subjective 65-year-old male with history of CLL now with likely conversion and significant intra-abdominal and inguinal lymphadenopathy. Physical Exam Constitutional: WD/WN, vitals as above + obese Gastrointestinal (Abdomen): Percussion/Palpation: + hernia (Reducible umbilical) Lymphatic: + inguinal lymphadenopathy (Bulky right inguinal adenopathy) Results & Data ([facility]) Vital Signs (Past 12 Hours) Vital Signs Temp Pulse Pulse Resp BP Pulse Ox 09/18/20 07:44 37.1 C 80 18 144/69 H 94 09/18/20 07:17 82 09/18/20 04:00 36.8 C 81 16 159/75 H 95 09/18/20 00:43 36.6 C 78 18 145/74 H 95 09/17/20 23:59 64 PG Care Time/CCT Total # of Minutes Spent Total Time Spent with Patient: Total time spent is greater than 50% in coordination of care (as documented) at patient's floor/unit and/or counseling patient: Coding Level of Care Code 36814 Inpt Consult Level 3 Diagnoses Inguinal adenopathy R59.0 H/O alcohol abuse F10.11 PAF (paroxysmal atrial fibrillation) I48.0 B-cell chronic lymphocytic leukemia C91.11 Leukemia Active/Remission status: in remission (1) B-cell chronic lymphocytic leukemia Leukemia Active/Remission status: in remission Qualified Code(s): C91.11 - Chronic lymphocytic leukemia of B-cell type in remission
--- NOTE | 2020-09-18 10:40 | Cardiology Progress Note ---
Date of Service September 18, 2020 Assessment & Plan (1) Acute confusion: (2) B-cell chronic lymphocytic leukemia: (3) Cognitive deficit, post-stroke: (4) Depression: (5) H/O alcohol abuse: (6) Seizure: (7) PAF (paroxysmal atrial fibrillation): The patient surgery has changed from a hernia repair to biopsy of lymph nodes later today. The patient is currently stable and optimally medically managed to go through that surgery. Admission and Anticipated Discharge Date Admission Date: September 16, 2020 Subjective The patient is working with physical therapy in the room. No ongoing complaints. Review of Systems Review of Systems: All systems reviewed & are unremarkable except as noted in Subjective Physical Exam Physical Exam: General: no acute distress and stated age Head: normocephalic, no masses, lesions, tenderness or abnormalities Eyes: conjunctiva are pink and non-injected, sclera clear Neck: supple, no adenopathy, no bruits, normal jugular venous pulse, no hepatojugular reflux Chest: normal shape and normal respiratory effort Lungs: clear to auscultation and percussion Cardiac Exam: - regular rate & rhythm, no murmurs gallops or rubs - normal S1, normal S2 Pulses: 2(+) throughout Abdomen: abdomen soft, non-tender, no abnormal masses and no hepatosplenomegaly Musculoskeletal: no gait disturbance, no joint inflammation, no deforming arthritis Extremities: no edema and no cyanosis Neuro: grossly normal exam Results & Data ([facility]) Vital Signs (Past 12 Hours) Vital Signs Temp Pulse Pulse Resp BP Pulse Ox 09/18/20 07:44 37.1 C 80 18 144/69 H 94 09/18/20 07:17 82 09/18/20 04:00 36.8 C 81 16 159/75 H 95 09/18/20 00:43 36.6 C 78 18 145/74 H 95 09/17/20 23:59 65 Laboratory Results Laboratory Results - last 24 hr 09/18/20 09/18/20 09/18/20 06:38 06:38 06:38 WBC 8.53 RBC 4.18 L Hgb 12.7 L Hct 37.6 L MCV 90.0 MCH 30.4 MCHC 33.8 RDW Std Deviation 48.2 H RDW Coeff of Yvette 14.6 H Plt Count 101 L MPV 12.7 H Platelet Estimate Decreased L Sodium 145 Potassium 3.4 L Chloride 115 H Carbon Dioxide 24 Anion Gap 6.0 BUN 15 Creatinine 0.97 Est Cr Clr Drug Dosing 87.8 Est GFR ( Amer) 93.9 Est GFR (Non-Af Amer) 81.0 BUN/Creatinine Ratio 15.4 Glucose 91 POC Glucose Calcium 10.3 H Magnesium 2.1 Levetiracetam Pending 09/18/20 07:06 WBC RBC Hgb Hct MCV MCH MCHC RDW Std Deviation RDW Coeff of Yvette Plt Count MPV Platelet Estimate Sodium Potassium Chloride Carbon Dioxide Anion Gap BUN Creatinine Est Cr Clr Drug Dosing Est GFR ( Amer) Est GFR (Non-Af Amer) BUN/Creatinine Ratio Glucose POC Glucose 94 Calcium Magnesium Levetiracetam Diagnostic Findings Telemetry indicates normal sinus rhythm and no further arrhythmias. Medications Administered Current Inpatient Medications Acetaminophen (Acetaminophen 325 Mg Tab) 650 mg PO Q4H PRN PRN Reason: Pain or Fever Stop: 10/16/20 19:35 Allopurinol (Allopurinol 300 Mg Tab) 300 mg PO DAILY EUNICE Stop: 10/17/20 08:59 Last Admin: 09/18/20 09:10 Dose: 300 mg Documented by: Aspirin (Aspirin 81 Mg Chew) 81 mg PO DAILY EUNICE Stop: 10/17/20 08:59 Last Admin: 09/18/20 09:59 Dose: 81 mg Documented by: Enoxaparin Sodium (Enoxaparin Inj 40 Mg/0.4 Ml Syr) 40 mg SQ HS EUNICE Stop: 10/16/20 20:59 Last Admin: 09/17/20 20:52 Dose: 40 mg Documented by: Escitalopram Oxalate (Escitalopram Oxalate 10 Mg Tab) 10 mg PO DAILY EUNICE Stop: 10/17/20 08:59 Last Admin: 09/18/20 09:10 Dose: 10 mg Documented by: Famotidine (Famotidine 20 Mg Tab) 20 mg PO BID EUNICE Stop: 10/16/20 20:59 Last Admin: 09/18/20 09:08 Dose: 20 mg Documented by: Folic Acid (Folic Acid 1 Mg Tab) 1 mg PO DAILY EUNICE Stop: 10/17/20 08:59 Last Admin: 09/18/20 09:10 Dose: 1 mg Documented by: Gabapentin (Gabapentin 300 Mg Cap) 900 mg PO TID EUNICE Stop: 10/16/20 20:59 Last Admin: 09/18/20 09:08 Dose: 900 mg Documented by: Piperacillin Sod/Tazobactam (Sod 3.375 gm/ Dextrose) 115 mls @ 28.75 mls/hr IV Q8H EUNICE; Protocol Stop: 09/18/20 21:59 Last Infusion: 09/18/20 10:23 Dose: Infused Documented by: Lorazepam (Ativan) 1 mg in 2 mls @ 2 mls/min IV UD PRN; Protocol PRN Reason: EtOH Withdrawl AWSS Score 6,7 Stop: 10/16/20 23:28 Last Admin: 09/17/20 02:44 Dose: 2 mls/min Documented by: Lorazepam (Ativan) 2 mg in 4 mls @ 4 mls/min IV UD PRN; Protocol PRN Reason: EtOH Withdrawl AWSS Score 8,9 Stop: 10/16/20 23:28 Lorazepam (Ativan) 3 mg in 6 mls @ 4 mls/min IV ONCE PRN; Protocol PRN Reason: EtOH Withdrawl AWSS Score >=10 Stop: 10/16/20 23:28 Potassium Chloride 40 meq/ (Sodium Chloride) 520 mls @ 100 mls/hr IV .Q5H12M ONE Stop: 09/18/20 14:56 Last Admin: 09/18/20 09:58 Dose: 100 mls/hr Documented by: Levetiracetam (Levetiracetam 250 Mg Tab) 750 mg PO BID [facility] Stop: 10/16/20 20:59 Last Admin: 09/18/20 09:08 Dose: 750 mg Documented by: Lisinopril (Lisinopril 20 Mg Tab) 20 mg PO DAILY [facility] Stop: 10/17/20 08:59 Last Admin: 09/18/20 09:09 Dose: 20 mg Documented by: Magnesium Oxide (Magnesium Oxide 400 Mg Tab) 400 mg PO DAILY [facility] Stop: 10/17/20 08:59 Last Admin: 09/18/20 09:10 Dose: 400 mg Documented by: Metoprolol Tartrate (Metoprolol Tartrate 25 Mg Tab) 25 mg PO BID [facility] Stop: 10/17/20 20:59 Last Admin: 09/18/20 09:08 Dose: 25 mg Documented by: Miscellaneous (Ibrutinib 420 Mg Tablet - Order Awaiting Action) 1 ea N/A QS EUNICE Stop: 10/17/20 00:00 Last Admin: 09/18/20 07:18 Dose: Not Given Documented by: Miscellaneous Information (Piperacill/Tazobac Consult Active) 1 ea N/A UD PRN PRN Reason: Consult Stop: 10/16/20 21:07 Ondansetron HCl (Ondansetron 8mg Od Tab) 8 mg PO TID PRN PRN Reason: Nausea Stop: 10/16/20 21:14 Polyethylene Glycol (Polyethylene (Miralax) 17 Gm Pack) 17 gm PO DAILY PRN PRN Reason: Constipation Stop: 10/16/20 19:35 Sennosides (Senna 8.6 Mg Tab) 8.6 mg PO BID [facility] Stop: 10/16/20 20:59 Last Admin: 09/18/20 09:08 Dose: 8.6 mg Documented by: Thiamine HCl (Thiamine Hcl 100 Mg Tab) 100 mg PO QAM [facility] Stop: 10/16/20 21:19 Last Admin: 09/18/20 09:10 Dose: 100 mg Documented by: (1) B-cell chronic lymphocytic leukemia Leukemia Active/Remission status: in remission Qualified Code(s): C91.11 - Chronic lymphocytic leukemia of B-cell type in remission
[2020-09-18] MEDS ORDERED: fentaNYL citrate 100 MCG/2 ML VIAL ONE (14:52)
[2020-09-18] MEDS ORDERED: ONDANSETRON INJ 2 MG/ML 2 ML VIAL ONE ×2 (14:52→16:53)
[2020-09-18] MEDS ORDERED: PROPOFOL IV EMULSION 10 MG/ML 20 ML VIAL IV ONE (14:52)
[2020-09-18] MEDS ORDERED: LIDOCAINE 2% 2 ML VIAL/AMP(20MG/ML) INFIL ONE (14:52)
[2020-09-18] MEDS ORDERED: MIDAZOLAM HCL 1 MG/ML 2ML VIAL ONE (14:52)
[2020-09-18] MEDS ORDERED: BUPIVACAINE 0.5 % 5 MG/1 ML MPF 30ML VIAL ONE (15:55)
[2020-09-18] MEDS ORDERED: BUPIVACAINE LIPOSOME 1.3% 266 MG/20 ML VIAL ONE (15:56)
[2020-09-18] MEDS ORDERED: ePHEDrine sulfate 50 MG/ML AMP IV PRN (16:20)
[2020-09-18] MEDS ORDERED: fentaNYL citrate 100 MCG/2 ML VIAL IV PRN (16:20)
[2020-09-18] MEDS ORDERED: ATROPINE SULFATE 0.1 MG/ML 10ML SYR IV PRN (16:20)
[2020-09-18] MEDS ORDERED: ONDANSETRON INJ 2 MG/ML 2 ML VIAL IV PRN (16:20)
--- NOTE | 2020-09-18 16:31 | Anesthesiology Consultation ---
Date of Service September 18, 2020 Assessment & Plan (1) Encounter for pre-operative examination: Chart Review Chart Review: Acceptable Risk for Surgery and Patient NOT seen in Pre Admission Testing Consults Requested none History Surgery Operation Date: 09/18/20 14:00 Proposed Procedures p Right Inguinal Lymph Node Biopsy - Roberto Wilson DO, FACS Height/Weight Height: 5 ft 9 in Weight: 101 kg Allergies Allergy/AdvReac Type Severity Reaction Status Date / Time No Known Allergies Allergy NONE Verified 09/16/20 16:24 Medications Home Medications Medication Instructions Recorded Confirmed Last Taken allopurinol 300 mg PO DAILY 02/27/19 09/16/20 Unknown atenolol 50 mg PO DAILY 02/27/19 09/16/20 Unknown folic acid 1 mg PO DAILY 02/27/19 09/16/20 Unknown furosemide [Lasix] 20 mg PO DAILY 02/27/19 09/16/20 Unknown gabapentin 900 mg PO TID 02/27/19 09/16/20 Unknown levetiracetam [Keppra] 750 mg PO BID 02/27/19 09/16/20 Unknown lisinopril 20 mg PO DAILY 02/27/19 09/16/20 Unknown lorazepam [Ativan] 0.5 mg PO BID PRN 02/27/19 09/16/20 Unknown ondansetron HCl 8 mg PO TID PRN 02/27/19 09/16/20 Unknown trazodone 50 mg PO HS 02/27/19 09/16/20 Unknown aspirin 81 mg PO DAILY 09/16/20 09/16/20 Unknown escitalopram oxalate [Lexapro] 10 mg PO DAILY 09/16/20 09/16/20 Unknown famotidine 20 mg PO BID 09/16/20 09/16/20 Unknown fluoride (sodium) [PreviDent 5000 1 applic DENTAL HS 09/16/20 09/16/20 Unknown Plus] food supplemt, lactose-reduced 1 ea PO DIRECTED 09/16/20 09/16/20 Unknown [Ensure Active High Protein] ibrutinib 420 mg PO DAILY 09/16/20 09/16/20 Unknown magnesium oxide 400 mg PO DAILY 09/16/20 09/16/20 Unknown prochlorperazine maleate 10 mg PO Q6H PRN 09/16/20 09/16/20 Unknown sennosides [Senokot] 8.6 mg PO BID 09/16/20 09/16/20 Unknown Active Medications Generic Name Dose Route Start Last Admin Trade Name Freq PRN Reason Stop Dose Admin Allopurinol 300 mg 09/17/20 09:00 09/18/20 09:10 Allopurinol 300 Mg Tab PO 10/17/20 08:59 300 mg DAILY EUNICE Administration Aspirin 81 mg 09/17/20 09:00 09/18/20 09:59 Aspirin 81 Mg Chew PO 10/17/20 08:59 81 mg DAILY EUNICE Administration Enoxaparin Sodium 40 mg 09/16/20 21:00 09/17/20 20:52 Enoxaparin Inj 40 Mg/0.4 Ml Syr SQ 10/16/20 20:59 40 mg HS EUNICE Administration Escitalopram Oxalate 10 mg 09/17/20 09:00 09/18/20 09:10 Escitalopram Oxalate 10 Mg Tab PO 10/17/20 08:59 10 mg DAILY EUNICE Administration Famotidine 20 mg 09/16/20 21:00 09/18/20 09:08 Famotidine 20 Mg Tab PO 10/16/20 20:59 20 mg BID EUNICE Administration Folic Acid 1 mg 09/17/20 09:00 09/18/20 09:10 Folic Acid 1 Mg Tab PO 10/17/20 08:59 1 mg DAILY EUNICE Administration Gabapentin 900 mg 09/16/20 21:00 09/18/20 14:09 Gabapentin 300 Mg Cap PO 10/16/20 20:59 900 mg TID EUNICE Administration Piperacillin Sod/Tazobactam 115 mls @ 28.75 mls/hr 09/16/20 22:00 09/18/20 14:10 Sod 3.375 gm/ Dextrose IV 09/20/20 21:59 28.8 mls/hr Q8H EUNICE Administration Protocol Lorazepam 1 mg in 2 mls @ 2 mls/min 09/16/20 23:29 09/17/20 02:44 Ativan IV 10/16/20 23:28 2 mls/min UD PRN Administration EtOH Withdrawl AWSS Score 6,7 Protocol Levetiracetam 750 mg 09/16/20 21:00 09/18/20 09:08 Levetiracetam 250 Mg Tab PO 10/16/20 20:59 750 mg BID EUNICE Administration Lisinopril 20 mg 09/17/20 09:00 09/18/20 09:09 Lisinopril 20 Mg Tab PO 10/17/20 08:59 20 mg DAILY EUNICE Administration Magnesium Oxide 400 mg 09/17/20 09:00 09/18/20 09:10 Magnesium Oxide 400 Mg Tab PO 10/17/20 08:59 400 mg DAILY EUNICE Administration Metoprolol Tartrate 25 mg 09/17/20 21:00 09/18/20 09:08 Metoprolol Tartrate 25 Mg Tab PO 10/17/20 20:59 25 mg BID EUNICE Administration Miscellaneous 1 ea 09/17/20 00:00 09/18/20 07:18 Ibrutinib 420 Mg Tablet - Order Awaiting Action N/A 10/17/20 00:00 Not Given QS EUNICE Sennosides 8.6 mg 09/16/20 21:00 09/18/20 09:08 Senna 8.6 Mg Tab PO 10/16/20 20:59 8.6 mg BID EUNICE Administration Thiamine HCl 100 mg 09/16/20 21:20 09/18/20 09:10 Thiamine Hcl 100 Mg Tab PO 10/16/20 21:19 100 mg QAM EUNICE Administration NPO Date Last Intake of Fluids: 09/18/20 Time Last Intake of Fluids: 00:00 Last Intake of Fluids Comment: sips of water with fluids, per nursing report Date Last Intake of Solids: 09/18/20 Time Last Intake of Solids: 00:00 Last Intake of Solids Comment: per nursing report Past Medical History Medical History B-cell chronic lymphocytic leukemia BPH (benign prostatic hyperplasia) Cognitive deficit, post-stroke Depression H/O alcohol abuse Polyneuropathy Seizure Exercise / Class Metabolic Activity III < 4 Walking/Shop/Light housework Past Family History Family History Other No significant family history Past Surgical History Surgical History S/P inguinal hernia repair 12/05/2009-Dr. Mayur Turcios Past Anesthesia History No Hx of Anesthesia Complications and No Family Hx of Anesthesia Complications History of PONV No Hx of PONV and No Hx of Motion Sickness Social History Smoking Status: Never smoker Hx Alcohol Use: Yes Alcohol type: wine and hard liquor alcohol intake frequency: 3 or more drinks per day Hx Substance Use: No Physical Exam Vital Signs Last Vital Signs Temp 37 C 09/18/20 15:06 Pulse 77 09/18/20 15:16 Resp 20 09/18/20 15:06 BP 168/79 H 09/18/20 15:06 Pulse Ox 97 09/18/20 15:06 Testing Laboratory Results 09/18/20 06:38 09/18/20 06:38 PT 11.9 Seconds (9.0-12.0) 09/16/20 14:40 INR 1.2 (0.9-1.1) H 09/16/20 14:40 APTT 27.0 Seconds (21.0-31.0) 09/16/20 14:40 Urine Color [place] 09/16/20 16:34 Urine Appearance Clear (Clear) 09/16/20 16:34 Urine pH 5.5 (4.5-7.5) 09/16/20 16:34 Ur Specific [place] 1.031 (1.000-1.030) H 09/16/20 16:34 Urine Protein 1+ (Negative) H 09/16/20 16:34 Urine Glucose (UA) Negative (Negative) 09/16/20 16:34 Urine Ketones 1+ (Negative) H 09/16/20 16:34 Urine Nitrite Positive (Negative) A 09/16/20 16:34 Ur Leukocyte Esterase Trace (Negative) H 09/16/20 16:34 Urine WBC (Auto) 1-5 /hpf (0-5) 09/16/20 16:34 Urine RBC (Auto) 5-10 /hpf (0-4) H 09/16/20 16:34 U Hyaline Cast (Auto) 1-5 /lpf (0-5) 09/16/20 16:34 U Epithel Cells (Auto) >30 /lpf (0-5) H 09/16/20 16:34 Urine Bacteria (Auto) Negative (Negative) 09/16/20 16:34 09/16/20 14:30 Aerobic Blood Culture - Preliminary Blood No growth in Aerobic bottle after 48 hours. Anaerobic Blood Culture - Preliminary No growth in Anaerobic bottle after 48 hours. 09/16/20 14:15 Aerobic Blood Culture - Preliminary Blood No growth in Aerobic bottle after 48 hours. Anaerobic Blood Culture - Preliminary No growth in Anaerobic bottle after 48 hours. 09/18/20 09/18/20 11:13 07:06 POC Glucose 88 94
[2020-09-18] MEDS ORDERED: PHENYLEPHRINE HCL 10 MG/ML VIAL ONE (16:54)
--- NOTE | 2020-09-18 16:55 | Operative Report ---
PG Post Operative Report Pre & Post Diagnosis Operation Date: 09/18/20 14:00 Pre-Op Diagnosis: Enlarged right inguinal lymph node Post-Op Diagnosis: Enlarged right inguinal lymph node I identified the patient and participated in the time-out.: Yes Procedure Operation Date: 09/18/20 14:00 Actual Procedures p Right Inguinal Lymph Node Biopsy(Right) - Roberto Wilson DO, LUIS FERNANDO Surgeon Roberto Wilson DO, LUIS FERNANDO Plumbing Instructor Robert Spann Estimated Blood Loss 5 Findings Consistent with Post-Op Diagnosis Matted right inguinal lymphadenopathy. Lymph node excised, lymphovascular bundle controlled with 3-0 silk ties. Good hemostasis, closed in layers. Specimens Right inguinal lymph node Anesthesia Type General Complications none Disposition Accompanied Patient To Recovery: No Disposition: Recovery Room Indications 65-year-old male with history of CLL, now with significant lymphadenopathy and need for excisional biopsy of lymph node. Plan for right inguinal lymph node biopsy. The risks of the procedure were discussed, all questions were answered, and the patient agreed to proceed with surgery as planned. Description of Procedure The patient was properly identified, consented, and taken to the operating room where he was placed in the supine position. General endotracheal anesthesia was induced. SCDs and a safety belt were placed. Preoperative antibiotics were administered. The patient's right groin and abdomen was prepped and draped in the standard sterile fashion. Surgical timeout was performed and all parties were in agreement that this was the correct patient and procedure to be performed and we continued as planned. A oblique incision was made overlying the palpable lymph nodes in the right groin and deepened down through the subcutaneous tissue with electrocautery. The fascia was incised and the lymph nodes were easily visible and palpable. The lymph nodes were firm and matted together. The most superficial and lateral lymph node was then circumferentially dissected. The lymphovascular stalk was controlled with a right angle and the lymph node was excised, and passed off the table as specimen. The lymphovascular stalk was then ligated with 3-0 silk tie. The wound was irrigated and hemostasis was confirmed. The fascia was then closed with running 2-0 Vicryl suture. Exparel mixed with half percent Marcaine was injected around the incision site. The skin was closed with interrupted 3-0 Vicryl deep dermal sutures, followed by 4-0 Monocryl running subcuticular suture. Dermabond was placed over the wound. The patient was extubated in the operating room and taken to the PACU where he recovered without apparent incident. All sponge, instrument and needle counts were correct at the conclusion of the procedure. The patient tolerated the procedure well. The physician's customer marketing assistant was present and scrubbed for the entire to the case. He was critical in positioning the patient, prepping and draping, retraction and exposure, closure the incisions, and placement of the dressings. I attest to the content of the Intraoperative Record and any orders documented therein. Any exceptions are noted below.
--- NOTE | 2020-09-18 17:27 | Hospitalist Progress Note ---
Date of Service September 18, 2020 Assessment & Plan (1) Tachycardia: Atrial fibrillation with RVR Stroke paroxysmal atrial fibrillation Normal TSH Spontaneously converted to sinus IV amiodarone discontinued Atenolol changed to metoprolol 25 mg twice daily Appreciate Cardiology Input May not be a candidate for long-term anticoagulation given risk for falls, noncompliance Remains in Sinus Extensive lymphadenopathy H/O CLL -CT ABD:Extensive mesenteric, retroperitoneal, iliac chain, and iliac lymphadenopathy. In addition there is splenomegaly. Lymphoma is the diagnosis of exclusion. Biopsy is recommended. No evidence of bowel obstruction. No evidence of free air. Cholelithiasis. No renal, ureteral, or bladder calculi identified. There is posterior mediastinal paraesophageal and para-aortic lymphadenopathy. There is a small hiatal hernia. -Appreciate surgery input -Continue Ibrutinib -Had right inguinal lymph node biopsy today Follow-up pathology (2) HTN (hypertension): Continue lisinopril, metoprolol Monitor (3) PAF (paroxysmal atrial fibrillation): Management as above (4) H/O alcohol abuse: h/o heavy alcohol use Continue thiamine, folic acid Continue gabapentin Monitor hemoglobin (5) Seizure: CT Head:No acute intracranial findings. Left frontal lobe encephalomalacia. Continue Keppra Seizure precautions Trazodone on hold for now (6) Depression: Continue medications (7) Cognitive deficit, post-stroke: At baseline (8) Polyneuropathy: On gabapentin (9) DVT prophylaxis: Lovenox SQ Code Status Full Code Admission and Anticipated Discharge Date Admission Date: September 16, 2020 Subjective Patient is seen and examined at bedside In sinus this morning Planned for right inguinal lymph node biopsy today States feeling better Denies any significant pain at right inguinal region Reports nausea but no vomiting Denies chest pain, dyspnea, dizziness, nausea, abdominal pain Review of Systems Review of Systems: All systems reviewed & are unremarkable except as noted in HPI & below Physical Exam Physical Exam: Physical Exam: Vitals signs as noted above General Appearance:Moderately built and nourished, no apparent distress Head: normocephalic, Atraumatic Eyes: normal inspection, EOMI Neck: supple, Trachea midline Respiratory/Chest: Decreased breath sounds, CTA, No accessory muscle use Cardiovascular: S1, S2, No murmur Abdomen/GI:Soft, Non tender, Bowel sounds present : Right groin swelling, tenderness Extremities/Musculoskeletal:normal inspection, no edema Neurologic/Psych:AAO, grossly no focal neurological deficits Skin: normal color, warm Results & Data Results & Data ([facility]) Vital Signs (Past 12 Hours) Vital Signs Temp Pulse Pulse Pulse Resp BP BP 09/18/20 17:20 73 20 105/56 L 09/18/20 17:10 73 20 99/55 L 09/18/20 17:07 36.4 C L 72 16 98/54 L 09/18/20 15:16 77 09/18/20 15:06 37 C 84 20 168/79 H 09/18/20 12:03 37.0 C 79 18 148/76 H 09/18/20 07:44 37.1 C 80 18 144/69 H 09/18/20 07:17 82 Pulse Ox 09/18/20 17:20 96 09/18/20 17:10 95 09/18/20 17:07 95 09/18/20 15:16 09/18/20 15:06 97 09/18/20 12:03 96 09/18/20 07:44 94 09/18/20 07:17 Laboratory Results Short CBC 09/18/20 Range/Units 06:38 WBC 8.53 (4.8-10.8) K/uL Hgb 12.7 L (14.0-18.0) g/dL Hct 37.6 L (42-52) % Plt Count 101 L (130-400) K/uL BMP 09/18/20 06:38 Sodium 145 Potassium 3.4 L Chloride 115 H Carbon Dioxide 24 BUN 15 Creatinine 0.97 Glucose 91 Calcium 10.3 H
[2020-09-18] MEDS ORDERED: MoRPHine SULFATE 2 MG/ML CARP IV PRN (18:15)
[2020-09-18] MEDS ORDERED: oxyCODONE HCL IR 5 MG TAB (IMMEDIATE RELEASE) PO PRN (18:15)
--- NOTE | 2020-09-18 19:23 | Anesthesiology Progress Note ---
Date of Service September 18, 2020 Anesthesia Post Procedure Vital Signs Vital Signs: Temp Pulse Pulse Pulse Pulse Resp BP 09/18/20 19:00 36.9 C 80 18 09/18/20 18:45 37.0 C 82 18 09/18/20 18:30 36.9 C 77 18 09/18/20 18:15 36.9 C 76 18 09/18/20 18:00 37.0 C 78 18 09/18/20 17:40 75 18 09/18/20 17:30 79 18 09/18/20 17:20 73 20 09/18/20 17:10 73 20 09/18/20 17:07 36.4 C L 72 16 09/18/20 15:16 77 09/18/20 15:06 37 C 84 20 168/79 H 09/18/20 12:03 37.0 C 79 18 09/18/20 07:44 37.1 C 80 18 09/18/20 07:17 82 09/18/20 04:00 36.8 C 81 16 09/18/20 00:43 36.6 C 78 18 09/17/20 23:59 65 09/17/20 19:42 36.8 C 82 20 158/74 H BP Pulse Ox 09/18/20 19:00 101/65 95 09/18/20 18:45 123/67 95 09/18/20 18:30 129/69 93 09/18/20 18:15 120/68 94 09/18/20 18:00 128/72 93 09/18/20 17:40 137/72 92 09/18/20 17:30 143/71 H 94 09/18/20 17:20 105/56 L 96 09/18/20 17:10 99/55 L 95 09/18/20 17:07 98/54 L 95 09/18/20 15:16 09/18/20 15:06 97 09/18/20 12:03 148/76 H 96 09/18/20 07:44 144/69 H 94 09/18/20 07:17 09/18/20 04:00 159/75 H 95 09/18/20 00:43 145/74 H 95 09/17/20 23:59 09/17/20 19:42 95 Transfer of Care Handoff Completed per policy Notes Mental Status: alert / awake / arousable and participated in evaluation Patient Amnestic to Procedure: Yes Nausea / Vomiting: adequately controlled Pain: adequately controlled Airway Patency, RR, SpO2: stable & adequate BP & HR: stable & adequate Hydration State: stable & adequate Anesthetic Complications: no major complications apparent and Pt Satisfied with anesthetic care
[2020-09-18] MEDS: ENOXAPARIN INJ 40 MG/0.4 ML SYR SQ SCH (21:33)
[2020-09-19] MEDS: PIPERACILLIN/TAZOBACTAM 3.375 GM in DEXTROSE 5% 100 ML IV SCH ×3 (05:52→22:09)
[2020-09-19 07:31] LABS: BUN Creatinine Ratio 14.4 (10-20); Calcium 9.9 mg/dl (8.5-10.1); Creatinine Clr Calc Pharmacy 76.6 ml/min; Est GFR (African American) 80.6 ml/min; Est GFR (Non-African American) 69.6 ml/min; Magnesium 2.1 mg/dl (1.8-2.4); Potassium 3.5 mmol/L (3.5-5.1)
[2020-09-19 07:48] LABS: Hematocrit (blood only) 34.8 % (42-52); Hemoglobin 11.6 g/dL (14.0-18.0); Mean Corpuscular Hemoglobin 30.5 pg (25-34); Mean Corpuscular Hgb Conc 33.3 g/dL (32-36); Mean Corpuscular Volume 91.6 fL (80-100); Mean Platelet Volume 12.6 fL (7.4-10.4); Platelet Count 90 K/uL (130-400); Platelet Estimate Decreased (Normal); RDW Coefficient of Variation 14.7 % (11.5-14.5); RDW Standard Deviation 49.5 fL (36.4-46.3); White Blood Count 7.05 K/uL (4.8-10.8)
[2020-09-19] MEDS: levETIRAcetam 250 MG TAB PO SCH ×2 (08:17→21:42)
[2020-09-19] MEDS: METOPROLOL TARTRATE 25 MG TAB PO SCH ×2 (08:18→21:42)
[2020-09-19] MEDS: SENNA 8.6 MG TAB PO SCH ×2 (08:18→19:42)
[2020-09-19] MEDS: FAMOTIDINE 20 MG TAB PO SCH ×2 (08:18→21:42)
[2020-09-19] MEDS: GABAPENTIN 300 MG CAP PO SCH ×3 (08:18→21:42)
[2020-09-19] MEDS: lisinopril 20 MG TAB PO SCH (08:19)
[2020-09-19] MEDS: allopurinoL 300 MG TAB PO SCH (08:19)
[2020-09-19] MEDS: MAGNESIUM OXIDE 400 MG TAB PO SCH (08:19)
[2020-09-19] MEDS: ESCITALOPRAM OXALATE 10 MG TAB PO SCH (08:19)
[2020-09-19] MEDS: THIAMINE HCL 100 MG TAB PO SCH (08:19)
[2020-09-19] MEDS: FOLIC ACID 1 MG TAB PO SCH (08:19)
[2020-09-19] MEDS: ASPIRIN 81 MG CHEW PO SCH (08:22)
--- NOTE | 2020-09-19 10:49 | Cardiology Progress Note ---
Date of Service September 19, 2020 Assessment & Plan (1) B-cell chronic lymphocytic leukemia: (2) Cognitive deficit, post-stroke: (3) Depression: (4) H/O alcohol abuse: (5) Seizure: (6) PAF (paroxysmal atrial fibrillation): The patient is doing well postop. 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 Biopsy results are pending. Admission and Anticipated Discharge Date Admission Date: September 16, 2020 Subjective The patient is alert and oriented but has some inappropriate statements. No cardiac complaints. Review of Systems Review of Systems: All systems reviewed & are unremarkable except as noted in Subjective Physical Exam Physical Exam: General: no acute distress and stated age Head: normocephalic, no masses, lesions, tenderness or abnormalities Eyes: conjunctiva are pink and non-injected, sclera clear Neck: supple, no adenopathy, no bruits, normal jugular venous pulse, no hepatojugular reflux Chest: normal shape and normal respiratory effort Lungs: clear to auscultation and percussion Cardiac Exam: - regular rate & rhythm, no murmurs gallops or rubs - normal S1, normal S2 Pulses: 2(+) throughout Abdomen: abdomen soft, non-tender, no abnormal masses and no hepatosplenomegaly Musculoskeletal: no gait disturbance, no joint inflammation, no deforming arthritis Extremities: no edema and no cyanosis Neuro: grossly normal exam Results & Data ([facility]) Vital Signs (Past 12 Hours) Vital Signs Temp Pulse Pulse Resp BP Pulse Ox 09/19/20 07:43 37.3 C 83 16 152/74 H 95 09/19/20 07:22 86 09/19/20 03:44 37.3 C 92 H 18 137/73 95 09/19/20 00:01 90 09/19/20 00:00 36.6 C 85 20 146/71 H 94 Laboratory Results Laboratory Results - last 24 hr 09/18/20 09/18/20 09/18/20 11:13 16:41 20:52 WBC RBC Hgb Hct MCV MCH MCHC RDW Std Deviation RDW Coeff of Yvette Plt Count MPV Platelet Estimate Sodium Potassium Chloride Carbon Dioxide Anion Gap BUN Creatinine Est Cr Clr Drug Dosing Est GFR ( Amer) Est GFR (Non-Af Amer) BUN/Creatinine Ratio Glucose POC Glucose 88 91 Calcium Magnesium Flow Cytometry Comment Pending 09/19/20 09/19/20 06:17 06:17 WBC 7.05 RBC 3.80 L Hgb 11.6 L Hct 34.8 L MCV 91.6 MCH 30.5 MCHC 33.3 RDW Std Deviation 49.5 H RDW Coeff of Yvette 14.7 H Plt Count 90 L MPV 12.6 H Platelet Estimate Decreased L Sodium 143 Potassium 3.5 Chloride 113 H Carbon Dioxide 24 Anion Gap 5.0 BUN 16 Creatinine 1.10 Est Cr Clr Drug Dosing 76.6 Est GFR ( Amer) 80.6 Est GFR (Non-Af Amer) 69.6 BUN/Creatinine Ratio 14.4 Glucose 100 H POC Glucose Calcium 9.9 Magnesium 2.1 Flow Cytometry Comment Medications Administered Current Inpatient Medications Acetaminophen (Acetaminophen 325 Mg Tab) 650 mg PO Q4H PRN PRN Reason: Pain or Fever Stop: 10/16/20 19:35 Allopurinol (Allopurinol 300 Mg Tab) 300 mg PO DAILY EUNICE Stop: 10/17/20 08:59 Last Admin: 09/19/20 08:19 Dose: 300 mg Documented by: Aspirin (Aspirin 81 Mg Chew) 81 mg PO DAILY [facility] Stop: 10/17/20 08:59 Last Admin: 09/19/20 08:22 Dose: 81 mg Documented by: Enoxaparin Sodium (Enoxaparin Inj 40 Mg/0.4 Ml Syr) 40 mg SQ HS EUNICE Stop: 10/16/20 20:59 Last Admin: 09/18/20 21:33 Dose: Not Given Documented by: Escitalopram Oxalate (Escitalopram Oxalate 10 Mg Tab) 10 mg PO DAILY E[facility] Stop: 10/17/20 08:59 Last Admin: 09/19/20 08:19 Dose: 10 mg Documented by: Famotidine (Famotidine 20 Mg Tab) 20 mg PO BID EUN[facility] Stop: 10/16/20 20:59 Last Admin: 09/19/20 08:18 Dose: 20 mg Documented by: Folic Acid (Folic Acid 1 Mg Tab) 1 mg PO DAILY EUNICE Stop: 10/17/20 08:59 Last Admin: 09/19/20 08:19 Dose: 1 mg Documented by: Gabapentin (Gabapentin 300 Mg Cap) 900 mg PO TID EUNICE Stop: 10/16/20 20:59 Last Admin: 09/19/20 08:18 Dose: 900 mg Documented by: Piperacillin Sod/Tazobactam (Sod 3.375 gm/ Dextrose) 115 mls @ 28.75 mls/hr IV Q8H EUNICE; Protocol Stop: 09/20/20 21:59 Last Infusion: 09/19/20 09:52 Dose: Infused Documented by: Lorazepam (Ativan) 1 mg in 2 mls @ 2 mls/min IV UD PRN; Protocol PRN Reason: EtOH Withdrawl AWSS Score 6,7 Stop: 10/16/20 23:28 Last Admin: 09/17/20 02:44 Dose: 2 mls/min Documented by: Lorazepam (Ativan) 2 mg in 4 mls @ 4 mls/min IV UD PRN; Protocol PRN Reason: EtOH Withdrawl AWSS Score 8,9 Stop: 10/16/20 23:28 Lorazepam (Ativan) 3 mg in 6 mls @ 4 mls/min IV ONCE PRN; Protocol PRN Reason: EtOH Withdrawl AWSS Score >=10 Stop: 10/16/20 23:28 Levetiracetam (Levetiracetam 250 Mg Tab) 750 mg PO BID [facility] Stop: 10/16/20 20:59 Last Admin: 09/19/20 08:17 Dose: 750 mg Documented by: Lisinopril (Lisinopril 20 Mg Tab) 20 mg PO DAILY [facility] Stop: 10/17/20 08:59 Last Admin: 09/19/20 08:19 Dose: 20 mg Documented by: Magnesium Oxide (Magnesium Oxide 400 Mg Tab) 400 mg PO DAILY [facility] Stop: 10/17/20 08:59 Last Admin: 09/19/20 08:19 Dose: 400 mg Documented by: Metoprolol Tartrate (Metoprolol Tartrate 25 Mg Tab) 25 mg PO BID [facility] Stop: 10/17/20 20:59 Last Admin: 09/19/20 08:18 Dose: 25 mg Documented by: Miscellaneous (Ibrutinib 420 Mg Tablet - Order Awaiting Action) 1 ea N/A QS [facility] Stop: 10/17/20 00:00 Last Admin: 09/19/20 08:26 Dose: Not Given Documented by: Miscellaneous Information (Piperacill/Tazobac Consult Active) 1 ea N/A UD PRN PRN Reason: Consult Stop: 10/16/20 21:07 Morphine Sulfate (Morphine Sulfate 2 Mg/Ml Carp) 2 mg IV Q3H PRN PRN Reason: Pain Stop: 10/02/20 18:14 Ondansetron HCl (Ondansetron 8mg Od Tab) 8 mg PO TID PRN PRN Reason: Nausea Stop: 10/16/20 21:14 Oxycodone HCl (Oxycodone Hcl Ir 5 Mg Tab (Immediate Release)) 5 mg PO Q4H PRN PRN Reason: Pain Stop: 10/02/20 18:14 Polyethylene Glycol (Polyethylene (Miralax) 17 Gm Pack) 17 gm PO DAILY PRN PRN Reason: Constipation Stop: 10/16/20 19:35 Sennosides (Senna 8.6 Mg Tab) 8.6 mg PO BID [facility] Stop: 10/16/20 20:59 Last Admin: 09/19/20 08:18 Dose: 8.6 mg Documented by: Thiamine HCl (Thiamine Hcl 100 Mg Tab) 100 mg PO QAM [facility] Stop: 10/16/20 21:19 Last Admin: 09/19/20 08:19 Dose: 100 mg Documented by: (1) B-cell chronic lymphocytic leukemia Leukemia Active/Remission status: in remission Qualified Code(s): C91.11 - Chronic lymphocytic leukemia of B-cell type in remission
--- NOTE | 2020-09-19 11:18 | Surgery Progress Note ---
Date of Service September 19, 2020 Assessment & Plan (1) History of lymph node biopsy: POD #1 right inguinal lymph node biopsy, doing well Patient may shower, do not soak or scrub wound for 2 weeks Activity as tolerated Surgery will sign off Follow-up in 2 weeks in general surgery clinic Did briefly discuss possibility of need for port placement Recommend he follow-up with oncology after discharge Wound care instructions and activity restrictions reviewed Admission and Anticipated Discharge Date Admission Date: September 16, 2020 Subjective POD #1 right inguinal lymph node biopsy. Overall little sore, otherwise no issues. Physical Exam Constitutional: WD/WN, vitals as above Gastrointestinal (Abdomen): normal bowel sounds, soft, nontender, no hepatosplenomegaly Inspection/Auscultation: + abdominal surgical incision (Right groin incision healing well, no evidence of infection or fluid collec) Results & Data ([facility]) Vital Signs (Past 12 Hours) Vital Signs Temp Pulse Pulse Resp BP Pulse Ox 09/19/20 07:43 37.3 C 83 16 152/74 H 95 09/19/20 07:22 86 09/19/20 03:44 37.3 C 92 H 18 137/73 95 09/19/20 00:01 90 09/19/20 00:00 36.6 C 85 20 146/71 H 94 PG Care Time/CCT Total # of Minutes Spent Total Time Spent with Patient: Total time spent is greater than 50% in coordination of care (as documented) at patient's floor/unit and/or counseling patient: Coding Level of Care Code None Diagnoses History of lymph node biopsy Z98.890
[2020-09-19] MEDS ORDERED: NSS + 20MEQ KCL 20 MEQ/1,000 ML BAG IV ONE (12:00)
[2020-09-19] MEDS ORDERED: OPTIRAY 320 150ml IV ONE (12:37)
--- NOTE | 2020-09-19 12:54 | CT Scan Report ---
CT head/brain wo/w con HISTORY: 65 years-old Male Change in mental status H/O CLL R/O mets acutely altered mental status COMPARISON: Head CT 09/16/2020 TECHNIQUE: Multiple axial CT images of the head were obtained both with and without the use of 97 mL Optiray 320. A dose lowering technique was used consistent with the principals of MEIR. FINDINGS: Encephalomalacia within the anterior left frontal lobe redemonstrated. Mild age-related involutional changes. No acute intracranial hemorrhage, midline shift, extra-axial fluid collection, hydrocephalus , acute territorial infarct or intracranial mass. Cerebral vascular calcifications. Mildly motion deg raded exam. There is no abnormal intracranial enhancement. Cerebral venous sinuses and visualized int racranial arterial structures are patent. Atherosclerotic calcifications. No calvarial fracture. Mast oid air cells and middle ear cavities are clear. Unremarkable soft tissues and orbits. IMPRESSION: 1. No acute intracranial abnormality. 2. No abnormal enhancement. ACT 112: Negative or not required by law. The above report was generated using voice recognition software. It may contain grammatical, syntax o r spelling errors. Electronically signed by: David Quinones M.D. 09/19/2020 12:53 PM
--- NOTE | 2020-09-19 15:44 | Hospitalist Progress Note ---
Date of Service September 19, 2020 Assessment & Plan (1) Tachycardia: Atrial fibrillation with RVR Stroke paroxysmal atrial fibrillation Normal TSH Spontaneously converted to sinus IV amiodarone discontinued Atenolol changed to metoprolol 25 mg twice daily Appreciate Cardiology Input May not be a candidate for long-term anticoagulation given risk for falls, noncompliance Continue current medications Extensive lymphadenopathy H/O CLL -CT ABD:Extensive mesenteric, retroperitoneal, iliac chain, and iliac lymphadenopathy. In addition there is splenomegaly. Lymphoma is the diagnosis of exclusion. Biopsy is recommended. No evidence of bowel obstruction. No evidence of free air. Cholelithiasis. No renal, ureteral, or bladder calculi identified. There is posterior mediastinal paraesophageal and para-aortic lymphadenopathy. There is a small hiatal hernia. -Appreciate surgery input -Continue Ibrutinib -Had right inguinal lymph node biopsy on 09/18/20 Pathology pending Needs follow-up with oncology upon discharge Needs follow up with surgery in 2 weeks (2) HTN (hypertension): Continue lisinopril, metoprolol Monitor (3) PAF (paroxysmal atrial fibrillation): Management as above (4) H/O alcohol abuse: h/o heavy alcohol use Continue thiamine, folic acid Continue gabapentin Monitor hemoglobin (5) Seizure: CT Head:No acute intracranial findings. Left frontal lobe encephalomalacia. Continue Keppra Seizure precautions Resume Trazodone (6) Depression: Continue home medications (7) Cognitive deficit, post-stroke: At baseline (8) Polyneuropathy: On gabapentin (9) DVT prophylaxis: Lovenox SQ Code Status Full Code Admission and Anticipated Discharge Date Admission Date: September 16, 2020 Subjective Patient is seen and examined at bedside Doesn't seemed to be motivated Offers no complaints Denies any pain at right inguinal lymph node region Also denies chest pain, dyspnea, dizziness, nausea, abdominal pain Pathology pending Review of Systems Review of Systems: All systems reviewed & are unremarkable except as noted in HPI & below Physical Exam Physical Exam: Physical Exam: Vitals signs as noted above General Appearance:Moderately built and nourished, no apparent distress Head: normocephalic, Atraumatic Eyes: normal inspection, EOMI Neck: supple, Trachea midline Respiratory/Chest: Decreased breath sounds, CTA, No accessory muscle use Cardiovascular: S1, S2, No murmur Abdomen/GI:Soft, Non tender, Bowel sounds present : Right groin swelling, tenderness Extremities/Musculoskeletal:normal inspection, no edema Neurologic/Psych:AAO, grossly no focal neurological deficits Skin: normal color, warm Results & Data Results & Data ([facility]) Vital Signs (Past 12 Hours) Vital Signs Temp Pulse Pulse Pulse Resp BP Pulse Ox 09/19/20 15:23 37.3 C 92 H 92 H 18 172/77 H 92 09/19/20 14:58 88 09/19/20 11:37 36.8 C 81 18 146/74 H 94 09/19/20 07:43 37.3 C 83 16 152/74 H 95 09/19/20 07:22 86 09/19/20 03:44 37.3 C 92 H 18 137/73 95 Laboratory Results Short CBC 09/19/20 Range/Units 06:17 WBC 7.05 (4.8-10.8) K/uL Hgb 11.6 L (14.0-18.0) g/dL Hct 34.8 L (42-52) % Plt Count 90 L (130-400) K/uL BMP 09/19/20 06:17 Sodium 143 Potassium 3.5 Chloride 113 H Carbon Dioxide 24 BUN 16 Creatinine 1.10 Glucose 100 H Calcium 9.9
[2020-09-19] MEDS: ENOXAPARIN INJ 40 MG/0.4 ML SYR SQ SCH (19:42)
[2020-09-19] MEDS: traZODone HCL 50 MG TAB PO SCH (21:43)
[2020-09-20] MEDS: PIPERACILLIN/TAZOBACTAM 3.375 GM in DEXTROSE 5% 100 ML IV SCH ×2 (05:08→14:48)
--- NOTE | 2020-09-20 05:49 | Electrocardiogram Report ---
Test Reason : Blood Pressure : / mmHG Vent. Rate : 082 BPM Atrial Rate : 082 BPM P-R Int : 168 ms QRS Dur : 092 ms QT Int : 376 ms P-R-T Axes : 052 065 017 degrees QTc Int : 439 ms Poor data quality, interpretation may be adversely affected Normal sinus rhythm Normal ECG When compared with ECG of 17-SEP-2020 05:21, Sinus rhythm has replaced Atrial fibrillation Confirmed by Ney Pozo ([id number]) on 09/20/2020 5:48:38 AM Referred By: REFERRED SELF Confirmed By:Ney Pozo
[2020-09-20] MEDS: allopurinoL 300 MG TAB PO SCH (08:53)
[2020-09-20] MEDS: ASPIRIN 81 MG CHEW PO SCH (08:53)
[2020-09-20] MEDS: SENNA 8.6 MG TAB PO SCH ×2 (08:54→20:41)
[2020-09-20] MEDS: FAMOTIDINE 20 MG TAB PO SCH ×2 (08:54→20:41)
[2020-09-20] MEDS: METOPROLOL TARTRATE 25 MG TAB PO SCH ×2 (08:54→20:41)
[2020-09-20] MEDS: GABAPENTIN 300 MG CAP PO SCH ×3 (08:54→20:41)
[2020-09-20] MEDS: ESCITALOPRAM OXALATE 10 MG TAB PO SCH (08:54)
[2020-09-20] MEDS: lisinopril 20 MG TAB PO SCH (08:54)
[2020-09-20] MEDS: MAGNESIUM OXIDE 400 MG TAB PO SCH (08:54)
[2020-09-20] MEDS: FOLIC ACID 1 MG TAB PO SCH (08:54)
[2020-09-20] MEDS: levETIRAcetam 250 MG TAB PO SCH ×2 (08:54→20:41)
[2020-09-20] MEDS: THIAMINE HCL 100 MG TAB PO SCH (08:54)
[2020-09-20 09:27] LABS: Hematocrit (blood only) 36.2 % (42-52); Hemoglobin 12.1 g/dL (14.0-18.0); Mean Corpuscular Hemoglobin 30.2 pg (25-34); Mean Corpuscular Hgb Conc 33.4 g/dL (32-36); Mean Corpuscular Volume 90.3 fL (80-100); Mean Platelet Volume 12.7 fL (7.4-10.4); Platelet Count 96 K/uL (130-400); Platelet Estimate Decreased (Normal); RDW Coefficient of Variation 14.6 % (11.5-14.5); RDW Standard Deviation 48.4 fL (36.4-46.3); Red Blood Count 4.01 M/uL (4.7-6.1); White Blood Count 8.23 K/uL (4.8-10.8)
[2020-09-20 09:36] LABS: BUN Creatinine Ratio 14.2 (10-20); Calcium 10.3 mg/dl (8.5-10.1); Creatinine Clr Calc Pharmacy 102.8 ml/min; Est GFR (African American) 105.7 ml/min; Est GFR (Non-African American) 91.2 ml/min; Potassium 3.5 mmol/L (3.5-5.1)
--- NOTE | 2020-09-20 15:57 | Neurology Consultation ---
Date of Consultation September 20, 2020 Assessment & Plan (1) Acute confusion: 1. MRI brain with and without r/o stroke lesion- when able to cooperate 2. appears to be encephalopathic watch for EtOH withdrawal 3. r/o correctable causes 4. B1, B6 folate, B12, TSH should be evaluated Present on Admission?: Yes (2) Seizure: 1. continue Keppra 750 mg BID 2. Keppra level 3. he does not drive , no heights, no bathing or swimming alone Present on Admission?: Yes (3) H/O alcohol abuse: 1. unclear how much or when last drink - watch for EtOH withdrawal Present on Admission?: Yes Supervising Physician Co-Signing Physician Notes Patient was seen and examined. Discussed with and agree with Tonya Carolina PA-C as noted below. A 65 yo M with multiple medical comorbids including CLL, Afib w Rvr on ASA, and history of EtOH. Neurology consulted for altered mental status. ON examine this afternoon patient appears abulic with minimal effort. Poor eye and appears depressed. No obvious focal findings. Moving all 4 extremities, right leg minimal effort. No abrasions on tongue. Face appears symmetric. Examine suggestive of possible psychiatric etiology (abulic). Recommend MRI brain w/wo for further evaluation. Agree with thiamine replacement give history of EtOH abuse. History of Present Illness Reason for Consultation: Altered mental status Requesting Physician: Avery Wilkerson MD Attending Physician: Avery Wilkerson MD History of Present Illness Bridger is a 65 year old male with PMH -B-cell CLL in remission who presented on 09/16/2020 with several days of generalized malaise. He does report some right inguinal pain related to a hernia which was scheduled to be surgically fixed by Dr. Turcios. He has a significant history of alcohol use. Had reported his last drink approximately 48 hours ago. He does have a history of seizure but denies any breakthrough seizures recently. He does report an episode 4 to 5 days ago where he woke up feeling groggy and was not quite sure what had happened, but does not think he had a seizure. He reported being compliant with all his medications and reports poor oral intake generally. He denies having any family or significant friends locally. He lives by himself. He ambulates independently at baseline and occasionally using a cane and states his overall ability to ambulate has been slightly worse lately. Allergies Allergy/AdvReac Type Severity Reaction Status Date / Time No Known Allergies Allergy NONE Verified 09/16/20 16:24 Home Medications Medication Instructions Recorded Confirmed Type allopurinol 300 mg PO DAILY 02/27/19 09/16/20 History atenolol 50 mg PO DAILY 02/27/19 09/16/20 History folic acid 1 mg PO DAILY 02/27/19 09/16/20 History furosemide [Lasix] 20 mg PO DAILY 02/27/19 09/16/20 History gabapentin 900 mg PO TID 02/27/19 09/16/20 History levetiracetam [Keppra] 750 mg PO BID 02/27/19 09/16/20 History lisinopril 20 mg PO DAILY 02/27/19 09/16/20 History lorazepam [Ativan] 0.5 mg PO BID PRN 02/27/19 09/16/20 History ondansetron HCl 8 mg PO TID PRN 02/27/19 09/16/20 History trazodone 50 mg PO HS 02/27/19 09/16/20 History aspirin 81 mg PO DAILY 09/16/20 09/16/20 History escitalopram oxalate [Lexapro] 10 mg PO DAILY 09/16/20 09/16/20 History famotidine 20 mg PO BID 09/16/20 09/16/20 History fluoride (sodium) [PreviDent 5000 1 applic DENTAL HS 09/16/20 09/16/20 History Plus] food supplemt, lactose-reduced 1 ea PO DIRECTED 09/16/20 09/16/20 History [Ensure Active High Protein] ibrutinib 420 mg PO DAILY 09/16/20 09/16/20 History magnesium oxide 400 mg PO DAILY 09/16/20 09/16/20 History prochlorperazine maleate 10 mg PO Q6H PRN 09/16/20 09/16/20 History sennosides [Senokot] 8.6 mg PO BID 09/16/20 09/16/20 History Patient History Medical History (Updated 09/18/20 @ 16:30 by Ger Bennett MD) B-cell chronic lymphocytic leukemia BPH (benign prostatic hyperplasia) Cognitive deficit, post-stroke Depression H/O alcohol abuse Polyneuropathy Seizure Surgical History (Updated 09/19/20 @ 11:17 by Roberto Wilson DO, FACS) History of lymph node biopsy S/P inguinal hernia repair 12/05/2009-Dr. 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 Beliefs That Will Affect Care: None Current Living Situation: Alone Other Information That Helps Us Care for You: No Feels Safe at Home: Yes Safety Concerns: Feels Safe At This Time Assistive Devices: None Review of Systems Review of Systems: Unobtainable due to cognitive status Physical Exam Physical Exam: Physical Exam: Constitutional: appearance over nourished, disheveled Ears, Nose, Mouth and Throat: mucous membranes moist, no injection and skin normal, eyes normal Cardiovascular: normal S-1 and S-2 and regular rate and rhythm Respiratory: course breath sounds Musculoskeletal: none pitting peripheral edema Skin: no stigmata of neurocutaneous disease noted and normal and intact Eyes: extraocular muscles intact (EOMI) and pupils equal, round and reactive to light (PERRL) NEUROLOGIC EXAMINATION: Mental status: Alert and interactive Oriented to hospital but does not know name Oriented to person Speech mumbling of words Cranial Nerves unable to full assess due cooperation of patient Reflexes: Deep tendon reflexes were symmetrical decreased throughout Sensory: light cool touch Coordination: would not cooperate Gait/Stance: Posture lying in bed Strength: 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, biceps triceps 5/5, would not lift leg but then spontanously move both Results & Data ([facility]) Vital Signs (Past 12 Hours) Vital Signs Temp Pulse Pulse Resp BP Pulse Ox 09/20/20 11:57 37.2 C 88 16 158/84 H 94 09/20/20 08:00 90 09/20/20 07:33 37.8 C H 94 H 16 161/71 H 92 09/20/20 05:55 80 09/20/20 04:55 37.0 C 83 18 161/72 H 93 Laboratory Results Abnormal lab results 09/20/20 09/20/20 Range/Units 08:50 08:50 RBC 4.01 L (4.7-6.1) M/uL Hgb 12.1 L (14.0-18.0) g/dL Hct 36.2 L (42-52) % RDW Std Deviation 48.4 H (36.4-46.3) fL RDW Coeff of Yvette 14.6 H (11.5-14.5) % Plt Count 96 L (130-400) K/uL MPV 12.7 H (7.4-10.4) fL Platelet Estimate Decreased L (Normal) Chloride 111 H (98-107) mmol/L Glucose 117 H (70-99) mg/dl Calcium 10.3 H (8.5-10.1) mg/dl Diagnostic Findings CT head-No acute intracranial abnormality. No abnormal enhancement.
--- NOTE | 2020-09-20 17:16 | Hospitalist Progress Note ---
Date of Service September 20, 2020 Assessment & Plan (1) Tachycardia: Atrial fibrillation with RVR Stroke paroxysmal atrial fibrillation Normal TSH Spontaneously converted to sinus IV amiodarone discontinued Atenolol changed to metoprolol 25 mg twice daily Appreciate Cardiology Input May not be a candidate for long-term anticoagulation given risk for falls, noncompliance Continue current medications Extensive lymphadenopathy H/O CLL -CT ABD:Extensive mesenteric, retroperitoneal, iliac chain, and iliac lymphadenopathy. In addition there is splenomegaly. Lymphoma is the diagnosis of exclusion. Biopsy is recommended. No evidence of bowel obstruction. No evidence of free air. Cholelithiasis. No renal, ureteral, or bladder calculi identified. There is posterior mediastinal paraesophageal and para-aortic lymphadenopathy. There is a small hiatal hernia. -Appreciate surgery input -Continue Ibrutinib -Had right inguinal lymph node biopsy on 09/18/20 -Flow cytometry study suggestive of B-cell lymphoproliferative disorder. Pathology pending Needs follow-up with oncology upon discharge Needs follow up with surgery in 2 weeks Acute Metabolic Encephalopathy CT Head: No acute intracranial abnormality. No abnormal enhancement. MRI brain Pending Normal TSH Obtain vitamin B 12, B6, B1 levels Appreciate neurology input (2) HTN (hypertension): Continue lisinopril, metoprolol Monitor (3) PAF (paroxysmal atrial fibrillation): Management as above (4) H/O alcohol abuse: h/o heavy alcohol use Continue thiamine, folic acid Continue gabapentin Monitor hemoglobin (5) Seizure: CT Head:No acute intracranial findings. Left frontal lobe encephalomalacia. Continue Keppra Seizure precautions Also on Trazodone (6) Depression: Continue home medications (7) Cognitive deficit, post-stroke: At baseline (8) Polyneuropathy: On gabapentin (9) DVT prophylaxis: Lovenox SQ Code Status Full Code Disposition To be determined Admission and Anticipated Discharge Date Admission Date: September 16, 2020 Subjective Patient is seen and examined at bedside Patient oriented to person only Offers no new complaints today Sitting in chair during my encounter Denies chest pain, dyspnea, dizziness, nausea, abdominal pain Review of Systems Review of Systems: All systems reviewed & are unremarkable except as noted in HPI & below Physical Exam Physical Exam: Physical Exam: Vitals signs as noted above General Appearance:Moderately built and nourished, no apparent distress Head: normocephalic, Atraumatic Eyes: normal inspection, EOMI Neck: supple, Trachea midline Respiratory/Chest: Decreased breath sounds, CTA, No accessory muscle use Cardiovascular: S1, S2, No murmur Abdomen/GI:Soft, Non tender, Bowel sounds present : Right groin swelling, tenderness Extremities/Musculoskeletal:normal inspection, no edema Neurologic/Psych:AAO, grossly no focal neurological deficits Skin: normal color, warm Results & Data Results & Data ([facility]) Vital Signs (Past 12 Hours) Vital Signs Temp Pulse Pulse Resp BP Pulse Ox 09/20/20 16:47 96 H 09/20/20 16:28 37.0 C 99 H 20 161/77 H 94 09/20/20 11:57 37.2 C 88 16 158/84 H 94 09/20/20 08:00 90 09/20/20 07:33 37.8 C H 94 H 16 161/71 H 92 09/20/20 05:55 80 Laboratory Results Short CBC 09/20/20 Range/Units 08:50 WBC 8.23 (4.8-10.8) K/uL Hgb 12.1 L (14.0-18.0) g/dL Hct 36.2 L (42-52) % Plt Count 96 L (130-400) K/uL BMP 09/20/20 08:50 Sodium 140 Potassium 3.5 Chloride 111 H Carbon Dioxide 21 BUN 12 Creatinine 0.84 Glucose 117 H Calcium 10.3 H
[2020-09-20] MEDS ORDERED: LORazepam 0.5 MG/1 ML VIAL IV SCH (20:00)
[2020-09-20] MEDS: ENOXAPARIN INJ 40 MG/0.4 ML SYR SQ SCH (20:40)
[2020-09-20] MEDS: traZODone HCL 50 MG TAB PO SCH (20:40)
[2020-09-20] MEDS ORDERED: GADOBUTROL 30ML VIAL IV ONE (21:34)
[2020-09-21] MEDS: levETIRAcetam 250 MG TAB PO SCH ×2 (08:25→21:14)
[2020-09-21] MEDS: METOPROLOL TARTRATE 25 MG TAB PO SCH ×2 (08:25→21:14)
[2020-09-21] MEDS: MAGNESIUM OXIDE 400 MG TAB PO SCH (08:26)
[2020-09-21] MEDS: SENNA 8.6 MG TAB PO SCH ×2 (08:26→21:14)
[2020-09-21] MEDS: FAMOTIDINE 20 MG TAB PO SCH ×2 (08:27→21:14)
[2020-09-21] MEDS: GABAPENTIN 300 MG CAP PO SCH ×3 (08:27→21:14)
[2020-09-21] MEDS: THIAMINE HCL 100 MG TAB PO SCH (08:27)
[2020-09-21] MEDS: ESCITALOPRAM OXALATE 10 MG TAB PO SCH (08:27)
[2020-09-21] MEDS: FOLIC ACID 1 MG TAB PO SCH (08:27)
[2020-09-21] MEDS: allopurinoL 300 MG TAB PO SCH (08:27)
[2020-09-21] MEDS: ASPIRIN 81 MG CHEW PO SCH (08:27)
[2020-09-21] MEDS: lisinopril 20 MG TAB PO SCH (08:27)
[2020-09-21 08:43] LABS: BUN Creatinine Ratio 16.4 (10-20); Calcium 10.7 mg/dl (8.5-10.1); Creatinine Clr Calc Pharmacy 110.9 ml/min; Est GFR (Non-African American) 94.1 ml/min; Potassium 3.5 mmol/L (3.5-5.1)
[2020-09-21 08:44] LABS: Hematocrit (blood only) 34.6 % (42-52); Hemoglobin 11.7 g/dL (14.0-18.0); Mean Corpuscular Hemoglobin 30.5 pg (25-34); Mean Corpuscular Hgb Conc 33.8 g/dL (32-36); Mean Corpuscular Volume 90.3 fL (80-100); Mean Platelet Volume 13.3 fL (7.4-10.4); Platelet Count 97 K/uL (130-400); Platelet Estimate Decreased (Normal); RDW Coefficient of Variation 14.8 % (11.5-14.5); RDW Standard Deviation 48.3 fL (36.4-46.3); Red Blood Count 3.83 M/uL (4.7-6.1); White Blood Count 7.61 K/uL (4.8-10.8)
--- NOTE | 2020-09-21 08:47 | Magnetic Resonance Report ---
MRI OF THE BRAIN WITHOUT AND WITH IV CONTRAST CLINICAL HISTORY: Change in Mental Status, R/O mets, H/O CLL COMPARISON STUDY: Noncontrast head CT dated 09/19/2020 TECHNIQUE: MRI of the brain was performed from the vertex to the skull base utilizing various T1 and T2 weighted sequences. Following the IV administration of Gadavist contrast, additional enhanced imag es were obtained. FINDINGS: Sagittal T1, axial diffusion, proton density and T2 weighted axial, coronal FLAIR, and pre and post a xial T1-weighted images were acquired. These were supplemented with post gadolinium coronal T1 weight ed images. No intra or extra-axial mass lesions are visualized. Axial diffusion-weighted images reveal no evidence of acute or subacute infarction. There is no evidence of ventricular dilatation. Proton density T2-weighted and FLAIR images reveal scattered foci of increased T2 signal within the w luís matter, likely on a small vessel basis. There is an old left frontal lobe infarct with hemosider in deposition. There are no abnormal flow voids. There is no evidence of pathologic enhancement. IMPRESSION: 1. No acute intracranial findings 2. No evidence of acute or subacute infarction 3. 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 4. No evidence of intracranial metastasis ACT 112: Negative or not required by law. Electronically signed by: Kenroy Lara M.D. 09/21/2020 8:46 AM
--- NOTE | 2020-09-21 13:08 | Communication Note ---
Date of Service: September 21, 2020 Telemetry reviewed no further atrial arrhythmias
--- NOTE | 2020-09-21 14:14 | Hospitalist Progress Note ---
Date of Service September 21, 2020 Assessment & Plan (1) Tachycardia: Atrial fibrillation with RVR hx of paroxysmal atrial fibrillation Normal TSH Spontaneously converted to sinus Atenolol changed to metoprolol 25 mg twice daily Appreciate Cardiology Input May not be a candidate for long-term anticoagulation given risk for falls, noncompliance Continue current medications Extensive lymphadenopathy H/O CLL -CT ABD:Extensive mesenteric, retroperitoneal, iliac chain, and iliac lymphadenopathy. In addition there is splenomegaly. Lymphoma is the diagnosis of exclusion. Biopsy is recommended. No evidence of bowel obstruction. No evidence of free air. Cholelithiasis. No renal, ureteral, or bladder calculi identified. There is posterior mediastinal paraesophageal and para-aortic lymphadenopathy. There is a small hiatal hernia. was on Ibrutinib -out patient -Appreciate surgery input -Had right inguinal lymph node biopsy on 09/18/20 -Flow cytometry study suggestive of B-cell lymphoproliferative disorder. Pathology pending Needs follow-up with oncology upon discharge Needs follow up with surgery in 2 weeks post biopsy Acute Metabolic Encephalopathy confusion /disorientation CT Head: No acute intracranial abnormality. No abnormal enhancement. MRI brain Pending Normal TSH Obtain vitamin B 12, B6, B1 levels Appreciate neurology input (2) HTN (hypertension): Continue lisinopril, metoprolol (3) PAF (paroxysmal atrial fibrillation): Management as above (4) H/O alcohol abuse: h/o heavy alcohol use Continue thiamine, folic acid Continue gabapentin (5) Seizure: CT Head:No acute intracranial findings. Left frontal lobe encephalomalacia. Continue Keppra Seizure precautions Also on Trazodone Neuro eval appreciated (6) Depression: Continue home medications (7) Cognitive deficit, post-stroke: At baseline (8) Polyneuropathy: On gabapentin (9) DVT prophylaxis: Lovenox SQ Code Status Full Code Disposition not safe to return home -fall risk , PT/OT eval case management consulted for discharge planning pt insists on going home , does not have good insight of degree of his illness and deconditioning will benefit with rehab Admission and Anticipated Discharge Date Admission Date: September 16, 2020 Subjective Patient is seen and examined at bedside Patient oriented to person only wants to go home to be with his " cat " pt is counselled that he is still very weak , very high fall risk does not appear he understands the gravity of his Illness cont to say " I am fine , I just need to be with my cat" Review of Systems Review of Systems: Unobtainable due to cognitive status Physical Exam Physical Exam: Physical exam: General: No acute distress, HEENT: PERRLA, EOMI, Heart: Regular S1-S2, no carotid bruit, no JVD, no lower extremity edema Lungs: Clear to auscultate, no wheeze or rales Abdomen: Soft nontender, no organomegaly Extremity: No cyanosis, no deformity, Neuro: No focal neurological deficit normal speech, normal visual field, Psych: alert , oriented to person only Results & Data Results & Data ([facility]) Vital Signs (Past 12 Hours) Vital Signs Temp Pulse Pulse Pulse Resp BP BP 09/21/20 11:30 37.2 C 83 16 132/76 09/21/20 08:00 93 H 09/21/20 07:17 37 C 87 18 156/79 H 09/21/20 04:28 36.7 C 92 H 20 158/68 H Pulse Ox 09/21/20 11:30 94 09/21/20 08:00 09/21/20 07:17 95 09/21/20 04:28 93
--- NOTE | 2020-09-21 14:50 | Progress Notes ---
DATE: 09/21/2020 NEUROLOGY PROGRESS NOTE A 65-year-old male. CHIEF COMPLAINT: Altered mental status. SUBJECTIVE: The patient was seen and examined. MRI of the brain completed last evening. No acute events noted overnight. The patient denies any new complaints or concerns. OBJECTIVE: VITAL SIGNS: Blood pressure 158/68, pulse is 92, respiratory rate is 20, temperature is 36.7 degrees Celsius, oxygen saturation is 93% on room air. NEUROLOGIC: The patient is awake and following simple commands. His eyes are midline. His extraocular muscles are intact. Pupils are symmetric. His tongue is midline without abrasion. He has no tremor or myoclonic jerks. He is moving all 4 extremities against gravity. Sensation is intact to light touch. DIAGNOSTIC TESTING AND LABORATORY VALUES: WBC 8.23, hemoglobin 12.1, platelet count is 96. Sodium is 140, potassium 3.5, chloride is 111, carbon dioxide 21, BUN is 12, creatinine 0.84, glucose is 117. Urinalysis showed 1+ protein, positive nitrites, urine mucus was present. MRI of the brain was completed. My impression is following: This was performed with and without contrast. There is no diffusion restriction noted on DWI sequences. On T2 FLAIR coronal, there is encephalomalacia and gliosis noted in the medial left frontal lobe suggestive of a prior ischemic stroke. There is no hemorrhage. There is no acute intracranial process. Final interpretation by radiology is pending. ASSESSMENT AND PLAN: A 65-year-old male with multiple medical comorbidities including atrial fibrillation with RVR and prior left MCA ischemic stroke, on aspirin as well as known history of CLL, hypertension, and history of symptomatic seizure on Keppra as well as known alcohol abuse, admitted for possible sepsis. Neurology was consulted regarding altered mentation or change in behavior. On examination, no focal findings were present. The patient appeared abulic and examination was suggestive of a psychogenic etiology. I did review his MRI brain with and without contrast that was completed yesterday and my interpretation is that there is no evidence of an embolic stroke or hemorrhage. There are chronic changes with encephalomalacia noted in the left MCA distribution consistent with prior stroke. I would recommend to continue current dose of Keppra for seizure prophylaxis. Appreciate Cardiology's input in regards to secondary stroke prevention regarding his known paroxysmal atrial fibrillation. There was concern regarding starting anticoagulation due to risk of noncompliance. For now, agree with use of aspirin. Would strongly recommend to continue current dose of thiamine as well as alcohol withdrawal precautions as known history of alcohol use. Otherwise, no additional neurological workup at this time. Please contact me with any additional questions or concerns. ANJELD
[2020-09-21] MEDS: ENOXAPARIN INJ 40 MG/0.4 ML SYR SQ SCH (21:14)
[2020-09-21] MEDS: traZODone HCL 50 MG TAB PO SCH (21:14)
[2020-09-22 08:25] LABS: Creatinine Clr Calc Pharmacy 118.5 ml/min; Est GFR (African American) 112.7 ml/min; Est GFR (Non-African American) 97.2 ml/min
[2020-09-22] MEDS: GABAPENTIN 300 MG CAP PO SCH ×3 (09:53→22:32)
[2020-09-22] MEDS: FAMOTIDINE 20 MG TAB PO SCH ×2 (09:53→22:32)
[2020-09-22] MEDS: SENNA 8.6 MG TAB PO SCH ×2 (09:53→22:33)
[2020-09-22] MEDS: THIAMINE HCL 100 MG TAB PO SCH (09:53)
[2020-09-22] MEDS: MAGNESIUM OXIDE 400 MG TAB PO SCH (09:53)
[2020-09-22] MEDS: levETIRAcetam 250 MG TAB PO SCH ×2 (09:53→22:30)
[2020-09-22] MEDS: lisinopril 20 MG TAB PO SCH (09:53)
[2020-09-22] MEDS: FOLIC ACID 1 MG TAB PO SCH (09:53)
[2020-09-22] MEDS: METOPROLOL TARTRATE 25 MG TAB PO SCH ×2 (09:53→22:30)
[2020-09-22] MEDS: ESCITALOPRAM OXALATE 10 MG TAB PO SCH (09:53)
[2020-09-22] MEDS: ASPIRIN 81 MG CHEW PO SCH (09:53)
[2020-09-22] MEDS: allopurinoL 300 MG TAB PO SCH (09:53)
--- NOTE | 2020-09-22 17:50 | Hospitalist Progress Note ---
Date of Service September 22, 2020 Assessment & Plan (1) Tachycardia: Atrial fibrillation with RVR hx of paroxysmal atrial fibrillation Normal TSH Spontaneously converted to sinus Atenolol changed to metoprolol 25 mg twice daily Appreciate Cardiology Input May not be a candidate for long-term anticoagulation given risk for falls, noncompliance remains in sinus with rate control , quality assurance monitor final d/lolita Extensive lymphadenopathy H/O CLL -CT ABD:Extensive mesenteric, retroperitoneal, iliac chain, and iliac lymphadenopathy. In addition there is splenomegaly. Lymphoma is the diagnosis of exclusion. Biopsy is recommended. No evidence of bowel obstruction. No evidence of free air. Cholelithiasis. No renal, ureteral, or bladder calculi identified. There is posterior mediastinal paraesophageal and para-aortic lymphadenopathy. There is a small hiatal hernia. was on Ibrutinib -out patient -Appreciate surgery input -Had right inguinal lymph node biopsy on 09/18/20 -Flow cytometry study suggestive of B-cell lymphoproliferative disorder. Pathology pending Needs follow-up with oncology upon discharge Needs follow up with surgery in 2 weeks post biopsy Acute Metabolic Encephalopathy presented with confusion /disorientation awake and alert , very forgetful , oriented to person only ( possible baseline dementia ?) CT Head: No acute intracranial abnormality. No abnormal enhancement. MRI brain no acute change Normal TSH Obtain vitamin B 12, B6, B1 levels Appreciate neurology inpu (2) HTN (hypertension): Continue lisinopril, metoprolol (3) PAF (paroxysmal atrial fibrillation): Management as above (4) H/O alcohol abuse: h/o heavy alcohol use Continue thiamine, folic acid Continue gabapentin (5) Seizure: CT Head:No acute intracranial findings. Left frontal lobe encephalomalacia. Continue Keppra Seizure precautions Neuro eval appreciated (6) Depression: Continue home medications (7) Cognitive deficit, post-stroke: At baseline (8) Polyneuropathy: On gabapentin (9) DVT prophylaxis: Lovenox SQ Code Status Full Code Disposition not safe to return home /lives alone -fall risk ,baseline dementia -unable to do self care /does not appear to have enough cognitive ability for self administration of medications and maintain doctor's follow up needs 02/11 care PT/OT eval case management consulted for discharge planning will benefit with rehab vs longterm placement Admission and Anticipated Discharge Date Admission Date: September 16, 2020 Subjective Patient is seen and examined at bedside Patient oriented to person only was able to be OOB , walked in the hallway remains disoriented and very forgetful comfortable with hospital stay , not interested about his cat today ( almost forgot that he has a cat ) not safe to return home alone with out any support Review of Systems Review of Systems: Unobtainable due to cognitive status Physical Exam Physical Exam: Physical exam: General: No acute distress, HEENT: PERRLA, EOMI, Heart: Regular S1-S2, no carotid bruit, no JVD, no lower extremity edema Lungs: Clear to auscultate, no wheeze or rales Abdomen: Soft nontender, no organomegaly Extremity: No cyanosis, no deformity, Neuro: No focal neurological deficit normal speech, Psych: alert , oriented to person only Results & Data Results & Data ([facility]) Vital Signs (Past 12 Hours) Vital Signs Temp Pulse Pulse Pulse Resp BP BP 09/22/20 16:00 97 H 09/22/20 15:35 37.0 C 72 16 129/81 09/22/20 11:13 36.6 C 92 H 16 144/78 H 09/22/20 08:00 86 09/22/20 07:21 36.7 C 83 16 156/76 H 09/22/20 07:14 36.9 C 70 18 106/64 Pulse Ox 09/22/20 16:00 09/22/20 15:35 97 09/22/20 11:13 96 09/22/20 08:00 09/22/20 07:21 94 09/22/20 07:14 98
[2020-09-22] MEDS: ENOXAPARIN INJ 40 MG/0.4 ML SYR SQ SCH (22:31)
[2020-09-22] MEDS: traZODone HCL 50 MG TAB PO SCH (22:33)
[2020-09-23] MEDS: SENNA 8.6 MG TAB PO SCH ×2 (09:17→20:28)
[2020-09-23] MEDS: GABAPENTIN 300 MG CAP PO SCH ×3 (09:18→20:26)
[2020-09-23] MEDS: FAMOTIDINE 20 MG TAB PO SCH ×2 (09:18→20:25)
[2020-09-23] MEDS: levETIRAcetam 250 MG TAB PO SCH ×2 (09:18→20:27)
[2020-09-23] MEDS: lisinopril 20 MG TAB PO SCH (09:19)
[2020-09-23] MEDS: ASPIRIN 81 MG CHEW PO SCH (09:19)
[2020-09-23] MEDS: ESCITALOPRAM OXALATE 10 MG TAB PO SCH (09:19)
[2020-09-23] MEDS: allopurinoL 300 MG TAB PO SCH (09:20)
[2020-09-23] MEDS: THIAMINE HCL 100 MG TAB PO SCH (09:20)
[2020-09-23] MEDS: FOLIC ACID 1 MG TAB PO SCH (09:20)
[2020-09-23] MEDS: MAGNESIUM OXIDE 400 MG TAB PO SCH (09:24)
[2020-09-23] MEDS: METOPROLOL TARTRATE 25 MG TAB PO SCH ×2 (10:30→20:28)
--- NOTE | 2020-09-23 12:20 | Psychiatric Consultation ---
Date of Consultation September 23, 2020 Impression / Recommendations Impression 65 yo male who appears quite encephalopathic, likely a combination of hypoactive delirium/AMS superimposed on underlying cognitive deficits post stroke. He needs oncology follow up to determine if malignant lymphoma per Dr. Soto. Patient is wiithout any family support or 02/11 care, I agree with Dr. Soto that he is unable to take care of himself at this time. He does not currently have capacity to leave AMA or to refuse appropriate level of nursing/rehab placement. As far as psychiatric medications, I would not resume home dose of Ativan upon discharge given fall risk and if not in supervised setting likely combining with ETOH. LFTs were reviewed, he was not able to follow commands for cerebellar testing but I would recommend an ammonia level with next blood draw. 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 Chief Complaint patient is not able to vocalize a complaint, consult is for decision making capacity. History of Present Illness No formal dx of dementia, apparently per friend is having ongoing decline in that she takes to all his appointments/gets groceries and his place is in disarray due to hoarding and cat feces. No previous contact with psych service that I can see on chart. As per neuro consult a few days ago he is abulic, his imaging failed to find new etiology. He has been cooperative with care but verbalizing to attending that he wants to go home. His baseline level of ETOH use is unclear and he is being followed with AWSS protocol. It should also be noted that he is prescribed Ativan 0.5 mg BID for years by Dr. Roe, last fill 08/08 per PDMP so should be out at home if taken as prescribed. Does not appear to be in benzo withdrawal. His seizure medication is therapeutic level and no witnessed events. Past Psychiatric History Previous Psych History: Lexapro and trazodone per PCP, otherwise unknown Allergies Allergy/AdvReac Type Severity Reaction Status Date / Time No Known Allergies Allergy NONE Verified 09/16/20 16:24 Home Medications Medication Instructions Recorded Confirmed Type allopurinol 300 mg PO DAILY 02/27/19 09/16/20 History atenolol 50 mg PO DAILY 02/27/19 09/16/20 History folic acid 1 mg PO DAILY 02/27/19 09/16/20 History furosemide [Lasix] 20 mg PO DAILY 02/27/19 09/16/20 History gabapentin 900 mg PO TID 02/27/19 09/16/20 History levetiracetam [Keppra] 750 mg PO BID 02/27/19 09/16/20 History lisinopril 20 mg PO DAILY 02/27/19 09/16/20 History lorazepam [Ativan] 0.5 mg PO BID PRN 02/27/19 09/16/20 History ondansetron HCl 8 mg PO TID PRN 02/27/19 09/16/20 History trazodone 50 mg PO HS 02/27/19 09/16/20 History aspirin 81 mg PO DAILY 09/16/20 09/16/20 History escitalopram oxalate [Lexapro] 10 mg PO DAILY 09/16/20 09/16/20 History famotidine 20 mg PO BID 09/16/20 09/16/20 History fluoride (sodium) [PreviDent 5000 1 applic DENTAL HS 09/16/20 09/16/20 History Plus] food supplemt, lactose-reduced 1 ea PO DIRECTED 09/16/20 09/16/20 History [Ensure Active High Protein] ibrutinib 420 mg PO DAILY 09/16/20 09/16/20 History magnesium oxide 400 mg PO DAILY 09/16/20 09/16/20 History prochlorperazine maleate 10 mg PO Q6H PRN 09/16/20 09/16/20 History sennosides [Senokot] 8.6 mg PO BID 09/16/20 09/16/20 History Family History patient is unable to provide Substance Abuse History need collateral Personal History Living Arrangements: Apartment Employment Status: Disabled Marital Status: Single Beliefs That Will Affect Care: None History of Legal Problems: none reported Patient History Medical History B-cell chronic lymphocytic leukemia BPH (benign prostatic hyperplasia) Cognitive deficit, post-stroke Depression H/O alcohol abuse Polyneuropathy Seizure Surgical History History of lymph node biopsy S/P inguinal hernia repair 12/05/2009-Dr. Mayur Turcios Family History Other No significant family history Social History Smoking Status: Never smoker Hx Alcohol Use: Yes Alcohol type: wine and hard liquor Hx Substance Use: No Preferred Language: Korean Communication Ability: Unable Custodial Manager Required: No Beliefs That Will Affect Care: None Current Living Situation: Alone Feels Safe at Home: Yes Assistive Devices: None Physical Exam Mental Examination: the patient was sedated and difficult to arouse, he is very slow to process and speech is largely unintelligible when he does respond. He would stare at the tv then quickly lose interest and was not able to follow commands or answer orientation questions. He had not interest in his meal and was unaware of it being on his left side despite being pointed out. No spontaneous speech or affect. Vital Signs (Past 24 Hours): Last Vital Signs Temp 37.3 C 09/23/20 11:41 Pulse 105 H 09/23/20 11:41 Resp 18 09/23/20 11:41 BP 134/74 09/23/20 11:41 Pulse Ox 94 09/23/20 11:41 Review of Systems Unobtainable due to cognitive status Results & Data (PSY) Medications Administered Allopurinol (Allopurinol 300 Mg Tab) 300 mg PO DAILY EUNICE Stop: 10/17/20 08:59 Last Admin: 09/23/20 09:20 Dose: 300 mg Documented by: [id number] Admin: 09/22/20 09:53 Dose: 300 mg Documented by: [id number] Admin: 09/21/20 08:27 Dose: 300 mg Documented by: [id number] Admin: 09/20/20 08:53 Dose: 300 mg Documented by: [id number] Admin: 09/19/20 08:19 Dose: 300 mg Documented by: [id number] Admin: 09/18/20 09:10 Dose: 300 mg Documented by: [id number] Admin: 09/17/20 07:58 Dose: 300 mg Documented by: [id number] Aspirin (Aspirin 81 Mg Chew) 81 mg PO DAILY EUNICE Stop: 10/17/20 08:59 Last Admin: 09/23/20 09:19 Dose: 81 mg Documented by: [id number] Admin: 09/22/20 09:53 Dose: 81 mg Documented by: [id number] Admin: 09/21/20 08:27 Dose: 81 mg Documented by: [id number] Admin: 09/20/20 08:53 Dose: 81 mg Documented by: [id number] Admin: 09/19/20 08:22 Dose: 81 mg Documented by: [id number] Admin: 09/18/20 09:59 Dose: 81 mg Documented by: [id number] Admin: 09/17/20 09:55 Dose: 81 mg Documented by: [id number] Enoxaparin Sodium (Enoxaparin Inj 40 Mg/0.4 Ml Syr) 40 mg SQ HS EUNICE Stop: 10/16/20 20:59 Last Admin: 09/22/20 22:31 Dose: 40 mg Documented by: [id number] Admin: 09/21/20 21:14 Dose: 40 mg Documented by: [id number] Admin: 09/20/20 20:40 Dose: 40 mg Documented by: [id number] Admin: 09/19/20 19:42 Dose: 40 mg Documented by: [id number] Admin: 09/18/20 21:33 Dose: Not Given Documented by: [id number] Admin: 09/17/20 20:52 Dose: 40 mg Documented by: [id number] Admin: 09/16/20 22:05 Dose: 40 mg Documented by: [id number] Escitalopram Oxalate (Escitalopram Oxalate 10 Mg Tab) 10 mg PO DAILY EUNICE Stop: 10/17/20 08:59 Last Admin: 09/23/20 09:19 Dose: 10 mg Documented by: [id number] Admin: 09/22/20 09:53 Dose: 10 mg Documented by: [id number] Admin: 09/21/20 08:27 Dose: 10 mg Documented by: [id number] Admin: 09/20/20 08:54 Dose: 10 mg Documented by: [id number] Admin: 09/19/20 08:19 Dose: 10 mg Documented by: [id number] Admin: 09/18/20 09:10 Dose: 10 mg Documented by: [id number] Admin: 09/17/20 07:58 Dose: 10 mg Documented by: [id number] Famotidine (Famotidine 20 Mg Tab) 20 mg PO BID EUNICE Stop: 10/16/20 20:59 Last Admin: 09/23/20 09:18 Dose: 20 mg Documented by: [id number] Admin: 09/22/20 22:32 Dose: 20 mg Documented by: [id number] Admin: 09/22/20 09:53 Dose: 20 mg Documented by: [id number] Admin: 09/21/20 21:14 Dose: 20 mg Documented by: [id number] Admin: 09/21/20 08:27 Dose: 20 mg Documented by: [id number] Admin: 09/20/20 20:41 Dose: 20 mg Documented by: [id number] Admin: 09/20/20 08:54 Dose: 20 mg Documented by: [id number] Admin: 09/19/20 21:42 Dose: 20 mg Documented by: [id number] Admin: 09/19/20 08:18 Dose: 20 mg Documented by: [id number] Admin: 09/18/20 21:34 Dose: 20 mg Documented by: [id number] Admin: 09/18/20 09:08 Dose: 20 mg Documented by: [id number] Admin: 09/17/20 20:53 Dose: 20 mg Documented by: [id number] Admin: 09/17/20 08:00 Dose: 20 mg Documented by: [id number] Admin: 09/16/20 22:07 Dose: 20 mg Documented by: [id number] Folic Acid (Folic Acid 1 Mg Tab) 1 mg PO DAILY EUNICE Stop: 10/17/20 08:59 Last Admin: 09/23/20 09:20 Dose: 1 mg Documented by: [id number] Admin: 09/22/20 09:53 Dose: 1 mg Documented by: [id number] Admin: 09/21/20 08:27 Dose: 1 mg Documented by: [id number] Admin: 09/20/20 08:54 Dose: 1 mg Documented by: [id number] Admin: 09/19/20 08:19 Dose: 1 mg Documented by: [id number] Admin: 09/18/20 09:10 Dose: 1 mg Documented by: [id number] Admin: 09/17/20 07:58 Dose: 1 mg Documented by: [id number] Gabapentin (Gabapentin 300 Mg Cap) 900 mg PO TID EUNICE Stop: 10/16/20 20:59 Last Admin: 09/23/20 09:18 Dose: 900 mg Documented by: [id number] Admin: 09/22/20 22:32 Dose: 900 mg Documented by: [id number] Admin: 09/22/20 14:16 Dose: 900 mg Documented by: [id number] Admin: 09/22/20 09:53 Dose: 900 mg Documented by: [id number] Admin: 09/21/20 21:14 Dose: 900 mg Documented by: [id number] Admin: 09/21/20 14:39 Dose: 900 mg Documented by: [id number] Admin: 09/21/20 08:27 Dose: 900 mg Documented by: [id number] Admin: 09/20/20 20:41 Dose: 900 mg Documented by: [id number] Admin: 09/20/20 14:48 Dose: 900 mg Documented by: [id number] Admin: 09/20/20 08:54 Dose: 900 mg Documented by: [id number] Admin: 09/19/20 21:42 Dose: 900 mg Documented by: [id number] Admin: 09/19/20 13:17 Dose: 900 mg Documented by: [id number] Admin: 09/19/20 08:18 Dose: 900 mg Documented by: [id number] Admin: 09/18/20 21:34 Dose: 900 mg Documented by: [id number] Admin: 09/18/20 14:09 Dose: 900 mg Documented by: [id number] Admin: 09/18/20 09:08 Dose: 900 mg Documented by: [id number] Admin: 09/17/20 20:54 Dose: 900 mg Documented by: [id number] Admin: 09/17/20 13:38 Dose: 900 mg Documented by: [id number] Admin: 09/17/20 08:00 Dose: 900 mg Documented by: [id number] Admin: 09/16/20 22:05 Dose: 900 mg Documented by: [id number] Lorazepam (Ativan) 1 mg in 2 mls @ 2 mls/min IV UD PRN; Protocol PRN Reason: EtOH Withdrawl AWSS Score 6,7 Stop: 10/16/20 23:28 Last Admin: 09/17/20 02:44 Dose: 2 mls/min Documented by: [id number] Levetiracetam (Levetiracetam 250 Mg Tab) 750 mg PO BID EUNICE Stop: 10/16/20 20:59 Last Admin: 09/23/20 09:18 Dose: 750 mg Documented by: [id number] Admin: 09/22/20 22:30 Dose: 750 mg Documented by: [id number] Admin: 09/22/20 09:53 Dose: 750 mg Documented by: [id number] Admin: 09/21/20 21:14 Dose: 750 mg Documented by: [id number] Admin: 09/21/20 08:25 Dose: 750 mg Documented by: [id number] Admin: 09/20/20 20:41 Dose: 750 mg Documented by: [id number] Admin: 09/20/20 08:54 Dose: 750 mg Documented by: [id number] Admin: 09/19/20 21:42 Dose: 750 mg Documented by: [id number] Admin: 09/19/20 08:17 Dose: 750 mg Documented by: [id number] Admin: 09/18/20 21:36 Dose: 750 mg Documented by: [id number] Admin: 09/18/20 09:08 Dose: 750 mg Documented by: [id number] Admin: 09/17/20 20:53 Dose: 750 mg Documented by: [id number] Admin: 09/17/20 08:00 Dose: 750 mg Documented by: [id number] Admin: 09/16/20 22:06 Dose: 750 mg Documented by: [id number] Lisinopril (Lisinopril 20 Mg Tab) 20 mg PO DAILY EUNICE Stop: 10/17/20 08:59 Last Admin: 09/23/20 09:19 Dose: 20 mg Documented by: [id number] Admin: 09/22/20 09:53 Dose: 20 mg Documented by: [id number] Admin: 09/21/20 08:27 Dose: 20 mg Documented by: [id number] Admin: 09/20/20 08:54 Dose: 20 mg Documented by: [id number] Admin: 09/19/20 08:19 Dose: 20 mg Documented by: [id number] Admin: 09/18/20 09:09 Dose: 20 mg Documented by: [id number] Admin: 09/17/20 07:59 Dose: 20 mg Documented by: [id number] Magnesium Oxide (Magnesium Oxide 400 Mg Tab) 400 mg PO DAILY EUNICE Stop: 10/17/20 08:59 Last Admin: 09/23/20 09:24 Dose: 400 mg Documented by: [id number] Admin: 09/22/20 09:53 Dose: 400 mg Documented by: [id number] Admin: 09/21/20 08:26 Dose: 400 mg Documented by: [id number] Admin: 09/20/20 08:54 Dose: 400 mg Documented by: [id number] Admin: 09/19/20 08:19 Dose: 400 mg Documented by: [id number] Admin: 09/18/20 09:10 Dose: 400 mg Documented by: [id number] Admin: 09/17/20 07:59 Dose: 400 mg Documented by: [id number] Metoprolol Tartrate (Metoprolol Tartrate 25 Mg Tab) 25 mg PO BID EUNICE Stop: 10/17/20 20:59 Last Admin: 09/22/20 22:30 Dose: 25 mg Documented by: [id number] Admin: 09/22/20 09:53 Dose: 25 mg Documented by: [id number] Admin: 09/21/20 21:14 Dose: 25 mg Documented by: [id number] Admin: 09/21/20 08:25 Dose: 25 mg Documented by: [id number] Admin: 09/20/20 20:41 Dose: 25 mg Documented by: [id number] Admin: 09/20/20 08:54 Dose: 25 mg Documented by: [id number] Admin: 09/19/20 21:42 Dose: 25 mg Documented by: [id number] Admin: 09/19/20 08:18 Dose: 25 mg Documented by: [id number] Admin: 09/18/20 21:35 Dose: 25 mg Documented by: [id number] Admin: 09/18/20 09:08 Dose: 25 mg Documented by: [id number] Admin: 09/17/20 20:52 Dose: 25 mg Documented by: [id number] Sennosides (Senna 8.6 Mg Tab) 8.6 mg PO BID EUNICE Stop: 10/16/20 20:59 Last Admin: 09/23/20 09:17 Dose: 8.6 mg Documented by: [id number] Admin: 09/22/20 22:33 Dose: 8.6 mg Documented by: [id number] Admin: 09/22/20 09:53 Dose: 8.6 mg Documented by: [id number] Admin: 09/21/20 21:14 Dose: 8.6 mg Documented by: [id number] Admin: 09/21/20 08:26 Dose: 8.6 mg Documented by: [id number] Admin: 09/20/20 20:41 Dose: 8.6 mg Documented by: [id number] Admin: 09/20/20 08:54 Dose: 8.6 mg Documented by: [id number] Admin: 09/19/20 19:42 Dose: 8.6 mg Documented by: [id number] Admin: 09/19/20 08:18 Dose: 8.6 mg Documented by: [id number] Admin: 09/18/20 21:39 Dose: Not Given Documented by: [id number] Admin: 09/18/20 09:08 Dose: 8.6 mg Documented by: [id number] Admin: 09/17/20 20:52 Dose: 8.6 mg Documented by: [id number] Admin: 09/17/20 08:01 Dose: 8.6 mg Documented by: [id number] Admin: 09/16/20 22:07 Dose: 8.6 mg Documented by: [id number] Thiamine HCl (Thiamine Hcl 100 Mg Tab) [facility] [place] Stop: 10/16/20 21:19 Last Admin: 09/23/20 09:20 Dose: 100 mg Documented by: [id number] Admin: 09/22/20 09:53 Dose: 100 mg Documented by: [id number] Admin: 09/21/20 08:27 Dose: 100 mg Documented by: [id number] Admin: 09/20/20 08:54 Dose: 100 mg Documented by: [id number] Admin: 09/19/20 08:19 Dose: 100 mg Documented by: [id number] Admin: 09/18/20 09:10 Dose: 100 mg Documented by: [id number] Admin: 09/17/20 08:01 Dose: 100 mg Documented by: [id number] Admin: 09/16/20 22:08 Dose: 100 mg Documented by: [id number] Trazodone HCl (Trazodone Hcl 50 Mg Tab) 50 mg PO [facility] Stop: 10/19/20 20:59 Last Admin: 09/22/20 22:33 Dose: 50 mg Documented by: [id number] Admin: 09/21/20 21:14 Dose: 50 mg Documented by: [id number] Admin: 09/20/20 20:40 Dose: 50 mg Documented by: [id number] Admin: 09/19/20 21:43 Dose: 50 mg Documented by: [id number] Coding Level of Care Code 21577 U Intl Hosp Care Lvl 2
--- NOTE | 2020-09-23 15:48 | Hospitalist Progress Note ---
Date of Service September 23, 2020 Assessment & Plan (1) Cognitive deficit, post-stroke: Patient appears to be oriented to person only, Unable to follow any instructions, does not appear to be having any capacity to understand his own disease process. Patient lives alone, does not have any family, no children , never been . His home situation as per his friend, is deplorable, Patient has been insisting to return home, I do not believe patient has the mental or cognitive capacity to able to survive alone/independent living. Not able to provide self-care, activities of daily living, all self administration of medications there is a possible diagnosis of malignant lymphoma, Given patient's limited cognitive capacity will note be able to follow-up with oncology, and continued with treatment plan/chemo if indicated Psych consulted to assist patient's decision-making capacity. Appreciate input, per psychiatry patient still appears to be very encephalopathic, unable to have any insight regarding his health, self-care, Patient was not capable of leaving hospital AMA Needs continued inpatient stay for acute illness, Discharge planning will be very difficult, patient does not have any medical insurance, placement to rehab or long-term care could be difficult Returning home by himself has a serious safety concern Case management aware, office of aging will be involved to assist with patient's living situation and support system (2) Tachycardia: Atrial fibrillation with RVR Resolved heart rate is currently rate and rhythm controlled hx of paroxysmal atrial fibrillation Normal TSH Spontaneously converted to sinus On metoprolol 25 mg twice daily Appreciate Cardiology Input Not a candidate for long-term anticoagulation given risk for falls, noncompliance/cognitive impairment remains in sinus with rate control , cardiac care nurse d/lolita Extensive lymphadenopathy H/O CLL -CT ABD:Extensive mesenteric, retroperitoneal, iliac chain, and iliac lymphade nopathy. In addition there is splenomegaly. Lymphoma is the diagnosis of exclusion. Biopsy is recommended. No evidence of bowel obstruction. No evidence of free air. Cholelithiasis. No renal, ureteral, or bladder calculi identified. There is posterior mediastinal paraesophageal and para-aortic lymphadenopathy. There is a small hiatal hernia. was on Ibrutinib -out patient -Appreciate surgery input -Status post right inguinal lymph node biopsy on 09/18/20 -Flow cytometry study suggestive of B-cell lymphoproliferative disorder. Pathology pending Needs follow-up with oncology upon discharge Needs follow up with surgery in 2 weeks post biopsy Acute Metabolic Encephalopathy presented with confusion /disorientation awake and alert , very forgetful , oriented to person only ( possible baseline dementia ?) CT Head: No acute intracranial abnormality. No abnormal enhancement. MRI brain no acute change Ordered for ammonia level to be checked in a.m., continue to observe fall precaution Patient does not have cognitive capacity to sign out AGAINST MEDICAL ADVICE (3) HTN (hypertension): Continue lisinopril, metoprolol (4) PAF (paroxysmal atrial fibrillation): Management as above (5) H/O alcohol abuse: h/o heavy alcohol use No active alcohol withdrawal symptoms noted Continue thiamine, folic acid Continue gabapentin (6) Seizure: No recent seizure activity CT Head:No acute intracranial findings. Left frontal lobe encephalomalacia. Continue Keppra Neuro eval appreciated (7) Depression: Continue home medications (8) Polyneuropathy: On gabapentin (9) DVT prophylaxis: Lovenox SQ Code Status Full Code Disposition not safe to return home /lives alone -fall risk ,baseline dementia -unable to do self care /does not appear to have enough cognitive ability for self administration of medications and maintain doctor's follow up needs 02/11 care PT/OT eval case management consulted for discharge planning Admission and Anticipated Discharge Date Admission Date: September 16, 2020 Subjective Patient is seen and examined at bedside Patient oriented to person only was able to be OOB , walked in the hallway remains disoriented and very forgetful comfortable with hospital stay , not interested about his cat today ( almost forgot that he has a cat ) not safe to return home alone with out any support Physical Exam Physical Exam: Physical exam: General: No acute distress, HEENT: PERRLA, EOMI, Heart: Regular S1-S2, no carotid bruit, no JVD, no lower extremity edema Lungs: Clear to auscultate, no wheeze or rales Abdomen: Soft nontender, no organomegaly Extremity: No cyanosis, no deformity, Neuro: No focal neurological deficit normal speech, Psych: alert , oriented to person only Results & Data Results & Data ([facility]) Vital Signs (Past 12 Hours) Vital Signs Temp Pulse Pulse Resp BP BP Pulse Ox 09/23/20 15:36 37.1 C 104 H 20 135/80 95 09/23/20 11:41 37.3 C 105 H 18 134/74 94 09/23/20 07:31 37.6 C H 85 18 163/75 H 92
[2020-09-23] MEDS: ENOXAPARIN INJ 40 MG/0.4 ML SYR SQ SCH (20:23)
[2020-09-23] MEDS: traZODone HCL 50 MG TAB PO SCH (20:31)
[2020-09-24] MEDS: lisinopril 20 MG TAB PO SCH (08:37)
[2020-09-24] MEDS: FOLIC ACID 1 MG TAB PO SCH (08:37)
[2020-09-24] MEDS: METOPROLOL TARTRATE 25 MG TAB PO SCH ×2 (08:37→21:23)
[2020-09-24] MEDS: ESCITALOPRAM OXALATE 10 MG TAB PO SCH (08:37)
[2020-09-24] MEDS: levETIRAcetam 250 MG TAB PO SCH ×2 (08:37→21:25)
[2020-09-24] MEDS: ASPIRIN 81 MG CHEW PO SCH (08:37)
[2020-09-24] MEDS: GABAPENTIN 300 MG CAP PO SCH ×3 (08:38→21:25)
[2020-09-24] MEDS: THIAMINE HCL 100 MG TAB PO SCH (08:38)
[2020-09-24] MEDS: MAGNESIUM OXIDE 400 MG TAB PO SCH (08:38)
[2020-09-24] MEDS: SENNA 8.6 MG TAB PO SCH ×2 (08:39→21:23)
[2020-09-24] MEDS: FAMOTIDINE 20 MG TAB PO SCH ×2 (08:39→22:04)
[2020-09-24] MEDS: allopurinoL 300 MG TAB PO SCH (08:39)
--- NOTE | 2020-09-24 16:44 | Hospitalist Progress Note ---
Date of Service September 24, 2020 Assessment & Plan (1) Cognitive deficit, post-stroke: Patient appears to be oriented to person only, Unable to follow any instructions, does not appear to be having any capacity to understand his own disease process. Patient lives alone, does not have any family, no children , never been . His home situation as per his friend, is deplorable, Patient has been insisting to return home, I do not believe patient has the mental or cognitive capacity to able to survive alone/independent living. Not able to provide self-care, activities of daily living, all self administration of medications there is a possible diagnosis of malignant lymphoma, Given patient's limited cognitive capacity will note be able to follow-up with oncology, and continued with treatment plan/chemo if indicated Psych consulted to assist patient's decision-making capacity. Appreciate input, per psychiatry patient still appears to be very encephalopathic, unable to have any insight regarding his health, self-care, Patient was not capable of leaving hospital AMA Needs continued inpatient stay for acute illness, Discharge planning will be very difficult, patient does not have any medical insurance, placement to rehab or long-term care could be difficult Returning home by himself has a serious safety concern Case management aware, office of aging will be involved to assist with patient's living situation and support system (2) Tachycardia: Atrial fibrillation with RVR Resolved heart rate is currently rate and rhythm controlled hx of paroxysmal atrial fibrillation Normal TSH Spontaneously converted to sinus On metoprolol 25 mg twice daily Appreciate Cardiology Input Not a candidate for long-term anticoagulation given risk for falls, noncompliance/cognitive impairment remains in sinus with rate control , teletypesetter monitor d/lolita Extensive lymphadenopathy H/O CLL -CT ABD:Extensive mesenteric, retroperitoneal, iliac chain, and iliac lymphade nopathy. In addition there is splenomegaly. Lymphoma is the diagnosis of exclusion. Biopsy is recommended. No evidence of bowel obstruction. No evidence of free air. Cholelithiasis. No renal, ureteral, or bladder calculi identified. There is posterior mediastinal paraesophageal and para-aortic lymphadenopathy. There is a small hiatal hernia. was on Ibrutinib -out patient -Appreciate surgery input -Status post right inguinal lymph node biopsy on 09/18/20 -Flow cytometry study suggestive of B-cell lymphoproliferative disorder. Pathology pending Needs follow-up with oncology upon discharge Needs follow up with surgery in 2 weeks post biopsy Acute Metabolic Encephalopathy presented with confusion /disorientation awake and alert , very forgetful , oriented to person only ( possible baseline dementia ?) CT Head: No acute intracranial abnormality. No abnormal enhancement. MRI brain no acute change appreciate input from psychiatry , pt remains encephalopathic , Patient does not have cognitive capacity to sign out AGAINST MEDICAL ADVICE (3) HTN (hypertension): Continue lisinopril, metoprolol (4) PAF (paroxysmal atrial fibrillation): Management as above (5) H/O alcohol abuse: h/o heavy alcohol use No active alcohol withdrawal symptoms noted Continue thiamine, folic acid Continue gabapentin (6) Seizure: No recent seizure activity CT Head:No acute intracranial findings. Left frontal lobe encephalomalacia. Continue Keppra Neuro eval appreciated (7) Depression: Continue home medications (8) Polyneuropathy: On gabapentin (9) DVT prophylaxis: Lovenox SQ Code Status Full Code Disposition not safe to return home /lives alone -fall risk ,baseline dementia -unable to do self care /does not appear to have enough cognitive ability for self administration of medications and maintain doctor's follow up needs 02/11 care PT/OT eval case management consulted for discharge planning Admission and Anticipated Discharge Date Admission Date: September 16, 2020 Physical Exam Physical Exam: Physical exam: General: No acute distress, HEENT: PERRLA, EOMI, Heart: Regular S1-S2, no carotid bruit, no JVD, no lower extremity edema Lungs: Clear to auscultate, no wheeze or rales Abdomen: Soft nontender, no organomegaly Extremity: No cyanosis, no deformity, Neuro: No focal neurological deficit normal speech, Psych: alert , oriented to person only Results & Data Results & Data ([facility]) Vital Signs (Past 12 Hours) Vital Signs Temp Pulse Resp BP BP Pulse Ox 09/24/20 15:27 36.4 C L 109 H 18 153/82 H 93 09/24/20 08:09 37.3 C 94 H 18 166/77 H 91
[2020-09-24] MEDS: ENOXAPARIN INJ 40 MG/0.4 ML SYR SQ SCH (21:08)
[2020-09-24] MEDS: traZODone HCL 50 MG TAB PO SCH (21:23)
[2020-09-25] MEDS: SENNA 8.6 MG TAB PO SCH ×2 (08:11→20:55)
[2020-09-25 09:04] LABS: Est GFR (Non-African American) 94.1 ml/min
[2020-09-25] MEDS: METOPROLOL TARTRATE 25 MG TAB PO SCH ×2 (09:14→20:55)
[2020-09-25] MEDS: lisinopril 20 MG TAB PO SCH (09:14)
[2020-09-25] MEDS: MAGNESIUM OXIDE 400 MG TAB PO SCH (09:14)
[2020-09-25] MEDS: allopurinoL 300 MG TAB PO SCH (09:14)
[2020-09-25] MEDS: FOLIC ACID 1 MG TAB PO SCH (09:14)
[2020-09-25] MEDS: THIAMINE HCL 100 MG TAB PO SCH (09:14)
[2020-09-25] MEDS: ESCITALOPRAM OXALATE 10 MG TAB PO SCH (09:15)
[2020-09-25] MEDS: levETIRAcetam 250 MG TAB PO SCH ×2 (09:15→20:54)
[2020-09-25] MEDS: GABAPENTIN 300 MG CAP PO SCH ×3 (09:15→20:56)
[2020-09-25] MEDS: ASPIRIN 81 MG CHEW PO SCH (09:21)
[2020-09-25] MEDS: FAMOTIDINE 20 MG TAB PO SCH ×2 (09:21→21:08)
[2020-09-25] MEDS ORDERED: LACTULOSE SYRUP 20 GM/30 ML UDC PO ONE (12:44)
--- NOTE | 2020-09-25 18:59 | Hospitalist Progress Note ---
Date of Service September 25, 2020 Assessment & Plan (1) Cognitive deficit, post-stroke: Present on admission with generalized weakness Patient lives alone, does not have any family His home situation as per his friend is deplorable CT head showed No acute intracranial abnormality. MRI of brain showed no acute intracranial findings. No evidence of acute or subacute infarction. 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 Psych on board to assist patient's decision-making capacity. Ammonia level elevated per psychiatry patient still appears to be very encephalopathic, unable to have any insight regarding his health, self-care, Patient was not capable of leaving hospital AMA Discharge planning will be very difficult, patient does not have any medical insurance, placement to rehab or long-term care could be difficult Returning home by himself has a serious safety concern Case management aware, office of aging will be involved to assist with patient's living situation and support system (2) Tachycardia: Atrial fibrillation with RVR Resolved heart rate is currently rate and rhythm controlled hx of paroxysmal atrial fibrillation Normal TSH Spontaneously converted to sinus On metoprolol 25 mg twice daily Appreciate Cardiology Input Not a candidate for long-term anticoagulation given risk for falls, noncompliance/cognitive impairment remains in sinus 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 In addition there is splenomegaly. Lymphoma is the diagnosis of exclusion. Biopsy is recommended. No evidence of bowel obstruction. No evidence of free air. Cholelithiasis. No renal, ureteral, or bladder calculi identified. There is posterior mediastinal paraesophageal and para-aortic lymphadenopathy. There is a small hiatal hernia. was on Ibrutinib -out patient -Appreciate surgery input -Status post right inguinal lymph node biopsy on 09/18/20 -Flow cytometry study suggestive of B-cell lymphoproliferative disorder. Pathology pending Needs follow-up with oncology upon discharge Needs follow up with surgery in 2 weeks post biopsy Acute Metabolic Encephalopathy presented with confusion /disorientation awake and alert , very forgetful , oriented to person only ( possible baseline dementia ?) CT Head: No acute intracranial abnormality. No abnormal enhancement. MRI brain no acute change Ordered for ammonia level to be checked in a.m., continue to observe fall precaution Patient does not have cognitive capacity to sign out AGAINST MEDICAL ADVICE (3) HTN (hypertension): Continue lisinopril, metoprolol (4) PAF (paroxysmal atrial fibrillation): Management as above (5) H/O alcohol abuse: h/o heavy alcohol use No active alcohol withdrawal symptoms noted Continue thiamine, folic acid Continue gabapentin (6) Seizure: No recent seizure activity CT Head:No acute intracranial findings. Left frontal lobe encephalomalacia. Continue Keppra Neuro eval appreciated (7) Depression: Continue home medications (8) Polyneuropathy: On gabapentin (9) DVT prophylaxis: Lovenox SQ Code Status Full Code Disposition not safe to return home /lives alone -fall risk ,baseline dementia -unable to do self care /does not appear to have enough cognitive ability for self administration of medications and maintain doctor's follow up needs 02/11 care PT/OT eval case management consulted for discharge planning Admission and Anticipated Discharge Date Admission Date: September 16, 2020 Subjective Pt was seen and examined for follow up of confusion Sitting in chair with no distress and comfortable Pt said that he feels Denies any any new complaint Review of Systems Review of Systems: All systems reviewed & are unremarkable except as noted in Subjective Physical Exam Physical Exam: General- No acute distress Head- atraumatic Eyes- PERRL, EOMI, ENT- oropharynx clear Neck- supple, no JVD Lungs- clear to auscultation Heart- regular rhythm; no murmur Abdomen- normal bowel sounds, soft, nontender Extremities- no calf tenderness Neuro- alert, awake; PERRL, EOMI; no facial palsy; no dysarthria Skin- warm & dry Results & Data Results & Data ([facility]) Vital Signs (Past 12 Hours) Vital Signs Temp Pulse Pulse Resp BP BP Pulse Ox 09/25/20 15:43 36.3 C L 93 H 18 152/74 H 90 09/25/20 11:18 88 154/83 H 09/25/20 07:34 36.9 C 83 20 171/80 H 92
[2020-09-25] MEDS: ENOXAPARIN INJ 40 MG/0.4 ML SYR SQ SCH (20:54)
[2020-09-25] MEDS: traZODone HCL 50 MG TAB PO SCH (21:08)
[2020-09-26] MEDS: METOPROLOL TARTRATE 25 MG TAB PO SCH ×2 (09:19→19:42)
[2020-09-26] MEDS: ESCITALOPRAM OXALATE 10 MG TAB PO SCH (09:19)
[2020-09-26] MEDS: lisinopril 20 MG TAB PO SCH (09:19)
[2020-09-26] MEDS: GABAPENTIN 300 MG CAP PO SCH ×3 (09:20→19:43)
[2020-09-26] MEDS: levETIRAcetam 250 MG TAB PO SCH ×2 (09:20→19:42)
[2020-09-26] MEDS: FOLIC ACID 1 MG TAB PO SCH (09:20)
[2020-09-26] MEDS: THIAMINE HCL 100 MG TAB PO SCH (09:21)
[2020-09-26] MEDS: SENNA 8.6 MG TAB PO SCH ×2 (09:21→19:43)
[2020-09-26] MEDS: MAGNESIUM OXIDE 400 MG TAB PO SCH (09:21)
[2020-09-26] MEDS: allopurinoL 300 MG TAB PO SCH (09:22)
[2020-09-26 10:08] LABS: Albumin Level 2.8 gm/dl (3.4-5.0); BUN Creatinine Ratio 21.1 (10-20); Calcium 11.8 mg/dl (8.5-10.1); Creatinine Clr Calc Pharmacy 99.8 ml/min; Est GFR (African American) 104.7 ml/min; Est GFR (Non-African American) 90.4 ml/min; Potassium 3.4 mmol/L (3.5-5.1)
[2020-09-26 10:10] LABS: Albumin Globulin Ratio 0.6 (0.9-2); Bilirubin,Total 2.7 mg/dl (0.2-1); Globulin 4.3 gm/dl (2.5-4.0); Total Protein 7.1 gm/dl (6.4-8.2)
[2020-09-26] MEDS: FAMOTIDINE 20 MG TAB PO SCH ×2 (10:48→19:44)
[2020-09-26] MEDS: ASPIRIN 81 MG CHEW PO SCH (10:49)
--- NOTE | 2020-09-26 13:35 | Psychiatric Progress Note ---
Date of Service September 26, 2020 Impression / Recommendations Impression 09/26/20: minimal improvement, hospitalist following ammonia level. No further recs re: trazodone or Lexapro. Patient continues to lack capacity as per initial consult. initial consult: 65 yo male who appears quite encephalopathic, likely a combination of hypoactive delirium/AMS superimposed on underlying cognitive deficits post stroke. He needs oncology follow up to determine if malignant lymphoma per Dr. Soto. Patient is wiithout any family support or 02/11 care, I agree with Dr. Soto that he is unable to take care of himself at this time. He does not currently have capacity to leave AMA or to refuse appropriate level of nursing/rehab placement. As far as psychiatric medications, I would not resume home dose of Ativan upon discharge given fall risk and if not in supervised setting likely combining with ETOH. LFTs were reviewed, he was not able to follow commands for cerebellar testing but I would recommend an ammonia level with next blood draw. Interval History Chief Complaint mental status change Review of Systems Notes patient unable to complete Subjective Subjective Patient was seen & assessed and interval progress reviewed. Nursing reports that still has difficulty processing directions. Repeat ammonia level noted. Procedures Performed Operation Date: 09/18/20 14:00 Actual Procedures p Right Inguinal Lymph Node Biopsy(Right) - Roberto Wilson, DO, FACS Physical Exam Psychiatric Orientation: alert and oriented to person Apperance: + disheveled Eye Contact: + poor eye contact Motor Behavior: n tremor speech is slow and largely unintellgible, unable to sustain a conversation but better at following commands/less sedated than last contact. alexithymic Thought Process: + thought association not intact does not appear to be responding to internal stimuli. Cognition: + attention not intact Insight: + severely impaired insight Judgement: + severely impaired judgement Vital Signs (Past 24 Hours) Last Vital Signs Temp 37 C 09/26/20 07:38 Pulse 92 H 09/26/20 07:38 Resp 16 09/26/20 07:38 BP 171/80 H 09/26/20 07:38 Pulse Ox 93 09/26/20 07:38 Results & Data ([facility]) Laboratory Results Laboratory Results - last 24 hr 09/21/20 09/26/20 09/26/20 08:00 09:39 09:39 Sodium 144 Potassium 3.4 L Chloride 111 H Carbon Dioxide 24 Anion Gap 9.0 BUN 18 Creatinine 0.86 Est Cr Clr Drug Dosing 99.8 Est GFR ( Amer) 104.7 Est GFR (Non-Af Amer) 90.4 BUN/Creatinine Ratio 21.1 H Glucose 99 Calcium 11.8 H Total Bilirubin 2.7 H AST 132 H ALT 11 L Alkaline Phosphatase 74 Ammonia 69.5 H Total Protein 7.1 Albumin 2.8 L Globulin 4.3 H Albumin/Globulin Ratio 0.6 L Whole Bld Vitamin B1 Cancelled Vitamin B6 5.1 Current Inpatient Medications Current Inpatient Medications: Current Inpatient Medications Acetaminophen (Acetaminophen 325 Mg Tab) 650 mg PO Q4H PRN PRN Reason: Pain or Fever Stop: 10/16/20 19:35 Allopurinol (Allopurinol 300 Mg Tab) 300 mg PO DAILY EUNICE Stop: 10/17/20 08:59 Last Admin: 09/26/20 09:22 Dose: 300 mg Documented by: Aspirin (Aspirin 81 Mg Chew) 81 mg PO DAILY EUNICE Stop: 10/17/20 08:59 Last Admin: 09/26/20 10:49 Dose: 81 mg Documented by: Enoxaparin Sodium (Enoxaparin Inj 40 Mg/0.4 Ml Syr) 40 mg SQ HS EUNICE Stop: 10/16/20 20:59 Last Admin: 09/25/20 20:54 Dose: 40 mg Documented by: Escitalopram Oxalate (Escitalopram Oxalate 10 Mg Tab) 10 mg PO DAILY EUNICE Stop: 10/17/20 08:59 Last Admin: 09/26/20 09:19 Dose: 10 mg Documented by: Famotidine (Famotidine 20 Mg Tab) 20 mg PO BID EUNICE Stop: 10/16/20 20:59 Last Admin: 09/26/20 10:48 Dose: 20 mg Documented by: Folic Acid (Folic Acid 1 Mg Tab) 1 mg PO DAILY EUNICE Stop: 10/17/20 08:59 Last Admin: 09/26/20 09:20 Dose: 1 mg Documented by: Gabapentin (Gabapentin 300 Mg Cap) 900 mg PO TID EUNICE Stop: 10/16/20 20:59 Last Admin: 09/26/20 09:20 Dose: 900 mg Documented by: Lorazepam (Ativan) 1 mg in 2 mls @ 2 mls/min IV UD PRN; Protocol PRN Reason: EtOH Withdrawl AWSS Score 6,7 Stop: 10/16/20 23:28 Last Admin: 09/17/20 02:44 Dose: 2 mls/min Documented by: Lorazepam (Ativan) 2 mg in 4 mls @ 4 mls/min IV UD PRN; Protocol PRN Reason: EtOH Withdrawl AWSS Score 8,9 Stop: 10/16/20 23:28 Lorazepam (Ativan) 3 mg in 6 mls @ 4 mls/min IV ONCE PRN; Protocol PRN Reason: EtOH Withdrawl AWSS Score >=10 Stop: 10/16/20 23:28 Levetiracetam (Levetiracetam 250 Mg Tab) 750 mg PO BID [facility] Stop: 10/16/20 20:59 Last Admin: 09/26/20 09:20 Dose: 750 mg Documented by: Lisinopril (Lisinopril 20 Mg Tab) 20 mg PO DAILY [facility] Stop: 10/17/20 08:59 Last Admin: 09/26/20 09:19 Dose: 20 mg Documented by: Magnesium Oxide (Magnesium Oxide 400 Mg Tab) 400 mg PO DAILY [facility] Stop: 10/17/20 08:59 Last Admin: 09/26/20 09:21 Dose: 400 mg Documented by: Metoprolol Tartrate (Metoprolol Tartrate 25 Mg Tab) 25 mg PO BID [facility] Stop: 10/17/20 20:59 Last Admin: 09/26/20 09:19 Dose: 25 mg Documented by: Ondansetron HCl (Ondansetron 8mg Od Tab) 8 mg PO TID PRN PRN Reason: Nausea Stop: 10/16/20 21:14 Oxycodone HCl (Oxycodone Hcl Ir 5 Mg Tab (Immediate Release)) 5 mg PO Q4H PRN PRN Reason: Pain Stop: 10/02/20 18:14 Polyethylene Glycol (Polyethylene (Miralax) 17 Gm Pack) 17 gm PO DAILY PRN PRN Reason: Constipation Stop: 10/16/20 19:35 Sennosides (Senna 8.6 Mg Tab) 8.6 mg PO BID [facility] Stop: 10/16/20 20:59 Last Admin: 09/26/20 09:21 Dose: 8.6 mg Documented by: Thiamine HCl (Thiamine Hcl 100 Mg Tab) 100 mg PO QAM [facility] Stop: 10/16/20 21:19 Last Admin: 09/26/20 09:21 Dose: 100 mg Documented by: Trazodone HCl (Trazodone Hcl 50 Mg Tab) 50 mg PO [facility] Stop: 10/19/20 20:59 Last Admin: 09/25/20 21:08 Dose: 50 mg Documented by:
[2020-09-26] MEDS ORDERED: POTASSIUM CHLORIDE 10 MEQ TABCR PO STA (14:33)
[2020-09-26] MEDS ORDERED: POTASSIUM CHLORIDE CRTAB 20 MEQ TABCR PO STA (14:33)
[2020-09-26] MEDS: FUROSEMIDE 20 MG TAB PO SCH (15:12)
[2020-09-26] MEDS: LACTULOSE SYRUP 20 GM/30 ML UDC PO SCH ×2 (15:13→19:44)
--- NOTE | 2020-09-26 16:47 | Hospitalist Progress Note ---
Date of Service September 26, 2020 Assessment & Plan (1) Cognitive deficit, post-stroke: Present on admission with generalized weakness Patient lives alone, does not have any family His home situation as per his friend is deplorable CT head showed No acute intracranial abnormality. MRI of brain showed no acute intracranial findings. No evidence of acute or subacute infarction. 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 Psych on board to assist patient's decision-making capacity. Ammonia level elevated per psychiatry patient still appears to be very encephalopathic, unable to have any insight regarding his health, self-care, Patient was not capable of leaving hospital AMA Discharge planning will be very difficult, patient does not have any medical insurance, placement to rehab or long-term care could be difficult Returning home by himself has a serious safety concern Case management aware, office of aging will be involved to assist with patient's living situation and support system (2) Tachycardia: Atrial fibrillation with RVR Resolved heart rate is currently rate and rhythm controlled hx of paroxysmal atrial fibrillation Normal TSH Spontaneously converted to sinus On metoprolol 25 mg twice daily Appreciate Cardiology Input Not a candidate for long-term anticoagulation given risk for falls, noncompliance/cognitive impairment remains in sinus 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 In addition there is splenomegaly. Lymphoma is the diagnosis of exclusion. Biopsy is recommended. No evidence of bowel obstruction. No evidence of free air. Cholelithiasis. No renal, ureteral, or bladder calculi identified. There is posterior mediastinal paraesophageal and para-aortic lymphadenopathy. There is a small hiatal hernia. was on Ibrutinib -out patient -Appreciate surgery input -Status post right inguinal lymph node biopsy on 09/18/20 -Flow cytometry study suggestive of B-cell lymphoproliferative disorder. Pathology pending Needs follow-up with oncology upon discharge Needs follow up with surgery in 2 weeks post biopsy Acute Metabolic Encephalopathy presented with confusion /disorientation awake and alert , very forgetful , oriented to person only ( possible baseline dementia ?) CT Head: No acute intracranial abnormality. No abnormal enhancement. MRI brain no acute change Ordered for ammonia level to be checked in a.m., continue to observe fall precaution Patient does not have cognitive capacity to sign out AGAINST MEDICAL ADVICE (3) HTN (hypertension): Continue lisinopril, metoprolol (4) PAF (paroxysmal atrial fibrillation): Management as above (5) H/O alcohol abuse: h/o heavy alcohol use No active alcohol withdrawal symptoms noted Continue thiamine, folic acid Continue gabapentin (6) Seizure: No recent seizure activity CT Head:No acute intracranial findings. Left frontal lobe encephalomalacia. Continue Keppra Neuro eval appreciated (7) Depression: Continue home medications (8) Polyneuropathy: On gabapentin (9) DVT prophylaxis: Lovenox SQ Code Status Full Code Disposition not safe to return home /lives alone -fall risk ,baseline dementia -unable to do self care /does not appear to have enough cognitive ability for self administration of medications and maintain doctor's follow up needs 02/11 care PT/OT eval case management consulted for discharge planning Admission and Anticipated Discharge Date Admission Date: September 16, 2020 Subjective Pt was seen and examined for follow up of confusion Lying in bed with no distress Denies any any new complaint Review of Systems Review of Systems: All systems reviewed & are unremarkable except as noted in Subjective Physical Exam Physical Exam: General- No acute distress Head- atraumatic Eyes- PERRL, EOMI, ENT- oropharynx clear Neck- supple, no JVD Lungs- clear to auscultation Heart- regular rhythm; no murmur Abdomen- normal bowel sounds, soft, nontender Extremities- no calf tenderness Neuro- alert, awake; PERRL, EOMI; no facial palsy; no dysarthria Skin- warm & dry Results & Data Results & Data ([facility]) Vital Signs (Past 12 Hours) Vital Signs Temp Pulse Resp BP Pulse Ox 09/26/20 15:51 36.5 C 92 H 16 147/78 H 92 09/26/20 07:38 37 C 92 H 16 171/80 H 93
[2020-09-26] MEDS: traZODone HCL 50 MG TAB PO SCH (19:42)
[2020-09-26] MEDS: ENOXAPARIN INJ 40 MG/0.4 ML SYR SQ SCH (19:43)
[2020-09-27] MEDS: LACTULOSE SYRUP 20 GM/30 ML UDC PO SCH ×3 (09:03→20:34)
[2020-09-27] MEDS: FUROSEMIDE 20 MG TAB PO SCH (09:04)
[2020-09-27] MEDS: GABAPENTIN 300 MG CAP PO SCH ×3 (09:04→19:47)
[2020-09-27] MEDS: FOLIC ACID 1 MG TAB PO SCH (09:05)
[2020-09-27] MEDS: THIAMINE HCL 100 MG TAB PO SCH (09:05)
[2020-09-27] MEDS: ESCITALOPRAM OXALATE 10 MG TAB PO SCH (09:05)
[2020-09-27] MEDS: lisinopril 20 MG TAB PO SCH (09:06)
[2020-09-27] MEDS: levETIRAcetam 250 MG TAB PO SCH ×2 (09:06→19:47)
[2020-09-27] MEDS: METOPROLOL TARTRATE 25 MG TAB PO SCH ×2 (09:06→19:49)
[2020-09-27] MEDS: MAGNESIUM OXIDE 400 MG TAB PO SCH (09:06)
[2020-09-27] MEDS: SENNA 8.6 MG TAB PO SCH ×2 (09:07→19:49)
[2020-09-27] MEDS: allopurinoL 300 MG TAB PO SCH (09:08)
[2020-09-27] MEDS: ASPIRIN 81 MG ECTAB PO SCH (09:09)
[2020-09-27] MEDS: FAMOTIDINE 20 MG TAB PO SCH ×2 (10:45→20:34)
[2020-09-27 11:06] LABS: Albumin Globulin Ratio 0.7 (0.9-2); BUN Creatinine Ratio 15.3 (10-20); Bilirubin,Total 2.6 mg/dl (0.2-1); Calcium 12.2 mg/dl (8.5-10.1); Creatinine Clr Calc Pharmacy 81.7 ml/min; Est GFR (African American) 85.3 ml/min; Est GFR (Non-African American) 73.6 ml/min; Globulin 4.3 gm/dl (2.5-4.0); Potassium 3.5 mmol/L (3.5-5.1); Total Protein 7.3 gm/dl (6.4-8.2)
--- NOTE | 2020-09-27 17:54 | Hospitalist Progress Note ---
Date of Service September 27, 2020 Assessment & Plan (1) Cognitive deficit, post-stroke: Present on admission with generalized weakness Patient lives alone, does not have any family His home situation as per his friend is deplorable CT head showed No acute intracranial abnormality. MRI of brain showed no acute intracranial findings. No evidence of acute or subacute infarction. 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 Psych on board to assist patient's decision-making capacity. Ammonia level elevated per psychiatry patient still appears to be very encephalopathic, unable to have any insight regarding his health, self-care, Patient was not capable of leaving hospital AMA Discharge planning will be very difficult, patient does not have any medical insurance, placement to rehab or long-term care could be difficult Returning home by himself has a serious safety concern Case management aware, office of aging will be involved to assist with patient's living situation and support system (2) Tachycardia: Atrial fibrillation with RVR Resolved heart rate is currently rate and rhythm controlled hx of paroxysmal atrial fibrillation Normal TSH Spontaneously converted to sinus On metoprolol 25 mg twice daily Appreciate Cardiology Input Not a candidate for long-term anticoagulation given risk for falls, noncompliance/cognitive impairment remains in sinus with rate control , surveillance monitor d/lolita Extensive lymphadenopathy H/O CLL -CT ABD:Extensive mesenteric, retroperitoneal, iliac chain, and iliac lymphadenopathy. In addition there is splenomegaly. Lymphoma is the diagnosis of exclusion. Biopsy is recommended. No evidence of bowel obstruction. No evidence of free air. Cholelithiasis. No renal, ureteral, or bladder calculi identified. There is posterior mediastinal paraesophageal and para-aortic lymphadenopathy. There is a small hiatal hernia. was on Ibrutinib -out patient -Appreciate surgery input -Status post right inguinal lymph node biopsy on 09/18/20 -Flow cytometry study suggestive of B-cell lymphoproliferative disorder. Pathology pending Needs follow-up with oncology upon discharge Needs follow up with surgery in 2 weeks post biopsy Elevated Ammonia level Mostly related to liver etiology Lactulose added with goal to have 3 to5 BM Will consult Gastro Acute Metabolic Encephalopathy presented with confusion /disorientation awake and alert , very forgetful , oriented to person only ( possible baseline dementia ?) CT Head: No acute intracranial abnormality. No abnormal enhancement. MRI brain no acute change Ordered for ammonia level to be checked in a.m., continue to observe fall precaution Patient does not have cognitive capacity to sign out AGAINST MEDICAL ADVICE (3) HTN (hypertension): Continue lisinopril, metoprolol (4) PAF (paroxysmal atrial fibrillation): Management as above (5) H/O alcohol abuse: h/o heavy alcohol use No active alcohol withdrawal symptoms noted Continue thiamine, folic acid Continue gabapentin (6) Seizure: No recent seizure activity CT Head:No acute intracranial findings. Left frontal lobe encephalomalacia. Continue Keppra Neuro eval appreciated (7) Depression: Continue home medications (8) Polyneuropathy: On gabapentin (9) DVT prophylaxis: Lovenox SQ Code Status Full Code Disposition not safe to return home /lives alone -fall risk ,baseline dementia -unable to do self care /does not appear to have enough cognitive ability for self administration of medications and maintain doctor's follow up needs 02/11 care PT/OT eval case management consulted for discharge planning Admission and Anticipated Discharge Date Admission Date: September 16, 2020 Subjective Pt was seen and examined for follow up of confusion Lying in bed with no distress Pt looks drowsy today Nurse said that he had 2 BM so far Denies any chest pain, palpitation and SOB Review of Systems Review of Systems: All systems reviewed & are unremarkable except as noted in Subjective Physical Exam Physical Exam: General- No acute distress Head- atraumatic Eyes- PERRL, EOMI, ENT- oropharynx clear Neck- supple, no JVD Lungs- clear to auscultation Heart- regular rhythm; no murmur Abdomen- normal bowel sounds, soft, nontender Extremities- no calf tenderness Neuro- alert, awake; PERRL, EOMI; no facial palsy; no dysarthria Skin- warm & dry Results & Data Results & Data ([facility]) Vital Signs (Past 12 Hours) Vital Signs Temp Pulse Resp BP Pulse Ox 09/27/20 15:33 36.9 C 99 H 16 162/88 H 91 09/27/20 08:10 36.4 C L 103 H 16 179/77 H 93
[2020-09-27] MEDS: ENOXAPARIN INJ 40 MG/0.4 ML SYR SQ SCH (19:48)
[2020-09-27] MEDS: traZODone HCL 50 MG TAB PO SCH (20:34)
[2020-09-28 10:13] LABS: Albumin Globulin Ratio 0.7 (0.9-2); Albumin Level 2.9 gm/dl (3.4-5.0); BUN Creatinine Ratio 18.5 (10-20); Bilirubin,Total 2.3 mg/dl (0.2-1); Calcium 13.2 mg/dl (8.5-10.1); Creatinine Clr Calc Pharmacy 69.2 ml/min; Est GFR (African American) 69.8 ml/min; Est GFR (Non-African American) 60.2 ml/min; Globulin 4.4 gm/dl (2.5-4.0); Potassium 3.8 mmol/L (3.5-5.1); Total Protein 7.3 gm/dl (6.4-8.2)
[2020-09-28] MEDS: FUROSEMIDE 20 MG TAB PO SCH (10:24)
[2020-09-28] MEDS: levETIRAcetam 250 MG TAB PO SCH (10:25)
[2020-09-28] MEDS: LACTULOSE SYRUP 20 GM/30 ML UDC PO SCH ×3 (10:25→20:39)
[2020-09-28] MEDS: allopurinoL 300 MG TAB PO SCH (10:27)
[2020-09-28] MEDS: ESCITALOPRAM OXALATE 10 MG TAB PO SCH (10:27)
[2020-09-28] MEDS: ASPIRIN 81 MG ECTAB PO SCH (10:27)
[2020-09-28] MEDS: METOPROLOL TARTRATE 25 MG TAB PO SCH (10:28)
[2020-09-28] MEDS: THIAMINE HCL 100 MG TAB PO SCH (10:28)
[2020-09-28] MEDS: MAGNESIUM OXIDE 400 MG TAB PO SCH (10:28)
[2020-09-28] MEDS: SENNA 8.6 MG TAB PO SCH ×2 (10:28→20:38)
[2020-09-28] MEDS: lisinopril 20 MG TAB PO SCH (10:28)
[2020-09-28] MEDS: GABAPENTIN 300 MG CAP PO SCH ×2 (10:28→14:04)
[2020-09-28] MEDS: FAMOTIDINE 20 MG TAB PO SCH ×2 (10:28→20:44)
[2020-09-28] MEDS: FOLIC ACID 1 MG TAB PO SCH (10:28)
[2020-09-28] MEDS ORDERED: SODIUM CHLORIDE 0.9% 1000ML 1,000 ML IV SCH (11:30)
[2020-09-28] MEDS ORDERED: ZOLEDRONIC ACID 4 MG in 0.9 % SODIUM CHLORIDE 100 ML IV ONE (12:00)
--- NOTE | 2020-09-28 13:17 | Gastrointestinal Consultation ---
Date of Consultation September 28, 2020 Assessment & Plan (1) Abnormal LFTs: Patient's AMS is clearly metabolic, specifically with his high calcium and sodium levels, regardless of the Ammonia level, however he may also have an underlying advanced liver disease or early liver cirrhosis due to ETOH use. Recommend: MRCP to evaluate his slightly elevated Bilirubin in the setting of gallstones. Continue Lactulose BID. Needs Liver disease work up electively as OP, may also consider Liver Bx as OP. Hematology evaluation for management of Lymphoma and hypercalcemia. Recall GI if needed. History of Present Illness Attending Physician: Shanti Suh MD History of Present Illness 65 years old male patient admitted to the hospital 2 weeks ago with generalized weakness, hospital course prolonged due to issues with placement. GI consulted for AMS, his Ammonia level was mildly elevated hence he was given Lactulose and repeat labs showed normal Ammonia level. He had Hx of CLL in remission but current CT scan found recurrence of lymphadenopathy, inguinal LN Bx showed Lymphoma. He also has Hx of Alcohol use. Today he is awake and alert, denies any abdominal pain, nausea or vomiting, normal BM, no diarrhea. Tolerating PO diet. Allergies Allergy/AdvReac Type Severity Reaction Status Date / Time No Known Allergies Allergy NONE Verified 09/16/20 16:24 Home Medications Medication Instructions Recorded Confirmed Type allopurinol 300 mg PO DAILY 02/27/19 09/16/20 History atenolol 50 mg PO DAILY 02/27/19 09/16/20 History folic acid 1 mg PO DAILY 02/27/19 09/16/20 History furosemide [Lasix] 20 mg PO DAILY 02/27/19 09/16/20 History gabapentin 900 mg PO TID 02/27/19 09/16/20 History levetiracetam [Keppra] 750 mg PO BID 02/27/19 09/16/20 History lisinopril 20 mg PO DAILY 02/27/19 09/16/20 History lorazepam [Ativan] 0.5 mg PO BID PRN 02/27/19 09/16/20 History ondansetron HCl 8 mg PO TID PRN 02/27/19 09/16/20 History trazodone 50 mg PO HS 02/27/19 09/16/20 History aspirin 81 mg PO DAILY 09/16/20 09/16/20 History escitalopram oxalate [Lexapro] 10 mg PO DAILY 09/16/20 09/16/20 History famotidine 20 mg PO BID 09/16/20 09/16/20 History fluoride (sodium) [PreviDent 5000 1 applic DENTAL HS 09/16/20 09/16/20 History Plus] food supplemt, lactose-reduced 1 ea PO DIRECTED 09/16/20 09/16/20 History [Ensure Active High Protein] ibrutinib 420 mg PO DAILY 09/16/20 09/16/20 History magnesium oxide 400 mg PO DAILY 09/16/20 09/16/20 History prochlorperazine maleate 10 mg PO Q6H PRN 09/16/20 09/16/20 History sennosides [Senokot] 8.6 mg PO BID 09/16/20 09/16/20 History Patient History Medical History B-cell chronic lymphocytic leukemia BPH (benign prostatic hyperplasia) Cognitive deficit, post-stroke Depression H/O alcohol abuse Polyneuropathy Seizure Surgical History History of lymph node biopsy S/P inguinal hernia repair 12/05/2009-Dr. 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 Beliefs That Will Affect Care: None Current Living Situation: Alone Feels Safe at Home: Yes Assistive Devices: None Review of Systems Constitutional: no fever, no chills, no fatigue and no weight loss Eyes: no eye pain and no worsening vision Ear, Nose, Mouth, Throat: no tinnitus, no dizziness, no nasal discharge and no epistaxis Respiratory: no cough, no dyspnea, no dyspnea on exertion and no wheezing Cardiovascular: no chest pain, no orthopnea, no palpitations and no edema Gastrointestinal: as per Subjective / HPI Musculoskeletal: no stiffness and no myalgia Neurologic: no localized weakness, no paralysis, no tremor(s) and no headache(s) Endocrine: no polydipsia and no polyuria Hematologic / Lymphatic: no easy bleeding and no night sweats Physical Exam Constitutional: + well hydrated, cooperative and comfortable Eyes: PERRL, conjunctivae normal, anicteric sclerae ENMT: external ear and nose normal, oropharynx normal Neck: normal visual inspection and trachea midline Respiratory: normal respiratory effort, lungs clear to auscultation Auscultation: no wheezes Cardiovascular: RRR, no murmur, no edema Gastrointestinal (Abdomen): normal bowel sounds, soft, nontender, no hepatosplenomegaly Musculoskeletal: no cyanosis or clubbing, extremities motor strength 5/5 Skin: no rashes, warm and dry Neurologic: awake; no focal motor deficits Motor/Sensory: no tremor Results & Data ([facility]) Vital Signs (Past 12 Hours) Vital Signs Temp Pulse Resp BP Pulse Ox 09/28/20 07:52 37.2 C 96 H 16 156/78 H 94 Laboratory Results Laboratory Results - last 24 hr 09/27/20 09/28/20 09/28/20 20:10 09:21 09:21 Sodium 146 H Potassium 3.8 Chloride 113 H Carbon Dioxide 30 Anion Gap 4.0 BUN 23 H Creatinine 1.24 Est Cr Clr Drug Dosing 69.2 Est GFR ( Amer) 69.8 Est GFR (Non-Af Amer) 60.2 BUN/Creatinine Ratio 18.5 Glucose 91 POC Glucose 94 Calcium 13.2 H* Total Bilirubin 2.3 H AST 146 H ALT 11 L Alkaline Phosphatase 81 Ammonia 31.6 Total Protein 7.3 Albumin 2.9 L Globulin 4.4 H Albumin/Globulin Ratio 0.7 L
--- NOTE | 2020-09-28 16:12 | Nephrology Consultation ---
Date of Consultation September 28, 2020 Assessment & Plan (1) Hypercalcemia of malignancy: Moderate to severe hypercalcemia with corrected calcium of 14.1 today. Likely due to his lymphoma. Not severe enough at this time to need dialysis but cannot rule out that need Increased saline to 150 mL hourly> would ideally favor 200 mL hourly but concerned this will only increase blood pressure further would hold off on Calcitonin for now given risk of tachycardia with this No indication to redose zolendronate Low calcium diet (i.e. less than 400 mg daily) ordered reCommend checking bASIC metabolic panel twice daily for now; I have ordered same -Have also ordered PTH, PTH RP, 25 hydroxy vitamin D, 125 dihydroxy vitamin D levels Recommend discuss with hematology whether he could have steroids such as prednisone 10 mg daily if he does not respond to above >>he has not been receiving ibrutinib in house >> ? if this can make lymphoma worsen fast enough to cause hypercalcemia; this med is to treat CLL of course; would resume if possible and/or discuss w/ heme Present on Admission?: Yes (2) Tachycardia: With systolic blood pressures running in the 140s and 150s and heart rate in the 100s -Will increase metoprolol to 50 mg twice daily--if he is unable to take this by mouth may need to move to a unit where it can be pushed IV -will give enalaprilat 1.25 mg IV q8h in lieu of lisinopril w/ hold parameters Present on Admission?: Yes History of Present Illness Reason for Consultation: hypercalcemia Requesting Physician: Dr Suh Attending Physician: Shanti Suh MD History of Present Illness 65-year-old male whom I am asked to evaluate for hypercalcemia was admitted September 16 with suspicion for alcohol withdrawal and requiring cancellation of his planned right inguinal hernia repair. He has a history of CLL on outpatient ibrutinib but an inguinal lymph node biopsy done this admission on September 18 shows lymphoma. Other past medical history includes prior left MCA ischemic stroke on aspirin, hypertension, history of symptomatic seizures on Keppra, alcohol abuse. his prolonged hospital course has also been remarkable for generalized weakness and already at admission but especially since September 20 confusion and altered mental status. The patient has been evaluated by neurology and psychiatry. He has no decision-making capacity and no family support. He needs 24/7 care, needing to challenges with placement. GI was consulted this morning and MRCP recommended as well as outpatient liver disease work-up. Calcium today is 13.2 with albumin 2.9 and sodium 146. On admission his calcium was 10.6. It was 11.8 on September 26 and has up trended since then to today's values. Albumin is essentially unchanged since admission. He had no CHEM panels from September 22-. He was started on normal saline this morning at 100 mL hourly. He also had 4 mg of zolendronate. He has been receiving Lasix 20 mg every morning for the past 2 days, which is his outpatient dose. The patient has been quite agitated and pulls at lines and spits his pills and tries hard to get out of bed. Today for example he has had his Keppra and lactulose and few of his other standing pills. RN reports that he is hardly taking food either. When I saw him he had had Ativan several hours earlier one dose; he was electively sedated at the time I saw him. Most hx obtained from chart. Allergies Allergy/AdvReac Type Severity Reaction Status Date / Time No Known Allergies Allergy NONE Verified 09/16/20 16:24 Home Medications Medication Instructions Recorded Confirmed Type allopurinol 300 mg PO DAILY 02/27/19 09/16/20 History atenolol 50 mg PO DAILY 02/27/19 09/16/20 History folic acid 1 mg PO DAILY 02/27/19 09/16/20 History furosemide [Lasix] 20 mg PO DAILY 02/27/19 09/16/20 History gabapentin 900 mg PO TID 02/27/19 09/16/20 History levetiracetam [Keppra] 750 mg PO BID 02/27/19 09/16/20 History lisinopril 20 mg PO DAILY 02/27/19 09/16/20 History lorazepam [Ativan] 0.5 mg PO BID PRN 02/27/19 09/16/20 History ondansetron HCl 8 mg PO TID PRN 02/27/19 09/16/20 History trazodone 50 mg PO HS 02/27/19 09/16/20 History aspirin 81 mg PO DAILY 09/16/20 09/16/20 History escitalopram oxalate [Lexapro] 10 mg PO DAILY 09/16/20 09/16/20 History famotidine 20 mg PO BID 09/16/20 09/16/20 History fluoride (sodium) [PreviDent 5000 1 applic DENTAL HS 09/16/20 09/16/20 History Plus] food supplemt, lactose-reduced 1 ea PO DIRECTED 09/16/20 09/16/20 History [Ensure Active High Protein] ibrutinib 420 mg PO DAILY 09/16/20 09/16/20 History magnesium oxide 400 mg PO DAILY 09/16/20 09/16/20 History prochlorperazine maleate 10 mg PO Q6H PRN 09/16/20 09/16/20 History sennosides [Senokot] 8.6 mg PO BID 09/16/20 09/16/20 History Patient History Medical History B-cell chronic lymphocytic leukemia BPH (benign prostatic hyperplasia) Cognitive deficit, post-stroke Depression H/O alcohol abuse Polyneuropathy Seizure Surgical History History of lymph node biopsy S/P inguinal hernia repair 12/05/2009-Dr. 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 Beliefs That Will Affect Care: None Current Living Situation: Alone Feels Safe at Home: Yes Assistive Devices: None Review of Systems Review of Systems: Unobtainable due to reduced consciousness Physical Exam Constitutional: well developed, well nourished and + altered mental status (Lying flat in bed on room air) Eyes: Eyes closed for the entire evaluation ENMT: Ears: no external ear abnormality Nose: no external nose abnormality Mouth: + dry oral mucous membranes Turns his head Neck: no nuchal rigidity Respiratory: normal respiratory effort Auscultation: lungs clear to auscultation bilaterally and + diminished lung sounds Cardiovascular: Rate/Rhythm: + tachycardic Extremities: no edema Gastrointestinal (Abdomen): Inspection/Auscultation: normal bowel sounds; abdomen not distended Percussion/Palpation: + abdomen tender (Question left upper quadrant tenderness) and abdomen soft; no guarding and abdomen not rigid Musculoskeletal: Extremities: strength 5/5 throughout Skin: no rashes, warm and dry Neurologic: Moves all extremities, no tremor, grimaces and withdraws to pain, aphasic, eyes closed Genitourinary: No Munoz Results & Data ([facility]) Vital Signs (Past 12 Hours) Vital Signs Temp Pulse Resp BP Pulse Ox 09/28/20 13:18 36.4 C L 105 H 18 171/93 H 09/28/20 07:52 37.2 C 96 H 16 156/78 H 94 Laboratory Results 09/21/20 08:00 09/28/20 09:[address] abdomen pelvis September 16 noncontrast CLINICAL HISTORY: Right groin hernia. Severe malaise. Patient to fill to undergo surgery COMPARISON STUDY: No previous studies for comparison. Lower chest: There is mild respiratory motion artifact. There are no pleural effusions. There is no basilar parenchymal consolidation. There is posterior mediastinal paraesophageal and para-aortic lymphadenopathy. There is a small hiatal hernia. Liver: The unenhanced liver is normal in size, contour, and attenuation. There is no intrahepatic biliary ductal dilatation. Gallbladder: Cholelithiasis Spleen: Enlarged measuring 17 cm Pancreas: Unremarkable. Adrenal glands: Unremarkable. Kidneys: No renal, ureteral, or bladder calculi are visualized. Bowel: There are no transition zones to indicate bowel obstruction. There is no evidence of acute diverticulitis. There is no evidence of acute appendicitis. Peritoneum: There is no ascites. There is no free intraperitoneal air. There is a small fat-containing umbilical hernia. Vasculature: The abdominal aorta is normal in course and caliber. Adenopathy: There are enlarged retrocrural lymph nodes. There are enlarged paracaval and aortocaval lymph nodes. There is a retroperitoneal lymph node conglomerate mass [id number] cm transversely. There is bulky right iliac chain lymph nodes. One conglomerate mass which encases the right external iliac artery measures 12.5 cm. A more inferior node which compresses the bladder measures 9.8 cm. There is bulky right inguinal lymphadenopathy. There are also small left iliac chain lymph nodes. There is a 17 cm central mesenteric mass. This contains areas of fat likely representing entrapped fat from bulky adenopathy. Pelvic viscera: The bladder is distorted due to the bulky pelvic lymphadenopathy. Skeletal structures: No destructive osseous lesions are seen. IMPRESSION: 1. Extensive mesenteric, retroperitoneal, iliac chain, and iliac lymphadenopathy. In addition there is splenomegaly. Lymphoma is the diagnosis of exclusion. Biopsy is recommended. 2. No evidence of bowel obstruction. No evidence of free air 3. Cholelithiasis 4. No renal, ureteral, or bladder calculi identified. Brain MRI September 20 1. No acute intracranial findings 2. No evidence of acute or subacute infarction 3. 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 4. No evidence of intracranial metastasis
--- NOTE | 2020-09-28 19:18 | Hospitalist Progress Note ---
Date of Service September 28, 2020 Assessment & Plan (1) Cognitive deficit, post-stroke: Present on admission with generalized weakness Patient lives alone, does not have any family His home situation as per his friend is deplorable CT head showed No acute intracranial abnormality. MRI of brain showed no acute intracranial findings. No evidence of acute or subacute infarction. 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 Psych on board to assist patient's decision-making capacity. Ammonia level elevated per psychiatry patient still appears to be very encephalopathic, unable to have any insight regarding his health, self-care, Patient was not capable of leaving hospital AMA Discharge planning will be very difficult, patient does not have any medical insurance, placement to rehab or long-term care could be difficult Returning home by himself has a serious safety concern Case management aware, office of aging will be involved to assist with patient's living situation and support system (2) Hypercalcemia of malignancy: Ca continue to increase to 13.2 Starting on IV fluid IV Zometa 4mg x1 given Nephrology consulted PTH, Vit D pending (3) Tachycardia: Atrial fibrillation with RVR Resolved heart rate is currently rate and rhythm controlled hx of paroxysmal atrial fibrillation Normal TSH Spontaneously converted to sinus On metoprolol 25 mg twice daily Appreciate Cardiology Input Not a candidate for long-term anticoagulation given risk for falls, noncompliance/cognitive impairment remains in sinus with rate control , director of cardiac cath lab d/lolita Extensive lymphadenopathy H/O CLL CT ABD:Extensive mesenteric, retroperitoneal, iliac chain, and iliac lymphadenopathy. In addition there is splenomegaly. Lymphoma is the diagnosis of exclusion. Biopsy is recommended. No evidence of bowel obstruction. No evidence of free air. Cholelithiasis. No renal, ureteral, or bladder calculi identified. There is posterior mediastinal paraesophageal and para-aortic lymphadenopathy. There is a small hiatal hernia. was on Ibrutinib -out patient Appreciate surgery input Status post right inguinal lymph node biopsy on 09/18/20 Flow cytometry study suggestive of B-cell lymphoproliferative disorder. Pathology pending Needs follow-up with oncology upon discharge Needs follow up with surgery in 2 weeks post biopsy Elevated Ammonia level Mostly related to liver etiology Ammonia level dropped to 31.6 Continue Lactulose with goal to have 3 to5 BM Gastro consulted MRCP to evaluate his slightly elevated Bilirubin in the setting of gallstones, will do it when mental status improves Needs Liver disease work up electively as OP, may also consider Liver Bx as OP. Acute Metabolic Encephalopathy presented with confusion /disorientation Possible related to Hypercalcemia awake and alert , very forgetful , oriented to person only ( possible baseline dementia ?) CT Head: No acute intracranial abnormality. No abnormal enhancement. MRI brain no acute change continue to observe fall precaution Patient does not have cognitive capacity to sign out AGAINST MEDICAL ADVICE (4) HTN (hypertension): Continue lisinopril, metoprolol (5) PAF (paroxysmal atrial fibrillation): Management as above (6) H/O alcohol abuse: h/o heavy alcohol use No active alcohol withdrawal symptoms noted Continue thiamine, folic acid Continue gabapentin (7) Seizure: No recent seizure activity CT Head:No acute intracranial findings. Left frontal lobe encephalomalacia. Continue Keppra Neuro eval appreciated (8) Depression: Continue home medications (9) Polyneuropathy: On gabapentin (10) DVT prophylaxis: Lovenox SQ Code Status Full Code Disposition not safe to return home /lives alone -fall risk ,baseline dementia -unable to do self care /does not appear to have enough cognitive ability for self administration of medications and maintain doctor's follow up needs 02/11 care PT/OT eval case management consulted for discharge planning Admission and Anticipated Discharge Date Admission Date: September 16, 2020 Subjective Pt was seen and examined for follow up of confusion Lying in bed with no distress confused. Nurse said that pt has been very confused and agitating at time. He is more awake today compare to yesterday Doubt his confusion is due to alcohol withdrawal since pt has been in the hospital for 12 days which is unlikely to go to alcohol withdraw after 12 days Denies any chest pain, palpitation and SOB Review of Systems Review of Systems: All systems reviewed & are unremarkable except as noted in Subjective Physical Exam Physical Exam: General- No acute distress Head- atraumatic Eyes- PERRL, EOMI, ENT- oropharynx clear Neck- supple, no JVD Lungs- clear to auscultation Heart- regular rhythm; no murmur Abdomen- normal bowel sounds, soft, nontender Extremities- no calf tenderness Neuro- alert, awake; PERRL, EOMI; no facial palsy; no dysarthria Skin- warm & dry Results & Data Results & Data ([facility]) Vital Signs (Past 12 Hours) Vital Signs Temp Pulse Resp BP Pulse Ox 09/28/20 16:48 36.8 C 111 H 18 151/84 H 93 09/28/20 13:18 36.4 C L 105 H 18 171/93 H 09/28/20 07:52 37.2 C 96 H 16 156/78 H 94
[2020-09-28 19:52] LABS: BUN Creatinine Ratio 21.4 (10-20); Calcium 12.7 mg/dl (8.5-10.1); Creatinine Clr Calc Pharmacy 83.3 ml/min; Est GFR (African American) 87.3 ml/min; Est GFR (Non-African American) 75.3 ml/min
[2020-09-28 20:06] LABS: Potassium 3.2 mmol/L (3.5-5.1)
[2020-09-28] MEDS: ENALAPRILAT 1.25 MG in DEXTROSE 5% 25 ML IV SCH (20:06)
--- NOTE | 2020-09-28 20:16 | Communication Note ---
Date of Service: September 28, 2020 SBP noted to be 180s Persistent tachycardia. Patient refused scheduled oral Lopressor a.m. dose. AP Hypertensive urgency Tachycardia PCU transfer for closer monitoring and to facilitate IV beta-kandy administration if patient refusing oral Lopressor. Will relay to AM provider.
[2020-09-28] MEDS: METOPROLOL TARTRATE 50 MG TAB PO SCH (20:27)
[2020-09-28] MEDS: ENOXAPARIN INJ 40 MG/0.4 ML SYR SQ SCH (20:38)
[2020-09-28 20:39] LABS: Magnesium 2.2 mg/dl (1.8-2.4)
[2020-09-28] MEDS: traZODone HCL 50 MG TAB PO SCH (20:41)
[2020-09-28] MEDS: levETIRAcetam ORAL SOLN 100MG/ML PO SCH (20:48)
[2020-09-28] MEDS: GABAPENTIN 250 MG/5 ML 470 ML BTL PO SCH (20:48)
[2020-09-28] MEDS: POTASSIUM CHLORIDE 40 MEQ in SODIUM CHLORIDE 0.45 % 1,000 ML IV SCH (20:56)
[2020-09-28] MEDS ORDERED: METOPROLOL TARTRATE 50 MG TAB PO SCH (21:00)
[2020-09-29] MEDS: POTASSIUM CHLORIDE 40 MEQ in SODIUM CHLORIDE 0.45 % 1,000 ML IV SCH ×2 (03:22→11:04)
[2020-09-29] MEDS: ENALAPRILAT 1.25 MG in DEXTROSE 5% 25 ML IV SCH ×2 (03:22→10:59)
[2020-09-29 09:04] LABS: BUN Creatinine Ratio 21.5 (10-20); Calcium 12.2 mg/dl (8.5-10.1); Creatinine Clr Calc Pharmacy 82.5 ml/min; Est GFR (African American) 86.3 ml/min; Est GFR (Non-African American) 74.5 ml/min; Potassium 3.8 mmol/L (3.5-5.1)
[2020-09-29] MEDS: GABAPENTIN 250 MG/5 ML 470 ML BTL PO SCH ×3 (09:18→23:11)
[2020-09-29] MEDS: levETIRAcetam ORAL SOLN 100MG/ML PO SCH ×2 (09:19→23:11)
[2020-09-29] MEDS: METOPROLOL TARTRATE 50 MG TAB PO SCH ×2 (09:19→23:11)
[2020-09-29] MEDS: ESCITALOPRAM OXALATE 10 MG TAB PO SCH (09:39)
[2020-09-29] MEDS: FOLIC ACID 1 MG TAB PO SCH (09:39)
[2020-09-29] MEDS: ASPIRIN 81 MG ECTAB PO SCH (09:39)
[2020-09-29] MEDS: FAMOTIDINE 20 MG TAB PO SCH ×2 (09:39→22:28)
[2020-09-29] MEDS: allopurinoL 300 MG TAB PO SCH (09:39)
[2020-09-29] MEDS: LACTULOSE SYRUP 20 GM/30 ML UDC PO SCH ×2 (09:40→22:29)
[2020-09-29] MEDS: SENNA 8.6 MG TAB PO SCH ×2 (09:40→22:31)
[2020-09-29] MEDS: MAGNESIUM OXIDE 400 MG TAB PO SCH (09:40)
[2020-09-29] MEDS: THIAMINE HCL 100 MG TAB PO SCH (09:40)
[2020-09-29] MEDS: POTASSIUM CHLORIDE 40 MEQ in DEXTROSE 5% 1,000 ML IV SCH ×2 (12:38→20:30)
[2020-09-29] MEDS: FUROSEMIDE 20 MG in SYRINGE 0 ML IV SCH ×3 (12:38→22:46)
[2020-09-29] MEDS ORDERED: cloNIDine HCL 0.1 MG TAB PO PRN (16:18)
--- NOTE | 2020-09-29 17:02 | Nephrology Progress Note ---
Date of Service September 29, 2020 Assessment & Plan (1) HTN (hypertension): remains uncontrolled, moreso today than yesterday; w/ his altered MS not taking po reliably >> ?withdrawal syndrome from meds as above With systolic blood pressures running in the 160-190s and heart rate in the 100s >>goal SBP is 160s this evening to midnight, then 150s overnight -stop metoprolol as he is taking nothing po -labetalol 10mg IV q2 hrs hold for SBP <160 or HR <80 -will increase enaliprilat 2.5 mg IV q6h w/ hold parameters hold for sbp < 160 -start hydralazine 10 mg IV q4hr; may increase to 20 mg IV q4h if target sbp in 150s not achieved after first dose -d/w primary hospitalist > defer to him to eval for withdrawal syndrome (2) Hypercalcemia of malignancy: Moderate to severe hypercalcemia with corrected calcium of 14.1 yesterday to 13 today. Likely due to his lymphoma. Not severe enough at this time to need dialysis IV fluids as below would hold off on Calcitonin for now given risk of tachycardia with this No indication to redose zolendronate consider Low calcium diet (i.e. less than 400 mg daily) when taking po -f/u pending PTH, PTH RP, 25 hydroxy vitamin D, 125 dihydroxy vitamin D levels Recommend discuss with hematology whether he could have steroids such as prednisone 10 mg daily if he does not respond to above >>he has not been receiving ibrutinib in house >> ? if this can make lymphoma worsen fast enough to cause hypercalcemia; this med is to treat CLL of course; would resume if possible and/or discuss w/ heme (3) Acute metabolic encephalopathy: suspect multifactorial > high calcium, ? med withdrawal; ? HTN though this less likely; focus on treating all 3 Present on Admission?: Yes (4) Tachycardia: ? withdrawal such as from gabapentin or antidepressants; Present on Admission?: Yes (5) Hypernatremia: started D5W w/ 40 mEq / L K at 150 ml hourly midday and lasix 20 mg IV q4h; pt taking no po d/t altered MS >recheck bmp 1800 ordered Present on Admission?: Yes Admission and Anticipated Discharge Date Admission Date: September 16, 2020 Subjective moved to higher level of care; has jesus; still unresponsive/notinteratctive Review of Systems Review of Systems: Unobtainable due to reduced consciousness Physical Exam Constitutional: well developed, well nourished and + altered mental status ( Lying flat in bed on room air) ENMT: Ears: no external ear abnormality Nose: no external nose abnormality Mouth: + dry oral mucous membranes Neck: no nuchal rigidity Respiratory: normal respiratory effort Auscultation: lungs clear to auscultation bilaterally and + diminished lung sounds Cardiovascular: Rate/Rhythm: + tachycardic Extremities: no edema Gastrointestinal (Abdomen): Inspection/Auscultation: normal bowel sounds; abdomen not distended Percussion/Palpation: + abdomen tender (Question left upper quadrant tenderness) and abdomen soft; no guarding and abdomen not rigid Musculoskeletal: Extremities: strength 5/5 throughout Skin: no rashes, warm and dry Genitourinary: jesus w/ ample light yellow urine Results & Data ([facility]) Vital Signs (Past 12 Hours) Vital Signs Temp Pulse Pulse Resp BP BP Pulse Ox 09/29/20 15:41 37.5 C 108 H 19 187/70 H 91 09/29/20 11:45 165/72 H 09/29/20 11:26 36.8 C 82 20 199/67 H 95 09/29/20 08:29 36.5 C 95 H 20 180/73 H 92 09/29/20 08:00 91 H Laboratory Results 09/21/20 08:00 09/29/20 08:04
[2020-09-29] MEDS ORDERED: METOPROLOL TARTRATE 1 MG/ML VIAL IV STA (18:52)
--- NOTE | 2020-09-29 18:54 | Hospitalist Progress Note ---
Date of Service September 29, 2020 Assessment & Plan (1) Cognitive deficit, post-stroke: Present on admission with generalized weakness Patient lives alone, does not have any family His home situation as per his friend is deplorable CT head showed No acute intracranial abnormality. MRI of brain showed no acute intracranial findings. No evidence of acute or subacute infarction. 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 Psych on board to assist patient's decision-making capacity. Ammonia level elevated per psychiatry patient still appears to be very encephalopathic, unable to have any insight regarding his health, self-care, Patient was not capable of leaving hospital AMA Discharge planning will be very difficult, patient does not have any medical insurance, placement to rehab or long-term care could be difficult Returning home by himself has a serious safety concern Case management aware, office of aging will be involved to assist with patient's living situation and support system (2) Hypercalcemia of malignancy: Ca slightly decreased to 11.8 Continue on IV fluid IV Zometa 4mg x1 given Nephrology consulted PTH, Vit D pending (3) Tachycardia: Atrial fibrillation with RVR Resolved heart rate is currently rate and rhythm controlled hx of paroxysmal atrial fibrillation Normal TSH Spontaneously converted to sinus On metoprolol 25 mg twice daily Appreciate Cardiology Input Not a candidate for long-term anticoagulation given risk for falls, noncompliance/cognitive impairment remains in sinus with rate control , laboratory monitor d/lolita Extensive lymphadenopathy H/O CLL CT ABD:Extensive mesenteric, retroperitoneal, iliac chain, and iliac lymphadenopathy. In addition there is splenomegaly. Lymphoma is the diagnosis of exclusion. Biopsy is recommended. No evidence of bowel obstruction. No evidence of free air. Cholelithiasis. No renal, ureteral, or bladder calculi identified. There is posterior mediastinal paraesophageal and para-aortic lymphadenopathy. There is a small hiatal hernia. was on Ibrutinib -out patient Appreciate surgery input Status post right inguinal lymph node biopsy on 09/18/20 Flow cytometry study suggestive of B-cell lymphoproliferative disorder. Pathology pending Needs follow-up with oncology upon discharge Needs follow up with surgery in 2 weeks post biopsy Elevated Ammonia level Mostly related to liver etiology Ammonia level dropped to 31.6 Continue Lactulose with goal to have 3 to5 BM Gastro consulted MRCP to evaluate his slightly elevated Bilirubin in the setting of gallstones, will do it when mental status improves Needs Liver disease work up electively as OP, may also consider Liver Bx as OP. Acute Metabolic Encephalopathy presented with confusion /disorientation Possible related to Hypercalcemia awake and alert , very forgetful , oriented to person only ( possible baseline dementia ?) CT Head: No acute intracranial abnormality. No abnormal enhancement. MRI brain no acute change continue to observe fall precaution Patient does not have cognitive capacity to sign out AGAINST MEDICAL ADVICE (4) HTN (hypertension): Uncontrolled BP Pt has not been able to take his PO BP med Case discussed with Nephrology that recommended IV labetalol Continue monitor BP (5) PAF (paroxysmal atrial fibrillation): Management as above (6) H/O alcohol abuse: h/o heavy alcohol use No active alcohol withdrawal symptoms noted Continue thiamine, folic acid Continue gabapentin (7) Seizure: No recent seizure activity CT Head:No acute intracranial findings. Left frontal lobe encephalomalacia. On Keppra, will change to IV since pt unable to take PO Neuro eval appreciated (8) Depression: Continue home medications (9) Polyneuropathy: On gabapentin (10) DVT prophylaxis: Lovenox SQ Code Status Full Code Disposition not safe to return home /lives alone -fall risk ,baseline dementia -unable to do self care /does not appear to have enough cognitive ability for self administration of medications and maintain doctor's follow up needs 02/11 care PT/OT eval case management consulted for discharge planning Admission and Anticipated Discharge Date Admission Date: September 16, 2020 Subjective Pt was seen and examined for follow up of confusion Pt looks more confused today Not able to follow commands BP has been elevated Review of Systems Review of Systems: All systems reviewed & are unremarkable except as noted in Subjective Physical Exam Physical Exam: General- Confused Head- atraumatic Eyes- PERRL, EOMI, ENT- oropharynx clear Neck- supple, no JVD Lungs- clear to auscultation Heart- +tachycardia Abdomen- normal bowel sounds, soft, nontender Extremities- no calf tenderness Neuro- +Confusion, unable to follow command Skin- warm & dry Results & Data Results & Data ([facility]) Vital Signs (Past 12 Hours) Vital Signs Temp Pulse Pulse Resp BP BP Pulse Ox 09/29/20 18:47 36.8 C 124 H 150/81 H 09/29/20 17:00 161/64 H 09/29/20 16:00 102 H 09/29/20 15:41 37.5 C 108 H 19 187/70 H 91 09/29/20 11:45 165/72 H 09/29/20 11:26 36.8 C 82 20 199/67 H 95 09/29/20 08:29 36.5 C 95 H 20 180/73 H 92 09/29/20 08:00 91 H
[2020-09-29 18:57] LABS: BUN Creatinine Ratio 18.4 (10-20); Calcium 11.8 mg/dl (8.5-10.1); Creatinine Clr Calc Pharmacy 67.1 ml/min; Est GFR (African American) 69.1 ml/min; Est GFR (Non-African American) 59.6 ml/min; Potassium 3.9 mmol/L (3.5-5.1)
[2020-09-29] MEDS: ENALAPRILAT 2.5 MG in DEXTROSE 5% 25 ML IV SCH (20:31)
[2020-09-29] MEDS: hydrALAZINE HCL 20 MG/ML VIAL IV SCH (20:32)
[2020-09-29] MEDS: LABETALOL HCL IV 5 MG/ML 20ML IV SCH ×3 (20:32→23:11)
[2020-09-29] MEDS: ENOXAPARIN INJ 40 MG/0.4 ML SYR SQ SCH (22:45)
[2020-09-30] MEDS: hydrALAZINE HCL 20 MG/ML VIAL IV SCH ×6 (01:00→22:47)
[2020-09-30] MEDS ORDERED: METOPROLOL TARTRATE 1 MG/ML VIAL IV STA (01:40)
[2020-09-30] MEDS: ENALAPRILAT 2.5 MG in DEXTROSE 5% 25 ML IV SCH ×4 (01:55→18:04)
[2020-09-30] MEDS: LABETALOL HCL IV 5 MG/ML 20ML IV SCH ×12 (01:56→22:57)
[2020-09-30] MEDS: POTASSIUM CHLORIDE 40 MEQ in DEXTROSE 5% 1,000 ML IV SCH ×4 (02:43→22:49)
[2020-09-30] MEDS: FUROSEMIDE 20 MG in SYRINGE 0 ML IV SCH ×4 (06:17→22:49)
[2020-09-30 07:13] LABS: BUN Creatinine Ratio 16.1 (10-20); Calcium 10.8 mg/dl (8.5-10.1); Creatinine Clr Calc Pharmacy 60.8 ml/min; Est GFR (African American) 61.3 ml/min; Est GFR (Non-African American) 52.9 ml/min; Potassium 3.8 mmol/L (3.5-5.1)
[2020-09-30] MEDS: GABAPENTIN 250 MG/5 ML 470 ML BTL PO SCH ×3 (08:48→22:48)
[2020-09-30] MEDS: METOPROLOL TARTRATE 1 MG/ML VIAL IV PRN ×2 (10:36→18:28)
[2020-09-30] MEDS: levETIRAcetam 750 MG in 0.9 % SODIUM CHLORIDE 100 ML IV SCH ×2 (10:37→22:49)
[2020-09-30] MEDS: THIAMINE HCL 100 MG TAB PO SCH (10:37)
[2020-09-30] MEDS: FAMOTIDINE 20 MG TAB PO SCH ×2 (10:38→23:35)
[2020-09-30] MEDS: SENNA 8.6 MG TAB PO SCH ×2 (10:38→23:35)
[2020-09-30] MEDS: FOLIC ACID 1 MG TAB PO SCH (10:38)
[2020-09-30] MEDS: METOPROLOL TARTRATE 50 MG TAB PO SCH (10:38)
[2020-09-30] MEDS: MAGNESIUM OXIDE 400 MG TAB PO SCH (10:38)
[2020-09-30] MEDS: levETIRAcetam ORAL SOLN 100MG/ML PO SCH (10:38)
[2020-09-30] MEDS: LACTULOSE SYRUP 20 GM/30 ML UDC PO SCH (10:38)
[2020-09-30] MEDS: ESCITALOPRAM OXALATE 10 MG TAB PO SCH (10:39)
[2020-09-30] MEDS: allopurinoL 300 MG TAB PO SCH (10:39)
[2020-09-30] MEDS: ASPIRIN 81 MG ECTAB PO SCH (10:39)
[2020-09-30] MEDS: LACTULOSE 200 GM, WATER, STERILE IRRIG 700 ML, BARCODE IDENTIFIER 1 EA PR SCH (11:41)
--- NOTE | 2020-09-30 14:56 | Electrocardiogram Report ---
Test Reason : Blood Pressure : / mmHG Vent. Rate : 123 BPM Atrial Rate : 123 BPM P-R Int : 146 ms QRS Dur : 088 ms QT Int : 330 ms P-R-T Axes : 056 066 001 degrees QTc Int : 472 ms Sinus tachycardia Nonspecific ST abnormality Abnormal ECG When compared with ECG of 18-SEP-2020 06:08, Vent. rate has increased BY 41 BPM Confirmed by Greg Brooks ([id number]) on 09/30/2020 2:56:20 PM Referred By: REFERRED SELF Confirmed By:Greg Brooks
--- NOTE | 2020-09-30 17:25 | Nephrology Progress Note ---
Date of Service September 30, 2020 Assessment & Plan (1) HTN (hypertension): improved today; w/ his altered MS not taking po reliably >> ?withdrawal syndrome from meds as above With systolic blood pressures running in the 160-190s and heart rate in the 100s >>goal SBP is 140-150s -stop metoprolol as he is taking nothing po -labetalol 10mg IV q2 hrs hold for SBP <150 or HR <80 -will increase enaliprilat 2.5 mg IV q6h w/ hold parameters hold for sbp < 150 -start hydralazine 10 mg IV q4hr; may increase to 20 mg IV q4h if target sbp in 150s not achieved after first dose -d/w primary hospitalist > defer to him to eval for withdrawal syndrome (2) Hypercalcemia of malignancy: Moderate to severe hypercalcemia downtrending slowly. Likely due to his lymphoma. Not severe enough at this time to need dialysis IV fluids as below >> aggressive rate along w/ lasix to lower calcium would hold off on Calcitonin for now given risk of tachycardia with this No indication to redose zolendronate consider Low calcium diet (i.e. less than 400 mg daily) when taking po -f/u pending PTH, PTH RP, 25 hydroxy vitamin D, 125 dihydroxy vitamin D levels Recommend discuss with hematology whether he could have steroids such as prednisone 10 mg daily if he does not respond to above >>he has not been receiving ibrutinib in house >> ? if this can make lymphoma w orsen fast enough to cause hypercalcemia; this med is to treat CLL of course; would resume if possible and/or discuss w/ heme (3) Acute metabolic encephalopathy: suspect multifactorial > high ammoonia, lymphoma?, high calcium, ? med withdrawal; ? HTN though this less likely; focus on treating all of these (4) Tachycardia: ? withdrawal such as from gabapentin or antidepressants; (5) Hypernatremia: resolved; continue IVF at150 mL hourly D5W w/ 40 meq/L k Admission and Anticipated Discharge Date Admission Date: September 16, 2020 Subjective wakign up slightly (still in coherent) F to 38.5 ON; got lactulose enemas; BP meds ordered yesterday ahve been held Review of Systems Review of Systems: Unobtainable due to reduced consciousness Physical Exam 2 Constitutional: well developed, well nourished and + altered mental status (Lying flat in bed on room air) ENMT: Ears: no external ear abnormality Nose: no external nose abnormality Mouth: + dry oral mucous membranes Neck: no nuchal rigidity Respiratory: normal respiratory effort Auscultation: lungs clear to auscultation bilaterally and + diminished lung sounds Cardiovascular: Rate/Rhythm: + tachycardic Extremities: no edema Gastrointestinal (Abdomen): Inspection/Auscultation: normal bowel sounds; abdomen not distended Percussion/Palpation: + abdomen tender (Question left upper quadrant tenderness but less today) and abdomen soft; no guarding and abdomen not rigid Musculoskeletal: Extremities: strength 5/5 throughout Skin: no rashes, warm and dry Results & Data ([facility]) Vital Signs (Past 12 Hours) Vital Signs Temp Pulse Pulse Resp BP BP BP 09/30/20 15:18 37.6 C H 87 20 122/79 09/30/20 12:38 143/80 H 09/30/20 11:09 37.3 C 105 H 20 179/82 H 09/30/20 10:36 123 H 150/76 H 09/30/20 08:00 118 H 09/30/20 07:06 36.9 C 123 H 20 150/76 H Pulse Ox 09/30/20 15:18 96 09/30/20 12:38 09/30/20 11:09 92 09/30/20 10:36 09/30/20 08:00 09/30/20 07:06 94 Laboratory Results 09/21/20 08:00 09/30/20 06:33
--- NOTE | 2020-09-30 17:47 | Hospitalist Progress Note ---
Date of Service September 30, 2020 Assessment & Plan (1) Cognitive deficit, post-stroke: Present on admission with generalized weakness Patient lives alone, does not have any family His home situation as per his friend is deplorable CT head showed No acute intracranial abnormality. MRI of brain showed no acute intracranial findings. No evidence of acute or subacute infarction. 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 Psych on board to assist patient's decision-making capacity. Ammonia level elevated per psychiatry patient still appears to be very encephalopathic, unable to have any insight regarding his health, self-care, Patient was not capable of leaving hospital AMA Discharge planning will be very difficult, patient does not have any medical insurance, placement to rehab or long-term care could be difficult Returning home by himself has a serious safety concern Case management aware, office of aging will be involved to assist with patient's living situation and support system (2) Hypercalcemia of malignancy: Ca slightly decreased to 10.8 Continue on IV fluid IV Zometa 4mg x1 given on 09/28 Nephrology consulted PTH, Vit D pending (3) Tachycardia: Atrial fibrillation with RVR Resolved heart rate is currently rate and rhythm controlled hx of paroxysmal atrial fibrillation Normal TSH Spontaneously converted to sinus On metoprolol 25 mg twice daily Appreciate Cardiology Input Not a candidate for long-term anticoagulation given risk for falls, noncompliance/cognitive impairment remains in sinus with rate control , youth nutritional monitor d/lolita Extensive lymphadenopathy H/O CLL CT ABD:Extensive mesenteric, retroperitoneal, iliac chain, and iliac lymphadenopathy. In addition there is splenomegaly. Lymphoma is the diagnosis of exclusion. Biopsy is recommended. No evidence of bowel obstruction. No evidence of free air. Cholelithiasis. No renal, ureteral, or bladder calculi identified. There is posterior mediastinal paraesophageal and para-aortic lymphadenopathy. There is a small hiatal hernia. was on Ibrutinib -out patient Appreciate surgery input Status post right inguinal lymph node biopsy on 09/18/20 Flow cytometry study suggestive of B-cell lymphoproliferative disorder. Pathology pending Needs follow-up with oncology upon discharge Needs follow up with surgery in 2 weeks post biopsy Elevated Ammonia level Mostly related to liver etiology Ammonia level increased to 80.8 Will change lactulose PO to enema Gastro consulted MRCP to evaluate his slightly elevated Bilirubin in the setting of gallstones, will do it when mental status improves Needs Liver disease work up electively as OP, may also consider Liver Bx as OP. Acute Metabolic Encephalopathy presented with confusion /disorientation Possible related to Hypercalcemia awake and alert , very forgetful , oriented to person only ( possible baseline dementia ?) CT Head: No acute intracranial abnormality. No abnormal enhancement. MRI brain no acute change continue to observe fall precaution Patient does not have cognitive capacity to sign out AGAINST MEDICAL ADVICE (4) HTN (hypertension): Uncontrolled BP Pt has not been able to take his PO BP med Case discussed with Nephrology that recommended IV labetalol Continue monitor BP (5) PAF (paroxysmal atrial fibrillation): Management as above (6) H/O alcohol abuse: h/o heavy alcohol use No active alcohol withdrawal symptoms noted Continue thiamine, folic acid Continue gabapentin (7) Seizure: No recent seizure activity CT Head:No acute intracranial findings. Left frontal lobe encephalomalacia. On Keppra, will change to IV since pt unable to take PO Neuro eval appreciated (8) Depression: Continue home medications (9) Polyneuropathy: On gabapentin (10) DVT prophylaxis: Lovenox SQ Code Status Full Code Disposition not safe to return home /lives alone -fall risk ,baseline dementia -unable to do self care /does not appear to have enough cognitive ability for self administration of medications and maintain doctor's follow up needs 02/11 care PT/OT eval case management consulted for discharge planning Admission and Anticipated Discharge Date Admission Date: September 16, 2020 Subjective Pt was seen and examined for follow up of confusion Patient looks a little bit more awake Today Not able to follow commands Has not been able to take any oral meds HR has been elevated Review of Systems Review of Systems: All systems reviewed & are unremarkable except as noted in HPI & below Physical Exam Physical Exam: General- Confused Head- atraumatic Eyes- PERRL, EOMI, ENT- oropharynx clear Neck- supple, no JVD Lungs- clear to auscultation Heart- +tachycardia Abdomen- normal bowel sounds, soft, nontender Extremities- no calf tenderness Neuro- +Confusion, unable to follow command Skin- warm & dry Results & Data Results & Data ([facility]) Vital Signs (Past 12 Hours) Vital Signs Temp Pulse Pulse Resp BP BP BP 09/30/20 15:18 37.6 C H 87 20 122/79 09/30/20 12:38 143/80 H 09/30/20 11:09 37.3 C 105 H 20 179/82 H 09/30/20 10:36 123 H 150/76 H 09/30/20 08:00 118 H 09/30/20 07:06 36.9 C 123 H 20 150/76 H Pulse Ox 09/30/20 15:18 96 09/30/20 12:38 09/30/20 11:09 92 09/30/20 10:36 09/30/20 08:00 09/30/20 07:06 94
[2020-09-30] MEDS: ENOXAPARIN INJ 40 MG/0.4 ML SYR SQ SCH (22:50)
[2020-10-01] MEDS: LACTULOSE 200 GM, WATER, STERILE IRRIG 700 ML, BARCODE IDENTIFIER 1 EA PR SCH ×4 (00:09→22:24)
[2020-10-01] MEDS: hydrALAZINE HCL 20 MG/ML VIAL IV SCH ×6 (02:23→19:58)
[2020-10-01] MEDS: LABETALOL HCL IV 5 MG/ML 20ML IV SCH ×12 (02:24→23:45)
[2020-10-01] MEDS: ENALAPRILAT 2.5 MG in DEXTROSE 5% 25 ML IV SCH ×2 (02:24→07:37)
[2020-10-01] MEDS: POTASSIUM CHLORIDE 40 MEQ in DEXTROSE 5% 1,000 ML IV SCH (05:18)
[2020-10-01] MEDS: FUROSEMIDE 20 MG in SYRINGE 0 ML IV SCH ×4 (06:18→23:45)
[2020-10-01 07:49] LABS: Albumin Globulin Ratio 0.6 (0.9-2); Albumin Level 2.8 gm/dl (3.4-5.0); BUN Creatinine Ratio 18.5 (10-20); Bilirubin,Total 2.1 mg/dl (0.2-1); Calcium 10.5 mg/dl (8.5-10.1); Creatinine Clr Calc Pharmacy 55.5 ml/min; Est GFR (African American) 56.3 ml/min; Est GFR (Non-African American) 48.6 ml/min; Globulin 4.3 gm/dl (2.5-4.0); Potassium 4.4 mmol/L (3.5-5.1); Total Protein 7.1 gm/dl (6.4-8.2)
[2020-10-01] MEDS: levETIRAcetam 750 MG in 0.9 % SODIUM CHLORIDE 100 ML IV SCH ×2 (07:58→19:59)
[2020-10-01] MEDS: GABAPENTIN 250 MG/5 ML 470 ML BTL PO SCH ×3 (10:48→22:37)
[2020-10-01] MEDS: FAMOTIDINE 20 MG TAB PO SCH ×2 (10:49→22:37)
[2020-10-01] MEDS: allopurinoL 300 MG TAB PO SCH (10:49)
[2020-10-01] MEDS: ESCITALOPRAM OXALATE 10 MG TAB PO SCH (10:49)
[2020-10-01] MEDS: THIAMINE HCL 100 MG TAB PO SCH (10:49)
[2020-10-01] MEDS: MAGNESIUM OXIDE 400 MG TAB PO SCH (10:49)
[2020-10-01] MEDS: ASPIRIN 81 MG ECTAB PO SCH (10:49)
[2020-10-01] MEDS: FOLIC ACID 1 MG TAB PO SCH (10:50)
[2020-10-01] MEDS: SENNA 8.6 MG TAB PO SCH ×2 (10:50→22:37)
[2020-10-01] MEDS: METOPROLOL TARTRATE 1 MG/ML VIAL IV PRN ×2 (11:05→14:45)
--- NOTE | 2020-10-01 11:20 | Nephrology Progress Note ---
Date of Service October 01, 2020 Assessment & Plan (1) HTN (hypertension): improved today; w/ his altered MS not taking po reliably >> ?withdrawal syndrome from meds as above With systolic blood pressures running in the 160-190s and heart rate in the 100s >>goal SBP is 130-140s -cont to hold metoprolol as he is taking nothing po -labetalol 10mg IV q2 hrs hold for SBP <150 or HR <80 -will lower enaliprilat 1.25 mg IV q6h w/ hold parameters hold for sbp < 150 -start hydralazine 10 mg IV q4hr; may increase to 20 mg IV q4h if target sbp in 150s not achieved after first dose -d/w primary hospitalist > defer to him to eval for withdrawal syndrome -stopped clonidine prn order (2) Hypercalcemia of malignancy: Moderate to severe hypercalcemia downtrending slowly. Likely due to his lymphoma. Not severe enough at this time to need dialysis IV fluids as below ; will stop lasix given slight creatinine bump would hold off on Calcitonin for now given risk of tachycardia with this No indication to redose zolendronate consider Low calcium diet (i.e. less than 400 mg daily) when taking po -f/u pending PTH, PTH RP, 25 hydroxy vitamin D, 125 dihydroxy vitamin D levels Recommend discuss with hematology whether he could have steroids such as pre dnisone 10 mg daily if he does not respond to above >>he has not been receiving ibrutinib in house >> ? if this can make lymphoma worsen fast enough to cause hypercalcemia; this med is to treat CLL of course; would resume if possible and/or discuss w/ heme (3) Acute metabolic encephalopathy: suspect multifactorial > high ammonia, lymphoma?, high calcium, ? med withdrawal; ? HTN though this less likely; focus on treating all of these -continue D5W w/ K 20 mEq/ L same rate (4) Tachycardia: ? withdrawal such as from gabapentin or antidepressants; Admission and Anticipated Discharge Date Admission Date: September 16, 2020 Subjective ammonia high; still not following commands/minimally responsive Review of Systems Review of Systems: All systems reviewed & are unremarkable except as noted in Subjective Physical Exam Constitutional: well developed, well nourished and + altered mental status (Lying flat in bed on room air) ENMT: Ears: no external ear abnormality Nose: no external nose abnormality Mouth: + dry oral mucous membranes Neck: no nuchal rigidity Respiratory: normal respiratory effort Auscultation: lungs clear to auscultation bilaterally and + diminished lung sounds Cardiovascular: Rate/Rhythm: + tachycardic Extremities: no edema Gastrointestinal (Abdomen): Inspection/Auscultation: normal bowel sounds; abdomen not distended Percussion/Palpation: + abdomen tender (diffusely) and abdomen soft; no guarding and abdomen not rigid Musculoskeletal: Extremities: strength 5/5 throughout Skin: no rashes, warm and dry Neurologic: hanson, aphasic Results & Data ([facility]) Vital Signs (Past 12 Hours) Vital Signs Temp Pulse Pulse Resp BP Pulse Ox 10/01/20 11:05 134 H 10/01/20 08:37 138/74 10/01/20 08:00 115 H 10/01/20 07:15 37.0 C 116 H 19 138/84 92 10/01/20 03:43 36.4 C L 129 H 20 128/77 92 Laboratory Results 09/21/20 08:00 10/01/20 06:48
[2020-10-01] MEDS: ENALAPRILAT 1.25 MG in DEXTROSE 5% 25 ML IV SCH ×2 (11:29→18:15)
[2020-10-01] MEDS: POTASSIUM CHLORIDE 20 MEQ in DEXTROSE 5% 1,000 ML IV SCH ×2 (11:53→18:38)
[2020-10-01] MEDS ORDERED: Nursing to Pharmacy Communication SCH (14:45)
--- NOTE | 2020-10-01 18:55 | Hospitalist Progress Note ---
Date of Service October 01, 2020 Assessment & Plan (1) Cognitive deficit, post-stroke: Present on admission with generalized weakness Patient lives alone, does not have any family His home situation as per his friend is deplorable CT head showed No acute intracranial abnormality. MRI of brain showed no acute intracranial findings. No evidence of acute or subacute infarction. 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 Psych on board to assist patient's decision-making capacity. Ammonia level elevated per psychiatry patient still appears to be very encephalopathic, unable to have any insight regarding his health, self-care, Patient was not capable of leaving hospital AMA Discharge planning will be very difficult, patient does not have any medical insurance, placement to rehab or long-term care could be difficult Returning home by himself has a serious safety concern Case management aware, office of aging will be involved to assist with patient's living situation and support system (2) Hypercalcemia of malignancy: Ca slightly decreased to 10.5 Continue on IV fluid IV Zometa 4mg x1 given on 09/28 Nephrology consulted PTH, Vit D pending (3) Tachycardia: Atrial fibrillation with RVR Resolved heart rate is currently rate and rhythm controlled hx of paroxysmal atrial fibrillation Normal TSH Spontaneously converted to sinus On metoprolol 25 mg twice daily, but has not been able to take it since patient is drowsy We will add Lopressor 2.5 mg every 6 hour Appreciate Cardiology Input Not a candidate for long-term anticoagulation given risk for falls, noncomp liance/cognitive impairment remains in sinus with rate control , lisw d/lolita DEE Creatinine increased to 1.48 Lasix discontinued Nephrology on board Extensive lymphadenopathy H/O CLL CT ABD:Extensive mesenteric, retroperitoneal, iliac chain, and iliac lymphadenopathy. In addition there is splenomegaly. Lymphoma is the diagnosis of exclusion. Biopsy is recommended. No evidence of bowel obstruction. No evidence of free air. Cholelithiasis. No renal, ureteral, or bladder calculi identified. There is posterior mediastinal paraesophageal and para-aortic lymphadenopathy. There is a small hiatal hernia. was on Ibrutinib -out patient Appreciate surgery input Status post right inguinal lymph node biopsy on 09/18/20 Flow cytometry study suggestive of B-cell lymphoproliferative disorder. Pathology pending Needs follow-up with oncology upon discharge Needs follow up with surgery in 2 weeks post biopsy Elevated Ammonia level Mostly related to liver etiology Ammonia level increased to 93 Lactulose enema increased to twice daily Gastro consulted MRCP to evaluate his slightly elevated Bilirubin in the setting of gallstones, will do it when mental status improves Needs Liver disease work up electively as OP, may also consider Liver Bx as OP. Acute Metabolic Encephalopathy presented with confusion /disorientation Possible related to Hypercalcemia awake and alert , very forgetful , oriented to person only ( possible baseline dementia ?) CT Head: No acute intracranial abnormality. No abnormal enhancement. MRI brain no acute change continue to observe fall precaution Patient does not have cognitive capacity to sign out AGAINST MEDICAL ADVICE (4) HTN (hypertension): Uncontrolled BP Pt has not been able to take his PO BP med Case discussed with Nephrology that recommended IV labetalol Continue monitor BP (5) PAF (paroxysmal atrial fibrillation): Management as above (6) Fever: Patient was febrile on 09/29 with Tmax 38.5 and Tachycardia Will get blood cx If became febrile again, continue to start on antibiotic (7) H/O alcohol abuse: h/o heavy alcohol use No active alcohol withdrawal symptoms noted Continue thiamine, folic acid Continue gabapentin (8) Seizure: No recent seizure activity CT Head:No acute intracranial findings. Left frontal lobe encephalomalacia. On Keppra, will change to IV since pt unable to take PO Neuro eval appreciated (9) Depression: Continue home medications (10) Polyneuropathy: On gabapentin (11) DVT prophylaxis: Lovenox SQ Code Status Full Code Disposition not safe to return home /lives alone -fall risk ,baseline dementia -unable to do self care /does not appear to have enough cognitive ability for self administration of medications and maintain doctor's follow up needs 02/11 care PT/OT eval case management consulted for discharge planning Admission and Anticipated Discharge Date Admission Date: September 16, 2020 Subjective Pt was seen and examined for follow up of confusion Patient looks a little bit more awake and was able to follow few commands He tried to speak but his voice was soft Review of Systems Review of Systems: All systems reviewed & are unremarkable except as noted in Subjective Physical Exam Physical Exam: General- Confused Head- atraumatic Eyes- PERRL, EOMI, ENT- oropharynx clear Neck- supple, no JVD Lungs- clear to auscultation Heart- +tachycardia Abdomen- normal bowel sounds, soft, nontender Extremities- no calf tenderness Neuro- +Confusion, unable to follow command Skin- warm & dry Results & Data Results & Data ([facility]) Vital Signs (Past 12 Hours) Vital Signs Temp Pulse Pulse Resp BP Pulse Ox 10/01/20 17:04 37.4 C 10/01/20 17:03 126/78 10/01/20 16:01 118/77 10/01/20 14:57 129 H 10/01/20 14:55 37.3 C 10/01/20 14:45 132 H 18 124/77 95 10/01/20 12:46 123/81 10/01/20 11:29 134/85 10/01/20 11:25 37.5 C 95 H 18 155/88 H 96 10/01/20 11:05 134 H 10/01/20 08:37 138/74 10/01/20 08:00 115 H 10/01/20 07:15 37.0 C 116 H 19 138/84 92
[2020-10-01] MEDS: ENOXAPARIN INJ 40 MG/0.4 ML SYR SQ SCH (20:01)
[2020-10-01] MEDS ORDERED: ACETAMINOPHEN 65 ML IV PRN (23:38)
[2020-10-02] MEDS: hydrALAZINE HCL 20 MG/ML VIAL IV SCH ×6 (00:25→21:16)
[2020-10-02] MEDS: METOPROLOL TARTRATE 1 MG/ML VIAL IV SCH ×3 (00:26→12:34)
[2020-10-02 00:29] LABS: Hematocrit (blood only) 37.6 % (42-52); Hemoglobin 12.5 g/dL (14.0-18.0); Mean Corpuscular Hemoglobin 29.8 pg (25-34); Mean Corpuscular Hgb Conc 33.2 g/dL (32-36); Mean Corpuscular Volume 89.7 fL (80-100); Platelet Count 118 K/uL (130-400); RDW Coefficient of Variation 16.4 % (11.5-14.5); RDW Standard Deviation 53.3 fL (36.4-46.3); Red Blood Count 4.19 M/uL (4.7-6.1); White Blood Count 13.86 K/uL (4.8-10.8)
[2020-10-02 00:37] LABS: INR 1.5 (0.9-1.1); Prothrombin Time 14.4 Seconds (9.0-12.0)
[2020-10-02] MEDS: ALBUMIN 25% 12.5 GM/50 ML VIAL IV SCH ×2 (00:41→02:18)
[2020-10-02 00:51] LABS: ALC (manual) 3.15 K/uL (1.2-3.4); ANC (manual) 9.99 K/uL (1.4-6.5); Eosinophils # (manual) 0.49 K/uL (0-0.5); Eosinophils % (manual) 3.5 %; Lymphocytes # (manual) 0.97 K/uL (1.2-3.4); Monocytes # (manual) 0.24 K/uL (0.11-0.59); Monocytes % (manual) 1.7 %; Neutrophils # (manual) 9.99 K/uL (1.4-6.5); Neutrophils % (manual) 72.1 %; RBC Morphology Unremarkable; Reactive Lymphocytes # (manual) 2.18 K/uL; Reactive Lymphocytes % (manual) 15.7 %
[2020-10-02] MEDS: LABETALOL HCL IV 5 MG/ML 20ML IV SCH ×2 (00:55→03:07)
[2020-10-02 00:57] LABS: Albumin Globulin Ratio 0.7 (0.9-2); Albumin Level 2.8 gm/dl (3.4-5.0); BUN Creatinine Ratio 19.5 (10-20); Bilirubin,Total 2.1 mg/dl (0.2-1); Calcium 9.4 mg/dl (8.5-10.1); Creatinine Clr Calc Pharmacy 45.4 ml/min; Est GFR (African American) 44.2 ml/min; Est GFR (Non-African American) 38.1 ml/min; Globulin 3.8 gm/dl (2.5-4.0); Magnesium 2.5 mg/dl (1.8-2.4); Potassium 5.2 mmol/L (3.5-5.1); Total Protein 6.6 gm/dl (6.4-8.2)
[2020-10-02] MEDS ORDERED: PIPERACILL/TAZOBAC CONSULT ACTIVE PRN (00:57)
[2020-10-02] MEDS ORDERED: SODIUM CHLORIDE 0.9% 1000ML 1,000 ML IV ONE ×2 (01:03→02:00)
--- NOTE | 2020-10-02 01:09 | Communication Note ---
Date of Service: October 02, 2020 RN asking for IV Tylenol for fever as patient too obtunded to swallow. Patient tachypneic. Cough symptoms as per RN. No diarrhea although stool mucoid as per RN. Chest x-ray as per my interpretation no obvious infiltrate WBC 13 Lactic acid 4.7 Serum crea 1.81 from 1.48 elevated procalcitonin AP Severe sepsis SIRS plus lactic acid elevation plus ARF ? Possible aspiration pneumonitis CS drawn earlier, Unasyn Follow serum creatinine, lactic acid response to IVF Appropriate to hold Lasix and Vasotec given kidney dysfunction. Will relay to AM provider.
[2020-10-02] MEDS ORDERED: PIPERACILLIN/TAZOBACTAM 4.5 GM in DEXTROSE 5% 100 ML IV ONE (01:15)
[2020-10-02 01:40] LABS: Appearance Urine Clear (Clear); Bilirubin Urine Negative (Negative); Blood Urine 1+ (Negative); Color Urine Yellow; Glucose Urine UA Negative (Negative); Ketones Urine Negative (Negative); Leukocyte Esterase Urine Negative (Negative); Nitrite Urine Negative (Negative); Protein Urine Negative (Negative); Specific Gravity Urine 1.015 (1.000-1.030); Urobilinogen Urine Negative (Negative); pH Urine 5.5 (4.5-7.5)
[2020-10-02 01:42] LABS: Epithelial Cell Urine 0-5 /lpf (0-5)
[2020-10-02 01:43] LABS: Bacteria Urine Negative (Negative); WBC Urine 0-5 /hpf (0-5)
[2020-10-02] MEDS ORDERED: AMPICILLIN/SULBACTAM CONSULT ACTIVE PRN (01:50)
[2020-10-02] MEDS ORDERED: Nursing to Pharmacy Communication SCH ×3 (02:00→13:15)
[2020-10-02] MEDS: AMPICILLIN/SULBACTAM SOD 3,000 MG in 0.9 % SODIUM CHLORIDE 100 ML IV SCH ×4 (03:01→20:16)
[2020-10-02] MEDS: SODIUM CHLORIDE 0.9% 500 ML IV SCH ×2 (03:17→05:52)
[2020-10-02] MEDS: POTASSIUM CHLORIDE 20 MEQ in DEXTROSE 5% 1,000 ML IV SCH (04:02)
[2020-10-02] MEDS ORDERED: PIPERACILLIN/TAZOBACTAM 3.375 GM in DEXTROSE 5% 100 ML IV SCH (06:00)
[2020-10-02 06:23] LABS: Hematocrit (blood only) 33.2 % (42-52); Hemoglobin 11.2 g/dL (14.0-18.0); Mean Corpuscular Hemoglobin 30.4 pg (25-34); Mean Corpuscular Hgb Conc 33.7 g/dL (32-36); Platelet Count 114 K/uL (130-400); RDW Coefficient of Variation 16.5 % (11.5-14.5); RDW Standard Deviation 53.7 fL (36.4-46.3); Red Blood Count 3.69 M/uL (4.7-6.1); White Blood Count 11.01 K/uL (4.8-10.8)
[2020-10-02 06:53] LABS: BUN Creatinine Ratio 19.8 (10-20); Calcium 9.2 mg/dl (8.5-10.1); Creatinine Clr Calc Pharmacy 43.3 ml/min; Est GFR (African American) 41.7 ml/min; Est GFR (Non-African American) 35.9 ml/min; Magnesium 2.1 mg/dl (1.8-2.4); Phosphorus 2.7 mg/dl (2.5-4.9); Potassium 4.4 mmol/L (3.5-5.1)
[2020-10-02 07:09] LABS: Basophils # (auto) 0.01 K/uL (0-0.2); Basophils % (auto) 0.1 %; Eosinophils # (auto) 0.13 K/uL (0-0.5); Eosinophils % (auto) 1.2 %; Immature Granulocytes # (auto) 0.07 K/uL (0.00-0.02); Immature Granulocytes % (auto) 0.6 %; Lymphocytes # (auto) 2.17 K/uL (1.2-3.4); Lymphocytes % (auto) 19.7 %; Monocytes # (auto) 0.98 K/uL (0.11-0.59); Monocytes % (auto) 8.9 %; Neutrophils # (auto) 7.65 K/uL (1.4-6.5); Neutrophils % (auto) 69.5 %
--- NOTE | 2020-10-02 07:44 | XRay Report ---
SINGLE VIEW CHEST CLINICAL HISTORY: Tachypnea. FINDINGS: An AP, portable, semierect chest radiograph is compared to study dated 09/16/2020. The examin ation is degraded by portable technique and patient rotation. The heart is top normal for projection . There are left basilar airspace opacities with a small left pleural effusion. The right lung appear s clear noting basilar atelectasis. No pneumothorax is seen. The skeletal structures are osteopenic. The bony thorax is grossly intact. IMPRESSION: There are left basilar opacities with a small left pleural effusion. Correlate clinically for evidence of pneumonia/aspiration pneumonitis. Radiographic follow-up to resolution is recommende d. ACT 112: Negative or not required by law. Electronically signed by: Tom Amaya M.D. 10/02/2020 7:42 AM
[2020-10-02] MEDS: LACTULOSE SYRUP 20 GM/30 ML UDC PO SCH ×3 (08:02→21:20)
[2020-10-02] MEDS: GABAPENTIN 250 MG/5 ML 470 ML BTL PO SCH (08:02)
[2020-10-02] MEDS: SENNA 8.6 MG TAB PO SCH ×2 (08:14→21:21)
[2020-10-02] MEDS: ESCITALOPRAM OXALATE 10 MG TAB PO SCH (08:14)
[2020-10-02] MEDS: allopurinoL 300 MG TAB PO SCH (08:14)
[2020-10-02] MEDS: ASPIRIN 81 MG ECTAB PO SCH (08:14)
[2020-10-02] MEDS: FAMOTIDINE 20 MG TAB PO SCH ×2 (08:15→21:21)
[2020-10-02] MEDS: FOLIC ACID 1 MG in SYRINGE 9.8 ML IV SCH (08:21)
[2020-10-02] MEDS: THIAMINE HCL 100 MG in SYRINGE 9 ML IV SCH (08:21)
[2020-10-02] MEDS: LACTULOSE 200 GM, WATER, STERILE IRRIG 700 ML, BARCODE IDENTIFIER 1 EA PR SCH ×3 (08:22→21:55)
[2020-10-02] MEDS: levETIRAcetam 750 MG in 0.9 % SODIUM CHLORIDE 100 ML IV SCH ×2 (08:23→21:17)
--- NOTE | 2020-10-02 08:27 | Surgery Progress Note ---
Date of Service October 02, 2020 Assessment & Plan (1) History of lymph node biopsy: POD 14 right inguinal lymph node biopsy surgical site benign, has adenopathy, no hematoma or seroma can f/u in clinic prn, oncology eval Admission and Anticipated Discharge Date Admission Date: September 16, 2020 Subjective fever, some confusion past 24 hours Physical Exam Gastrointestinal (Abdomen): Inspection/Auscultation: + abdominal surgical incision (healing well, no ecchymosis, inguinal adenopathy present) Results & Data ([facility]) Vital Signs (Past 12 Hours) Vital Signs Temp Pulse Pulse Pulse Resp BP BP 10/02/20 07:36 36.5 C 95 H 18 10/02/20 05:54 108 H 126/67 10/02/20 03:08 36.9 C 110 H 29 H 108/65 10/02/20 00:55 114 H 115/74 10/02/20 00:26 138 H 141/69 H 10/02/20 00:00 122 H 10/01/20 23:06 10/01/20 23:04 37.7 C H 122 H 30 H 144/83 H 10/01/20 21:33 123 H BP Pulse Ox 10/02/20 07:36 130/77 95 10/02/20 05:54 10/02/20 03:08 96 10/02/20 00:55 10/02/20 00:26 10/02/20 00:00 10/01/20 23:06 114/67 10/01/20 23:04 95 10/01/20 21:33 120/77 PG Care Time/CCT Total # of Minutes Spent Total Time Spent with Patient: Total time spent is greater than 50% in coordination of care (as documented) at patient's floor/unit and/or counseling patient: Coding Level of Care Code None Diagnoses History of lymph node biopsy Z98.890
[2020-10-02] MEDS ORDERED: SODIUM CHLORIDE 0.9% 1000ML 1,000 ML IV SCH (08:45)
[2020-10-02] MEDS ORDERED: CYANOCOBALAMIN 1000 MCG/ML VIAL IM ONE (09:00)
[2020-10-02] MEDS: ATENOLOL 50 MG TABLET PO SCH (09:38)
--- NOTE | 2020-10-02 09:50 | Nephrology Progress Note ---
Date of Service October 02, 2020 Assessment & Plan (1) Acute renal failure: Creatinine was 0.8 on presentation. Started to uptrend approximately 2- 1/2 days ago. Meeting DEE criteria since yesterday with peak level this morning at 1.9. Renal imaging on September 16 was unremarkable. Not oliguric. Urine sediment bland except for microhematuria. He has been n.p.o. now for several days with hypertension and tachycardia as well as intermittent fever: He is over 5 L positive yesterday alone and about 9 L positive since September 29. Presumptive cause of DEE is ischemic ATN related to hypertension, fevers, tachycardia, concern for severe sepsis -daily bmp -given hyperchloremia, mild low bicarb will give LR instead of NS same rate >> bag not yet hung so will start LR; pharmacy aware -recheck bmp ordered later today w/ lactates Care coordinated w/ Dr Yadav and w/ RN. Present on Admission?: No (2) HTN (hypertension): resolved/on target today; w/ his altered MS not taking po reliably though more than before >> ?withdrawal syndrome from meds driving HTN With systolic blood pressures running in the 160-190s and heart rate in the 100s >>goal SBP is 130-140s -cont to hold metoprolol as he is taking nothing po -labetalol 10mg IV q2 hrs hold for SBP <150 or HR <80 -will lower enaliprilat 1.25 mg IV q6h w/ hold parameters hold for sbp < 150 -start hydralazine 10 mg IV q4hr; may increase to 20 mg IV q4h if target sbp in 150s not achieved after first dose -d/w primary hospitalist > defer to him to eval for withdrawal syndrome -stopped clonidine prn order (3) Hypercalcemia of malignancy: Moderate to severe hypercalcemia downtrending slowly and now within normal limits. Likely due to his lymphoma. Managed medically w/ bisphosphonate, fluid; no dialysi sneeded No indication to redose zolendronate -f/u pending PTH, PTH RP, 25 hydroxy vitamin D, 125 dihydroxy vitamin D levels >>he has not been receiving ibrutinib in house >> ? if this can make lymphoma worsen fast enough to cause hypercalcemia; this med is to treat CLL of course; would resume if possible and/or discuss w/ heme (4) Acute metabolic encephalopathy: suspect multifactorial > high ammonia, lymphoma?, high calcium, ? med withdrawal; ? HTN though this less likely; focus on treating/evaluating for all of these -continue LR at 150 ml/hr as below (5) Tachycardia: ? withdrawal such as from gabapentin or antidepressants; sepsis also on differential though heart rate improved today Admission and Anticipated Discharge Date Admission Date: September 16, 2020 Subjective Lasix and Vasotec held after low-grade fever last evening with tachypnea and cough. urgent labs showed lactic acid 4.7, creatinine 1.8 from 1.5, WBC 13 K, elevated procalcitonin: Severe sepsis with concern for aspiration pneumonitis; pt more awake last evenign/am > told RN where he was and his name; surgery looked at bx site and no concerns Review of Systems Review of Systems: Unobtainable due to reduced consciousness Physical Exam Constitutional: well developed, well nourished and + altered mental status (Lying flat in bed on room air) ENMT: Ears: no external ear abnormality Nose: no external nose abnormality Mouth: + dry oral mucous membranes Neck: no nuchal rigidity Respiratory: normal respiratory effort Auscultation: lungs clear to auscultation bilaterally and + diminished lung sounds Cardiovascular: Rate/Rhythm: + tachycardic Extremities: no edema Gastrointestinal (Abdomen): Inspection/Auscultation: normal bowel sounds; abdomen not distended Percussion/Palpation: + abdomen tender (diffusely) and abdomen soft; no guarding and abdomen not rigid Musculoskeletal: Extremities: strength 5/5 throughout Skin: no rashes, warm and dry Neurologic: hanson, moans a lot and makes some unintelligible words w/ prompting; does not follow commands, does not Results & Data ([place]) Vital Signs (Past 12 Hours) Vital Signs Temp Pulse Pulse Pulse Resp BP BP 10/02/20 07:36 36.5 C 95 H 18 10/02/20 05:54 108 H 126/67 10/02/20 03:08 36.9 C 110 H 29 H 108/65 10/02/20 00:55 114 H 115/74 10/02/20 00:26 138 H 141/69 H 10/02/20 00:00 122 H 10/01/20 23:06 10/01/20 23:04 37.7 C H 122 H 30 H 144/83 H BP Pulse Ox 10/02/20 07:36 130/77 95 10/02/20 05:54 10/02/20 03:08 96 10/02/20 00:55 10/02/20 00:26 10/02/20 00:00 10/01/20 23:06 114/67 10/01/20 23:04 95 Laboratory Results 10/02/20 06:10 10/02/20 06:04 Diagnostic Findings Chest x-ray reviewed
[2020-10-02] MEDS: LACTATED RINGER'S 1,000 ML IV SCH ×3 (10:11→22:29)
[2020-10-02 16:27] LABS: BUN Creatinine Ratio 22.1 (10-20); Calcium 8.6 mg/dl (8.5-10.1); Creatinine Clr Calc Pharmacy 45.6 ml/min; Est GFR (African American) 43.9 ml/min; Est GFR (Non-African American) 37.9 ml/min
[2020-10-03] MEDS: hydrALAZINE HCL 20 MG/ML VIAL IV SCH ×2 (01:24→04:10)
[2020-10-03] MEDS: AMPICILLIN/SULBACTAM SOD 3,000 MG in 0.9 % SODIUM CHLORIDE 100 ML IV SCH ×4 (01:56→20:25)
[2020-10-03] MEDS: LACTATED RINGER'S 1,000 ML IV SCH ×3 (05:10→19:23)
[2020-10-03] MEDS ORDERED: hydrALAZINE HCL 20 MG/ML VIAL IV PRN (06:46)
[2020-10-03 06:49] LABS: Hematocrit (blood only) 32.7 % (42-52); Hemoglobin 10.9 g/dL (14.0-18.0); Mean Corpuscular Hemoglobin 29.9 pg (25-34); Mean Corpuscular Hgb Conc 33.3 g/dL (32-36); Mean Corpuscular Volume 89.8 fL (80-100); Platelet Count 130 K/uL (130-400); RDW Coefficient of Variation 16.8 % (11.5-14.5); RDW Standard Deviation 54.5 fL (36.4-46.3); Red Blood Count 3.64 M/uL (4.7-6.1); White Blood Count 10.74 K/uL (4.8-10.8)
--- NOTE | 2020-10-03 06:59 | Hospitalist Progress Note ---
Date of Service October 02, 2020 Assessment & Plan (1) Cognitive deficit, post-stroke: Present on admission with generalized weakness Patient lives alone, does not have any family His home situation as per his friend is deplorable CT head showed No acute intracranial abnormality. MRI of brain showed no acute intracranial findings. No evidence of acute or subacute infarction. 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 Psychiatry consulted to assist patient's decision-making capacity. Ammonia level elevated per psychiatry patient still appears to be very encephalopathic, unable to have any insight regarding his health, self-care, Patient was not capable of leaving hospital AMA Discharge planning will be very difficult, patient does not have any medical insurance, placement to rehab or long-term care could be difficult Returning home by himself has a serious safety concern Case management aware, office of aging will be involved to assist with patient's living situation and support system Metabolic encephalopathy Patient continues to show cognitive deficit, only able to answer some questions appropriately This is likely multifactorial Found to have high ammonia level (Hepatic encephalopathy), high calcium (Hypercalcemia), high sodium (Hypernatremia) Calcium level and sodium level now within normal level, ammonia elevated Unfortunately patient also found possibly septic with elevated lactic acid, fever However unclear if this is driven by infection or by patient's lymphoma Fever, elevated lactic acid ? Sepsis versus driven by lymphoma Overnight(10/01-10/02) chest x-ray obtained, possible aspiration pneumonitis UA negative Blood cultures obtained October 01, pending Patient started on Unasyn, and IV fluids Repeat lactic acid only slightly down DEE -Patient has elevated creatinine, to 1.9 -Receiving IV fluids -Nephrology been following -Continue to monitor creatinine, renal function, try to avoid NSAIDs and other nephrotoxic agents High-grade large B-cell lymphoma Patient has history of CLL, follows with Dr. Roe (oncology) Now underwent lymph node biopsy during this admission, consistent with high- grade large B-cell lymphoma Contacted Dr. Roe (10/02) and further discussed. Says that for this type of lymphoma, patient would need to be on intensive chemotherapy, for which he is not a candidate at this time. Recommended to also obtain LDH LDH significantly elevated, at [address] Roe, high LDH explains a large cell lymphoma, likely to progress in the next few weeks, and recommend hospice Palliative medicine contacted Tried to discuss CODE STATUS with the patient however he is not able to give me a clear answer It also seems like patient does not have a close family, and when I asked him if there is anybody else that could provide medical decision-making for him if he cannot, he said friend Aleshia We will try to address again whenever patient is more awake and alert (2) Tachycardia: Atrial fibrillation with RVR Resolved heart rate is currently rate and rhythm controlled hx of paroxysmal atrial fibrillation Normal TSH Spontaneously converted to sinus On metoprolol 25 mg twice daily, now on home atenolol 50 daily Appreciate Cardiology Input Not a candidate for long-term anticoagulation given risk for falls, noncompliance/cognitive impairment remains in sinus with rate control , engine monitor d/lolita Extensive lymphadenopathy H/O CLL -CT ABD:Extensive mesenteric, retroperitoneal, iliac chain, and iliac lymphadeno tony. In addition there is splenomegaly. Lymphoma is the diagnosis of exclusion. Biopsy is recommended. No evidence of bowel obstruction. No evidence of free air. Cholelithiasis. No renal, ureteral, or bladder calculi identified. There is posterior mediastinal paraesophageal and para-aortic lymphadenopathy. There is a small hiatal hernia. was on Ibrutinib -out patient -Appreciate surgery input -Status post right inguinal lymph node biopsy on 09/18/20 -Flow cytometry study suggestive of B-cell lymphoproliferative disorder. Pathology c/w high-grade B-cell lymphoma, as above Needs follow-up with oncology upon discharge - if able to be discharged - per oncology, recommend hospice Needs follow up with surgery in 2 weeks post biopsy Acute Metabolic Encephalopathy presented with confusion /disorientation awake and alert , very forgetful , oriented to person only ( possible baseline dementia ?) CT Head: No acute intracranial abnormality. No abnormal enhancement. MRI brain no acute change appreciate input from psychiatry , pt remains encephalopathic , Patient does not have cognitive capacity to sign out AGAINST MEDICAL ADVICE (3) HTN (hypertension): Uncontrolled BP Pt has not been able to take his PO BP med Case discussed with Nephrology that recommended IV labetalol Continue monitor BP Resolved, BP controlled (4) PAF (paroxysmal atrial fibrillation): Management as above (5) H/O alcohol abuse: h/o heavy alcohol use No active alcohol withdrawal symptoms noted Continue thiamine, folic acid Continue gabapentin- now on hold as pt very somnolent and now with DEE (6) Seizure: No recent seizure activity CT Head:No acute intracranial findings. Left frontal lobe encephalomalacia. On Keppra, changed to IV since pt unable to take PO Neuro eval appreciated (7) Depression: Continue home medications (8) Polyneuropathy: On gabapentin (9) DVT prophylaxis: Lovenox SQ Code Status Full Code Disposition not safe to return home /lives alone -fall risk ,baseline dementia -unable to do self care /does not appear to have enough cognitive ability for self administration of medications and maintain doctor's follow up needs 02/11 care PT/OT eval case management consulted for discharge planning Palliative medicine also consulted Admission and Anticipated Discharge Date Admission Date: September 16, 2020 Subjective Pt was seen and examined for follow up of confusion Patient looks a little bit more awake and was able to follow few commands He tried to speak but his voice was soft Patient developed fever on September 29, again tag stringer was called overnight, concern for aspiration pneumonitis patient was started on Unasyn. Lactic acid elevated, concern for sepsis. Contacted surgical service to examine lymph node biopsy site. Contacted patient's oncologist, Dr. Roe. Asked the patient about any family, unfortunately seems like patient does not have any children or spouse. Asked the patient about who could be possibly making medical decisions for him if he cannot, patient said friend Aleshia. Palliative medicine also contacted. Asked patient about the CODE STATUS however not able to provide answer. He can tell me that he is in the hospital and he can tell me the year however he does not answer other questions so well. His voice is very soft, and he often repeats the same answer. Currently calcium and sodium level normal, ammonia level elevated at 90. Lactic acid elevated despite IV fluids. Review of Systems Review of Systems: Unobtainable due to cognitive status Physical Exam Physical Exam: General- WD/WN, in NAD, drowsy Head- atraumatic Eyes- PERRL, EOMI, ENT- oropharynx clear Neck- supple, no JVD Lungs- clear to auscultation Heart- RRR, HR in 90s Abdomen- normal bowel sounds, soft, mildly distended, nontender Extremities- no calf tenderness Neuro- awake but drowsy, able to answer only some questions appropriately, moves extremities Skin- warm & dry Results & Data Results & Data ([facility]) Vital Signs (Past 12 Hours) Vital Signs Temp Pulse Pulse Resp BP Pulse Ox 10/02/20 23:19 36.6 C 98 H 24 117/74 98 10/02/20 22:44 97 H 10/02/20 19:40 36.9 C 77 18 110/72 94
[2020-10-03 07:20] LABS: Calcium 9.3 mg/dl (8.5-10.1); Creatinine Clr Calc Pharmacy 51.2 ml/min; Est GFR (African American) 49.8 ml/min; Est GFR (Non-African American) 42.9 ml/min; Magnesium 2.8 mg/dl (1.8-2.4); Potassium 3.7 mmol/L (3.5-5.1)
[2020-10-03 07:21] LABS: Phosphorus 2.4 mg/dl (2.5-4.9)
[2020-10-03] MEDS: levETIRAcetam 750 MG in 0.9 % SODIUM CHLORIDE 100 ML IV SCH ×2 (08:35→21:20)
[2020-10-03] MEDS: FOLIC ACID 1 MG in SYRINGE 9.8 ML IV SCH (08:36)
[2020-10-03] MEDS: THIAMINE HCL 100 MG in SYRINGE 9 ML IV SCH (08:36)
[2020-10-03] MEDS: SENNA 8.6 MG TAB PO SCH (08:37)
[2020-10-03] MEDS: FAMOTIDINE 20 MG TAB PO SCH ×2 (08:37→20:45)
[2020-10-03] MEDS: ATENOLOL 50 MG TABLET PO SCH (08:37)
[2020-10-03] MEDS: LACTULOSE SYRUP 20 GM/30 ML UDC PO SCH ×3 (08:37→20:44)
[2020-10-03] MEDS: ASPIRIN 81 MG ECTAB PO SCH (08:37)
[2020-10-03] MEDS: allopurinoL 300 MG TAB PO SCH (08:38)
[2020-10-03] MEDS: LACTULOSE 200 GM, WATER, STERILE IRRIG 700 ML, BARCODE IDENTIFIER 1 EA PR SCH ×2 (08:38→14:28)
--- NOTE | 2020-10-03 08:52 | Hospitalist Progress Note ---
Date of Service October 03, 2020 Assessment & Plan (1) Cognitive deficit, post-stroke: Present on admission with generalized weakness Patient lives alone, does not have any family His home situation as per his friend is deplorable CT head showed No acute intracranial abnormality. MRI of brain showed no acute intracranial findings. No evidence of acute or subacute infarction. 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 Psychiatry consulted to assist patient's decision-making capacity. Ammonia level elevated per psychiatry patient still appears to be very encephalopathic, unable to have any insight regarding his health, self-care, Patient was not capable of leaving hospital AMA Discharge planning will be very difficult, patient does not have any medical insurance, placement to rehab or long-term care could be difficult Returning home by himself has a serious safety concern Case management aware, office of aging will be involved to assist with patient's living situation and support system Metabolic encephalopathy Patient continues to show cognitive deficit, only able to answer some questions appropriately This is likely multifactorial Found to have high ammonia level (Hepatic encephalopathy), high calcium (Hypercalcemia), high sodium (Hypernatremia) Calcium level and sodium level now within normal level, ammonia elevated GI contacted during this admission d/t elevated ammonia - recommend lactulose, MRCP for mildly elevated bilirubin Unfortunately patient also found possibly septic with elevated lactic acid, fever However unclear if this is driven by infection or by patient's lymphoma Fever, elevated lactic acid ? Sepsis versus driven by lymphoma Overnight(10/01-10/02) chest x-ray obtained, possible aspiration pneumonitis UA negative Blood cultures obtained October 01, pending Patient started on Unasyn, and IV fluids Repeat lactic acid only slightly down DEE -Patient has elevated creatinine, to 1.9 (10/02) -Receiving IV fluids -Nephrology been following -Continue to monitor creatinine, renal function, try to avoid NSAIDs and other nephrotoxic agents High-grade large B-cell lymphoma Patient has history of CLL, follows with Dr. Roe (oncology) Now underwent lymph node biopsy during this admission, consistent with high- grade large B-cell lymphoma Contacted Dr. Roe (10/02) and further discussed. Says that for this type of lymphoma, patient would need to be on intensive chemotherapy, for which he is not a candidate at this time. Recommended to also obtain LDH LDH significantly elevated, at [address] Roe, high LDH explains a large cell lymphoma, likely to progress in the next few weeks, and recommend hospice Palliative medicine contacted Tried to discuss CODE STATUS with the patient however he is not able to give me a clear answer It also seems like patient does not have a close family, and when I asked him if there is anybody else that could provide medical decision-making for him if he cannot, he said friend Aleshia We will try to address again whenever patient is more awake and alert (2) Tachycardia: Atrial fibrillation with RVR Resolved heart rate is currently rate and rhythm controlled hx of paroxysmal atrial fibrillation Normal TSH Spontaneously converted to sinus On metoprolol 25 mg twice daily, now on home atenolol 50 daily Appreciate Cardiology Input Not a candidate for long-term anticoagulation given risk for falls, noncompliance/cognitive impairment remains in sinus with rate control , 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 In addition there is splenomegaly. Lymphoma is the diagnosis of exclusion. Biopsy is recommended. No evidence of bowel obstruction. No evidence of free air. Cholelithiasis. No renal, ureteral, or bladder calculi identified. There is posterior mediastinal paraesophageal and para-aortic lymphadenopathy. There is a small hiatal hernia. was on Ibrutinib -out patient -Appreciate surgery input -Status post right inguinal lymph node biopsy on 09/18/20 -Flow cytometry study suggestive of B-cell lymphoproliferative disorder. Pathology c/w high-grade B-cell lymphoma, as above Needs follow-up with oncology upon discharge - if able to be discharged - per oncology, recommend hospice Needs follow up with surgery in 2 weeks post biopsy Acute Metabolic Encephalopathy presented with confusion /disorientation awake and alert , very forgetful , oriented to person only ( possible baseline dementia ?) CT Head: No acute intracranial abnormality. No abnormal enhancement. MRI brain no acute change appreciate input from psychiatry , pt remains encephalopathic , Patient does not have cognitive capacity to sign out AGAINST MEDICAL ADVICE (3) HTN (hypertension): Uncontrolled BP Pt has not been able to take his PO BP med when confused Case discussed with Nephrology that recommended IV labetalol (now on hold) Continue monitor BP Resolved, BP controlled (4) PAF (paroxysmal atrial fibrillation): Management as above (5) H/O alcohol abuse: h/o heavy alcohol use No active alcohol withdrawal symptoms noted Continue thiamine, folic acid Continue gabapentin- now on hold as pt very somnolent and now with DEE (6) Seizure: No recent seizure activity CT Head:No acute intracranial findings. Left frontal lobe encephalomalacia. On Keppra, changed to IV since pt unable to take PO Neuro eval appreciated (7) Depression: Continue home medications (8) Polyneuropathy: On gabapentin (9) DVT prophylaxis: Lovenox SQ Code Status Full Code Disposition not safe to return home /lives alone -fall risk ,baseline dementia -unable to do self care /does not appear to have enough cognitive ability for self administ ration of medications and maintain doctor's follow up needs 02/11 care PT/OT eval case management consulted for discharge planning Palliative medicine also consulted Admission and Anticipated Discharge Date Admission Date: September 16, 2020 Subjective Pt was seen and examined for follow up of confusion Patient looks a little bit more awake and was able to follow few commands He can speak but his voice is soft Asked the patient about any family, unfortunately seems like patient does not have any children or spouse. Asked the patient about who could be possibly making medical decisions for him if he cannot, patient said friend Aleshia. Palliative medicine also contacted. Discussed with the patient again the results of the biopsy and my conversation with Dr. Roe. Asked patient about the CODE STATUS however not able to provide answer. He tells me that he understands what I am asking, however he is not able to tell me his wishes, repeats himself. Currently calcium and sodium level normal, ammonia level elevated at 67 (down from 90). Lactic acid elevated despite IV fluids. Review of Systems Review of Systems: Unobtainable due to cognitive status Currently no complaints, denies any pain. However not able to obtain full review of systems Physical Exam Physical Exam: General- WD/WN, in NAD, drowsy Head- atraumatic Eyes- PERRL, EOMI, ENT- oropharynx clear Neck- supple, no JVD Lungs- clear to auscultation Heart- RRR, HR in 90s Abdomen- normal bowel sounds, soft, mildly distended, nontender Extremities- no calf tenderness Neuro- awake but drowsy, able to answer only some questions appropriately, moves extremities Skin- warm & dry Results & Data Results & Data ([facility]) Vital Signs (Past 12 Hours) Vital Signs Temp Pulse Pulse Resp BP Pulse Ox 10/03/20 07:38 36.8 C 104 H 18 143/71 H 91 10/03/20 03:54 36.6 C 103 H 18 150/82 H 96 10/02/20 23:19 36.6 C 98 H 24 117/74 98 10/02/20 22:44 97 H Laboratory Results 10/03/20 10/03/20 10/03/20 Range/Units 07:31 07:31 06:39 WBC (4.8-10.8) K/uL RBC (4.7-6.1) M/uL Hgb (14.0-18.0) g/dL Hct (42-52) % MCV (80-100) fL MCH (25-34) pg MCHC (32-36) g/dL RDW Std Deviation (36.4-46.3) fL RDW Coeff of Yvette (11.5-14.5) % Plt Count (130-400) K/uL MPV (7.4-10.4) fL Sodium 145 (136-145) mmol/L Potassium 3.7 (3.5-5.1) mmol/L Chloride 116 H (98-107) mmol/L Carbon Dioxide 21 (21-32) mmol/L Anion Gap 8.0 (3-11) BUN 36 H (7-18) mg/dl Creatinine 1.64 H (0.6-1.4) mg/dl Est Cr Clr Drug Dosing 51.2 ml/min Est GFR ( Amer) 49.8 ml/min Est GFR (Non-Af Amer) 42.9 ml/min BUN/Creatinine Ratio 22.0 H (10-20) Glucose 82 (70-99) mg/dl Lactate 3.3 H* (0.4-2.0) mmol/L Uric Acid (2.6-7.2) mg/dl Calcium 9.3 (8.5-10.1) mg/dl Phosphorus 2.4 L (2.5-4.9) mg/dl Magnesium 2.8 H (1.8-2.4) mg/dl Ammonia 66.9 H (11-32) umol/L Lactate Dehydrogenase (87-241) U/L 10/03/20 10/02/20 10/02/20 Range/Units 06:39 15:47 15:47 WBC 10.74 (4.8-10.8) K/uL RBC 3.64 L (4.7-6.1) M/uL Hgb 10.9 L (14.0-18.0) g/dL Hct 32.7 L (42-52) % MCV 89.8 (80-100) fL MCH 29.9 (25-34) pg MCHC 33.3 (32-36) g/dL RDW Std Deviation 54.5 H (36.4-46.3) fL RDW Coeff of Yvette 16.8 H (11.5-14.5) % Plt Count 130 (130-400) K/uL MPV 11.0 H (7.4-10.4) fL Sodium 143 (136-145) mmol/L Potassium 4.0 (3.5-5.1) mmol/L Chloride 114 H (98-107) mmol/L Carbon Dioxide 19 L (21-32) mmol/L Anion Gap 10.0 (3-11) BUN 40 H (7-18) mg/dl Creatinine 1.82 H (0.6-1.4) mg/dl Est Cr Clr Drug Dosing 45.6 ml/min Est GFR ( Amer) 43.9 ml/min Est GFR (Non-Af Amer) 37.9 ml/min BUN/Creatinine Ratio 22.1 H (10-20) Glucose 89 (70-99) mg/dl Lactate (0.4-2.0) mmol/L Uric Acid 7.0 (2.6-7.2) mg/dl Calcium 8.6 (8.5-10.1) mg/dl Phosphorus (2.5-4.9) mg/dl Magnesium (1.8-2.4) mg/dl Ammonia (11-32) umol/L Lactate Dehydrogenase 1872 H (87-241) U/L 10/02/20 10/02/20 Range/Units 12:13 10:29 WBC (4.8-10.8) K/uL RBC (4.7-6.1) M/uL Hgb (14.0-18.0) g/dL Hct (42-52) % MCV (80-100) fL MCH (25-34) pg MCHC (32-36) g/dL RDW Std Deviation (36.4-46.3) fL RDW Coeff of Yvette (11.5-14.5) % Plt Count (130-400) K/uL MPV (7.4-10.4) fL Sodium (136-145) mmol/L Potassium (3.5-5.1) mmol/L Chloride (98-107) mmol/L Carbon Dioxide (21-32) mmol/L Anion Gap (3-11) BUN (7-18) mg/dl Creatinine (0.6-1.4) mg/dl Est Cr Clr Drug Dosing ml/min Est GFR ( Amer) ml/min Est GFR (Non-Af Amer) ml/min BUN/Creatinine Ratio (10-20) Glucose (70-99) mg/dl Lactate 4.7 H* 4.5 H* (0.4-2.0) mmol/L Uric Acid (2.6-7.2) mg/dl Calcium (8.5-10.1) mg/dl Phosphorus (2.5-4.9) mg/dl Magnesium (1.8-2.4) mg/dl Ammonia (11-32) umol/L Lactate Dehydrogenase (87-241) U/L Medications Administered Current Inpatient Medications Acetaminophen (Acetaminophen 325 Mg Tab) 650 mg PO Q4H PRN PRN Reason: Pain or Fever Stop: 10/16/20 19:35 Allopurinol (Allopurinol 300 Mg Tab) 300 mg PO DAILY [facility] Stop: 10/17/20 08:59 Last Admin: 10/03/20 08:38 Dose: 300 mg Documented by: Aspirin (Aspirin 81 Mg Ectab) 81 mg PO DAILY [facility] Stop: 10/27/20 08:59 Last Admin: 10/03/20 08:37 Dose: 81 mg Documented by: Atenolol (Atenolol 50 Mg Tablet) 50 mg PO QAM [facility] Stop: 11/01/20 08:59 Last Admin: 10/03/20 08:37 Dose: 50 mg Documented by: Lactulose 200 gm/ Sterile Water 700 ml/ BARCODE IDENTIFIER 1 ea 0 gm NC TID [facility] Stop: 10/31/20 13:59 Last Admin: 10/03/20 08:38 Dose: 200 gm Documented by: Enoxaparin Sodium (Enoxaparin Inj 40 Mg/0.4 Ml Syr) 40 mg SQ HS [facility] Stop: 10/16/20 20:59 Last Admin: 10/01/20 20:01 Dose: 40 mg Documented by: Escitalopram Oxalate (Escitalopram Oxalate 10 Mg Tab) 10 mg PO DAILY [facility] Stop: 10/17/20 08:59 Last Admin: 10/02/20 08:14 Dose: 10 mg Documented by: Famotidine (Famotidine 20 Mg Tab) 20 mg PO BID [facility] Stop: 10/16/20 20:59 Last Admin: 10/03/20 08:37 Dose: 20 mg Documented by: Folic Acid (Folic Acid 1 Mg Tab) 1 mg PO DAILY [facility] Stop: 10/17/20 08:59 Last Admin: 10/01/20 10:50 Dose: 1 mg Documented by: Gabapentin (Gabapentin 250 Mg/5 Ml 470 Ml Btl) 900 mg PO TID@0700,1300,2100 [facility] Stop: 10/28/20 20:59 Last Admin: 10/02/20 08:02 Dose: 900 mg Documented by: Hydralazine HCl (Hydralazine Hcl 20 Mg/Ml Vial) 5 mg IV Q4 PRN PRN Reason: SBP>165 Stop: 10/29/20 18:59 Furosemide 20 mg/ Syringe 2 mls @ 4 mls/min IV Q6H [facility] Stop: 10/29/20 11:59 Last Admin: 10/01/20 23:45 Dose: 4 mls/min Documented by: Levetiracetam 750 mg/ Sodium (Chloride) 107.5 mls @ 420 mls/hr IV Q12 [facility] Stop: 10/30/20 09:29 Last Admin: 10/03/20 08:35 Dose: 420 mls/hr Documented by: Enalaprilat 1.25 mg/ Dextrose 26 mls @ 100 mls/hr IV Q6H [facility] Stop: 10/31/20 11:59 Last Admin: 10/01/20 18:15 Dose: Not Given Documented by: Folic Acid 1 mg/ Syringe 10 mls @ 5 mls/min IV QAM [facility] Stop: 11/01/20 08:59 Last Admin: 10/03/20 08:36 Dose: 5 mls/min Documented by: Thiamine HCl 100 mg/ Syringe 10 mls @ 2 mls/min IV QAM [facility] Stop: 11/01/20 08:59 Last Admin: 10/03/20 08:36 Dose: 2 mls/min Documented by: Acetaminophen (Ofirmev) 65 mls @ 200 mls/hr IV Q8H PRN; Protocol PRN Reason: fever/pain Stop: 10/04/20 23:37 Last Infusion: 10/02/20 00:44 Dose: Infused Documented by: Ampicillin Sodium/Sulbactam Sodium 3,000 mg/ Sodium Chloride 108 mls @ 216 mls/hr IV Q6H [facility]; Protocol Stop: 10/09/20 01:59 Last Admin: 10/03/20 08:34 Dose: 216 mls/hr Documented by: Lactated Ringer's (Lr) 1,000 mls @ 150 mls/hr IV .Q6H40M [facility] Stop: 11/01/20 09:59 Last Admin: 10/03/20 05:10 Dose: 150 mls/hr Documented by: Potassium Chloride (K Devonte / Wtr) 10 meq in 100 mls @ 100 mls/hr IV Q1H [facility] Stop: 10/03/20 09:51 Labetalol HCl (Labetalol Hcl Iv 5 Mg/Ml 20ml) 10 mg IV Q2H [facility] Stop: 10/29/20 18:59 Last Admin: 10/02/20 03:07 Dose: Not Given Documented by: Lactulose (Lactulose Syrup 20 Gm/30 Ml Udc) 20 gm PO TID@0900,1200,2100 [facility] Stop: 11/01/20 11:59 Last Admin: 10/03/20 08:37 Dose: 20 gm Documented by: Levetiracetam (Levetiracetam Oral Soln 100mg/Ml) 750 mg PO BID [facility] Stop: 10/28/20 20:59 Last Admin: 09/30/20 10:38 Dose: Not Given Documented by: Magnesium Oxide (Magnesium Oxide 400 Mg Tab) 400 mg PO DAILY [facility] Stop: 10/17/20 08:59 Last Admin: 10/01/20 10:49 Dose: 400 mg Documented by: Metoprolol Tartrate (Metoprolol Tartrate 50 Mg Tab) 50 mg PO BID [facility] Stop: 10/28/20 20:14 Last Admin: 09/30/20 10:38 Dose: Not Given Documented by: Metoprolol Tartrate (Metoprolol Tartrate 1 Mg/Ml Vial) 2.5 mg IV Q6 [facility] Stop: 11/01/20 00:00 Last Admin: 10/02/20 12:34 Dose: Not Given Documented by: Miscellaneous (Lactulose Enema: Unit Dose Compound) 1 ea NC TID [facility] Stop: 11/02/20 08:59 Miscellaneous Information (Ampicillin/Sulbactam Consult Active) 1 ea N/A UD PRN PRN Reason: Consult Stop: 11/01/20 01:49 Miscellaneous Information (Nursing To Pharmacy Communication) 1 ea N/A TODAY [facility] Stop: 11/02/20 08:59 Polyethylene Glycol (Polyethylene (Miralax) 17 Gm Pack) 17 gm PO DAILY PRN PRN Reason: Constipation Stop: 10/16/20 19:35 Sennosides (Senna 8.6 Mg Tab) 8.6 mg PO BID [facility] Stop: 10/16/20 20:59 Last Admin: 10/03/20 08:37 Dose: 8.6 mg Documented by: Thiamine HCl (Thiamine Hcl 100 Mg Tab) 100 mg PO QAM [facility] Stop: 10/16/20 21:19 Last Admin: 10/01/20 10:49 Dose: 100 mg Documented by:
[2020-10-03] MEDS ORDERED: Nursing to Pharmacy Communication SCH (09:00)
[2020-10-03] MEDS: LACTULOSE ENEMA COMPOUND PR SCH ×3 (09:17→23:02)
[2020-10-03] MEDS: POTASSIUM CHLORIDE / WTR 10 MEQ/100 ML PLCT IV SCH ×2 (10:07→11:57)
[2020-10-03] MEDS ORDERED: METOPROLOL TARTRATE 1 MG/ML VIAL IV PRN (10:43)
--- NOTE | 2020-10-03 10:55 | Magnetic Resonance Report ---
MR MRCP HISTORY: 65 years-old Male elev. bili acutely elevated bilirubin in a patient with history of cholel ithiasis, splenomegaly and lymphadenopathy COMPARISON: CT abdomen and pelvis 09/16/2020 TECHNIQUE: MRCP without the use of IV contrast was obtained according to institutional protocol. FINDINGS: The structural steel equipment erector localizer images demonstrate no gross extra abdominal abnormality. Extensive retroperitonea l mesenteric adenopathy redemonstrated. Conglomerate adenopathy encasing the abdominal aorta measures over 17 cm in transverse dimension. Retroperitoneal and mesenteric edema. Splenomegaly. Cardiomegaly . Motion degraded exam. Bilateral perinephric stranding. No bowel wall thickening identified. Unremar kable soft tissues with mild generalized body wall edema. Cholelithiasis. Trace pericholecystic free fluid. No gallbladder wall thickening. Suboptimal dilation of the biliary tree secondary to the aforementioned motion artifact. There is no intrahepatic or ext rahepatic biliary ductal dilation identified. No pancreatic ductal dilation. No choledocholithiasis i dentified. IMPRESSION: 1. Limited exam secondary to motion artifact. 2. Cholelithiasis with trace pericholecystic free fluid. No gallbladder wall thickening, biliary duct al dilation or choledocholithiasis identified. 3. Extensive retroperitoneal and mesenteric adenopathy with splenomegaly suggestive of lymphoma. ACT 112: Negative or not required by law. The above report was generated using voice recognition software. It may contain grammatical, syntax o r spelling errors. Electronically signed by: David Quinones M.D. 10/03/2020 10:53 AM
--- NOTE | 2020-10-03 11:49 | XRay Report ---
XR chest 1V portable CLINICAL HISTORY: follow up COMPARISON STUDY: October 01, 2020 FINDINGS: No pneumothorax. No pleural effusion. Small atelectasis or infiltrate is again seen at the left base, appear slightly worsened since prior study. Lung volumes are decreased with crowded lung markings. Cardiomediastinal silhouette is within normal limits in size. No significant pulmonary vascular congestion.. Osseous structures: unremarkable IMPRESSION: 1. Small atelectasis or infiltrate at the left base, slightly worsened since prior. ACT 112: Positive. There are findings on this exam that require communication between the performing entity and the patient following Patient Test Result Information Act ([place] Act 112) guidelines. The above report was generated using voice recognition software. It may contain grammatical, syntax o r spelling errors. Electronically signed by: Park Swanson DO 10/03/2020 11:48 AM
--- NOTE | 2020-10-03 12:56 | Palliative Care Consultation ---
Date of Consultation October 03, 2020 Assessment & Plan (1) Palliative care encounter: At the time of my visit, Mr. Alexandra is not capable of making any decisions regarding his care. His mental status does wax and wane and when he was more cogent, he did tell Dr. Yadav that he would want his friend Aleshia Hernandez to be his surrogate decision maker. Aleshia is listed as the primary contact on his chart. He does live alone and does not have any known family members and per case management note, he has never been and does not have any children. I did reach out to Aleshia at [phone] but there was no answer. We will follow to assist with clarifying goals of care. (2) Acute metabolic encephalopathy: (3) B-cell chronic lymphocytic leukemia: Leukemia Active/Remission status: in remission Qualified Code(s): C91.11 - Chronic lymphocytic leukemia of B-cell type in remission History of Present Illness Reason for Consultation: goals of care Requesting Physician: Dr. Yadav Attending Physician: Yonatan Yadav MD History of Present Illness 65 yo gentleman with history of B cell lymphoma that had been in remission with immunotherapy. He was admitted with malaise to the point of not being able to get out of bed on the day of admission. he has metabolic encephalopathy with elevated ammonia, calcium and sodium levels. He did have a brainHe does apparently have a history of excessive alcohol use. During this admission, he has had a lymph node biopsy which was positive for high grade B cell lymphoma. CT of his abdomen and pelvis shows extensive mesenteric, retroperitoneal and iliac lymphadenopathy. He is not currently a candidate for chemotherapy with is functional status and encephalopathy. He has had variable mental status and generally does not seem to comprehend the extent and implication of his illness. We have been consulted to assist with goals of care. He is awake at the time of my visit but quite confused. I accidently called him Lupillo instead of Bridger and when I apologized and asked him what his name was, he replied "Lupillo". At various points in the conversation I asked him if he knew where he was, how he was doing, what the doctors had told him, who he lived with and whether he was having pain. 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 Allergies Allergy/AdvReac Type Severity Reaction Status Date / Time No Known Allergies Allergy NONE Verified 09/16/20 16:24 Home Medications Medication Instructions Recorded Confirmed Type allopurinol 300 mg PO DAILY 02/27/19 09/16/20 History atenolol 50 mg PO DAILY 02/27/19 09/16/20 History folic acid 1 mg PO DAILY 02/27/19 09/16/20 History furosemide [Lasix] 20 mg PO DAILY 02/27/19 09/16/20 History gabapentin 900 mg PO TID 02/27/19 09/16/20 History levetiracetam [Keppra] 750 mg PO BID 02/27/19 09/16/20 History lisinopril 20 mg PO DAILY 02/27/19 09/16/20 History lorazepam [Ativan] 0.5 mg PO BID PRN 02/27/19 09/16/20 History ondansetron HCl 8 mg PO TID PRN 02/27/19 09/16/20 History trazodone 50 mg PO HS 02/27/19 09/16/20 History aspirin 81 mg PO DAILY 09/16/20 09/16/20 History escitalopram oxalate [Lexapro] 10 mg PO DAILY 09/16/20 09/16/20 History famotidine 20 mg PO BID 09/16/20 09/16/20 History fluoride (sodium) [PreviDent 5000 1 applic DENTAL HS 09/16/20 09/16/20 History Plus] food supplemt, lactose-reduced 1 ea PO DIRECTED 09/16/20 09/16/20 History [Ensure Active High Protein] ibrutinib 420 mg PO DAILY 09/16/20 09/16/20 History magnesium oxide 400 mg PO DAILY 09/16/20 09/16/20 History prochlorperazine maleate 10 mg PO Q6H PRN 09/16/20 09/16/20 History sennosides [Senokot] 8.6 mg PO BID 09/16/20 09/16/20 History Patient History Medical History B-cell chronic lymphocytic leukemia BPH (benign prostatic hyperplasia) Cognitive deficit, post-stroke Depression H/O alcohol abuse Polyneuropathy Seizure Surgical History History of lymph node biopsy S/P inguinal hernia repair 12/05/2009-Dr. Mayur Turcios Family History Other No significant family history Social History Smoking Status: Never smoker Hx Alcohol Use: Yes Alcohol type: wine and hard liquor Hx Substance Use: No Preferred Language: Irish Communication Ability: Unable Green End Worker Required: No Beliefs That Will Affect Care: None Current Living Situation: Alone Feels Safe at Home: Yes Assistive Devices: None Review of Systems Review of Systems: Unobtainable due to cognitive status [place] Symptom Assessment Scale PainAD 1/3 Dyspnea by observation 03 Palliative Performance Score 30% Physical Exam Constitutional: + disheveled; no acute distress Respiratory: normal respiratory effort; no labored breathing Cardiovascular: Rate/Rhythm: regular rate and regular rhythm Gastrointestinal (Abdomen): mild LLQ tenderness, no R/G Neurologic: awake and + confused Psychiatric: Orientation: + not oriented x 3 Results & Data ([facility]) Vital Signs (Past 12 Hours) Vital Signs Temp Pulse Pulse Resp BP Pulse Ox 10/03/20 11:36 98.6 F 99 H 18 135/80 95 10/03/20 08:00 110 H 10/03/20 07:38 98.2 F 104 H 18 143/71 H 91 10/03/20 03:54 97.9 F 103 H 18 150/82 H 96 PG Care Time/CCT Total # of Minutes Spent Total Time Spent with Patient: Total time spent is greater than 50% in coordination of care (as documented) at patient's floor/unit and/or counseling patient: Coding Level of Care Code 36438 Initial Inpt Care Lvl 2 Diagnoses Palliative care encounter Z51.5 Acute metabolic encephalopathy G93.41 B-cell chronic lymphocytic leukemia C91.11 Leukemia Active/Remission status: in remission
--- NOTE | 2020-10-03 17:16 | Nephrology Progress Note ---
Date of Service October 03, 2020 Assessment & Plan (1) Acute renal failure: Creatinine was 0.8 on presentation. Started to uptrend approximately 10/01. Meeting DEE criteria since 10/02 with peak level same day at 1.9. Renal imaging on September 16 was unremarkable. Not oliguric. Urine sediment bland except for microhematuria. He has been n.p.o. now for several days with hypertension and tachycardia as well as intermittent fever: He is over 5 L positive yesterday alone and about 9 L positive since September 29. >> ischemic ATN related to hypertension, fevers, tachycardia, concern for severe sepsis -daily bmp -given hyperchloremia, mild low bicarb cont LR -suspect lactate elevation relates more to lymphoma than to sepsis (2) HTN (hypertension): on target today; w/ his altered MS not taking po reliably though more than before >> ?withdrawal syndrome from meds driving HTN >>goal SBP is 130-140s -lasix and ACEI, labetalol on hold -on po atenolol and prn IV hydralazine, metoprolol -avoid clonidine (3) Hypercalcemia of malignancy: Moderate to severe hypercalcemia downtrending slowly and now within normal limits. Likely due to his lymphoma. Managed medically w/ bisphosphonate, fluid; no dialysi sneeded. pth low as expected (6); 25 OHD low too (27) > c/w lymphoma No indication to redose zolendronate -f/u pending PTH RP, 125 dihydroxy vitamin D levels (4) Acute metabolic encephalopathy: suspect multifactorial > high ammonia, lymphoma?, high calcium, ? med withdrawal; ? HTN though this less likely; focus on treating/evaluating for all of these -continue LR at lowered rate of 80 ml/hr (5) Tachycardia: ? withdrawal such as from gabapentin or antidepressants; sepsis also on differential though heart rate improved today Admission and Anticipated Discharge Date Admission Date: September 16, 2020 Subjective more alert when I saw him this am at 1030 but unable to interact/ express himself meaningfully. palliative following now. had MRCP this am. again spoke to nurses today Review of Systems Review of Systems: Unobtainable due to mental health condition Physical Exam Constitutional: well developed, well nourished and + altered mental status (Lying flat in bed on room air) ENMT: Ears: no external ear abnormality Nose: no external nose abnormality Mouth: + dry oral mucous membranes Neck: no nuchal rigidity Respiratory: normal respiratory effort Auscultation: lungs clear to auscultation bilaterally and + diminished lung sounds Cardiovascular: Rate/Rhythm: + tachycardic (but less than other days) Extremities: no edema Gastrointestinal (Abdomen): Inspection/Auscultation: normal bowel sounds; abdo men not distended Percussion/Palpation: + abdomen tender (diffusely) and abdomen soft; no guarding and abdomen not rigid Musculoskeletal: Extremities: strength 5/5 throughout Skin: no rashes, warm and dry Neurologic: hanson, tries briefly to speak but words unintelligible Results & Data ([facility]) Vital Signs (Past 12 Hours) Vital Signs Temp Pulse Pulse Resp BP Pulse Ox 10/03/20 16:47 98 H 10/03/20 16:02 36.7 C 96 H 18 144/75 H 95 10/03/20 11:36 37.0 C 99 H 18 135/80 95 10/03/20 08:00 110 H 10/03/20 07:38 36.8 C 104 H 18 143/71 H 91 Laboratory Results 10/03/20 06:39 10/03/20 06:39 Diagnostic Findings mrcp 1. Limited exam secondary to motion artifact. 2. Cholelithiasis with trace pericholecystic free fluid. No gallbladder wall thickening, biliary ductal dilation or choledocholithiasis identified. 3. Extensive retroperitoneal and mesenteric adenopathy with splenomegaly suggestive of lymphoma. CXR > no significant pulm vasc congestion; small L base infiltrate slightly worse
[2020-10-03] MEDS ORDERED: ESCITALOPRAM OXALATE 10 MG TAB PO SCH (21:00)
[2020-10-04] MEDS: AMPICILLIN/SULBACTAM SOD 3,000 MG in 0.9 % SODIUM CHLORIDE 100 ML IV SCH ×2 (03:01→09:03)
[2020-10-04 06:14] LABS: Hematocrit (blood only) 33.5 % (42-52); Hemoglobin 10.8 g/dL (14.0-18.0); Mean Corpuscular Hemoglobin 30.3 pg (25-34); Mean Corpuscular Hgb Conc 32.2 g/dL (32-36); Mean Corpuscular Volume 93.8 fL (80-100); Mean Platelet Volume 11.1 fL (7.4-10.4); Platelet Count 151 K/uL (130-400); RDW Coefficient of Variation 17.1 % (11.5-14.5); RDW Standard Deviation 58.2 fL (36.4-46.3); Red Blood Count 3.57 M/uL (4.7-6.1); White Blood Count 8.11 K/uL (4.8-10.8)
[2020-10-04 06:54] LABS: BUN Creatinine Ratio 19.9 (10-20); Creatinine Clr Calc Pharmacy 53.4 ml/min; Est GFR (African American) 52.5 ml/min; Est GFR (Non-African American) 45.3 ml/min; Magnesium 2.5 mg/dl (1.8-2.4); Potassium 3.3 mmol/L (3.5-5.1)
[2020-10-04 06:55] LABS: Phosphorus 1.8 mg/dl (2.5-4.9)
[2020-10-04] MEDS ORDERED: POTASSIUM PHOS 3 MMOL/1 ML INFUSION IV STA (08:16)
--- NOTE | 2020-10-04 08:43 | Hospitalist Progress Note ---
Date of Service October 04, 2020 Assessment & Plan (1) Cognitive deficit, post-stroke: Present on admission with generalized weakness Patient lives alone, does not have any family His home situation as per his friend is deplorable CT head showed No acute intracranial abnormality. MRI of brain showed no acute intracranial findings. No evidence of acute or subacute infarction. 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 Psychiatry consulted to assist patient's decision-making capacity. Ammonia level elevated per psychiatry patient still appears to be very encephalopathic, unable to have any insight regarding his health, self-care, Patient was not capable of leaving hospital AMA Discharge planning will be very difficult, patient does not have any medical insurance, placement to rehab or long-term care could be difficult Returning home by himself has a serious safety concern Case management aware, office of aging will be involved to assist with patient's living situation and support system Metabolic encephalopathy Patient continues to show cognitive deficit, only able to answer some questions appropriately This is likely multifactorial Found to have high ammonia level (? Acute Hepatic encephalopathy), high calcium (Hypercalcemia), high sodium (Hypernatremia) Calcium level and sodium level now within normal level, ammonia elevated GI contacted during this admission d/t elevated ammonia - recommend lactulose, MRCP for mildly elevated bilirubin MRCP unremarkable Lactulose started but ammonia still elevated, started xifaxan Unfortunately patient also found possibly septic with elevated lactic acid, fever However unclear if this is driven by infection or by patient's lymphoma Fever, elevated lactic acid ? Sepsis versus driven by lymphoma Overnight(10/01-10/02) chest x-ray obtained, possible aspiration pneumonitis UA negative Blood cultures obtained October 01 NGTD Patient started on Unasyn, and IV fluids Repeat lactic acid only slightly down DEE -Patient has elevated creatinine, to 1.9 (10/02) -Receiving IV fluids -Nephrology been following -Continue to monitor creatinine, renal function, try to avoid NSAIDs and other nephrotoxic agents -Cr improved 1.6 (10/04) High-grade large B-cell lymphoma Patient has history of CLL, follows with Dr. Roe (oncology) Now underwent lymph node biopsy during this admission, consistent with high- grade large B-cell lymphoma Contacted Dr. Roe (10/02) and further discussed. Says that for this type of lymphoma, patient would need to be on intensive chemotherapy, for which he is not a candidate at this time. Recommended to also obtain LDH LDH significantly elevated, at [address] Roe, high LDH explains a large cell lymphoma, likely to progress in the next few weeks, and recommend hospice Palliative medicine contacted Tried to discuss CODE STATUS with the patient however he is not able to give me a clear answer It also seems like patient does not have a close family, and when I asked him if there is anybody else that could provide medical decision-making for him if he cannot, he said friend Aleshia We will try to address again whenever patient is more awake and alert (2) Tachycardia: Atrial fibrillation with RVR Resolved heart rate is currently rate and rhythm controlled hx of paroxysmal atrial fibrillation Normal TSH Spontaneously converted to sinus On metoprolol 25 mg twice daily, now on home atenolol 50 daily Appreciate Cardiology Input Not a candidate for long-term anticoagulation given risk for falls, noncompliance/cognitive impairment remains in sinus with rate control , 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 In addition there is splenomegaly. Lymphoma is the diagnosis of exclusion. Biopsy is recommended. No evidence of bowel obstruction. No evidence of free air. Cholelithiasis. No renal, ureteral, or bladder calculi identified. There is posterior mediastinal paraesophageal and para-aortic lymphadenopathy. There is a small hiatal hernia. was on Ibrutinib -out patient -Appreciate surgery input -Status post right inguinal lymph node biopsy on 09/18/20 -Flow cytometry study suggestive of B-cell lymphoproliferative disorder. Pathology c/w high-grade B-cell lymphoma, as above Needs follow-up with oncology upon discharge - if able to be discharged - per oncology, recommend hospice Needs follow up with surgery in 2 weeks post biopsy Acute Metabolic Encephalopathy presented with confusion /disorientation awake and alert , very forgetful , oriented to person only ( possible baseline dementia ?) CT Head: No acute intracranial abnormality. No abnormal enhancement. MRI brain no acute change appreciate input from psychiatry , pt remains encephalopathic , Patient does not have cognitive capacity to sign out AGAINST MEDICAL ADVICE (3) HTN (hypertension): Uncontrolled BP Pt has not been able to take his PO BP med when confused Case discussed with Nephrology that recommended IV labetalol (now on hold) Continue monitor BP Resolved, BP controlled (4) PAF (paroxysmal atrial fibrillation): Management as above (5) H/O alcohol abuse: h/o heavy alcohol use No active alcohol withdrawal symptoms noted Continue thiamine, folic acid Continue gabapentin- now on hold as pt very somnolent and now with DEE (6) Seizure: No recent seizure activity CT Head:No acute intracranial findings. Left frontal lobe encephalomalacia. On Keppra, changed to IV since pt unable to take PO Neuro eval appreciated (7) Depression: Continue home medications (8) Polyneuropathy: On gabapentin (9) DVT prophylaxis: Lovenox SQ Code Status Full Code Disposition not safe to return home /lives alone -fall risk ,baseline dementia -unable to do self care /does not appear to have enough cognitive ability for self administration of medications and maintain doctor's follow up needs 02/11 care PT/OT eval case management consulted for discharge planning Palliative medicine also consulted Admission and Anticipated Discharge Date Admission Date: September 16, 2020 Subjective Pt was seen and examined for follow up of confusion Patient looks a little bit more awake and was able to follow few commands He can speak but his voice is soft Unfortunately patient does not have any children or spouse, nor siblings. Asked the patient about who could be possibly making medical decisions for him if he cannot, patient said friend Aleshia. I contacted patient's friend Aleshia yesterday, she reports that she will be happy to come to the hospital to visit the patient and help with the conversation. Per Aleshia, patient would never want any aggressive measures done. He did not want to come to the hospital in the first place. I asked the patient today if it is correct that he would not want any aggressive measures done such as being put on ventilator etc., and patient whispered that it was correct. He also again told me that Aleshia is his closest person and I informed him that she will be visiting him today. Unfortunately he had difficulty telling me the year and month today. He knew he was in the hospital. He said he remembered I talked to him about his lymphoma. He could not tell me which hospital, and I had to remind him that he was in [place]. Plan to continue this conversation in the presence of palliative medicine and his friend Aleshia. Palliative medicine also contacted. Aware that patient's friend Aleshia is planning to come visit today. Review of Systems Review of Systems: Unobtainable due to cognitive status Currently reports no complaints, however unreliable for review of systems Physical Exam Physical Exam: General- WD/WN, in NAD, drowsy Head- atraumatic Eyes- PERRL, EOMI, ENT- oropharynx clear Neck- supple, no JVD Lungs- clear to auscultation Heart- RRR, HR in 90s Abdomen- normal bowel sounds, soft, mildly distended, nontender Extremities- no calf tenderness Neuro- awake but drowsy, able to answer only some questions appropriately, moves extremities Skin- warm & dry Results & Data Results & Data ([facility]) Vital Signs (Past 12 Hours) Vital Signs Temp Pulse Pulse Resp BP BP Pulse Ox 10/04/20 07:54 37.4 C 107 H 19 170/74 H 96 10/04/20 03:33 36.9 C 105 H 18 154/80 H 94 10/04/20 00:23 36.9 C 108 H 18 156/80 H 96 10/03/20 22:30 108 H Laboratory Results 10/04/20 10/04/20 10/04/20 Range/Units 05:58 05:58 05:58 WBC 8.11 (4.8-10.8) K/uL RBC 3.57 L (4.7-6.1) M/uL Hgb 10.8 L (14.0-18.0) g/dL Hct 33.5 L (42-52) % MCV 93.8 (80-100) fL MCH 30.3 (25-34) pg MCHC 32.2 (32-36) g/dL RDW Std Deviation 58.2 H (36.4-46.3) fL RDW Coeff of Yvette 17.1 H (11.5-14.5) % Plt Count 151 (130-400) K/uL MPV 11.1 H (7.4-10.4) fL Sodium 150 H (136-145) mmol/L Potassium 3.3 L (3.5-5.1) mmol/L Chloride 122 H (98-107) mmol/L Carbon Dioxide 21 (21-32) mmol/L Anion Gap 7.0 (3-11) BUN 31 H (7-18) mg/dl Creatinine 1.57 H (0.6-1.4) mg/dl Est Cr Clr Drug Dosing 53.4 ml/min Est GFR ( Amer) 52.5 ml/min Est GFR (Non-Af Amer) 45.3 ml/min BUN/Creatinine Ratio 19.9 (10-20) Glucose 90 (70-99) mg/dl Calcium 9.0 (8.5-10.1) mg/dl Phosphorus 1.8 L (2.5-4.9) mg/dl Magnesium 2.5 H (1.8-2.4) mg/dl Ammonia 71.0 H (11-32) umol/L Medications Administered Current Inpatient Medications Acetaminophen (Acetaminophen 325 Mg Tab) 650 mg PO Q4H PRN PRN Reason: Pain or Fever Stop: 10/16/20 19:35 Allopurinol (Allopurinol 300 Mg Tab) 300 mg PO DAILY EUNICE Stop: 10/17/20 08:59 Last Admin: 10/03/20 08:38 Dose: 300 mg Documented by: Aspirin (Aspirin 81 Mg Ectab) 81 mg PO DAILY EUNICE Stop: 10/27/20 08:59 Last Admin: 10/03/20 08:37 Dose: 81 mg Documented by: Atenolol (Atenolol 50 Mg Tablet) 50 mg PO QAM EUNICE Stop: 11/01/20 08:59 Last Admin: 10/03/20 08:37 Dose: 50 mg Documented by: Lactulose 200 gm/ Sterile Water 700 ml/ BARCODE IDENTIFIER 1 ea 0 gm IN TID EUNICE Stop: 10/31/20 13:59 Last Admin: 10/03/20 14:28 Dose: 200 gm Documented by: Enoxaparin Sodium (Enoxaparin Inj 40 Mg/0.4 Ml Syr) 40 mg SQ HS [facility] Stop: 10/16/20 20:59 Last Admin: 10/01/20 20:01 Dose: 40 mg Documented by: Escitalopram Oxalate (Escitalopram Oxalate 10 Mg Tab) 10 mg PO 2100 EUNICE Stop: 10/17/20 08:59 Last Admin: 10/03/20 20:45 Dose: 10 mg Documented by: Famotidine (Famotidine 20 Mg Tab) 20 mg PO BID EUNICE Stop: 10/16/20 20:59 Last Admin: 10/03/20 20:45 Dose: 20 mg Documented by: Folic Acid (Folic Acid 1 Mg Tab) 1 mg PO DAILY EUNICE Stop: 10/17/20 08:59 Last Admin: 10/01/20 10:50 Dose: 1 mg Documented by: Gabapentin (Gabapentin 250 Mg/5 Ml 470 Ml Btl) 900 mg PO TID@0700,1300,2100 [facility] Stop: 10/28/20 20:59 Last Admin: 10/02/20 08:02 Dose: 900 mg Documented by: Hydralazine HCl (Hydralazine Hcl 20 Mg/Ml Vial) 5 mg IV Q4 PRN PRN Reason: SBP>165 Stop: 10/29/20 18:59 Levetiracetam 750 mg/ Sodium (Chloride) 107.5 mls @ 420 mls/hr IV Q12 [facility] Stop: 10/30/20 09:29 Last Infusion: 10/03/20 21:42 Dose: Infused Documented by: Folic Acid 1 mg/ Syringe 10 mls @ 5 mls/min IV QAM [facility] Stop: 11/01/20 08:59 Last Admin: 10/03/20 08:36 Dose: 5 mls/min Documented by: Thiamine HCl 100 mg/ Syringe 10 mls @ 2 mls/min IV QAM [facility] Stop: 11/01/20 08:59 Last Admin: 10/03/20 08:36 Dose: 2 mls/min Documented by: Acetaminophen (Ofirmev) 65 mls @ 200 mls/hr IV Q8H PRN; Protocol PRN Reason: fever/pain Stop: 10/04/20 23:37 Last Infusion: 10/02/20 00:44 Dose: Infused Documented by: Ampicillin Sodium/Sulbactam Sodium 3,000 mg/ Sodium Chloride 108 mls @ 216 mls/hr IV Q6H [facility]; Protocol Stop: 10/09/20 01:59 Last Infusion: 10/04/20 03:32 Dose: Infused Documented by: Potassium Chloride (K Devonte / Wtr) 10 meq in 100 mls @ 100 mls/hr IV Q1H [facility] Stop: 10/04/20 15:29 Potassium Phosphate 21 mmol/ (Sodium Chloride) 507 mls @ 145 mls/hr IV ONE ONE Stop: 10/04/20 12:14 Lactulose (Lactulose Syrup 30 Gm/45 Ml Udp) 30 gm PO TID@0900,1200,2100 [facility] Stop: 11/03/20 08:59 Levetiracetam (Levetiracetam Oral Soln 100mg/Ml) 750 mg PO BID [facility] Stop: 10/28/20 20:59 Last Admin: 09/30/20 10:38 Dose: Not Given Documented by: Magnesium Oxide (Magnesium Oxide 400 Mg Tab) 400 mg PO DAILY [facility] Stop: 10/17/20 08:59 Last Admin: 10/01/20 10:49 Dose: 400 mg Documented by: Metoprolol Tartrate (Metoprolol Tartrate 1 Mg/Ml Vial) 2.5 mg IV Q6H PRN PRN Reason: FOR HR >120 Stop: 11/02/20 10:42 Miscellaneous (Lactulose Enema: Unit Dose Compound) 1 ea IN TID EUNICE Stop: 11/02/20 08:59 Last Admin: 10/03/20 23:02 Dose: 1 ea Documented by: Miscellaneous Information (Ampicillin/Sulbactam Consult Active) 1 ea N/A UD PRN PRN Reason: Consult Stop: 11/01/20 01:49 Polyethylene Glycol (Polyethylene (Miralax) 17 Gm Pack) 17 gm PO DAILY PRN PRN Reason: Constipation Stop: 10/16/20 19:35 Rifaximin (Rifaximin 550 Mg Tablet) 550 mg PO BID [facility] Stop: 11/03/20 08:59 Sennosides (Senna 8.6 Mg Tab) 8.6 mg PO BID [facility] Stop: 10/16/20 20:59 Last Admin: 10/03/20 08:37 Dose: 8.6 mg Documented by: Thiamine HCl (Thiamine Hcl 100 Mg Tab) 100 mg PO QAM [facility] Stop: 10/16/20 21:19 Last Admin: 10/01/20 10:49 Dose: 100 mg Documented by:
[2020-10-04] MEDS ORDERED: POTASSIUM PHOSPHATE 21 MMOL in SODIUM CHLORIDE 0.9% 500 ML IV ONE (08:45)
[2020-10-04] MEDS ORDERED: rifAXIMin 550 MG TABLET PO SCH (09:00)
[2020-10-04] MEDS: levETIRAcetam 750 MG in 0.9 % SODIUM CHLORIDE 100 ML IV SCH ×2 (09:03→23:24)
[2020-10-04] MEDS: ASPIRIN 81 MG ECTAB PO SCH (09:04)
[2020-10-04] MEDS: ATENOLOL 50 MG TABLET PO SCH (09:04)
[2020-10-04] MEDS: LACTULOSE SYRUP 30 GM/45 ML UDP PO SCH ×2 (09:04→11:33)
[2020-10-04] MEDS: LACTULOSE ENEMA COMPOUND PR SCH (09:05)
[2020-10-04] MEDS: allopurinoL 300 MG TAB PO SCH (09:05)
[2020-10-04] MEDS: LACTULOSE 200 GM, WATER, STERILE IRRIG 700 ML, BARCODE IDENTIFIER 1 EA PR SCH (09:05)
[2020-10-04] MEDS: THIAMINE HCL 100 MG in SYRINGE 9 ML IV SCH (09:06)
[2020-10-04] MEDS: FOLIC ACID 1 MG in SYRINGE 9.8 ML IV SCH (09:06)
[2020-10-04] MEDS: FAMOTIDINE 20 MG TAB PO SCH (09:07)
[2020-10-04] MEDS: POTASSIUM CHLORIDE / WTR 10 MEQ/100 ML PLCT IV SCH ×2 (11:31→12:32)
[2020-10-04] MEDS ORDERED: DEXTROSE 5% 1,000 ML IV SCH (13:15)
--- NOTE | 2020-10-04 13:18 | Nephrology Progress Note ---
Date of Service October 04, 2020 Assessment & Plan (1) Acute renal failure: Creatinine was 0.8 on presentation. Started to uptrend approximately 10/01. Meeting DEE criteria since 10/02 with peak level same day at 1.9. Renal imaging on September 16 was unremarkable. Not oliguric. Urine sediment bland except for microhematuria. He has been n.p.o. now for several days with hypertension and tachycardia as well as intermittent fever: He is over 5 L positive yesterday alone and about 9 L positive since September 29. >> ischemic ATN related to hypertension, fevers, tachycardia, concern for severe sepsis but favor more issues w/ lymphoma -daily bmp -given hyperchloremia, hypernatremia changed LR to D5W w/ 20 mEq/L at 80 mL/hr continuous; he also had 21 mm K phos and 2 x 10 mEq IV K (I cx'd third one) -recheck bmp ordered for 1800 -suspect lactate elevation relates more to lymphoma than to sepsis (2) HTN (hypertension): on target today; w/ his altered MS not taking po reliably though more than before >> ?withdrawal syndrome from meds driving HTN >>goal SBP is 130-140s -lasix and ACEI, labetalol on hold -on po atenolol and prn IV hydralazine, metoprolol -avoid clonidine (3) Hypercalcemia of malignancy: Moderate to severe hypercalcemia downtrending slowly and now within normal limits. Likely due to his lymphoma. Managed medically w/ bisphosphonate, fluid; no dialysi sneeded. pth low as expected (6); 25 OHD low too (27) > c/w lymphoma No indication to redose zolendronate -at some point f/u pending PTH RP, 125 dihydroxy vitamin D levels - not likely now to change mgt however (4) Acute metabolic encephalopathy: suspect multifactorial > high ammonia, lymphoma?, high calcium, ? med withdrawal; ? HTN though this less likely; focus on treating/evaluating for all of these (5) Tachycardia: ? withdrawal such as from gabapentin or antidepressants; sepsis also on differential though heart rate improved today Admission and Anticipated Discharge Date Admission Date: September 16, 2020 Subjective no interval events; pt was more awake this am w/ hospitalist; palliative following Review of Systems Review of Systems: Unobtainable due to cognitive status Physical Exam Constitutional: well developed, well nourished and + altered mental status ( Lying flat in bed on room air) ENMT: Ears: no external ear abnormality Nose: no external nose abnormality Mouth: + dry oral mucous membranes Neck: no nuchal rigidity Respiratory: normal respiratory effort Auscultation: lungs clear to auscultation bilaterally and + diminished lung sounds Cardiovascular: Rate/Rhythm: + tachycardic (but less than other days) Extremities: no edema Gastrointestinal (Abdomen): Inspection/Auscultation: normal bowel sounds; abdomen not distended Percussion/Palpation: + abdomen tender (diffusely) and abdomen soft; no guarding and abdomen not rigid Musculoskeletal: Extremities: strength 5/5 throughout Skin: no rashes, warm and dry Results & Data ([facility]) Vital Signs (Past 12 Hours) Vital Signs Temp Pulse Resp BP BP Pulse Ox 10/04/20 11:49 37.0 C 95 H 19 148/72 H 96 10/04/20 07:54 37.4 C 107 H 19 170/74 H 96 10/04/20 03:33 36.9 C 105 H 18 154/80 H 94 Laboratory Results 10/04/20 05:58 10/04/20 05:58
--- NOTE | 2020-10-04 13:41 | Palliative Care Progress Note ---
Date of Service October 04, 2020 Assessment & Plan (1) Palliative care encounter: I met with Bridger's friend, Aleshia, who has known him for 35 years. He has consistently said that she would be his surrogate decision maker. She is also the person who knows him best and he has no family to be surrogates. We discussed his current status and the fact that despite aggressive treatment, his condition is not improving. Unfortunately his prognosis is quite poor and he is likely to continue to decline with or without treatment. Aleshia feels that he would not want aggressive care at this point and that he would want focus of care to be comfort. Prior to his hospitalization he had talked with her about how the quality of his life had declined. Aleshia and I talked with Bridger at bedside. While he does have some confusion, he nods appropriately to questions during our discussion. We talked about focusing care on his comfort and whether that would be something that he would want and he nodded. Given his input, Aleshia's input and the futility of continued aggressive care, a comfort oriented approach would be in his best interest at this point. I discussed with Dr. Yadav who has talked with Bridger and had similar response. She is in agreement. (2) Acute renal failure: (3) Acute metabolic encephalopathy: (4) B-cell chronic lymphocytic leukemia: (5) Abnormal LFTs: Admission and Anticipated Discharge Date Admission Date: September 16, 2020 Subjective Somewhat more alert today. Speech very weak. He c/o feeling cold. He denies pain but grimaces with movement. Review of Systems Review of Systems: [place] Symptom Assessment Scale Pain 1/3 Dyspnea 0/3 Nausea 0/3 Anxiety 1/3 Fatigue 2/3 Drowsiness 1/3 Palliative Performance Score 20% Physical Exam Constitutional: + altered mental status and + disheveled ENMT: Mouth: + dry oral mucous membranes Respiratory: normal respiratory effort; no labored breathing Cardiovascular: Rate/Rhythm: regular rate and regular rhythm Gastrointestinal (Abdomen): Inspection/Auscultation: + abdomen distended Percussion/Palpation: abdomen nontender Neurologic: awake and + confused (at times) Results & Data ([facility]) Vital Signs (Past 12 Hours) Vital Signs Temp Pulse Resp BP BP Pulse Ox 10/04/20 11:49 98.6 F 95 H 19 148/72 H 96 10/04/20 07:54 99.3 F 107 H 19 170/74 H 96 10/04/20 03:33 98.4 F 105 H 18 154/80 H 94 PG Care Time/CCT Total # of Minutes Spent Total Time Spent with Patient: Total time spent is greater than 50% in coordination of care (as documented) at patient's floor/unit and/or counseling patient:total time spent 45 minutes with more than 50% of time spent on surrogate decision maker, goals of care Coding Level of Care Code 40727 Subseq Hosp Care Lvl 3 Diagnoses Palliative care encounter Z51.5 Acute renal failure N17.9 Acute metabolic encephalopathy G93.41 B-cell chronic lymphocytic leukemia C91.11 Leukemia Active/Remission status: in remission Abnormal LFTs R94.5 (1) B-cell chronic lymphocytic leukemia Leukemia Active/Remission status: in remission Qualified Code(s): C91.11 - Chronic lymphocytic leukemia of B-cell type in remission
[2020-10-04] MEDS ORDERED: POTASSIUM CHLORIDE 20 MEQ in DEXTROSE 5% 1,000 ML IV SCH (13:45)
[2020-10-04] MEDS ORDERED: GLYCOPYRROLATE 0.2 MG/ML VIAL IV PRN (13:54)
[2020-10-04] MEDS ORDERED: ONDANSETRON INJ 2 MG/ML 2 ML VIAL IV PRN (13:54)
[2020-10-04] MEDS ORDERED: LORazepam 0.5 MG TAB PO PRN (13:54)
[2020-10-04] MEDS ORDERED: LORazepam 0.5 MG/1 ML VIAL IV PRN (13:54)
[2020-10-04] MEDS ORDERED: ONDANSETRON 4 MG OD TAB SL PRN (13:54)
--- NOTE | 2020-10-05 06:50 | Hospitalist Progress Note ---
Date of Service October 05, 2020 Assessment & Plan (1) Cognitive deficit, post-stroke: Present on admission with generalized weakness Patient lives alone, does not have any family His home situation as per his friend is deplorable CT head showed No acute intracranial abnormality. MRI of brain showed no acute intracranial findings. No evidence of acute or subacute infarction. 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 Psychiatry consulted to assist patient's decision-making capacity. Ammonia level elevated per psychiatry patient still appears to be very encephalopathic, unable to have any insight regarding his health, self-care, Patient was not capable of leaving hospital AMA Discharge planning will be very difficult, patient does not have any medical insurance, placement to rehab or long-term care could be difficult Returning home by himself has a serious safety concern Case management aware, office of aging will be involved to assist with patient's living situation and support system Pt is now comfort care, CM aware - OOA involved Metabolic encephalopathy Patient continues to show cognitive deficit, only able to answer some questions appropriately This is likely multifactorial Found to have high ammonia level (? Acute Hepatic encephalopathy), high calcium (Hypercalcemia), high sodium (Hypernatremia) Calcium level and sodium level now within normal level, ammonia elevated GI contacted during this admission d/t elevated ammonia - recommend lactulose, MRCP for mildly elevated bilirubin MRCP unremarkable Lactulose started but ammonia still elevated, started xifaxan Unfortunately patient also found possibly septic with elevated lactic acid, fever However unclear if this is driven by infection or by patient's lymphoma Pt now comfort care, mental status essentially unchanged Fever, elevated lactic acid ? Sepsis versus driven by lymphoma Overnight(10/01-10/02) chest x-ray obtained, possible aspiration pneumonitis UA negative Blood cultures obtained October 01 NGTD Patient started on Unasyn, and IV fluids Repeat lactic acid only slightly down No longer febrile, lactic acid persistently elevated likely 2/2 lymphoma, pt now made comfort care DEE -Elevated creatinine, to 1.9 (10/02) -Receiving IV fluids -Nephrology been following -Continue to monitor creatinine, renal function, try to avoid NSAIDs and other nephrotoxic agents -Cr improved 1.6 (10/04) -will stop monitoring renal function, pt made comfort care High-grade large B-cell lymphoma Patient has history of CLL, follows with Dr. Roe (oncology) Now underwent lymph node biopsy during this admission, consistent with high- grade large B-cell lymphoma Contacted Dr. Roe (10/02) and further discussed. Says that for this type of lymphoma, patient would need to be on intensive chemotherapy, for which he is not a candidate at this time. Recommended to also obtain LDH LDH significantly elevated, at [address] Roe, high LDH explains a large cell lymphoma, likely to progress in the next few weeks, and recommend hospice Palliative medicine contacted Discussed CODE STATUS with the patient and Aleshia, his closest friend as patient does not have any close family. Patient does not have any children, spouse or siblings. When I asked him if there is anybody else that could provide medical decision- making for him if he cannot, he said only friend Aleshia Hernandez. Per Aleshia, patient would never want any aggressive measures done and he did not want to come into the hospital in the first place. She was also updated about patient's poor prognosis, and discussion with oncology. Given poor clinical progress thus far, it seems that further treatment is futile. After thorough discussion with Aleshia, patient and palliative medicine, patient was made comfort care on October 04. (2) Tachycardia: Atrial fibrillation with RVR Resolved heart rate is currently rate and rhythm controlled hx of paroxysmal atrial fibrillation Normal TSH Spontaneously converted to sinus On metoprolol 25 mg twice daily, then back on home atenolol 50 daily Appreciate Cardiology Input Not a candidate for long-term anticoagulation given risk for falls, noncompliance/cognitive impairment remains in sinus with rate control , satellite project site monitor d/lolita Now pt made comfort care, unnecessary medications discontinued Extensive lymphadenopathy H/O CLL -CT ABD:Extensive mesenteric, retroperitoneal, iliac chain, and iliac lymphadenopathy. In addition there is splenomegaly. Lymphoma is the diagnosis of exclusion. Biopsy is recommended. No evidence of bowel obstruction. No evidence of free air. Cholelithiasis. No renal, ureteral, or bladder calculi identified. There is posterior mediastinal paraesophageal and para-aortic lymphadenopathy. There is a small hiatal hernia. was on Ibrutinib -out patient for CLL -Appreciate surgery input -Status post right inguinal lymph node biopsy on 09/18/20 -Flow cytometry study suggestive of B-cell lymphoproliferative disorder. Pathology c/w high-grade B-cell lymphoma, as above per oncology, recommend hospice (see above), pt now made comfort care (3) HTN (hypertension): Uncontrolled BP Pt has not been able to take his PO BP med when confused Case discussed with Nephrology that recommended IV labetalol (now on hold) Continue monitor BP Resolved, BP controlled Pt now made comfort care, unnecessary discontinued (4) PAF (paroxysmal atrial fibrillation): Management as above (5) H/O alcohol abuse: h/o heavy alcohol use No active alcohol withdrawal symptoms noted Continued thiamine, folic acid Continued gabapentin when able to take PO, then on hold as pt very somnolent and developed DEE Now pt made comfort care, and is the medication discontinued (6) Seizure: No recent seizure activity CT Head:No acute intracranial findings. Left frontal lobe encephalomalacia. On Keppra, changed to IV since pt unable to take PO Neuro eval appreciated (7) Depression: stopped home medications, as above (8) Polyneuropathy: stopped gabapentin, as above (9) DVT prophylaxis: stopped Lovenox SQ, comfort care Code Status : COMFORT CARE Discussed CODE STATUS with the patient and Aleshia, his closest friend as patient does not have any close family. Patient does not have any children, spouse or siblings. When I asked him if there is anybody else that could provide medical decision- making for him if he cannot, he said only friend Aleshia Hernandez. Per Aleshia, patient would never want any aggressive measures done and he did not want to come into the hospital in the first place. She was also updated about patient's poor prognosis, and discussion with oncology. Given poor clinical progress thus far, it seems that further treatment is futile. After thorough discussion with Aleshia, patient and palliative medicine, patient was made comfort care on October 04. Disposition not safe to return home /lives alone -fall risk ,baseline dementia -unable to do self care /does not appear to have enough cognitive ability for self administration of medications and maintain doctor's follow up needs 02/11 care PT/OT eval case management consulted for discharge planning Palliative medicine also consulted Admission and Anticipated Discharge Date Admission Date: September 16, 2020 Subjective Pt was seen and examined for follow up of confusion, high grade B cell lymphoma, now comfort care Patient is lying in bed, appears in no distress, his voice is very soft, unfortunately he mostly answers and repeats the same thing He denies any pain Unfortunately patient does not have any children or spouse, nor siblings. Asked the patient about who could be possibly making medical decisions for him if he cannot, patient said friend Aleshia. I contacted patient's friend Aleshia. Per Aleshia, patient would never want any aggressive measures done. He did not want to come to the hospital in the first place. I asked the patient yesterday if it was correct that he would not want any aggressive measures done such as being put on ventilator etc., and patient whispered that it was correct. He also again told me that Aleshia is his closest person. Aleshia was able to visit yesterday, and had this conversation as well with Dr. Cordon, from palliative medicine, and the patient. Aleshia was updated about yvonne ent's poor prognosis, and my conversation with Dr. Roe from oncology. Given Edouard's poor clinical progress thus far, further treatment seems to be futile. Aleshia is in understanding, and after thorough discussion, patient was changed to comfort care status. Palliative medicine following. Review of Systems Review of Systems: Unobtainable due to cognitive status Patient denies any pain, and seems to be in no distress however not able to review full ROS due to cognitive status Physical Exam Physical Exam: General- WD/WN, in NAD, drowsy Head- atraumatic Eyes- PERRL, EOMI, ENT- oropharynx clear Neck- supple, no JVD Lungs- clear to auscultation Heart- RRR, HR in 90s Abdomen- normal bowel sounds, soft, nontender Extremities- no calf tenderness Neuro- awake but drowsy, able to answer only some questions appropriately, moves extremities Skin- warm & dry
[2020-10-05 06:56] LABS: Magnesium 2.9 mg/dl (1.8-2.4)
[2020-10-05] MEDS: levETIRAcetam 750 MG in 0.9 % SODIUM CHLORIDE 100 ML IV SCH ×2 (09:31→23:28)
[2020-10-06 00:22] LABS: PTH Related Protein 21 pg/mL (14-27); Vitamin D 1,25 77 pg/mL (18-72); Vitamin D3,1,25 77 pg/mL
--- NOTE | 2020-10-06 07:51 | Hospitalist Progress Note ---
Date of Service October 06, 2020 Assessment & Plan (1) Cognitive deficit, post-stroke: Present on admission with generalized weakness Patient lives alone, does not have any family His home situation as per his friend is deplorable CT head showed No acute intracranial abnormality. MRI of brain showed no acute intracranial findings. No evidence of acute or subacute infarction. 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 Psychiatry consulted to assist patient's decision-making capacity. Ammonia level elevated per psychiatry patient still appears to be very encephalopathic, unable to have any insight regarding his health, self-care, Patient was not capable of leaving hospital AMA Discharge planning will be very difficult, patient does not have any medical insurance, placement to rehab or long-term care could be difficult Returning home by himself has a serious safety concern Case management aware, office of aging will be involved to assist with patient's living situation and support system Pt is now comfort care, CM aware - OOA involved Metabolic encephalopathy Patient continues to show cognitive deficit, only able to answer some questions appropriately This is likely multifactorial Found to have high ammonia level (? Acute Hepatic encephalopathy), high calcium (Hypercalcemia), high sodium (Hypernatremia) Calcium level and sodium level now within normal level, ammonia elevated GI contacted during this admission d/t elevated ammonia - recommend lactulose, MRCP for mildly elevated bilirubin MRCP unremarkable Lactulose started but ammonia still elevated, started xifaxan Unfortunately patient also found possibly septic with elevated lactic acid, fever However unclear if this is driven by infection or by patient's lymphoma Pt now comfort care, mental status essentially unchanged Fever, elevated lactic acid ? Sepsis versus driven by lymphoma Overnight(10/01-10/02) chest x-ray obtained, possible aspiration pneumonitis UA negative Blood cultures obtained October 01 NGTD Patient started on Unasyn, and IV fluids Repeat lactic acid only slightly down No longer febrile, lactic acid persistently elevated likely 2/2 lymphoma, pt now made comfort care DEE -Elevated creatinine, to 1.9 (10/02) -Receiving IV fluids -Nephrology been following -Continue to monitor creatinine, renal function, try to avoid NSAIDs and other nephrotoxic agents -Cr improved 1.6 (10/04) -will stop monitoring renal function, pt made comfort care High-grade large B-cell lymphoma Patient has history of CLL, follows with Dr. Roe (oncology) Now underwent lymph node biopsy during this admission, consistent with high- grade large B-cell lymphoma Contacted Dr. Roe (10/02) and further discussed. Says that for this type of lymphoma, patient would need to be on intensive chemotherapy, for which he is not a candidate at this time. Recommended to also obtain LDH LDH significantly elevated, at [address] Roe, high LDH explains a large cell lymphoma, likely to progress in the next few weeks, and recommend hospice Palliative medicine contacted Discussed CODE STATUS with the patient and Aleshia, his closest friend as patient does not have any close family. Patient does not have any children, spouse or siblings. When I asked him if there is anybody else that could provide medical decision- making for him if he cannot, he said only friend Aleshia Hernandez. Per Aleshia, patient would never want any aggressive measures done and he did not want to come into the hospital in the first place. She was also updated about patient's poor prognosis, and discussion with oncology. Given poor clinical progress thus far, it seems that further treatment is futile. After thorough discussion with Aleshia, patient and palliative medicine, patient was made comfort care on October 04. (2) Tachycardia: Atrial fibrillation with RVR Resolved heart rate is currently rate and rhythm controlled hx of paroxysmal atrial fibrillation Normal TSH Spontaneously converted to sinus On metoprolol 25 mg twice daily, then back on home atenolol 50 daily Appreciate Cardiology Input Not a candidate for long-term anticoagulation given risk for falls, noncompliance/cognitive impairment remains in sinus with rate control , personnel monitor d/lolita Now pt made comfort care, unnecessary medications discontinued Extensive lymphadenopathy H/O CLL -CT ABD:Extensive mesenteric, retroperitoneal, iliac chain, and iliac lymphadenopathy. In addition there is splenomegaly. Lymphoma is the diagnosis of exclusion. Biopsy is recommended. No evidence of bowel obstruction. No evidence of free air. Cholelithiasis. No renal, ureteral, or bladder calculi identified. There is posterior mediastinal paraesophageal and para-aortic lymphadenopathy. There is a small hiatal hernia. was on Ibrutinib -out patient for CLL -Appreciate surgery input -Status post right inguinal lymph node biopsy on 09/18/20 -Flow cytometry study suggestive of B-cell lymphoproliferative disorder. Pathology c/w high-grade B-cell lymphoma, as above per oncology, recommend hospice (see above), pt now made comfort care (3) HTN (hypertension): Uncontrolled BP Pt has not been able to take his PO BP med when confused Case discussed with Nephrology that recommended IV labetalol (now on hold) Continue monitor BP Resolved, BP controlled Pt now made comfort care, unnecessary meds discontinued (4) PAF (paroxysmal atrial fibrillation): Management as above (5) H/O alcohol abuse: h/o heavy alcohol use No active alcohol withdrawal symptoms noted Continued thiamine, folic acid Continued gabapentin when able to take PO, then on hold as pt very somnolent and developed DEE Now pt made comfort care, medications discontinued (6) Seizure: No recent seizure activity CT Head:No acute intracranial findings. Left frontal lobe encephalomalacia. On Keppra, changed to IV since pt unable to take PO Neuro eval appreciated (7) Depression: stopped home medications, as above (8) Polyneuropathy: stopped gabapentin, as above (9) DVT prophylaxis: stopped Lovenox SQ, comfort care Code Status : COMFORT CARE Discussed CODE STATUS with the patient and Aleshia, his closest friend as patient does not have any close family. Patient does not have any children, spouse or siblings. When I asked him if there is anybody else that could provide medical decision- making for him if he cannot, he said only friend Aleshia Hernandez. Per Aleshia, patient would never want any aggressive measures done and he did not want to come into the hospital in the first place. She was also updated about patient's poor prognosis, and discussion with oncology. Given poor clinical progress thus far, it seems that further treatment is futile. After thorough discussion with Aleshia, patient and palliative medicine, patient was made comfort care on October 04. Disposition not safe to return home /lives alone -fall risk ,baseline dementia -unable to do self care /does not appear to have enough cognitive ability for self administration of medications and maintain doctor's follow up needs 02/11 care PT/OT eval case management consulted for discharge planning Palliative medicine also consulted Admission and Anticipated Discharge Date Admission Date: September 16, 2020 Subjective Pt was seen and examined for follow up of confusion, high grade B cell lymphoma, now comfort care Patient is lying in bed, appears in no distress, his voice is very soft, unfortunately he mostly repeats his answers He denies any pain Unfortunately patient does not have any children or spouse, nor siblings. When pt was more awake earlier this admission, asked the patient about who could be possibly making medical decisions for him if he cannot, patient said friend Aleshia. I contacted patient's friend Aleshia. Per Aleshia, patient would never want any aggressive measures done. He did not want to come to the hospital in the first place. I asked the patient if it was correct that he would not want any aggressive measures done such as being put on ventilator etc., and patient whispered that it was correct. He also again told me that Aleshia is his closest person. Aleshia was able to visit, and had this conversation as well with Dr. Cordon, from palliative medicine, and the patient. Aleshia was updated about patient's poor prognosis, and my conversation with Dr. Roe from oncology. Given Edouard's poor clinical progress thus far, further treatment seems to be futile. Aleshia is in understanding, and after thorough discussion, patient was changed to comfort care status. Palliative medicine following. Review of Systems Review of Systems: Patient denies any pain, and seems to be in no distress however not able to review full ROS due to cognitive status Physical Exam Physical Exam: General- WD/WN, in NAD, drowsy Head- atraumatic Eyes- PERRL, EOMI, ENT- oropharynx clear Neck- supple, no JVD Lungs- clear to auscultation Heart- RRR, HR in 90s Abdomen- normal bowel sounds, soft, nontender Extremities- no calf tenderness Neuro- awake but drowsy, able to answer only some questions appropriately, moves extremities Skin- warm & dry Results & Data Results & Data ([facility]) Vital Signs (Past 12 Hours) Vital Signs Temp Pulse Resp BP Pulse Ox 10/06/20 07:48 36.8 C 118 H 17 168/72 H 97
[2020-10-06] MEDS: levETIRAcetam 750 MG in 0.9 % SODIUM CHLORIDE 100 ML IV SCH ×2 (08:22→22:20)
--- NOTE | 2020-10-06 13:39 | Palliative Care Progress Note ---
Date of Service October 06, 2020 Assessment & Plan (1) Acute metabolic encephalopathy: (2) Palliative care encounter: Despite optimal treatment for infection and hepatic encephalopathy, he has had persistent decline in the setting of B cell lymphoma. At this point, focus of care is comfort. He does deny pain when asked though his mental status is unreliable. He has not had any prn medications for pain or anxiety. Given his restlessness, would consider dose of prn oxycodone for pain as potential cause of his symptoms. Palliative care will follow. Admission and Anticipated Discharge Date Admission Date: September 16, 2020 Subjective Awake. Very restless. Kicking sheets off. Talking but generally no intelligible speech. Review of Systems Review of Systems: Unobtainable due to cognitive status Palliative Performance Score 30% Physical Exam Constitutional: + disheveled restless Respiratory: normal respiratory effort; no labored breathing Gastrointestinal (Abdomen): Inspection/Auscultation: + abdomen distended Musculoskeletal: Extremities: extremities normal to inspection Skin: no rashes, warm and dry Neurologic: awake and + confused Results & Data ([facility]) Vital Signs (Past 12 Hours) Vital Signs Temp Pulse Resp BP Pulse Ox 10/06/20 07:48 98.2 F 118 H 17 168/72 H 97 PG Care Time/CCT Total # of Minutes Spent Total Time Spent with Patient: Total time spent is greater than 50% in coordination of care (as documented) at patient's floor/unit and/or counseling patient: Coding Level of Care Code 80957 Subseq Hosp Care Lvl 2 Diagnoses Acute metabolic encephalopathy G93.41 Palliative care encounter Z51.5
[2020-10-07] MEDS: levETIRAcetam 750 MG in 0.9 % SODIUM CHLORIDE 100 ML IV SCH ×2 (09:06→22:06)
--- NOTE | 2020-10-07 09:54 | Hospitalist Progress Note ---
Date of Service October 07, 2020 Assessment & Plan (1) Cognitive deficit, post-stroke: Present on admission with generalized weakness Patient lives alone, does not have any family His home situation as per his friend is deplorable CT head showed No acute intracranial abnormality. MRI of brain showed no acute intracranial findings. No evidence of acute or subacute infarction. 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 Psychiatry consulted to assist patient's decision-making capacity. Ammonia level elevated per psychiatry patient still appears to be very encephalopathic, unable to have any insight regarding his health, self-care, Patient was not capable of leaving hospital AMA Discharge planning will be very difficult, patient does not have any medical insurance, placement to rehab or long-term care could be difficult Returning home by himself has a serious safety concern Case management aware, office of aging will be involved to assist with patient's living situation and support system Pt is now comfort care, CM aware - OOA involved Metabolic encephalopathy Patient continues to show cognitive deficit, only able to answer some questions appropriately This is likely multifactorial Found to have high ammonia level (? Acute Hepatic encephalopathy), high calcium (Hypercalcemia), high sodium (Hypernatremia) Calcium level and sodium level now within normal level, ammonia elevated GI contacted during this admission d/t elevated ammonia - recommend lactulose, MRCP for mildly elevated bilirubin MRCP unremarkable Lactulose started but ammonia still elevated, started xifaxan Unfortunately patient also found possibly septic with elevated lactic acid, fever However unclear if this is driven by infection or by patient's lymphoma Pt now comfort care, mental status essentially unchanged Fever, elevated lactic acid ? Sepsis versus driven by lymphoma Overnight(10/01-10/02) chest x-ray obtained, possible aspiration pneumonitis UA negative Blood cultures obtained October 01 NGTD Patient started on Unasyn, and IV fluids Repeat lactic acid only slightly down No longer febrile, lactic acid persistently elevated likely 2/2 lymphoma, pt now made comfort care DEE -Elevated creatinine, to 1.9 (10/02) -Receiving IV fluids -Nephrology been following -Continue to monitor creatinine, renal function, try to avoid NSAIDs and other nephrotoxic agents -Cr improved 1.6 (10/04) -will stop monitoring renal function, pt made comfort care High-grade large B-cell lymphoma Patient has history of CLL, follows with Dr. Roe (oncology) Now underwent lymph node biopsy during this admission, consistent with high- grade large B-cell lymphoma Contacted Dr. Roe (10/02) and further discussed. Says that for this type of lymphoma, patient would need to be on intensive chemotherapy, for which he is not a candidate at this time. Recommended to also obtain LDH LDH significantly elevated, at [address] Roe, high LDH explains a large cell lymphoma, likely to progress in the next few weeks, and recommend hospice Palliative medicine contacted Discussed CODE STATUS with the patient and Aleshia, his closest friend as patient does not have any close family. Patient does not have any children, spouse or siblings. When I asked him if there is anybody else that could provide medical decision- making for him if he cannot, he said only friend Aleshia Hernandez. Per Aleshia, patient would never want any aggressive measures done and he did not want to come into the hospital in the first place. She was also updated about patient's poor prognosis, and discussion with oncology. Given poor clinical progress thus far, it seems that further treatment is futile. After thorough discussion with Aleshia, patient and palliative medicine, patient was made comfort care on October 04. 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 In addition there is splenomegaly. Lymphoma is the diagnosis of exclusion. Biopsy is recommended. No evidence of bowel obstruction. No evidence of free air. Cholelithiasis. No renal, ureteral, or bladder calculi identified. There is posterior mediastinal paraesophageal and para-aortic lymphadenopathy. There is a small hiatal hernia. was on Ibrutinib -out patient for CLL -Appreciate surgery input -Status post right inguinal lymph node biopsy on 09/18/20 -Flow cytometry study suggestive of B-cell lymphoproliferative disorder. Pathology c/w high-grade B-cell lymphoma, as above per oncology, recommend hospice (see above), pt now made comfort care (3) HTN (hypertension): Uncontrolled BP Pt has not been able to take his PO BP med when confused Case discussed with Nephrology that recommended IV labetalol (now on hold) Continue monitor BP Resolved, BP controlled Pt now made comfort care, unnecessary meds discontinued (4) PAF (paroxysmal atrial fibrillation): Management as above (5) H/O alcohol abuse: h/o heavy alcohol use No active alcohol withdrawal symptoms noted Continued thiamine, folic acid Continued gabapentin when able to take PO, then on hold as pt very somnolent and developed DEE Now pt made comfort care, medications discontinued (6) Seizure: No recent seizure activity CT Head:No acute intracranial findings. Left frontal lobe encephalomalacia. On Keppra, changed to IV since pt unable to take PO Neuro eval appreciated (7) Depression: stopped home medications, as above (8) Polyneuropathy: stopped gabapentin, as above (9) DVT prophylaxis: stopped Lovenox SQ, comfort care Code Status : COMFORT CARE Discussed CODE STATUS with the patient and Aleshia, his closest friend as patient does not have any close family. Patient does not have any children, spouse or siblings. When I asked him if there is anybody else that could provide medical decision- making for him if he cannot, he said only friend Aleshia Hernandez. Per Aleshia, patient would never want any aggressive measures done and he did not want to come into the hospital in the first place. She was also updated about patient's poor prognosis, and discussion with oncology. Given poor clinical progress thus far, it seems that further treatment is futile. After thorough discussion with Aleshia, patient and palliative medicine, patient was made comfort care on October 04. Disposition not safe to return home /lives alone -fall risk ,baseline dementia -unable to do self care /does not appear to have enough cognitive ability for self administration of medications and maintain doctor's follow up needs 02/11 care PT/OT eval case management consulted for discharge planning Palliative medicine also consulted Admission and Anticipated Discharge Date Admission Date: September 16, 2020 Subjective Pt was seen and examined for follow up of confusion, high grade B cell lymphoma, now comfort care Patient is lying in bed, appears in no distress, his voice is very soft, unfortunately he mostly repeats his answers and it is intelligible Keeps sheets off of his body Unfortunately patient does not have any children or spouse, nor siblings. When pt was more awake/alert earlier this admission, asked the patient about who could be possibly making medical decisions for him if he cannot, patient said friend Aleshia. I contacted patient's friend Aleshia. Per Aleshia, patient would never want any aggressive measures done. He did not want to come to the hospital in the first place. I asked the patient if it was correct that he would not want any aggressive measures done such as being put on ventilator etc., and patient whispered that it was correct. He also again told me that Aleshia is his closest person. Aleshia was able to visit, and had this conversation as well with Dr. Cordon, from palliative medicine, and the patient. Aleshia was updated about patient's poor prognosis, and my conversation with Dr. Roe from oncology. Given Edouard's poor clinical progress thus far, further treatment seems to be futile. Aleshia is in understanding, and after thorough discussion, patient was changed to comfort care status. Palliative medicine following. Review of Systems Review of Systems: Unobtainable due to cognitive status pt appears in no distress Physical Exam Physical Exam: General- WD/WN, in NAD, drowsy Head- atraumatic Neck- supple, no JVD Lungs- clear to auscultation Heart- +tachycardic Abdomen- normal bowel sounds, soft,+mildly distended, seems nontender Extremities- no calf tenderness Neuro- drowsy, only mumbles, answers intelligible, moves extremities Skin- warm & dry Results & Data Results & Data ([facility]) Vital Signs (Past 12 Hours) Vital Signs Temp Pulse Resp BP Pulse Ox 10/07/20 07:06 36.8 C 124 H 19 165/82 H 98
--- NOTE | 2020-10-07 11:54 | Palliative Care Progress Note ---
Date of Service October 07, 2020 Assessment & Plan (1) Palliative care encounter: Goal is comforted directed care. Plan for placement at SNF with that in mind when possible. Case management and Office of Aging are involved. He does not have any family or designated POA, but has clearly stated earlier in this admission that he would want his friend, Aleshia Hernandez, to be his surrogate decision maker. I tried to call Aleshia with update. No answer. (2) Anxiety: He appears to be in distress and encephalopathic. He consistently denies pain. Will add routine lorazepam dosing. Discussed with RN. (3) PAF (paroxysmal atrial fibrillation): (4) B-cell chronic lymphocytic leukemia: (5) Acute metabolic encephalopathy: Admission and Anticipated Discharge Date Admission Date: September 16, 2020 Subjective Restless, pulling legs up. Mumbling. Denies pain. Says "not at all" repetitively. Review of Systems Review of Systems: [place] Symptom Assessment Scale Pain 0/3 Anxiety 2/3 Fatigue 1/3 Dyspnea 0/3 Palliative Performance Score 30% Physical Exam Constitutional: restless ENMT: Mouth: + dry oral mucous membranes Respiratory: normal respiratory effort; no labored breathing Cardiovascular: Rate/Rhythm: + tachycardic Gastrointestinal (Abdomen): Inspection/Auscultation: abdomen not distended Musculoskeletal: Extremities: extremities normal to inspection Neurologic: awake; not confused Psychiatric: Orientation: + not oriented x 3 Affect: + anxious affect Results & Data ([facility]) Vital Signs (Past 12 Hours) Vital Signs Temp Pulse Resp BP Pulse Ox 10/07/20 07:06 98.2 F 124 H 19 165/82 H 98 PG Care Time/CCT Total # of Minutes Spent Total Time Spent with Patient: Total time spent is greater than 50% in coordination of care (as documented) at patient's floor/unit and/or counseling patient: Coding Level of Care Code 96298 Subseq Hosp Care Lvl 2 Diagnoses Palliative care encounter Z51.5 Anxiety F41.9 PAF (paroxysmal atrial fibrillation) I48.0 B-cell chronic lymphocytic leukemia C91.11 Leukemia Active/Remission status: in remission Acute metabolic encephalopathy G93.41 (1) B-cell chronic lymphocytic leukemia Leukemia Active/Remission status: in remission Qualified Code(s): C91.11 - Chronic lymphocytic leukemia of B-cell type in remission
[2020-10-07] MEDS ORDERED: ACETAMINOPHEN 1000 MG/100 ML IV IV PRN (17:14)
[2020-10-07] MEDS: LORazepam 0.5 MG TAB SL SCH (22:09)
[2020-10-08] MEDS: levETIRAcetam 750 MG in 0.9 % SODIUM CHLORIDE 100 ML IV SCH ×2 (09:24→20:48)
[2020-10-08] MEDS: LORazepam 0.5 MG TAB SL SCH ×2 (09:27→20:49)
--- NOTE | 2020-10-08 10:22 | Hospitalist Progress Note ---
Date of Service October 08, 2020 Assessment & Plan (1) Cognitive deficit, post-stroke: Present on admission with generalized weakness Patient lives alone, does not have any family His home situation as per his friend is deplorable CT head showed No acute intracranial abnormality. MRI of brain showed no acute intracranial findings. No evidence of acute or subacute infarction. 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 Psychiatry consulted to assist patient's decision-making capacity. Ammonia level elevated per psychiatry patient still appears to be very encephalopathic, unable to have any insight regarding his health, self-care, Patient was not capable of leaving hospital AMA Discharge planning will be very difficult, patient does not have any medical insurance, placement to rehab or long-term care could be difficult Returning home by himself has a serious safety concern Case management aware, office of aging will be involved to assist with patient's living situation and support system Pt is now comfort care, CM aware - OOA involved Palliative medicine following - appreciate their input - pain meds and ativan provided to help w/ restlessness Metabolic encephalopathy Patient continues to show cognitive deficit, only able to answer some questions appropriately This is likely multifactorial Found to have high ammonia level (? Acute Hepatic encephalopathy), high calcium (Hypercalcemia), high sodium (Hypernatremia) Calcium level and sodium level now within normal level, ammonia elevated GI contacted during this admission d/t elevated ammonia - recommend lactulose, MRCP for mildly elevated bilirubin MRCP unremarkable Lactulose started but ammonia still elevated, started xifaxan Unfortunately patient also found possibly septic with elevated lactic acid, fever However unclear if this is driven by infection or by patient's lymphoma Pt now comfort care, mental status essentially unchanged Fever, elevated lactic acid ? Sepsis versus driven by lymphoma Overnight(10/01-10/02) chest x-ray obtained, possible aspiration pneumonitis UA negative Blood cultures obtained October 01 NGTD Patient started on Unasyn, and IV fluids Repeat lactic acid only slightly down No longer febrile, lactic acid persistently elevated likely 2/2 lymphoma, pt now made comfort care DEE -Elevated creatinine, to 1.9 (10/02) -Receiving IV fluids -Nephrology been following -Continue to monitor creatinine, renal function, try to avoid NSAIDs and other nephrotoxic agents -Cr improved 1.6 (10/04) -stopped monitoring renal function, pt made comfort care High-grade large B-cell lymphoma Patient has history of CLL, follows with Dr. Roe (oncology) Now underwent lymph node biopsy during this admission, consistent with high- grade large B-cell lymphoma Contacted Dr. Roe (10/02) and further discussed. Says that for this type of lymphoma, patient would need to be on intensive chemotherapy, for which he is not a candidate at this time. Recommended to also obtain LDH LDH significantly elevated, at [address] Roe, high LDH explains a large cell lymphoma, likely to progress in the next few weeks, and recommend hospice Palliative medicine contacted Discussed CODE STATUS with the patient and Aleshia, his closest friend as patient does not have any close family. Patient does not have any children, spouse or siblings. When I asked him if there is anybody else that could provide medical decision- making for him if he cannot, he said only friend Aleshia David. Per Aleshia, patient would never want any aggressive measures done and he did not want to come into the hospital in the first place. She was also updated about patient's poor prognosis, and discussion with oncology. Given poor clinical progress thus far, it seems that further treatment is futile. After thorough discussion with Aleshia, patient and palliative medicine, patient was made comfort care on October 04. 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 In addition there is splenomegaly. Lymphoma is the diagnosis of exclusion. Biopsy is recommended. No evidence of bowel obstruction. No evidence of free air. Cholelithiasis. No renal, ureteral, or bladder calculi identified. There is posterior mediastinal paraesophageal and para-aortic lymphadenopathy. There is a small hiatal hernia. was on Ibrutinib -out patient for CLL -Appreciate surgery input -Status post right inguinal lymph node biopsy on 09/18/20 -Flow cytometry study suggestive of B-cell lymphoproliferative disorder. Pathology c/w high-grade B-cell lymphoma, as above per oncology, recommend hospice (see above), pt now made comfort care (3) HTN (hypertension): Uncontrolled BP Pt has not been able to take his PO BP med when confused Case discussed with Nephrology that recommended IV labetalol (now on hold) Continue monitor BP Resolved, BP controlled Pt now made comfort care, unnecessary meds discontinued (4) PAF (paroxysmal atrial fibrillation): Management as above (5) H/O alcohol abuse: h/o heavy alcohol use No active alcohol withdrawal symptoms noted Continued thiamine, folic acid Continued gabapentin when able to take PO, then on hold as pt very somnolent and developed DEE Now pt made comfort care, medications discontinued (6) Seizure: No recent seizure activity CT Head:No acute intracranial findings. Left frontal lobe encephalomalacia. On Keppra, changed to IV since pt unable to take PO Neuro eval appreciated (7) Depression: stopped home medications, as above (8) Polyneuropathy: stopped gabapentin, as above (9) DVT prophylaxis: stopped Lovenox SQ, comfort care Code Status : COMFORT CARE Discussed CODE STATUS with the patient and Aleshia, his closest friend as patient does not have any close family. Patient does not have any children, spouse or siblings. When I asked him if there is anybody else that could provide medical decision- making for him if he cannot, he said only friend Aleshia Hernandez. Per Aleshia, patient would never want any aggressive measures done and he did not want to come into the hospital in the first place. She was also updated about patient's poor prognosis, and discussion with oncology. Given poor clinical progress thus far, it seems that further treatment is futile. After thorough discussion with Aleshia, patient and palliative medicine, patient was made comfort care on October 04. Disposition not safe to return home /lives alone -fall risk ,baseline dementia -unable to do self care /does not appear to have enough cognitive ability for self administration needs 02/11 care PT/OT eval case management consulted for discharge planning - office of ageing involved Palliative medicine also consulted - appreciate their input Admission and Anticipated Discharge Date Admission Date: September 16, 2020 Subjective Pt was seen and examined for follow up of confusion, high grade B cell lymphoma, now comfort care Patient is lying in bed, sleeping soundly and appears comfortable Unfortunately patient does not have any children or spouse, nor siblings. When pt was more awake/alert earlier this admission, asked the patient about who could be possibly making medical decisions for him if he cannot, patient said friend Aleshia. I contacted patient's friend Aleshia. Per Aleshia, patient would never want any aggressive measures done. He did not want to come to the hospital in the first place. I asked the patient if it was correct that he would not want any aggressive measures done such as being put on ventilator etc., and patient whispered that it was correct. He also again told me that Aleshia is his closest person. Aleshia was able to visit, and had this conversation as well with Dr. Cordon, from palliative medicine, and the patient. Aleshia was updated about patient's poor prognosis, and my conversation with Dr. Roe from oncology. Given Edouard's poor clinical progress thus far, further treatment seems to be futile. Aleshia is in understanding, and after thorough discussion, patient was changed to comfort care status. Palliative medicine following. Review of Systems Review of Systems: pt is sleeping soundly, appears in no distress Physical Exam Physical Exam: General- WD/WN, in NAD, sleeping soundly Head- atraumatic Neck- supple, no JVD Lungs- clear to auscultation Heart- +tachycardic Abdomen- normal bowel sounds, soft,+mildly distended, seems nontender Extremities- no calf tenderness Neuro- sleepy, only mumbles when prompted, answers intelligible, moves extremities Skin- warm & dry
--- NOTE | 2020-10-08 15:52 | Palliative Care Progress Note ---
Date of Service October 08, 2020 Assessment & Plan (1) Palliative care encounter: Goal is comforted directed care. Plan for placement at SNF with that in mind when possible. Case management and Office of Aging are involved. He does not have any family or designated POA, but has clearly stated earlier in this admission that he would want his friend, Aleshai Hernandez, to be his surrogate decision maker. (2) Anxiety: Patient appears less restless compared to previous encounters by providers. Patient tolerating Ativan 0.5 mg Sl BID. While comfortable now, will keep Ativan scheduled to avoid backpedaling with increased agitation. Patient does appear to have furrowed brow, and appears that he could benefit from some scheduling dose of Roxicodone. He does have it ordered PRN, but around the clock twice daily could be beneficial in achieving overall comfort. The above discussed with the hospitalist and ordered. (3) PAF (paroxysmal atrial fibrillation): (4) B-cell chronic lymphocytic leukemia: (5) Acute metabolic encephalopathy: Admission and Anticipated Discharge Date Admission Date: September 16, 2020 Subjective Pt was resting comfortably in his bed, no response to verbal or tactile stimulation. Patient did have furrowed brow. Previous notes reviewed. See A/P for further details. Review of Systems Review of Systems: [place] Symptom Assessment Scale Pain 1/3 Anxiety 1/3 Fatigue 1/3 Dyspnea 0/3 Palliative Performance Score 20% Physical Exam Constitutional: + acute distress (furrowed brow), + altered mental status and + disheveled ENMT: Mouth: + dry oral mucous membranes Respiratory: normal respiratory effort; no labored breathing Cardiovascular: Rate/Rhythm: regular rate, regular rhythm and + tachycardic (115) Extremities: normal capillary refill Gastrointestinal (Abdomen): Inspection/Auscultation: abdomen not distended Percussion/Palpation: abdomen nontender Musculoskeletal: Extremities: extremities normal to inspection Skin: no rashes, warm and dry Neurologic: + obtunded Psychiatric: Orientation: + not oriented x 3 Affect: + anxious affect Results & Data ([facility]) Vital Signs (Past 12 Hours) Vital Signs Temp Pulse Resp BP Pulse Ox 10/08/20 08:00 36.6 C 116 H 18 171/87 H 96 PG Care Time/CCT Total # of Minutes Spent Total Time Spent with Patient: Total time spent is greater than 50% in coordination of care (as documented) at patient's floor/unit and/or counseling patient: 35 minutes with > 50% of that time spent assessing the pt, discussing symptom management and making adjustments, all while collaborating with IDT Coding Level of Care Code 28992 Subseq Hosp Care Lvl 3 Diagnoses Palliative care encounter Z51.5 Anxiety F41.9 PAF (paroxysmal atrial fibrillation) I48.0 B-cell chronic lymphocytic leukemia C91.11 Leukemia Active/Remission status: in remission Acute metabolic encephalopathy G93.41 Time Spent (min) 35 (1) B-cell chronic lymphocytic leukemia Leukemia Active/Remission status: in remission Qualified Code(s): C91.11 - Chronic lymphocytic leukemia of B-cell type in remission
[2020-10-08] MEDS ORDERED: oxyCODONE HCL IR 5 MG TAB (IMMEDIATE RELEASE) PO SCH (16:30)
[2020-10-09] MEDS ORDERED: ATROPINE SULFATE 1% OP SOLN 5 ML BTL SL PRN (05:13)
--- NOTE | 2020-10-15 01:36 | Discharge Summary ---
Date of Service October 09, 2020 Admission HPI Per Admitting Provider 65-year-old man with history of B-cell CLL in remission presented to the ER via ambulance. The patient reports several days of generalized malaise but cannot pinpoint a specific symptom. He denies any fevers, chills, respiratory symptoms including cough, shortness of breath. He denies any chest pain, urinary symptoms. He does report some right inguinal pain related to a hernia which was scheduled to be surgically fixed by Dr. Turcios today. When the [facility] came to pick him up he was unable to get out of bed. EMS was notified and he was taken into the hospital. The patient reports a history of alcohol use that is significant. It is questionable when his last drink was but he seems to report his last drink approximately 48 hours ago. He does have a history of seizure but denies any breakthrough seizures recently. He does report an episode 4 to 5 days ago where he woke up feeling groggy and was not quite sure what had happened, but does not think he had a seizure. He was not sure. He reports being compliant with all his medications and reports poor oral intake generally. He denies having any family or significant friends locally. He lives by himself. He reports ambulating independently and occasionally using a cane and states his overall ability to ambulate has been slightly worse lately. He does not elaborate more than this. He he reports some generalized nausea. He does not drive and does not work. 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 He denies any tobacco use. He does have a history of B-cell CLL and is compliant with immunotherapy. His oncologist is through [facility] oncology and he was last seen approximately 8 months ago. He denies any B symptoms including no weight changes, night sweats, lymphadenopathy, or other concerns for malignancy. He denies any new strokelike symptoms including no headache, visual changes, difficulty swallowing. He has had a stroke in the past and suffers from word finding difficulty consistently. Admission Exam Per Admitting Provider CONSTITUTIONAL: WNWD, vitals as above, generally well-appearing EYES: normal conjunctivae, no scleral icterus ENT: external ear and nose normal, MMM RESPIRATORY: clear to auscultation bilaterally, no crackles, rales or wheezes, normal respiratory effort CARDIOVASCULAR: tachy rate and regular rhythm, S1 and 2 heard without murmurs, gallops or rubs, no JVD, no peripheral edema CHEST: inspection of chest was normal GASTROINTESTINAL: soft, NT, ND, no guarding. I cannot appreciate a hernia in his right inguinal region, even with head flexed forward and patient bearing down. MUSCULOSKELETAL: strength 5/5 throughout, head is normocephalic and atraumatic, neck supple, normal palpation of chest wall without tenderness SKIN: warm and dry, no rashes NEUROLOGIC: pupils are round and equal bilaterally, no facial palsy, no dysarthria. Some word finding difficulty noted but he is articulate. CN 2-12 grossly intact, no sensory deficit, normal cognition, normal speech, slight tremor on the right when holding his arms straight out in front of him. No asterixis noted. PSYCHIATRIC: alert cooperative and oriented to person, place and time. Euthymic mood, makes good eye contact, language grossly intact, recent and remote memory grossly intact. Principal Diagnosis High-grade large B-cell lymphoma DEE Metabolic Encephalopathy Discharge Exam No auscultated breath sounds, absent heartbeat. Pupils non-reactive to light. Discharge Data Allergies Allergy/AdvReac Type Severity Reaction Status Date / Time No Known Allergies Allergy NONE Verified 09/16/20 16:24 Consultations 09/16/20 17:23 ED Decision to Admit Stat 09/16/20 20:51 Consult General Surgery Routine 09/17/20 08:42 Consult Cardiology Routine 09/20/20 11:42 Consult Neurology Routine 09/23/20 11:19 Consult Psychiatry Routine 09/27/20 15:53 Consult Gastroenterology Routine 09/28/20 11:17 Consult Nephrology Routine 10/02/20 11:13 Consult Palliative Care Routine 10/04/20 13:54 Consult Palliative Care Routine Procedures Performed Operation Date: 09/18/20 14:00 Actual Procedures p Right Inguinal Lymph Node Biopsy(Right) - Roberto Wilson, , FACS Ordered Studies 09/16/20 13:47 CT abd pelvis wo con Stat 09/16/20 16:11 CT head/brain wo con Stat 09/19/20 11:15 CT head/brain wo/w con Routine 09/20/20 16:21 MR brain wo/w con Routine 10/02/20 16:59 MR MRCP Routine Hospital Course (1) Cognitive deficit, post-stroke: Present on admission with generalized weakness Patient lives alone, does not have any family His home situation as per his friend is deplorable CT head showed No acute intracranial abnormality. MRI of brain showed no acute intracranial findings. No evidence of acute or subacute infarction. 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 Psychiatry consulted to assist patient's decision-making capacity. Ammonia level elevated per psychiatry patient still appears to be very encephalopathic, unable to have any insight regarding his health, self-care, Patient was not capable of leaving hospital AMA Discharge planning will be very difficult, patient does not have any medical insurance, placement to rehab or long-term care could be difficult Returning home by himself has a serious safety concern Case management aware, office of aging will be involved to assist with patient's living situation and support system Pt is now comfort care, CM aware - [facility]OA involved Palliative medicine following - appreciate their input - pain meds and ativan provided to help w/ restlessness Metabolic encephalopathy Patient continues to show cognitive deficit, only able to answer some questions appropriately This is likely multifactorial Found to have high ammonia level (? Acute Hepatic encephalopathy), high calcium (Hypercalcemia), high sodium (Hypernatremia) Calcium level and sodium level now within normal level, ammonia elevated GI contacted during this admission d/t elevated ammonia - recommend lactulose, MRCP for mildly elevated bilirubin MRCP unremarkable Lactulose started but ammonia still elevated, started xifaxan Unfortunately patient also found possibly septic with elevated lactic acid, fever However unclear if this is driven by infection or by patient's lymphoma Pt now comfort care, mental status essentially unchanged Fever, elevated lactic acid ? Sepsis versus driven by lymphoma Overnight(10/01-10/02) chest x-ray obtained, possible aspiration pneumonitis UA negative Blood cultures obtained October 01, NGTD Patient started on Unasyn, and IV fluids Repeat lactic acid only slightly down No longer febrile, lactic acid persistently elevated likely 2/2 lymphoma, pt now made comfort care DEE -Elevated creatinine, to 1.9 (10/02) -Receiving IV fluids -Nephrology been following -Continue to monitor creatinine, renal function, try to avoid NSAIDs and other nephrotoxic agents -Cr improved 1.6 (10/04) -stopped monitoring renal function, pt made comfort care High-grade large B-cell lymphoma Patient has history of CLL, follows with Dr. Roe (oncology) Now underwent lymph node biopsy during this admission, consistent with high- grade large B-cell lymphoma Contacted Dr. Roe (10/02) and further discussed. Says that for this type of lymphoma, patient would need to be on intensive chemotherapy, for which he is not a candidate at this time. Recommended to also obtain LDH LDH significantly elevated, at [address] Roe, high LDH explains a large cell lymphoma, likely to progress in the next few weeks, and recommend hospice Palliative medicine contacted Discussed CODE STATUS with the patient and Aleshia, his closest friend as patient does not have any close family. Patient does not have any children, spouse or siblings. When I asked him if there is anybody else that could provide medical decision- making for him if he cannot, he said only friend Aleshia Hernandez. Per Aleshia, patient would never want any aggressive measures done and he did not want to come into the hospital in the first place. She was also updated about patient's poor prognosis, and discussion with oncology. Given poor clinical progress thus far, it seems that further treatment is futile. After thorough discussion with Aleshia, patient and palliative medicine, patient was made comfort care on October 04. (2) Tachycardia: Atrial fibrillation with RVR Resolved heart rate is currently rate and rhythm controlled hx of paroxysmal atrial fibrillation Normal TSH Spontaneously converted to sinus On metoprolol 25 mg twice daily, then back on home atenolol 50 daily Appreciate Cardiology Input Not a candidate for long-term anticoagulation given risk for falls, non compliance/cognitive impairment remains in sinus with rate control , teletypesetter monitor d/lolita Now pt made comfort care, unnecessary medications discontinued Extensive lymphadenopathy H/O CLL -CT ABD:Extensive mesenteric, retroperitoneal, iliac chain, and iliac lymphadenopathy. In addition there is splenomegaly. Lymphoma is the diagnosis of exclusion. Biopsy is recommended. No evidence of bowel obstruction. No evidence of free air. Cholelithiasis. No renal, ureteral, or bladder calculi identified. There is posterior mediastinal paraesophageal and para-aortic lymphadenopathy. There is a small hiatal hernia. was on Ibrutinib -out patient for CLL -Appreciate surgery input -Status post right inguinal lymph node biopsy on 09/18/20 -Flow cytometry study suggestive of B-cell lymphoproliferative disorder. Pathology c/w high-grade B-cell lymphoma, as above per oncology, recommend hospice (see above), pt now made comfort care (3) HTN (hypertension): Uncontrolled BP Pt has not been able to take his PO BP med when confused Case discussed with Nephrology that recommended IV labetalol (now on hold) Continue monitor BP Resolved, BP controlled Pt now made comfort care, unnecessary meds discontinued (4) PAF (paroxysmal atrial fibrillation): Management as above (5) H/O alcohol abuse: h/o heavy alcohol use No active alcohol withdrawal symptoms noted Continued thiamine, folic acid Continued gabapentin when able to take PO, then on hold as pt very somnolent and developed DEE Now pt made comfort care, medications discontinued (6) Seizure: No recent seizure activity CT Head:No acute intracranial findings. Left frontal lobe encephalomalacia. On Keppra, changed to IV since pt unable to take PO Neuro eval appreciated (7) Depression: stopped home medications, as above (8) Polyneuropathy: stopped gabapentin, as above (9) DVT prophylaxis: stopped Lovenox SQ, comfort care Code Status : COMFORT CARE Discussed CODE STATUS with the patient and Aleshia, his closest friend as patient does not have any close family. Patient does not have any children, spouse or siblings. When I asked him if there is anybody else that could provide medical decision-making for him if he cannot, he said only friend Aleshia Hernandez. Per Aleshia, patient would never want any aggressive measures done and he did not want to come into the hospital in the first place. She was also updated about patient's poor prognosis, and discussion with oncology. Given poor clinical progress thus far, it seems that further treatment is futile. After thorough discussion with Aleshia, patient and palliative medicine, patient was made comfort care on October 04. Disposition not safe to return home /lives alone -fall risk ,baseline dementia -unable to do self care /does not appear to have enough cognitive ability for self administration needs 02/11 care PT/OT eval case management consulted for discharge planning - office of ageing involved Palliative medicine also consulted - appreciate their input Pt ceased to breathe at 0600. No auscultated breath sounds, absent heartbeat. Pupils non-reactive to light. Pt. pronounced at 0600. Total Time Total Time Spent Total Time Spent (In Minutes): 10 minutes Total Time Includes: Examination of the Patient, Discharge Planning, Medication Reconciliation, Communication With Other Providers and Other Discharge Plan Discharge Items Patient Disposition: Discharge Diagnosis: sepsis, dee, high grade b cell lymphoma, hypernatremia Addtl Attending Provider Instructions: at 6am today 10/09/20
--- NOTE | 2020-10-20 10:06 | Coding Query ---
SEPSIS To promote full compliance with coding requirements relating to patient care, physician participation is requested in all cases of curtain stretcher uncertainty. Please assist us with the question(s) below: In responding to this query, please exercise your independent professional judgement. The fact that a question is asked does not imply that any particular answer is desired or expected. We appreciate your clarification on this issue. Throughout the medical record, you have clearly documented a localized infection and your patient has clinical evidence of a generalized sepsis or severe sepsis. The term urosepsis is a nonspecific entity and is coded as an UTI. If the patient has sepsis, severe sepsis, from an urinary source or some other source, please clarify in your response below. The medical record reflects the following clinical findings: Patient admitted with chroic B-cell CML ....Progress notes document CML / Sepsis . Please document the diagnosis that was treated during this Inpatient stay if relevent. Thanks for your help! Emmett Agusto WINDOW DECORATOR [facility] ____ ( )Bacteremia (Nonspecific laboratory finding of bacteria in the blood) Specify Organism ( ) Present on Admission ( ) Not present on admission ( ) Unable to clinically determine ( ) Septicemia (Systemic disease associated with the presence of pathogenic microorganisms in the blood): Specify Organism ( ) Present on Admission ( ) Not present on admission ( ) Unable to clinically determine ( ) Sepsis Specify Organism Specify Associated Condition/Diagnosis ( ) Present on Admission ( ) Not present on admission ( ) Unable to clinically determine ( ) Severe Sepsis (Sepsis associated with acute organ dysfunction) Specify Organism Specify Associated Condition/Diagnosis ( ) Present on Admission ( ) Not present on admission ( ) Unable to clinically determine ( ) Septic Shock (Severe sepsis with acute circulatory failure, unexplained by other causes) ( ) Present on Admission ( ) Not present on admission ( ) Unable to clinically determine ( ) Other, patient has: MTDD
== END 2020-10-09 06:38 | disposition expired | DRG 820 ==
LOC: ED 13:22 → 2S 17:38 → SUATTDRO 17:38 → 2S 18:22 → 2N 09-19 15:46 → 3N 09-24 02:55 → 2S 09-28 22:03 → 3W 10-04 17:27